=== PATIENT | male | born 1940 | race Caucasian/White ===

== ENCOUNTER 2017-12-05 16:45 | Inpatient (IN) | payer MEDICARE, MEDICAID ==
--- NOTE | 2017-12-05 17:05 | ED Physician Chart ---
ED Chief Complaint/HPI - Patient Information Date Seen:: 12/05/17 Time Seen:: 16:45 Chief Complaint:: Agitation History of Present Illness:: onset x 3 days of agitation and hostile behavior; no report of trauma, SIs, H/As , neck pain, C/P, SOB, Abd. pain, A/N/V/D/C, fever, chills, or urinary s/s Historian:: Patient, EMS Review:: Nurse's Note Reviewed, Old Chart Reviewed, EMS run form Reviewed ED Review of Systems - Review of Systems General/Constitutional: No fever, No chills, No weight loss, No weakness, No diaphoresis, No edema, No loss of appetite Skin: No skin lesions, No rash, No bruising Head: No headache, No light-headedness Eyes: No loss of vision, No pain, No diplopia ENT: No earache, No nasal drainage, No sore throat, No tinnitus Neck: No neck pain, No swelling, No thyromegaly, No stiffness, No mass noted Cardio Vascular: No chest pain, No palpitations, No PND, No orthopnea, No edema Pulmonary: No SOB, No cough, No sputum, No wheezing GI: No nausea, No vomiting, No diarrhea, No pain, No melena, No hematochezia, No constipation, No hematemesis G/U: No dysuria, No frequency, No hematuria, No nacturia Musculoskeletal: No bone or joint pain, No back pain, No muscle pain Endocrine: No polyuria, No polydipsia Psychiatric: Prior psych history, Depression, Anxiety, No suicidal ideation, No homicidal ideation, No auditory hallucination, No visual hallucination Hematopoietic: No bruising, No lymphadenopathy Allergic/Immuno: No urticaria, No angioedema Neurological: No syncope, No focal symptoms, No weakness, No paresthesia, No headache, No seizure, No dizziness, No confusion, No vertigo ED Past Medical History - Past Medical History Obtainable: Yes Past Medical History: HTN, CAD, Dyslipidemia, PUD/GERD, Dementia Family History: HTN Social History: Non Smoker, No Alcohol, No Drug Use, Single, Care Facility Surgical History: None Psychiatricy History: Depression, Bipolar, Dementia Medication: Reviewed Family Medical History - Family Member Mother Sister History Unknown: Yes ED Physical Exam - Physical Examination General/Constitutional: Awake, Well-developed, well-nourished, Alert, No distress, GCS 15, Non-toxic appearing, Ambulatory Head: Atraumatic Eyes: Lids, conjuctiva normal, PERRL, EOMI Skin: Nl inspection, No rash, No skin lesions, No ecchymosis, Well hydrated, No lymphadenopathy ENMT: External ears, nose nl, TM canals nl, Nasal exam nl, Lips, teeth, gums nl , Oropharynx nl, Tonsils nl Neck: Nontender, Full ROM w/o pain, No JVD, No nuchal rigidity, No bruit, No mass, No stridor Respiratory: Nl effort/Exclusion, Clear to Auscultation, No Wheeze/Rhonchi/Rales Cardio Vascular: RRR, No murmur, gallop, rubs, NL S1 S2, Carotid/Femoral/Distal pulses equal bilaterally GI: No tenderness/rebounding/guarding, No organomegaly, No hernia, Normal BS's, Nondistended, No mass/bruits, No McBurney tenderness : No CVA tenderness Extremities: No tenderness or effusion, Full ROM, normal strength in all extremities, No edema, Normal digits & nails Neuro/Psych: Alert/oriented, DTR's symmetric, Normal sensory exam, Normal motor strength, Judgement/insight normal, Mood normal, Normal gait, No focal deficits Other Neuro/Psych comments:: + Psychomotor Agitation; no SIs; Mood/Affect: Labile Misc: Normal back, No paraspinal tenderness ED Labs/Radiology/EKG Results - Lab Results Comments:: unremarkable - EKG Interpretations EKG Time:: 18:16 Rate & Rhythm: 76; NSR Comments:: old ASMI; LVH; non-specific st-t changes ED Septic Shock - . Is Septic Shock (SBP<90, OR Lactate>4 mmol\L) present?: No ED Reassessment (Disposition) - Reassessment Reassessment Condition:: Improved - Diagnosis Diagnosis:: Dx: Agitation; Psychosis; Bipolar Disorder; Medical Clearance - Aftercare/Follow up Instructions Aftercare/Follow-Up Instructions:: Counseled pt regarding lab results/diagnosis & need follow up, Counseled pt & family regarding lab results/diagnosis & need follow up - Patient Disposition Discharge/Transfer:: Acute Care w/in this hosp Admitted to:: [facility] Condition at Disposition:: Stable, Improved
[2017-12-05] MEDS ORDERED: Haloperidol Lactate 5 mg/mL 1mL Vial IM STA (17:13)
[2017-12-05] MEDS ORDERED: Haloperidol Lactate 5 mg/mL 1mL Vial ONE (17:16)
[2017-12-05 18:28] LABS: BASOPHILE ABSOLUTE 0.1 Th/cumm (0-0.2); EOSINOPHILE ABSOLUTE 0.2 Th/cmm (0.1-0.4); HEMATOCRIT 36.3 % (41.0-60); HEMOGLOBIN 12.2 gm/dL (12-16); MEAN CELL VOLUME 93.1 fl (80-99); MEAN CORPUSCULAR HEMOGLOBIN 31.4 pg (27.0-31.0); MEAN CORPUSCULAR HGB CONC 33.7 pg (28.0-36.0); MEAN PLATELET VOLUME 8.1 fl; MONOCYTE ABSOLUTE 0.9 Th/cmm (0.3-1.0); NEUTROPHILE ABSOLUTE 3.5 Th/cmm (1.8-8.0); PLATELET COUNT 217 Th/cmm (150-400); WHITE BLOOD COUNT 5.7 Th/cmm (4.8-10.8)
[2017-12-05 18:53] LABS: ACETAMINOPHEN < 10.0 ug/mL (10.0-30.0); ALB/GLOB RATIO 1.3 (1.0-1.8); ALBUMIN 3.7 gm/dL (4.2-5.5); ALKALINE PHOSPHATASE 47 U/L (34-104); ANION GAP 8.9 (7.0-16.0); BILIRUBIN,TOTAL 0.3 mg/dL (0.3-1.0); BUN - UREA NITROGEN 20 mg/dL (7-25); CALCIUM SERUM 8.9 mg/dL (8.6-10.3); CARBON DIOXIDE 29.1 mEq/L (21.0-31.0); CHLORIDE 102 mEq/L (98-107); CHOLESTEROL 115 mg/dL (<200); CREATININE - SERUM 1.1 mg/dL (0.7-1.3); GLUCOSE 99 mg/dL (70-105); HDL -HIGH DENSITY LIPOPROTEIN 33 mg/dL (23-92); SALICYLATES (ASPIRIN) < 25.0 mg/L (30.0-100.0); SGOT 15 U/L (13-39); SGPT/ALT 10 U/L (7-52); SODIUM SERUM 136 mEq/L (136-145); TOTAL PROTEIN,SERUM 6.5 gm/dL (6.0-8.3); TRIGLYCERIDES 115 mg/dL (<150)
[2017-12-05 18:59] LABS: % EOSINOPHILS 3.8 % (0.0-5.0); % LYMPHOCYTES 20.3 % (20.0-50.0); % MONOCYTES 13.5 % (2.0-10.0); % NEUTROPHILS 61.4 % (40.0-80.0)
[2017-12-05 19:43] LABS: A1C % 5.9 % (4.0-6.0)
[2017-12-05 20:25] VITALS: BP 116/63
[2017-12-06] MEDS ORDERED: MINERAL OIL ENEMA 135 ML BOTTLE RC PRN (11:36)
[2017-12-06] MEDS ORDERED: Magnesium Hydroxide (MOM) 30 mL UDC PO PRN (11:36)
--- NOTE | 2017-12-06 14:50 | Internal Medicine Prog Note ---
Internal Medicine Subjective - Subjective Service Date: 12/06/17 ([facility] [id number]) Internal Medicine Objective - Results Result Diagrams: 12/05/17 18:16 12/05/17 18:16 Recent Labs: Laboratory Last Values WBC 5.7 Th/cmm (4.8-10.8) 12/05/17 18:16 RBC 3.90 Mil/cmm (3.80-5.80) 12/05/17 18:16 Hgb 12.2 gm/dL (12-16) 12/05/17 18:16 Hct 36.3 % (41.0-60) L 12/05/17 18:16 MCV 93.1 fl (80-99) 12/05/17 18:16 MCH 31.4 pg (27.0-31.0) H 12/05/17 18:16 MCHC Differential 33.7 pg (28.0-36.0) 12/05/17 18:16 RDW 12.0 % (11.5-20.0) 12/05/17 18:16 Plt Count 217 Th/cmm (150-400) 12/05/17 18:16 MPV 8.1 fl 12/05/17 18:16 Neutrophils % 61.4 % (40.0-80.0) 12/05/17 18:16 Lymphocytes % 20.3 % (20.0-50.0) 12/05/17 18:16 Monocytes % 13.5 % (2.0-10.0) H 12/05/17 18:16 Eosinophils % 3.8 % (0.0-5.0) 12/05/17 18:16 Basophils % 1.0 % (0.0-2.0) 12/05/17 18:16 Sodium 136 mEq/L (136-145) 12/05/17 18:16 Potassium 4.0 mEq/L (3.5-5.1) 12/05/17 18:16 Chloride 102 mEq/L (98-107) 12/05/17 18:16 Carbon Dioxide 29.1 mEq/L (21.0-31.0) 12/05/17 18:16 Anion Gap 8.9 (7.0-16.0) 12/05/17 18:16 BUN 20 mg/dL (7-25) 12/05/17 18:16 Creatinine 1.1 mg/dL (0.7-1.3) 12/05/17 18:16 Est GFR ( Amer) TNP 12/05/17 18:16 Est GFR (Non-Af Amer) TNP 12/05/17 18:16 BUN/Creatinine Ratio 18.2 12/05/17 18:16 Glucose 99 mg/dL (70-105) 12/05/17 18:16 Hemoglobin A1c % 5.9 % (4.0-6.0) 12/05/17 18:16 Calcium 8.9 mg/dL (8.6-10.3) 12/05/17 18:16 Total Bilirubin 0.3 mg/dL (0.3-1.0) 12/05/17 18:16 AST 15 U/L (13-39) 12/05/17 18:16 ALT 10 U/L (7-52) 12/05/17 18:16 Alkaline Phosphatase 47 U/L (34-104) 12/05/17 18:16 Total Protein 6.5 gm/dL (6.0-8.3) 12/05/17 18:16 Albumin 3.7 gm/dL (4.2-5.5) L 12/05/17 18:16 Globulin 2.8 gm/dL 12/05/17 18:16 Albumin/Globulin Ratio 1.3 (1.0-1.8) 12/05/17 18:16 Triglycerides 115 mg/dL (<150) 12/05/17 18:16 Cholesterol 115 mg/dL (<200) 12/05/17 18:16 LDL Cholesterol Direct 58 mg/dL (75-193) L 12/05/17 18:16 HDL Cholesterol 33 mg/dL (23-92) 12/05/17 18:16 TSH 3.22 uIU/ml (0.34-5.60) 12/05/17 18:16 Salicylates < 25.0 mg/L (30.0-100.0) L 12/05/17 18:16 Acetaminophen < 10.0 ug/mL (10.0-30.0) L 12/05/17 18:16 Ethyl Alcohol < 10 mg/dL (0-10) 12/05/17 18:16 - Physical Exam Vitals and I&O: Vital Signs Temp 98 F 12/06/17 06:32 Pulse 94 12/06/17 06:32 Resp 20 12/06/17 06:32 BP 141/84 12/06/17 06:32 Pulse Ox 98 12/06/17 06:32 Intake & Output 12/05/17 12/06/17 12/06/17 18:59 06:59 18:59 Intake Total 120 Balance 120 Intake: Oral 120 Other: # Voids 3 # Bowel Movements 1 Active Medications: Current Medications Atorvastatin Calcium (Lipitor) 10 mg PO HS ALEXANDRU PRN Reason: Protocol Stop: 02/04/18 20:59 Bisacodyl (Dulcolax 10 Mg Supp) mg RC DAILY PRN PRN Reason: Constipation Stop: 02/04/18 11:35 Cyanocobalamin (Vitamin B12) 1,000 mcg PO DAILY ALEXANDRU Stop: 02/05/18 08:59 Divalproex Sodium (Depakote Sprinkle) mg PO DAILY ALEXANDRU PRN Reason: Protocol Stop: 02/05/18 08:59 Divalproex Sodium (Depakote Sprinkle) 250 mg PO DAILY ALEXANDRU PRN Reason: Protocol Stop: 02/05/18 08:59 Divalproex Sodium (Depakote Sprinkle) 500 mg PO HS ALEXANDRU PRN Reason: Protocol Stop: 02/04/18 20:59 Furosemide (Lasix) mg PO DAILY ALEXANDRU Stop: 02/05/18 08:59 Furosemide (Lasix) 20 mg PO DAILY ALEXANDRU Stop: 02/05/18 08:59 Lorazepam (Ativan) 0.5 mg PO Q8H PRN; Protocol PRN Reason: Anxiety Stop: 02/04/18 11:35 Magnesium Hydroxide (Milk Of Magnesia) 30 ml PO Q2D PRN PRN Reason: Constipation Stop: 02/04/18 11:35 Memantine (Namenda) mg PO DAILY ALEXANDRU Stop: 02/05/18 08:59 Memantine (Namenda) 5 mg PO DAILY ALEXANDRU Stop: 02/05/18 08:59 Mineral Oil (Fleet Mineral Oil) ml RC Q2D PRN PRN Reason: Constipation Stop: 02/04/18 11:35 Mirtazapine (Remeron) mg PO HS ALEXANDRU PRN Reason: Protocol Stop: 02/04/18 20:59 Miscellaneous (Cholecalciferol (Vitamin D3) [Vitamin D3]) 1 tab PO DAILY ALEXANDRU Stop: 02/05/18 08:59 Miscellaneous (Lactulose [Lactulose]) 5 ml PO DAILY ALEXANDRU Stop: 02/05/18 08:59 Miscellaneous (Levothyroxine Sodium [Levo-T]) 1 tab PO DAILY ALEXANDRU Stop: 02/05/18 08:59 Miscellaneous (Melatonin/Pyridoxine [Melatonin 3 Mg Tablet]) 1 tab PO HS ALEXANDRU Stop: 02/04/18 20:59 Miscellaneous (Multivitamin-Min/Iron/Fa/Vit K [Multi-Day Plus Minerals Tablet]) 1 tab PO DAILY ALEXANDRU Stop: 02/05/18 08:59 Polyethylene Glycol (Miralax) gm PO DAILY ALEXANDRU Stop: 02/05/18 08:59 Potassium Chloride (Potassium Chloride Elixir) 20 meq PO DAILY ALEXANDRU Stop: 02/05/18 08:59 Quetiapine Fumarate (Seroquel) mg PO [facility] PRN Reason: Protocol Stop: 02/04/18 20:59 Quetiapine Fumarate (Seroquel) mg PO [facility] PRN Reason: Protocol Stop: 02/05/18 08:59
--- NOTE | 2017-12-06 16:29 | History & Physical ---
ADMIT DATE: 12/06/2017 CHIEF COMPLAINT: Agitation. HISTORY OF PRESENT ILLNESS: This is a 77-year-old male who has a 3-day history of agitation, hostile behavior towards the nursing staff. PAST MEDICAL HISTORY: Hypertension, CAD, dyslipidemia, GERD, dementia. FAMILY HISTORY: Noncontributory. SOCIAL HISTORY: The patient is a retirement resident requiring 24-hour nursing care. MEDICATIONS: Please see medication list. REVIEW OF SYSTEMS: GENERAL: Denies any fevers and chills. CARDIOVASCULAR: Denies chest pain. RESPIRATORY: Denies shortness of breath. GASTROINTESTINAL: Denies nausea, vomiting, abdominal pain. GENITOURINARY: Denies any increased frequency or dysuria. NEUROLOGIC: No headaches, seizures, or syncope. All other systems are reviewed and are negative. PHYSICAL EXAMINATION: GENERAL: The patient is well developed, well nourished, no acute distress. VITAL SIGNS: Temperature 98, heart rate 94, blood pressure 141/84, respirations 20, O2 98%. HEENT: Head; normocephalic, atraumatic. NECK: Supple. No mass. LUNGS: Clear bilaterally. HEART: Regular rate and rhythm. ABDOMEN: Soft, nontender. LABORATORY DATA: WBC 5.7, H and H 12.2 and 36.3, platelet of 217. Sodium 136, potassium 4.0, chloride 102, BUN 20, creatinine 1.1. ASSESSMENT: Hypertension, coronary artery disease , dyslipidemia, gastroesophageal reflux disease, dementia, and agitation. PLAN: Monitor the patient's blood pressure. We will adjust patient's blood pressure medications accordingly. We will continue to follow this patient. JOB# [id number]
--- NOTE | 2017-12-06 18:04 | Psychosocial Evaluation ---
DATE OF SERVICE: 12/06/2017 IDENTIFYING DATA: The patient is a 77-year-old male, resident of the [facility]. Information obtained by directly interviewing the patient as well as reviewing the admission papers. JUSTIFICATION OF HOSPITALIZATION: The patient is admitted on a 5150 as being gravely disabled and danger to others. CHIEF COMPLAINT: "I don't care." HISTORY OF PRESENT ILLNESS: This is the first psychiatric hospitalization to [facility] for this patient who is reported to have been getting out of control, screaming and yelling. The patient has been having difficult time to cope with the stress. The patient has been currently on Seroquel, Depakote, and Ativan and is not able to contract for safety and hence the patient has to be brought over here for stabilization. PAST PSYCHIATRIC HISTORY: Details are not known. MEDICAL HISTORY/PHYSICAL EXAMINATION: Requested and done by Dr. Melecio Waite. SUBSTANCE ABUSE HISTORY: None. PHYSICAL OR SEXUAL ABUSE HISTORY: None. LEGAL PROBLEMS: None at this time. STRENGTH AND ASSETS: The patient is motivated. MENTAL STATUS EXAMINATION: The patient is a 77-year-old, looking his stated age, superficially cooperative. Eye contact is poor. Mood is noted to be irritable. Affect is constricted. Coping skills are noted to be extremely poor. The patient has been having difficult time to cope with the stress. The patient has been having difficult time to follow the directions. The patient has paranoia, but denies any command hallucinations. The patient's short-term and long-term are noted to be impaired. The patient has to be given medication to calm him down at this time. The patient's behavior is likely a danger to others. DIAGNOSTIC IMPRESSION: AXIS I. 1. Dementia and behavioral change secondary to it. 2. Rule out schizoaffective disorder. AXIS II: None. AXIS III: As per Dr. Waite. IMMEDIATE TREATMENT PLAN: The patient is going to be observed on inpatient unit, provided with supportive psychotherapy. The patient is going to be encouraged to participate in the groups and verbalize the concerns rather than to act out. ESTIMATED LENGTH OF STAY: 3-5 days. DISCHARGE CRITERIA: The patient when not a danger to self and others. [facility]# [id number]
[2017-12-06] MEDS ORDERED: Non-Formulary Item 1 EA (Melatonin/Pyridoxine [Melatonin 3 Mg Tablet] 1 TAB) PO SCH (21:00)
[2017-12-06] MEDS: Atorvastatin Calcium 10 MG TAB PO SCH (21:18)
[2017-12-07] MEDS ORDERED: LEVOTHYROXINE SODIUM PO SCH (09:00)
[2017-12-07] MEDS: Potassium Chloride Elixir 20 mEq /15 mL UDC PO SCH (09:20)
[2017-12-07] MEDS: Multivitamin Tab PO SCH (09:23)
--- NOTE | 2017-12-07 12:49 | Internal Medicine Prog Note ---
Internal Medicine Subjective - Subjective Service Date: 12/07/17 Patient seen and examined:: with staff Patient is:: awake Per staff patient has:: tolerating meds Internal Medicine Objective - Results Result Diagrams: 12/05/17 18:16 12/05/17 18:16 Recent Labs: Laboratory Last Values WBC 5.7 Th/cmm (4.8-10.8) 12/05/17 18:16 RBC 3.90 Mil/cmm (3.80-5.80) 12/05/17 18:16 Hgb 12.2 gm/dL (12-16) 12/05/17 18:16 Hct 36.3 % (41.0-60) L 12/05/17 18:16 MCV 93.1 fl (80-99) 12/05/17 18:16 MCH 31.4 pg (27.0-31.0) H 12/05/17 18:16 MCHC Differential 33.7 pg (28.0-36.0) 12/05/17 18:16 RDW 12.0 % (11.5-20.0) 12/05/17 18:16 Plt Count 217 Th/cmm (150-400) 12/05/17 18:16 MPV 8.1 fl 12/05/17 18:16 Neutrophils % 61.4 % (40.0-80.0) 12/05/17 18:16 Lymphocytes % 20.3 % (20.0-50.0) 12/05/17 18:16 Monocytes % 13.5 % (2.0-10.0) H 12/05/17 18:16 Eosinophils % 3.8 % (0.0-5.0) 12/05/17 18:16 Basophils % 1.0 % (0.0-2.0) 12/05/17 18:16 Sodium 136 mEq/L (136-145) 12/05/17 18:16 Potassium 4.0 mEq/L (3.5-5.1) 12/05/17 18:16 Chloride 102 mEq/L (98-107) 12/05/17 18:16 Carbon Dioxide 29.1 mEq/L (21.0-31.0) 12/05/17 18:16 Anion Gap 8.9 (7.0-16.0) 12/05/17 18:16 BUN 20 mg/dL (7-25) 12/05/17 18:16 Creatinine 1.1 mg/dL (0.7-1.3) 12/05/17 18:16 Est GFR ( Amer) TNP 12/05/17 18:16 Est GFR (Non-Af Amer) TNP 12/05/17 18:16 BUN/Creatinine Ratio 18.2 12/05/17 18:16 Glucose 99 mg/dL (70-105) 12/05/17 18:16 Hemoglobin A1c % 5.9 % (4.0-6.0) 12/05/17 18:16 Calcium 8.9 mg/dL (8.6-10.3) 12/05/17 18:16 Total Bilirubin 0.3 mg/dL (0.3-1.0) 12/05/17 18:16 AST 15 U/L (13-39) 12/05/17 18:16 ALT 10 U/L (7-52) 12/05/17 18:16 Alkaline Phosphatase 47 U/L (34-104) 12/05/17 18:16 Total Protein 6.5 gm/dL (6.0-8.3) 12/05/17 18:16 Albumin 3.7 gm/dL (4.2-5.5) L 12/05/17 18:16 Globulin 2.8 gm/dL 12/05/17 18:16 Albumin/Globulin Ratio 1.3 (1.0-1.8) 12/05/17 18:16 Triglycerides 115 mg/dL (<150) 12/05/17 18:16 Cholesterol 115 mg/dL (<200) 12/05/17 18:16 LDL Cholesterol Direct 58 mg/dL (75-193) L 12/05/17 18:16 HDL Cholesterol 33 mg/dL (23-92) 12/05/17 18:16 TSH 3.22 uIU/ml (0.34-5.60) 12/05/17 18:16 Salicylates < 25.0 mg/L (30.0-100.0) L 12/05/17 18:16 Acetaminophen < 10.0 ug/mL (10.0-30.0) L 12/05/17 18:16 Ethyl Alcohol < 10 mg/dL (0-10) 04/04/18 18:16 RPR NONREACTIVE (NONREACTIVE) 12/05/17 18:16 - Physical Exam Vitals and I&O: Vital Signs Temp 97.5 F 12/06/17 14:30 Pulse 93 12/06/17 14:30 Resp 18 12/06/17 14:30 BP 126/71 12/07/17 09:20 Pulse Ox 97 12/06/17 14:30 Active Medications: Current Medications Atorvastatin Calcium (Lipitor) 10 mg PO HS ALEXANDRU PRN Reason: Protocol Stop: 02/04/18 20:59 Last Admin: 12/06/17 21:18 Dose: 10 mg Bisacodyl (Dulcolax 10 Mg Supp) 10 mg RC DAILY PRN PRN Reason: Constipation Stop: 02/04/18 11:35 Cholecalciferol (Vitamin D3) 1,000 iu PO DAILY ALEXANDRU Stop: 02/05/18 09:59 Cyanocobalamin (Vitamin B12) 1,000 mcg PO DAILY ALEXANDRU Stop: 02/05/18 08:59 Last Admin: 12/07/17 09:20 Dose: 1,000 mcg Divalproex Sodium (Depakote Sprinkle) 250 mg PO DAILY ALEXANDRU PRN Reason: Protocol Stop: 02/05/18 08:59 Last Admin: 12/07/17 09:21 Dose: 250 mg Divalproex Sodium (Depakote Sprinkle) 500 mg PO HS ALEXANDRU PRN Reason: Protocol Stop: 02/04/18 20:59 Last Admin: 12/06/17 21:18 Dose: 500 mg Furosemide (Lasix) 20 mg PO DAILY ALEXANDRU Stop: 02/05/18 08:59 Last Admin: 12/07/17 09:20 Dose: 20 mg Lactulose (Cephulac) 10 gm PO DAILY ALEXANDRU Stop: 02/05/18 08:59 Levothyroxine Sodium 0.1 mg/ (Levothyroxine Sodium 0.05 mg) 0.15 mg PO QDAC ALEXANDRU Stop: 02/05/18 09:59 Lorazepam (Ativan) 0.5 mg PO Q8H PRN; Protocol PRN Reason: Anxiety Stop: 02/04/18 11:35 Last Admin: 12/06/17 15:33 Dose: 0.5 mg Magnesium Hydroxide (Milk Of Magnesia) 30 ml PO Q2D PRN PRN Reason: Constipation Stop: 02/04/18 11:35 Memantine (Namenda) 5 mg PO DAILY ALEXANDRU Stop: 02/05/18 08:59 Last Admin: 12/07/17 09:20 Dose: 5 mg Mineral Oil (Fleet Mineral Oil) 135 ml RC Q2D PRN PRN Reason: Constipation Stop: 02/04/18 11:35 Mirtazapine (Remeron) 15 mg PO HS ALEXANDRU PRN Reason: Protocol Stop: 02/04/18 20:59 Last Admin: 12/06/17 21:19 Dose: 15 mg Multivitamins/Vitamin C (Theragran) 1 tab PO DAILY ALEXANDRU Stop: 02/05/18 08:59 Last Admin: 12/07/17 09:23 Dose: 1 tab Polyethylene Glycol (Miralax) 17 gm PO DAILY ALEXANDRU Stop: 02/05/18 09:59 Potassium Chloride (Potassium Chloride Elixir) 20 meq PO DAILY ALEXANDRU Stop: 02/05/18 08:59 Last Admin: 12/07/17 09:20 Dose: 20 meq Quetiapine Fumarate (Seroquel) 50 mg PO BID ALEXANDRU PRN Reason: Protocol Stop: 02/04/18 16:59 Last Admin: 12/07/17 09:22 Dose: 50 mg Quetiapine Fumarate (Seroquel) 100 mg PO HS ALEXANRDU PRN Reason: Protocol Stop: 02/04/18 20:59 Last Admin: 12/06/17 21:17 Dose: 100 mg General: alert HEENT: NC/AT, PERRLA Neck: Supple Lungs: CTAB Cardiovascular: RRR Abdomen: soft, non-tender, non-distended, positive bowel sound Neurological: no change Internal Medicine Assmt/Plan - Assessment Assessment: HTN CAD DYSLIPIDEMIA GERD DEMENTIA AGITATION - Plan Plan: ADJUST PATIENTS BP MEDS if needed cont with ppi continue current orders
[2017-12-07] MEDS: Lactulose 10 Gm/15 mL 30mL UDC PO SCH (16:10)
[2017-12-07] MEDS: POLYETHYLENE GLYCOL 3350 17 GM PACK PO SCH (16:11)
[2017-12-07] MEDS: Atorvastatin Calcium 10 MG TAB PO SCH (20:37)
--- NOTE | 2017-12-08 05:09 | Progress Notes ---
DATE: 12/07/2017 PSYCHIATRIC PROGRESS NOTE SUBJECTIVE: Staff was spoken to. The patient is interviewed. Mood is noted to be irritable. Affect is constricted. The patient's insight and judgment are very much impaired. Impulse control is noted to be poor. The patient has been screaming and yelling. The patient has to be given a dose of Ativan IM. The patient is currently on 50 mg twice a day of the Seroquel twice a day and 100 mg at bedtime. The patient has been able to tolerate the medications. No side effects to the medications are noted. The patient is also on 750 mg of the Depakote. The patient even with all the medications has been having difficult time to cope with the stress. ASSESSMENT: The patient is still having acute mood swings and confusion. PLAN: To continue the patient with the supportive therapy and followup. JOB# [id number]
[2017-12-08] MEDS: Multivitamin Tab PO SCH (08:06)
[2017-12-08] MEDS: Potassium Chloride Elixir 20 mEq /15 mL UDC PO SCH (08:06)
[2017-12-08] MEDS: POLYETHYLENE GLYCOL 3350 17 GM PACK PO SCH (08:06)
[2017-12-08] MEDS: Lactulose 10 Gm/15 mL 30mL UDC PO SCH (08:09)
[2017-12-08] MEDS ORDERED: Haloperidol Lactate 5 mg/mL 1mL Vial ONE (13:02)
[2017-12-08] MEDS ORDERED: Haloperidol Lactate 5 mg/mL 1mL Vial IM ONE (13:03)
--- NOTE | 2017-12-08 13:44 | Internal Medicine Prog Note ---
Internal Medicine Subjective - Subjective Service Date: 12/08/17 Patient seen and examined:: with staff Patient is:: awake Per staff patient has:: tolerating meds Internal Medicine Objective - Results Result Diagrams: 12/05/17 18:16 12/05/17 18:16 Recent Labs: Laboratory Last Values WBC 5.7 Th/cmm (4.8-10.8) 12/05/17 18:16 RBC 3.90 Mil/cmm (3.80-5.80) 12/05/17 18:16 Hgb 12.2 gm/dL (12-16) 12/05/17 18:16 Hct 36.3 % (41.0-60) L 12/05/17 18:16 MCV 93.1 fl (80-99) 12/05/17 18:16 MCH 31.4 pg (27.0-31.0) H 12/05/17 18:16 MCHC Differential 33.7 pg (28.0-36.0) 12/05/17 18:16 RDW 12.0 % (11.5-20.0) 12/05/17 18:16 Plt Count 217 Th/cmm (150-400) 12/05/17 18:16 MPV 8.1 fl 12/05/17 18:16 Neutrophils % 61.4 % (40.0-80.0) 12/05/17 18:16 Lymphocytes % 20.3 % (20.0-50.0) 12/05/17 18:16 Monocytes % 13.5 % (2.0-10.0) H 12/05/17 18:16 Eosinophils % 3.8 % (0.0-5.0) 12/05/17 18:16 Basophils % 1.0 % (0.0-2.0) 12/05/17 18:16 Sodium 136 mEq/L (136-145) 12/05/17 18:16 Potassium 4.0 mEq/L (3.5-5.1) 12/05/17 18:16 Chloride 102 mEq/L (98-107) 12/05/17 18:16 Carbon Dioxide 29.1 mEq/L (21.0-31.0) 12/05/17 18:16 Anion Gap 8.9 (7.0-16.0) 12/05/17 18:16 BUN 20 mg/dL (7-25) 12/05/17 18:16 Creatinine 1.1 mg/dL (0.7-1.3) 12/05/17 18:16 Est GFR ( Amer) TNP 12/05/17 18:16 Est GFR (Non-Af Amer) TNP 12/05/17 18:16 BUN/Creatinine Ratio 18.2 12/05/17 18:16 Glucose 99 mg/dL (70-105) 12/05/17 18:16 Hemoglobin A1c % 5.9 % (4.0-6.0) 12/05/17 18:16 Calcium 8.9 mg/dL (8.6-10.3) 12/05/17 18:16 Total Bilirubin 0.3 mg/dL (0.3-1.0) 12/05/17 18:16 AST 15 U/L (13-39) 12/05/17 18:16 ALT 10 U/L (7-52) 12/05/17 18:16 Alkaline Phosphatase 47 U/L (34-104) 12/05/17 18:16 Total Protein 6.5 gm/dL (6.0-8.3) 12/05/17 18:16 Albumin 3.7 gm/dL (4.2-5.5) L 12/05/17 18:16 Globulin 2.8 gm/dL 12/05/17 18:16 Albumin/Globulin Ratio 1.3 (1.0-1.8) 12/05/17 18:16 Triglycerides 115 mg/dL (<150) 12/05/17 18:16 Cholesterol 115 mg/dL (<200) 12/05/17 18:16 LDL Cholesterol Direct 58 mg/dL (75-193) L 12/05/17 18:16 HDL Cholesterol 33 mg/dL (23-92) 12/05/17 18:16 TSH 3.22 uIU/ml (0.34-5.60) 12/05/17 18:16 Salicylates < 25.0 mg/L (30.0-100.0) L 12/05/17 18:16 Acetaminophen < 10.0 ug/mL (10.0-30.0) L 12/05/17 18:16 Ethyl Alcohol < 10 mg/dL (0-10) 04/04/18 18:16 RPR NONREACTIVE (NONREACTIVE) 12/05/17 18:16 - Physical Exam Vitals and I&O: Vital Signs Temp 97.6 F 12/07/17 20:12 Pulse 91 12/07/17 20:12 Resp 19 12/07/17 20:12 BP 126/74 12/08/17 08:07 Pulse Ox 97 12/07/17 20:12 Intake & Output 12/07/17 12/08/17 12/08/17 18:59 06:59 18:59 Intake Total 900 120 Balance 900 120 Intake: Oral 900 120 Other: # Voids 4 1 # Bowel Movements 0 Active Medications: Current Medications Atorvastatin Calcium (Lipitor) 10 mg PO HS ALEXANDRU PRN Reason: Protocol Stop: 02/04/18 20:59 Last Admin: 12/07/17 20:37 Dose: 10 mg Bisacodyl (Dulcolax 10 Mg Supp) 10 mg RC DAILY PRN PRN Reason: Constipation Stop: 02/04/18 11:35 Cholecalciferol (Vitamin D3) 1,000 iu PO DAILY ALEXANDRU Stop: 02/05/18 09:59 Last Admin: 12/08/17 08:08 Dose: 1,000 iu Cyanocobalamin (Vitamin B12) 1,000 mcg PO DAILY ALEXANDRU Stop: 02/05/18 08:59 Last Admin: 12/08/17 08:08 Dose: 1,000 mcg Divalproex Sodium (Depakote Sprinkle) 250 mg PO DAILY ALEXANDRU PRN Reason: Protocol Stop: 02/05/18 08:59 Last Admin: 12/08/17 08:06 Dose: 250 mg Divalproex Sodium (Depakote Sprinkle) 500 mg PO HS ALEXANDRU PRN Reason: Protocol Stop: 02/04/18 20:59 Last Admin: 12/07/17 20:38 Dose: 500 mg Furosemide (Lasix) 20 mg PO DAILY ALEXANDRU Stop: 02/05/18 08:59 Last Admin: 12/08/17 08:07 Dose: 20 mg Lactulose (Cephulac) 10 gm PO DAILY ALEXANDRU Stop: 02/05/18 08:59 Last Admin: 12/08/17 08:09 Dose: 10 gm Levothyroxine Sodium 0.1 mg/ (Levothyroxine Sodium 0.05 mg) 0.15 mg PO QDAC ALEXANDRU Stop: 02/05/18 09:59 Last Admin: 12/08/17 06:48 Dose: 0.15 mg Lorazepam (Ativan) 0.5 mg PO Q6HR PRN; Protocol PRN Reason: Anxiety Stop: 02/05/18 16:03 Last Admin: 12/08/17 07:49 Dose: 0.5 mg Magnesium Hydroxide (Milk Of Magnesia) 30 ml PO Q2D PRN PRN Reason: Constipation Stop: 02/04/18 11:35 Memantine (Namenda) 5 mg PO DAILY ALEXANDRU Stop: 02/05/18 08:59 Last Admin: 12/08/17 08:07 Dose: 5 mg Mineral Oil (Fleet Mineral Oil) 135 ml RC Q2D PRN PRN Reason: Constipation Stop: 02/04/18 11:35 Mirtazapine (Remeron) 15 mg PO HS ALEXANDRU PRN Reason: Protocol Stop: 02/04/18 20:59 Last Admin: 12/07/17 20:38 Dose: 15 mg Multivitamins/Vitamin C (Theragran) 1 tab PO DAILY ALEXANDRU Stop: 02/05/18 08:59 Last Admin: 12/08/17 08:06 Dose: 1 tab Polyethylene Glycol (Miralax) 17 gm PO DAILY ALEXANDRU Stop: 02/05/18 09:59 Last Admin: 12/08/17 08:06 Dose: 17 gm Potassium Chloride (Potassium Chloride Elixir) 20 meq PO DAILY ALEXANDRU Stop: 02/05/18 08:59 Last Admin: 12/08/17 08:06 Dose: 20 meq Quetiapine Fumarate (Seroquel) 50 mg PO BID ALEXANDRU PRN Reason: Protocol Stop: 02/04/18 16:59 Last Admin: 12/08/17 08:07 Dose: 50 mg Quetiapine Fumarate (Seroquel) 100 mg PO HS ALEXANDRU PRN Reason: Protocol Stop: 02/04/18 20:59 Last Admin: 12/07/17 20:39 Dose: 100 mg General: alert HEENT: NC/AT, PERRLA Neck: Supple Lungs: CTAB Cardiovascular: RRR Abdomen: soft, non-tender, non-distended, positive bowel sound Neurological: no change Internal Medicine Assmt/Plan - Assessment Assessment: HTN CAD DYSLIPIDEMIA GERD DEMENTIA AGITATION - Plan Plan: ADJUST PATIENTS BP MEDS if needed cont with ppi continue current orders
--- NOTE | 2017-12-08 16:53 | Progress Notes ---
DATE: 12/08/2017 SUBJECTIVE: Staff was spoken to. The patient is interviewed. Mood is noted to be irritable. Affect is constricted. Coping skills at this time are noted to be poor. His sleep and appetite are also noted to be very poor. The patient has been screaming and yelling. The patient has been given 2 mg of Haldol, a 1 mg of Ativan IM. The patient has no insight into his illness. The patient is currently on 250 mg of the Depakote in the morning and 500 mg at bedtime and also is receiving the 50 mg twice a day of the Seroquel and 100 mg of the Seroquel at night time. Even with all the medication, the patient has been having difficult time to cope with the stress. ASSESSMENT: The patient is still impulsive and psychotic. PLAN: To continue the patient with the supportive therapy and followup. [facility]# [id number]
[2017-12-08] MEDS: Atorvastatin Calcium 10 MG TAB PO SCH (21:51)
[2017-12-09] MEDS: Lactulose 10 Gm/15 mL 30mL UDC PO SCH (09:24)
[2017-12-09] MEDS: POLYETHYLENE GLYCOL 3350 17 GM PACK PO SCH (09:25)
[2017-12-09] MEDS: Potassium Chloride Elixir 20 mEq /15 mL UDC PO SCH (09:26)
[2017-12-09] MEDS: Multivitamin Tab PO SCH (09:26)
--- NOTE | 2017-12-09 12:41 | Internal Medicine Prog Note ---
Internal Medicine Subjective - Subjective Service Date: 12/09/17 Patient is:: awake Per staff patient has:: tolerating meds Internal Medicine Objective - Results Result Diagrams: 12/05/17 18:16 12/05/17 18:16 Recent Labs: Laboratory Last Values WBC 5.7 Th/cmm (4.8-10.8) 12/05/17 18:16 RBC 3.90 Mil/cmm (3.80-5.80) 12/05/17 18:16 Hgb 12.2 gm/dL (12-16) 12/05/17 18:16 Hct 36.3 % (41.0-60) L 12/05/17 18:16 MCV 93.1 fl (80-99) 12/05/17 18:16 MCH 31.4 pg (27.0-31.0) H 12/05/17 18:16 MCHC Differential 33.7 pg (28.0-36.0) 12/05/17 18:16 RDW 12.0 % (11.5-20.0) 12/05/17 18:16 Plt Count 217 Th/cmm (150-400) 12/05/17 18:16 MPV 8.1 fl 12/05/17 18:16 Neutrophils % 61.4 % (40.0-80.0) 12/05/17 18:16 Lymphocytes % 20.3 % (20.0-50.0) 12/05/17 18:16 Monocytes % 13.5 % (2.0-10.0) H 12/05/17 18:16 Eosinophils % 3.8 % (0.0-5.0) 12/05/17 18:16 Basophils % 1.0 % (0.0-2.0) 12/05/17 18:16 Sodium 136 mEq/L (136-145) 12/05/17 18:16 Potassium 4.0 mEq/L (3.5-5.1) 12/05/17 18:16 Chloride 102 mEq/L (98-107) 12/05/17 18:16 Carbon Dioxide 29.1 mEq/L (21.0-31.0) 12/05/17 18:16 Anion Gap 8.9 (7.0-16.0) 12/05/17 18:16 BUN 20 mg/dL (7-25) 12/05/17 18:16 Creatinine 1.1 mg/dL (0.7-1.3) 12/05/17 18:16 Est GFR ( Amer) TNP 12/05/17 18:16 Est GFR (Non-Af Amer) TNP 12/05/17 18:16 BUN/Creatinine Ratio 18.2 12/05/17 18:16 Glucose 99 mg/dL (70-105) 12/05/17 18:16 Hemoglobin A1c % 5.9 % (4.0-6.0) 12/05/17 18:16 Calcium 8.9 mg/dL (8.6-10.3) 12/05/17 18:16 Total Bilirubin 0.3 mg/dL (0.3-1.0) 12/05/17 18:16 AST 15 U/L (13-39) 12/05/17 18:16 ALT 10 U/L (7-52) 12/05/17 18:16 Alkaline Phosphatase 47 U/L (34-104) 12/05/17 18:16 Total Protein 6.5 gm/dL (6.0-8.3) 12/05/17 18:16 Albumin 3.7 gm/dL (4.2-5.5) L 12/05/17 18:16 Globulin 2.8 gm/dL 12/05/17 18:16 Albumin/Globulin Ratio 1.3 (1.0-1.8) 12/05/17 18:16 Triglycerides 115 mg/dL (<150) 12/05/17 18:16 Cholesterol 115 mg/dL (<200) 12/05/17 18:16 LDL Cholesterol Direct 58 mg/dL (75-193) L 12/05/17 18:16 HDL Cholesterol 33 mg/dL (23-92) 12/05/17 18:16 TSH 3.22 uIU/ml (0.34-5.60) 12/05/17 18:16 Salicylates < 25.0 mg/L (30.0-100.0) L 12/05/17 18:16 Acetaminophen < 10.0 ug/mL (10.0-30.0) L 12/05/17 18:16 Ethyl Alcohol < 10 mg/dL (0-10) 12/05/17 18:16 RPR NONREACTIVE (NONREACTIVE) 12/05/17 18:16 - Physical Exam Vitals and I&O: Vital Signs Temp 97.2 F 12/09/17 06:34 Pulse 71 12/09/17 06:34 Resp 20 12/09/17 06:34 BP 133/76 12/09/17 09:27 Pulse Ox 98 12/09/17 06:34 Intake & Output 12/08/17 12/09/17 12/09/17 18:59 06:59 18:59 Intake Total 1000 120 Balance 1000 120 Intake: Oral 1000 120 Other: # Voids 4 3 # Bowel Movements 1 Active Medications: Current Medications Atorvastatin Calcium (Lipitor) 10 mg PO HS ALEXANDRU PRN Reason: Protocol Stop: 02/04/18 20:59 Last Admin: 12/08/17 21:51 Dose: 10 mg Bisacodyl (Dulcolax 10 Mg Supp) 10 mg RC DAILY PRN PRN Reason: Constipation Stop: 02/04/18 11:35 Cholecalciferol (Vitamin D3) 1,000 iu PO DAILY ALEXANDRU Stop: 02/05/18 09:59 Last Admin: 12/09/17 09:26 Dose: 1,000 iu Cyanocobalamin (Vitamin B12) 1,000 mcg PO DAILY ALEXANDRU Stop: 02/05/18 08:59 Last Admin: 12/09/17 09:26 Dose: 1,000 mcg Divalproex Sodium (Depakote Sprinkle) 250 mg PO DAILY ALEXANDRU PRN Reason: Protocol Stop: 02/05/18 08:59 Last Admin: 12/09/17 09:26 Dose: 250 mg Divalproex Sodium (Depakote Sprinkle) 500 mg PO HS ALEXANDRU PRN Reason: Protocol Stop: 02/04/18 20:59 Last Admin: 12/08/17 21:54 Dose: 500 mg Furosemide (Lasix) 20 mg PO DAILY ALEXANDRU Stop: 02/05/18 08:59 Last Admin: 12/09/17 09:27 Dose: 20 mg Lactulose (Cephulac) 10 gm PO DAILY ALEXANDRU Stop: 02/05/18 08:59 Last Admin: 12/09/17 09:24 Dose: 10 gm Levothyroxine Sodium 0.1 mg/ (Levothyroxine Sodium 0.05 mg) 0.15 mg PO QDAC ALEXANDRU Stop: 02/05/18 09:59 Last Admin: 12/09/17 06:32 Dose: 0.15 mg Lorazepam (Ativan) 0.5 mg PO Q6HR PRN; Protocol PRN Reason: Anxiety Stop: 02/05/18 16:03 Last Admin: 12/08/17 07:49 Dose: 0.5 mg Magnesium Hydroxide (Milk Of Magnesia) 30 ml PO Q2D PRN PRN Reason: Constipation Stop: 02/04/18 11:35 Memantine (Namenda) 5 mg PO DAILY ALEXANDRU Stop: 02/05/18 08:59 Last Admin: 12/09/17 09:26 Dose: 5 mg Mineral Oil (Fleet Mineral Oil) 135 ml RC Q2D PRN PRN Reason: Constipation Stop: 02/04/18 11:35 Mirtazapine (Remeron) 15 mg PO HS ALEXANDRU PRN Reason: Protocol Stop: 02/04/18 20:59 Last Admin: 12/08/17 21:25 Dose: 15 mg Multivitamins/Vitamin C (Theragran) 1 tab PO DAILY ALEXANDRU Stop: 02/05/18 08:59 Last Admin: 12/09/17 09:26 Dose: 1 tab Polyethylene Glycol (Miralax) 17 gm PO DAILY ALEXANDRU Stop: 02/05/18 09:59 Last Admin: 12/09/17 09:25 Dose: 17 gm Potassium Chloride (Potassium Chloride Elixir) 20 meq PO DAILY ALEXANDRU Stop: 02/05/18 08:59 Last Admin: 12/09/17 09:26 Dose: 20 meq Quetiapine Fumarate (Seroquel) 50 mg PO BID ALEXANDRU PRN Reason: Protocol Stop: 02/04/18 16:59 Last Admin: 12/09/17 09:25 Dose: 50 mg Quetiapine Fumarate (Seroquel) 100 mg PO HS ALEXANDRU PRN Reason: Protocol Stop: 02/04/18 20:59 Last Admin: 12/08/17 21:53 Dose: 100 mg General: alert HEENT: NC/AT, PERRLA Neck: Supple Lungs: CTAB Cardiovascular: RRR Abdomen: soft, non-tender, non-distended, positive bowel sound Neurological: no change Internal Medicine Assmt/Plan - Assessment Assessment: HTN CAD DYSLIPIDEMIA GERD DEMENTIA AGITATION - Plan Plan: ADJUST PATIENTS BP MEDS if needed cont with ppi continue current orders
--- NOTE | 2017-12-09 12:54 | Consultation ---
DATE OF CONSULTATION: 12/09/2017 REQUESTING PHYSICIAN: Bravo Thomson M.D. TYPE OF CONSULTATION: Psychology. HISTORY OF PRESENT ILLNESS: The patient is a 77-year-old male who is a resident of [facility]. The following is by review of the medical record and by patient's self report. The patient is being admitted on a 5150 as being gravely disabled and a danger to others. Upon interview, the patient presents as difficult to redirect, cognitively and behaviorally. The staff at the patient's facility report that he was screaming and yelling and getting out of control. The patient was mostly resistant to the clinical interview questions. The patient did not answer the question about suicidal ideation, plan, or intention. However, the record indicates passive suicide ideation verbalized. The patient is unable to contract for safety at this time. PAST MEDICAL HISTORY: Please see history and physical by Dr. Waite. PAST PSYCHIATRIC HISTORY: Details are unknown. SUBSTANCE ABUSE HISTORY: None. CURRENT MEDICATIONS: Please see admission medication reconciliation. PSYCHOSOCIAL HISTORY: The patient is a resident of [facility]. The patient did not answer questions about physical or sexual abuse history or legal problems. The patient did not answer questions about occupational history or educational history or mormonism affiliation. The patient is mostly stating that he wishes to return to his [place] [facility] facility. MENTAL STATUS EXAMINATION: The patient appears to be his stated age. The patient's attitude is superficially cooperative, but difficult to cognitively redirect. Eye contact is poor. Speech is pressured and rambling. Mood is irritable. Affect is constricted. The patient denied any auditory or visual hallucinations. There are signs of possible paranoid ideation. The patient denied any suicidal ideation, plan, or intention. However, the patient is being admitted due to verbalization of self harm to the staff at his facility. Impulse control is inadequate. Concentration is poor. The patient did not participate in the memory assessment. Sensorium is alert and oriented to person and place. The patient was unable to verbally contract for no self-harm. The patient did not participate in the interpretation of proverbs. Insight is poor. Judgment is poor. DIAGNOSTIC IMPRESSION: AXIS I: 1. Dementia with behavioral disturbance. 2. Rule out schizoaffective disorder. AXIS II: Deferred. AXIS III: Please see history and physical by Dr. Waite. TREATMENT PLAN: The patient has been seen by Dr. Thomson for psychiatric evaluation and for the management of the patient's psychotropic medications. We will provide a simple de-escalation skill to reduce the patient's verbally acting out. We will provide motivational enhancement for the patient to become compliant with all aspects of his care and treatment plan. We will continue to provide an opportunity for the patient to verbally contract for no self-harm or harm to others. We will provide coping strategies for phase of life issues and continue supportive therapy during the course of his hospital stay. Thank you Dr. Thomson for this consult and the opportunity to participate with you in this patient's care. [facility]# [id number]
--- NOTE | 2017-12-09 17:07 | Progress Notes ---
DATE: 12/09/2017 SUBJECTIVE: Staff was spoken to. The patient is interviewed. Mood is noted to be irritable. Affect is constricted. Insight and judgment is noted to be still impaired. Impulse control is noted to be poor. The patient has been having acute mood swings. The patient is still confused and sundowning is a concern for this patient and the patient gets easily upset towards the end of the day. No side effects to the medications are noted. ASSESSMENT: The patient is still having acute mood swings and paranoia. PLAN: To continue the patient with the supportive therapy and followup. JOB# [id number]
[2017-12-09] MEDS: Atorvastatin Calcium 10 MG TAB PO SCH (21:09)
[2017-12-10] MEDS: Multivitamin Tab PO SCH (10:29)
[2017-12-10] MEDS: Potassium Chloride Elixir 20 mEq /15 mL UDC PO SCH (10:29)
[2017-12-10] MEDS: Lactulose 10 Gm/15 mL 30mL UDC PO SCH (10:29)
[2017-12-10] MEDS: POLYETHYLENE GLYCOL 3350 17 GM PACK PO SCH (10:30)
--- NOTE | 2017-12-10 13:16 | Internal Medicine Prog Note ---
Internal Medicine Subjective - Subjective Service Date: 12/10/17 Patient is:: awake Per staff patient has:: tolerating meds Internal Medicine Objective - Results Result Diagrams: 12/05/17 18:16 12/05/17 18:16 Recent Labs: Laboratory Last Values WBC 5.7 Th/cmm (4.8-10.8) 12/05/17 18:16 RBC 3.90 Mil/cmm (3.80-5.80) 12/05/17 18:16 Hgb 12.2 gm/dL (12-16) 12/05/17 18:16 Hct 36.3 % (41.0-60) L 12/05/17 18:16 MCV 93.1 fl (80-99) 12/05/17 18:16 MCH 31.4 pg (27.0-31.0) H 12/05/17 18:16 MCHC Differential 33.7 pg (28.0-36.0) 12/05/17 18:16 RDW 12.0 % (11.5-20.0) 12/05/17 18:16 Plt Count 217 Th/cmm (150-400) 12/05/17 18:16 MPV 8.1 fl 12/05/17 18:16 Neutrophils % 61.4 % (40.0-80.0) 12/05/17 18:16 Lymphocytes % 20.3 % (20.0-50.0) 12/05/17 18:16 Monocytes % 13.5 % (2.0-10.0) H 12/05/17 18:16 Eosinophils % 3.8 % (0.0-5.0) 12/05/17 18:16 Basophils % 1.0 % (0.0-2.0) 12/05/17 18:16 Sodium 136 mEq/L (136-145) 12/05/17 18:16 Potassium 4.0 mEq/L (3.5-5.1) 12/05/17 18:16 Chloride 102 mEq/L (98-107) 12/05/17 18:16 Carbon Dioxide 29.1 mEq/L (21.0-31.0) 12/05/17 18:16 Anion Gap 8.9 (7.0-16.0) 12/05/17 18:16 BUN 20 mg/dL (7-25) 12/05/17 18:16 Creatinine 1.1 mg/dL (0.7-1.3) 12/05/17 18:16 Est GFR ( Amer) TNP 12/05/17 18:16 Est GFR (Non-Af Amer) TNP 12/05/17 18:16 BUN/Creatinine Ratio 18.2 12/05/17 18:16 Glucose 99 mg/dL (70-105) 12/05/17 18:16 Hemoglobin A1c % 5.9 % (4.0-6.0) 12/05/17 18:16 Calcium 8.9 mg/dL (8.6-10.3) 12/05/17 18:16 Total Bilirubin 0.3 mg/dL (0.3-1.0) 12/05/17 18:16 AST 15 U/L (13-39) 12/05/17 18:16 ALT 10 U/L (7-52) 12/05/17 18:16 Alkaline Phosphatase 47 U/L (34-104) 12/05/17 18:16 Total Protein 6.5 gm/dL (6.0-8.3) 12/05/17 18:16 Albumin 3.7 gm/dL (4.2-5.5) L 12/05/17 18:16 Globulin 2.8 gm/dL 12/05/17 18:16 Albumin/Globulin Ratio 1.3 (1.0-1.8) 12/05/17 18:16 Triglycerides 115 mg/dL (<150) 12/05/17 18:16 Cholesterol 115 mg/dL (<200) 12/05/17 18:16 LDL Cholesterol Direct 58 mg/dL (75-193) L 12/05/17 18:16 HDL Cholesterol 33 mg/dL (23-92) 12/05/17 18:16 TSH 3.22 uIU/ml (0.34-5.60) 12/05/17 18:16 Salicylates < 25.0 mg/L (30.0-100.0) L 12/05/17 18:16 Acetaminophen < 10.0 ug/mL (10.0-30.0) L 12/05/17 18:16 Ethyl Alcohol < 10 mg/dL (0-10) 12/05/17 18:16 RPR NONREACTIVE (NONREACTIVE) 12/05/17 18:16 - Physical Exam Vitals and I&O: Vital Signs Temp 97.1 F 12/10/17 06:19 Pulse 81 12/10/17 06:19 Resp 19 12/10/17 06:19 BP 119/76 12/10/17 10:30 Pulse Ox 96 12/10/17 06:19 Intake & Output 12/09/17 12/10/17 12/10/17 18:59 06:59 18:59 Intake Total 1200 120 Balance 1200 120 Intake: Oral 1200 120 Other: # Voids 4 3 # Bowel Movements 0 0 Active Medications: Current Medications Atorvastatin Calcium (Lipitor) 10 mg PO HS ALEXANDRU PRN Reason: Protocol Stop: 02/04/18 20:59 Last Admin: 12/09/17 21:09 Dose: 10 mg Bisacodyl (Dulcolax 10 Mg Supp) 10 mg RC DAILY PRN PRN Reason: Constipation Stop: 02/04/18 11:35 Cholecalciferol (Vitamin D3) 1,000 iu PO DAILY ALEXANDRU Stop: 02/05/18 09:59 Last Admin: 12/10/17 10:30 Dose: 1,000 iu Cyanocobalamin (Vitamin B12) 1,000 mcg PO DAILY ALEXANDRU Stop: 02/05/18 08:59 Last Admin: 12/10/17 10:28 Dose: 1,000 mcg Divalproex Sodium (Depakote Sprinkle) 250 mg PO DAILY ALEXANDRU PRN Reason: Protocol Stop: 02/05/18 08:59 Last Admin: 12/10/17 10:27 Dose: 250 mg Divalproex Sodium (Depakote Sprinkle) 500 mg PO HS ALEXANDRU PRN Reason: Protocol Stop: 02/04/18 20:59 Last Admin: 12/09/17 21:09 Dose: 500 mg Furosemide (Lasix) 20 mg PO DAILY ALEXANDRU Stop: 02/05/18 08:59 Last Admin: 12/10/17 10:30 Dose: 20 mg Lactulose (Cephulac) 10 gm PO DAILY ALEXANDRU Stop: 02/05/18 08:59 Last Admin: 12/10/17 10:29 Dose: 10 gm Levothyroxine Sodium 0.1 mg/ (Levothyroxine Sodium 0.05 mg) 0.15 mg PO QDAC ALEXANDRU Stop: 02/05/18 09:59 Last Admin: 12/10/17 06:42 Dose: 0.15 mg Lorazepam (Ativan) 0.5 mg PO Q6HR PRN; Protocol PRN Reason: Anxiety Stop: 02/05/18 16:03 Last Admin: 12/09/17 21:10 Dose: 0.5 mg Magnesium Hydroxide (Milk Of Magnesia) 30 ml PO Q2D PRN PRN Reason: Constipation Stop: 02/04/18 11:35 Memantine (Namenda) 5 mg PO DAILY ALEXANDRU Stop: 02/05/18 08:59 Last Admin: 12/10/17 10:30 Dose: 5 mg Mineral Oil (Fleet Mineral Oil) 135 ml RC Q2D PRN PRN Reason: Constipation Stop: 02/04/18 11:35 Mirtazapine (Remeron) 15 mg PO HS ALEXANDRU PRN Reason: Protocol Stop: 02/04/18 20:59 Last Admin: 12/09/17 21:09 Dose: 15 mg Multivitamins/Vitamin C (Theragran) 1 tab PO DAILY ALEXANDRU Stop: 02/05/18 08:59 Last Admin: 12/10/17 10:29 Dose: 1 tab Polyethylene Glycol (Miralax) 17 gm PO DAILY ALEXANDRU Stop: 02/05/18 09:59 Last Admin: 12/10/17 10:30 Dose: 17 gm Potassium Chloride (Potassium Chloride Elixir) 20 meq PO DAILY ALEXANDRU Stop: 02/05/18 08:59 Last Admin: 12/10/17 10:29 Dose: 20 meq Quetiapine Fumarate (Seroquel) 50 mg PO BID ALEXANDRU PRN Reason: Protocol Stop: 02/04/18 16:59 Last Admin: 12/10/17 10:29 Dose: 50 mg Quetiapine Fumarate (Seroquel) 100 mg PO HS ALEXANDRU PRN Reason: Protocol Stop: 02/04/18 20:59 Last Admin: 12/09/17 21:09 Dose: 100 mg General: alert HEENT: NC/AT, PERRLA Neck: Supple Lungs: CTAB Cardiovascular: RRR Abdomen: soft, non-tender, non-distended, positive bowel sound Neurological: no change Internal Medicine Assmt/Plan - Assessment Assessment: HTN CAD DYSLIPIDEMIA GERD DEMENTIA AGITATION - Plan Plan: ADJUST PATIENTS BP MEDS if needed cont with ppi continue current orders
[2017-12-10] MEDS: Atorvastatin Calcium 10 MG TAB PO SCH (21:36)
--- NOTE | 2017-12-11 01:58 | Progress Notes ---
DATE: 12/10/2017 PSYCHIATRIC PROGRESS NOTE TIME PATIENT SEEN: Staff was spoken to. The patient is interviewed. Mood is noted to be anxious. Affect is appropriate. The patient has been less aggressive. Today, insight and judgment are improving. Impulse control seems to be still a problem. No side effects to the medications are noted. The patient is currently on Depakote and Seroquel and has been able to tolerate the medications. ASSESSMENT: The patient's mood swings are coming under control, but the patient continues to be paranoid. PLAN: To continue the patient with the supportive therapy, encouraged the patient to verbalize the concerns rather than to act out. JOB# [id number]
[2017-12-11] MEDS: Multivitamin Tab PO SCH (08:20)
[2017-12-11] MEDS: Lactulose 10 Gm/15 mL 30mL UDC PO SCH (08:21)
[2017-12-11] MEDS: POLYETHYLENE GLYCOL 3350 17 GM PACK PO SCH (08:22)
[2017-12-11] MEDS: Potassium Chloride Elixir 20 mEq /15 mL UDC PO SCH (08:22)
--- NOTE | 2017-12-11 13:13 | Internal Medicine Prog Note ---
Internal Medicine Subjective - Subjective Service Date: 12/11/17 Patient is:: awake Per staff patient has:: tolerating meds Internal Medicine Objective - Results Result Diagrams: 12/05/17 18:16 12/05/17 18:16 Recent Labs: Laboratory Last Values WBC 5.7 Th/cmm (4.8-10.8) 12/05/17 18:16 RBC 3.90 Mil/cmm (3.80-5.80) 12/05/17 18:16 Hgb 12.2 gm/dL (12-16) 12/05/17 18:16 Hct 36.3 % (41.0-60) L 12/05/17 18:16 MCV 93.1 fl (80-99) 12/05/17 18:16 MCH 31.4 pg (27.0-31.0) H 12/05/17 18:16 MCHC Differential 33.7 pg (28.0-36.0) 12/05/17 18:16 RDW 12.0 % (11.5-20.0) 12/05/17 18:16 Plt Count 217 Th/cmm (150-400) 12/05/17 18:16 MPV 8.1 fl 12/05/17 18:16 Neutrophils % 61.4 % (40.0-80.0) 12/05/17 18:16 Lymphocytes % 20.3 % (20.0-50.0) 12/05/17 18:16 Monocytes % 13.5 % (2.0-10.0) H 12/05/17 18:16 Eosinophils % 3.8 % (0.0-5.0) 12/05/17 18:16 Basophils % 1.0 % (0.0-2.0) 12/05/17 18:16 Sodium 136 mEq/L (136-145) 12/05/17 18:16 Potassium 4.0 mEq/L (3.5-5.1) 12/05/17 18:16 Chloride 102 mEq/L (98-107) 12/05/17 18:16 Carbon Dioxide 29.1 mEq/L (21.0-31.0) 12/05/17 18:16 Anion Gap 8.9 (7.0-16.0) 12/05/17 18:16 BUN 20 mg/dL (7-25) 12/05/17 18:16 Creatinine 1.1 mg/dL (0.7-1.3) 12/05/17 18:16 Est GFR ( Amer) TNP 12/05/17 18:16 Est GFR (Non-Af Amer) TNP 12/05/17 18:16 BUN/Creatinine Ratio 18.2 12/05/17 18:16 Glucose 99 mg/dL (70-105) 12/05/17 18:16 Hemoglobin A1c % 5.9 % (4.0-6.0) 12/05/17 18:16 Calcium 8.9 mg/dL (8.6-10.3) 12/05/17 18:16 Total Bilirubin 0.3 mg/dL (0.3-1.0) 12/05/17 18:16 AST 15 U/L (13-39) 12/05/17 18:16 ALT 10 U/L (7-52) 12/05/17 18:16 Alkaline Phosphatase 47 U/L (34-104) 12/05/17 18:16 Total Protein 6.5 gm/dL (6.0-8.3) 12/05/17 18:16 Albumin 3.7 gm/dL (4.2-5.5) L 12/05/17 18:16 Globulin 2.8 gm/dL 12/05/17 18:16 Albumin/Globulin Ratio 1.3 (1.0-1.8) 12/05/17 18:16 Triglycerides 115 mg/dL (<150) 12/05/17 18:16 Cholesterol 115 mg/dL (<200) 12/05/17 18:16 LDL Cholesterol Direct 58 mg/dL (75-193) L 12/05/17 18:16 HDL Cholesterol 33 mg/dL (23-92) 12/05/17 18:16 TSH 3.22 uIU/ml (0.34-5.60) 12/05/17 18:16 Salicylates < 25.0 mg/L (30.0-100.0) L 12/05/17 18:16 Acetaminophen < 10.0 ug/mL (10.0-30.0) L 12/05/17 18:16 Ethyl Alcohol < 10 mg/dL (0-10) 12/05/17 18:16 RPR NONREACTIVE (NONREACTIVE) 12/05/17 18:16 - Physical Exam Vitals and I&O: Vital Signs Temp 98 F 12/11/17 06:23 Pulse 75 12/11/17 06:23 Resp 18 12/11/17 06:23 BP 119/64 12/11/17 08:21 Pulse Ox 97 12/11/17 06:23 Intake & Output 12/10/17 12/11/17 12/11/17 18:59 06:59 18:59 Intake Total 850 120 Balance 850 120 Intake: Oral 850 120 Other: # Voids 4 3 # Bowel Movements 1 1 Active Medications: Current Medications Atorvastatin Calcium (Lipitor) 10 mg PO HS ALEXANDRU PRN Reason: Protocol Stop: 02/04/18 20:59 Last Admin: 12/10/17 21:36 Dose: 10 mg Bisacodyl (Dulcolax 10 Mg Supp) 10 mg RC DAILY PRN PRN Reason: Constipation Stop: 02/04/18 11:35 Cholecalciferol (Vitamin D3) 1,000 iu PO DAILY ALEXANDRU Stop: 02/05/18 09:59 Last Admin: 12/11/17 08:21 Dose: 1,000 iu Cyanocobalamin (Vitamin B12) 1,000 mcg PO DAILY ALEXANDRU Stop: 02/05/18 08:59 Last Admin: 12/11/17 08:21 Dose: 1,000 mcg Divalproex Sodium (Depakote Sprinkle) 250 mg PO DAILY ALEXANDRU PRN Reason: Protocol Stop: 02/05/18 08:59 Last Admin: 12/11/17 08:21 Dose: 250 mg Divalproex Sodium (Depakote Sprinkle) 500 mg PO HS ALEXANDRU PRN Reason: Protocol Stop: 02/04/18 20:59 Last Admin: 12/10/17 21:37 Dose: 500 mg Furosemide (Lasix) 20 mg PO DAILY ALEXANDRU Stop: 02/05/18 08:59 Last Admin: 12/11/17 08:21 Dose: 20 mg Lactulose (Cephulac) 10 gm PO DAILY ALEXANDRU Stop: 02/05/18 08:59 Last Admin: 12/11/17 08:21 Dose: 10 gm Levothyroxine Sodium 0.1 mg/ (Levothyroxine Sodium 0.05 mg) 0.15 mg PO QDAC ALEXANDRU Stop: 02/05/18 09:59 Last Admin: 12/11/17 06:40 Dose: 0.15 mg Lorazepam (Ativan) 0.5 mg PO Q6HR PRN; Protocol PRN Reason: Anxiety Stop: 02/05/18 16:03 Last Admin: 12/09/17 21:10 Dose: 0.5 mg Magnesium Hydroxide (Milk Of Magnesia) 30 ml PO Q2D PRN PRN Reason: Constipation Stop: 02/04/18 11:35 Memantine (Namenda) 5 mg PO DAILY ALEXANDRU Stop: 02/05/18 08:59 Last Admin: 12/11/17 08:20 Dose: 5 mg Mineral Oil (Fleet Mineral Oil) 135 ml RC Q2D PRN PRN Reason: Constipation Stop: 02/04/18 11:35 Mirtazapine (Remeron) 15 mg PO HS ALEXANDRU PRN Reason: Protocol Stop: 02/04/18 20:59 Last Admin: 12/10/17 21:36 Dose: 15 mg Multivitamins/Vitamin C (Theragran) 1 tab PO DAILY ALEXANDRU Stop: 02/05/18 08:59 Last Admin: 12/11/17 08:20 Dose: 1 tab Polyethylene Glycol (Miralax) 17 gm PO DAILY ALEXANDRU Stop: 02/05/18 09:59 Last Admin: 12/11/17 08:22 Dose: 17 gm Potassium Chloride (Potassium Chloride Elixir) 20 meq PO DAILY ALEXANDRU Stop: 02/05/18 08:59 Last Admin: 12/11/17 08:22 Dose: 20 meq Quetiapine Fumarate (Seroquel) 100 mg PO HS [facility] Stop: 02/09/18 20:59 Quetiapine Fumarate (Seroquel) 100 mg PO DAILY [facility] Stop: 02/10/18 08:59 General: alert HEENT: NC/AT, PERRLA Neck: Supple Lungs: CTAB Cardiovascular: RRR Abdomen: soft, non-tender, non-distended, positive bowel sound Neurological: no change Internal Medicine Assmt/Plan - Assessment Assessment: HTN CAD DYSLIPIDEMIA GERD DEMENTIA AGITATION - Plan Plan: ADJUST PATIENTS BP MEDS if needed cont with ppi continue current orders Nutritional Asmnt/Malnutr-PDOC - Dietary Evaluation Malnutrition Findings (Please click <Entered> for more info): Nutritional Asmnt/Malnutrition Start: 12/10/17 13: 54 Text: Status: Complete Freq: Document 12/10/17 13:54 LCKENNAG (Rec: 12/10/17 14:05 LCKENNAG [email or web address]) Nutritional Asmnt/Malnutrition Patient General Information Nutritional Screening Moderate Risk Diagnosis psychosis Pertinent Medical Hx/Surgical Hx HTN, CAD, dyslipidemia, GERD, dementia Subjective Information Pt seen sleeping in teja-chair in dining room at time of visit. Pt was on [facility] soft chopped diet. 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 Spoke with RN and suggested diet change to mech soft ground. Per EMR, PO intake 100 %. Current Diet Order/ Nutrition Support [facility] soft chopped CANDY Pertinent Medications vit D3, Vit D12, lasix, levothyroxine, remeron, theragran, miralax, kcl, seroquel Pertinent Labs 12/05 alb 3.7 Nutritional Hx/Data Height 5 ft 9 in Height (Calculated Centimeters) 175.3 Current Weight (lbs) 160 lb Weight (Calculated Kilograms) 72.6 Weight (Calculated Grams) 98722.8 [place] Body Weight 160 Body Mass Index (BMI) 23.6 Weight Status Approriate GI Symptoms GI Symptoms None Last BM 12/08 Difficult in: None Skin Integrity/Comment: intact Current %PO Good (75-100%) Estimated Nutritional Goals BEE in Kcals: Using Current wt Calories/Kcals/Kg 25-30 Kcals Calculated 0606-0070 Protein: Using Current wt Protein g/k Protein Calculated 73 Fluid: ml 1825-2190ml (1m/kcal) Nutritional Problem No current Nutrition Prob Problem N/A Malnutrition Alert Protein-Calorie Malnutrition N/A Is there a minimum of two criteria No selected? Query Text:Check all the applicable criteria. A minimum of two criteria are recommended for diagnosis of either severe or non-severe malnutrition. Intervention/Recommendation Comments 1. Recommend [facility] soft chopped textured diet. RN notifid, will update diet order. 2. Monitor PO intake, wt, labs and skin integrity 3. F/U as low risk in 7 days, 12/17, PO check 12/13 Expected Outcomes/Goals Expected Outcomes/Goals 1. PO intake to meet at least 75% of nutritional needs. 2. Wt stability, skin to remain intact, labs to approach WNL.
[2017-12-11] MEDS: Atorvastatin Calcium 10 MG TAB PO SCH (20:36)
--- NOTE | 2017-12-11 21:02 | Progress Notes ---
DATE: 12/11/2017 PSYCHIATRIC PROGRESS NOTE SUBJECTIVE: Staff was spoken to. The patient is interviewed. Mood is noted to be irritable. Affect is constricted. The patient is still screaming and yelling and the patient has no insight. The patient is maintained on a high dose of the Seroquel, which he has been getting it 50 mg twice a day and 100 mg at bedtime. Even then, the patient is having difficult time and hence we decided to change his Seroquel dosage to 100 mg twice a day and encouraged the patient to verbalize the concerns rather than to act out and the patient is going to be closely monitored at this time. Please note that the patient is not ready to be discharged to a lower level of care. The patient is also on the Depakote. JOB# [id number]
[2017-12-12] MEDS: Potassium Chloride Elixir 20 mEq /15 mL UDC PO SCH (09:33)
[2017-12-12] MEDS: POLYETHYLENE GLYCOL 3350 17 GM PACK PO SCH (09:33)
[2017-12-12] MEDS: Lactulose 10 Gm/15 mL 30mL UDC PO SCH (09:34)
[2017-12-12] MEDS: Multivitamin Tab PO SCH (09:34)
--- NOTE | 2017-12-12 15:03 | Internal Medicine Prog Note ---
Internal Medicine Subjective - Subjective Service Date: 12/12/17 Patient is:: awake Per staff patient has:: tolerating meds Internal Medicine Objective - Results Result Diagrams: 12/05/17 18:16 12/05/17 18:16 Recent Labs: Laboratory Last Values WBC 5.7 Th/cmm (4.8-10.8) 12/05/17 18:16 RBC 3.90 Mil/cmm (3.80-5.80) 12/05/17 18:16 Hgb 12.2 gm/dL (12-16) 12/05/17 18:16 Hct 36.3 % (41.0-60) L 12/05/17 18:16 MCV 93.1 fl (80-99) 12/05/17 18:16 MCH 31.4 pg (27.0-31.0) H 12/05/17 18:16 MCHC Differential 33.7 pg (28.0-36.0) 12/05/17 18:16 RDW 12.0 % (11.5-20.0) 12/05/17 18:16 Plt Count 217 Th/cmm (150-400) 12/05/17 18:16 MPV 8.1 fl 12/05/17 18:16 Neutrophils % 61.4 % (40.0-80.0) 12/05/17 18:16 Lymphocytes % 20.3 % (20.0-50.0) 12/05/17 18:16 Monocytes % 13.5 % (2.0-10.0) H 12/05/17 18:16 Eosinophils % 3.8 % (0.0-5.0) 12/05/17 18:16 Basophils % 1.0 % (0.0-2.0) 12/05/17 18:16 Sodium 136 mEq/L (136-145) 12/05/17 18:16 Potassium 4.0 mEq/L (3.5-5.1) 12/05/17 18:16 Chloride 102 mEq/L (98-107) 12/05/17 18:16 Carbon Dioxide 29.1 mEq/L (21.0-31.0) 12/05/17 18:16 Anion Gap 8.9 (7.0-16.0) 12/05/17 18:16 BUN 20 mg/dL (7-25) 12/05/17 18:16 Creatinine 1.1 mg/dL (0.7-1.3) 12/05/17 18:16 Est GFR ( Amer) TNP 12/05/17 18:16 Est GFR (Non-Af Amer) TNP 12/05/17 18:16 BUN/Creatinine Ratio 18.2 12/05/17 18:16 Glucose 99 mg/dL (70-105) 12/05/17 18:16 Hemoglobin A1c % 5.9 % (4.0-6.0) 12/05/17 18:16 Calcium 8.9 mg/dL (8.6-10.3) 12/05/17 18:16 Total Bilirubin 0.3 mg/dL (0.3-1.0) 12/05/17 18:16 AST 15 U/L (13-39) 12/05/17 18:16 ALT 10 U/L (7-52) 12/05/17 18:16 Alkaline Phosphatase 47 U/L (34-104) 12/05/17 18:16 Total Protein 6.5 gm/dL (6.0-8.3) 12/05/17 18:16 Albumin 3.7 gm/dL (4.2-5.5) L 12/05/17 18:16 Globulin 2.8 gm/dL 12/05/17 18:16 Albumin/Globulin Ratio 1.3 (1.0-1.8) 12/05/17 18:16 Triglycerides 115 mg/dL (<150) 12/05/17 18:16 Cholesterol 115 mg/dL (<200) 12/05/17 18:16 LDL Cholesterol Direct 58 mg/dL (75-193) L 12/05/17 18:16 HDL Cholesterol 33 mg/dL (23-92) 12/05/17 18:16 TSH 3.22 uIU/ml (0.34-5.60) 12/05/17 18:16 Salicylates < 25.0 mg/L (30.0-100.0) L 12/05/17 18:16 Acetaminophen < 10.0 ug/mL (10.0-30.0) L 12/05/17 18:16 Ethyl Alcohol < 10 mg/dL (0-10) 12/05/17 18:16 RPR NONREACTIVE (NONREACTIVE) 12/05/17 18:16 - Physical Exam Vitals and I&O: Vital Signs Temp 97.3 F 12/12/17 06:13 Pulse 73 12/12/17 06:13 Resp 19 12/12/17 06:13 BP 103/63 12/12/17 10:40 Pulse Ox 96 12/12/17 06:13 Intake & Output 12/11/17 12/12/17 12/12/17 18:59 06:59 18:59 Intake Total 800 300 Balance 800 300 Intake: Oral 800 300 Other: # Voids 3 2 # Bowel Movements 1 0 Active Medications: Current Medications Atorvastatin Calcium (Lipitor) 10 mg PO HS ALEXANDRU PRN Reason: Protocol Stop: 02/04/18 20:59 Last Admin: 12/11/17 20:36 Dose: 10 mg Bisacodyl (Dulcolax 10 Mg Supp) 10 mg RC DAILY PRN PRN Reason: Constipation Stop: 02/04/18 11:35 Cholecalciferol (Vitamin D3) 1,000 iu PO DAILY ALEXANDRU Stop: 02/05/18 09:59 Last Admin: 12/12/17 09:34 Dose: 1,000 iu Cyanocobalamin (Vitamin B12) 1,000 mcg PO DAILY ALEXANDRU Stop: 02/05/18 08:59 Last Admin: 12/12/17 09:34 Dose: 1,000 mcg Divalproex Sodium (Depakote Sprinkle) 250 mg PO DAILY ALEXANDRU PRN Reason: Protocol Stop: 02/05/18 08:59 Last Admin: 12/12/17 10:40 Dose: 250 mg Divalproex Sodium (Depakote Sprinkle) 500 mg PO HS ALEXANDRU PRN Reason: Protocol Stop: 02/04/18 20:59 Last Admin: 12/11/17 20:35 Dose: 500 mg Furosemide (Lasix) 20 mg PO DAILY ALEXANDRU Stop: 02/05/18 08:59 Last Admin: 12/12/17 10:40 Dose: 20 mg Lactulose (Cephulac) 10 gm PO DAILY ALEXANDRU Stop: 02/05/18 08:59 Last Admin: 12/12/17 09:34 Dose: 10 gm Levothyroxine Sodium 0.1 mg/ (Levothyroxine Sodium 0.05 mg) 0.15 mg PO QDAC ALEXANDRU Stop: 02/05/18 09:59 Last Admin: 12/12/17 06:40 Dose: 0.15 mg Lorazepam (Ativan) 0.5 mg PO Q6HR PRN; Protocol PRN Reason: Anxiety Stop: 02/05/18 16:03 Last Admin: 12/09/17 21:10 Dose: 0.5 mg Magnesium Hydroxide (Milk Of Magnesia) 30 ml PO Q2D PRN PRN Reason: Constipation Stop: 02/04/18 11:35 Memantine (Namenda) 5 mg PO DAILY ALEXANDRU Stop: 02/05/18 08:59 Last Admin: 12/12/17 09:34 Dose: 5 mg Mineral Oil (Fleet Mineral Oil) 135 ml RC Q2D PRN PRN Reason: Constipation Stop: 02/04/18 11:35 Mirtazapine (Remeron) 15 mg PO HS ALEXANDRU PRN Reason: Protocol Stop: 02/04/18 20:59 Last Admin: 12/11/17 20:36 Dose: 15 mg Multivitamins/Vitamin C (Theragran) 1 tab PO DAILY ALEXANDRU Stop: 02/05/18 08:59 Last Admin: 12/12/17 09:34 Dose: 1 tab Polyethylene Glycol (Miralax) 17 gm PO DAILY ALEXANDRU Stop: 02/05/18 09:59 Last Admin: 12/12/17 09:33 Dose: 17 gm Potassium Chloride (Potassium Chloride Elixir) 20 meq PO DAILY ALEXANDRU Stop: 02/05/18 08:59 Last Admin: 12/12/17 09:33 Dose: 20 meq Quetiapine Fumarate (Seroquel) 100 mg PO HS ALEXANDRU Stop: 02/09/18 20:59 Last Admin: 12/11/17 20:36 Dose: 100 mg Quetiapine Fumarate (Seroquel) 100 mg PO DAILY ALEXANDRU Stop: 02/10/18 08:59 Last Admin: 12/12/17 09:33 Dose: 100 mg General: alert HEENT: NC/AT, PERRLA Neck: Supple Lungs: CTAB Cardiovascular: RRR Abdomen: soft, non-tender, non-distended, positive bowel sound Neurological: no change Internal Medicine Assmt/Plan - Assessment Assessment: HTN CAD DYSLIPIDEMIA GERD DEMENTIA AGITATION - Plan Plan: ADJUST PATIENTS BP MEDS if needed cont with ppi continue current orders Nutritional Asmnt/Malnutr-PDOC - Dietary Evaluation Malnutrition Findings (Please click <Entered> for more info): Nutritional Asmnt/Malnutrition Start: 12/10/17 13: 54 Text: Status: Complete Freq: Document 12/10/17 13:54 CHUCKMARY ANN (Rec: 12/10/17 14:05 CHUCKMARY ANN [email or web address]) Nutritional Asmnt/Malnutrition Patient General Information Nutritional Screening Moderate Risk Diagnosis psychosis Pertinent Medical Hx/Surgical Hx HTN, CAD, dyslipidemia, GERD, dementia Subjective Information Pt seen sleeping in teja-chair in dining room at time of visit. Pt was on [facility] soft chopped diet. Per EMT/PARAMEDIC, pt has no teeth and sometimes has difficult chewing the food. Spoke with RN and suggested diet change to mec soft ground. Per EMR, PO intake 100 %. Current Diet Order/ Nutrition Support [facility] soft chopped CANDY Pertinent Medications vit D3, Vit D12, lasix, levothyroxine, remeron, theragran, miralax, kcl, seroquel Pertinent Labs 12/05 alb 3.7 Nutritional Hx/Data Height 5 ft 9 in Height (Calculated Centimeters) 175.3 Current Weight (lbs) 160 lb Weight (Calculated Kilograms) 72.6 Weight (Calculated Grams) 54319.8 [place] Body Weight 160 Body Mass Index (BMI) 23.6 Weight Status Approriate GI Symptoms GI Symptoms None Last BM 12/08 Difficult in: None Skin Integrity/Comment: intact Current %PO Good (75-100%) Estimated Nutritional Goals BEE in Kcals: Using Current wt Calories/Kcals/Kg 25-30 Kcals Calculated 0708-5188 Protein: Using Current wt Protein g/k Protein Calculated 73 Fluid: ml 1825-2190ml (1m/kcal) Nutritional Problem No current Nutrition Prob Problem N/A Malnutrition Alert Protein-Calorie Malnutrition N/A Is there a minimum of two criteria No selected? Query Text:Check all the applicable criteria. A minimum of two criteria are recommended for diagnosis of either severe or non-severe malnutrition. Intervention/Recommendation Comments 1. Recommend mech soft chopped textured diet. RN notifid, will update diet order. 2. Monitor PO intake, wt, labs and skin integrity 3. F/U as low risk in 7 days, 12/17, PO check 12/13 Expected Outcomes/Goals Expected Outcomes/Goals 1. PO intake to meet at least 75% of nutritional needs. 2. Wt stability, skin to remain intact, labs to approach WNL.
[2017-12-12] MEDS: Atorvastatin Calcium 10 MG TAB PO SCH (20:37)
--- NOTE | 2017-12-13 07:39 | Progress Notes ---
DATE: 12/12/2017 PSYCHIATRIC PROGRESS NOTE SUBJECTIVE: Staff was spoken to. The patient is interviewed. Mood is noted to be irritable. Affect is constricted. Coping skills are noted to be still poor. Sleep and appetite also noted to be poor. The patient today has been getting easily irritable and agitated. The patient is currently on a decent dose of the medication such as the valproic acid 250 mg in the morning and 500 at bedtime. The patient is also receiving 100 mg twice a day of Seroquel. No side effects to the medications are noted. The patient is not able to get up and walk and the patient is feeling dizzy and hence, I am not able to increase the dose on the medications today. PLAN: To continue the patient's current medications and follow up with the supportive therapy. JOB# [id number]
[2017-12-13] MEDS: Lactulose 10 Gm/15 mL 30mL UDC PO SCH (09:37)
[2017-12-13] MEDS: POLYETHYLENE GLYCOL 3350 17 GM PACK PO SCH (09:37)
[2017-12-13] MEDS: Multivitamin Tab PO SCH (09:38)
[2017-12-13] MEDS: Potassium Chloride Elixir 20 mEq /15 mL UDC PO SCH (09:38)
--- NOTE | 2017-12-13 13:08 | Internal Medicine Prog Note ---
Internal Medicine Subjective - Subjective Service Date: 12/13/17 Patient is:: awake Per staff patient has:: tolerating meds Internal Medicine Objective - Results Result Diagrams: 12/05/17 18:16 12/05/17 18:16 Recent Labs: Laboratory Last Values WBC 5.7 Th/cmm (4.8-10.8) 12/05/17 18:16 RBC 3.90 Mil/cmm (3.80-5.80) 12/05/17 18:16 Hgb 12.2 gm/dL (12-16) 12/05/17 18:16 Hct 36.3 % (41.0-60) L 12/05/17 18:16 MCV 93.1 fl (80-99) 12/05/17 18:16 MCH 31.4 pg (27.0-31.0) H 12/05/17 18:16 MCHC Differential 33.7 pg (28.0-36.0) 12/05/17 18:16 RDW 12.0 % (11.5-20.0) 12/05/17 18:16 Plt Count 217 Th/cmm (150-400) 12/05/17 18:16 MPV 8.1 fl 12/05/17 18:16 Neutrophils % 61.4 % (40.0-80.0) 12/05/17 18:16 Lymphocytes % 20.3 % (20.0-50.0) 12/05/17 18:16 Monocytes % 13.5 % (2.0-10.0) H 12/05/17 18:16 Eosinophils % 3.8 % (0.0-5.0) 12/05/17 18:16 Basophils % 1.0 % (0.0-2.0) 12/05/17 18:16 Sodium 136 mEq/L (136-145) 12/05/17 18:16 Potassium 4.0 mEq/L (3.5-5.1) 12/05/17 18:16 Chloride 102 mEq/L (98-107) 12/05/17 18:16 Carbon Dioxide 29.1 mEq/L (21.0-31.0) 12/05/17 18:16 Anion Gap 8.9 (7.0-16.0) 12/05/17 18:16 BUN 20 mg/dL (7-25) 12/05/17 18:16 Creatinine 1.1 mg/dL (0.7-1.3) 12/05/17 18:16 Est GFR ( Amer) TNP 12/05/17 18:16 Est GFR (Non-Af Amer) TNP 12/05/17 18:16 BUN/Creatinine Ratio 18.2 12/05/17 18:16 Glucose 99 mg/dL (70-105) 12/05/17 18:16 Hemoglobin A1c % 5.9 % (4.0-6.0) 12/05/17 18:16 Calcium 8.9 mg/dL (8.6-10.3) 12/05/17 18:16 Total Bilirubin 0.3 mg/dL (0.3-1.0) 12/05/17 18:16 AST 15 U/L (13-39) 12/05/17 18:16 ALT 10 U/L (7-52) 12/05/17 18:16 Alkaline Phosphatase 47 U/L (34-104) 12/05/17 18:16 Total Protein 6.5 gm/dL (6.0-8.3) 12/05/17 18:16 Albumin 3.7 gm/dL (4.2-5.5) L 12/05/17 18:16 Globulin 2.8 gm/dL 12/05/17 18:16 Albumin/Globulin Ratio 1.3 (1.0-1.8) 12/05/17 18:16 Triglycerides 115 mg/dL (<150) 12/05/17 18:16 Cholesterol 115 mg/dL (<200) 12/05/17 18:16 LDL Cholesterol Direct 58 mg/dL (75-193) L 12/05/17 18:16 HDL Cholesterol 33 mg/dL (23-92) 12/05/17 18:16 TSH 3.22 uIU/ml (0.34-5.60) 12/05/17 18:16 Salicylates < 25.0 mg/L (30.0-100.0) L 12/05/17 18:16 Acetaminophen < 10.0 ug/mL (10.0-30.0) L 12/05/17 18:16 Valproic Acid 53.3 ug/mL (50.0-100.0) 12/13/17 10:55 Ethyl Alcohol < 10 mg/dL (0-10) 12/05/17 18:16 RPR NONREACTIVE (NONREACTIVE) 12/05/17 18:16 - Physical Exam Vitals and I&O: Vital Signs Temp 97.6 F 12/13/17 06:55 Pulse 78 12/13/17 06:55 Resp 20 12/13/17 06:55 BP 113/76 12/13/17 09:37 Pulse Ox 98 12/13/17 06:55 Intake & Output 12/12/17 12/13/17 12/13/17 18:59 06:59 18:59 Intake Total 1200 120 Balance 1200 120 Intake: Oral 1200 120 Other: # Voids 3 3 Active Medications: Current Medications Atorvastatin Calcium (Lipitor) 10 mg PO HS ALEXANDRU PRN Reason: Protocol Stop: 02/04/18 20:59 Last Admin: 12/12/17 20:37 Dose: 10 mg Bisacodyl (Dulcolax 10 Mg Supp) 10 mg RC DAILY PRN PRN Reason: Constipation Stop: 02/04/18 11:35 Cholecalciferol (Vitamin D3) 1,000 iu PO DAILY ALEXANDRU Stop: 02/05/18 09:59 Last Admin: 12/13/17 09:38 Dose: 1,000 iu Cyanocobalamin (Vitamin B12) 1,000 mcg PO DAILY ALEXANDRU Stop: 02/05/18 08:59 Last Admin: 12/13/17 09:38 Dose: 1,000 mcg Divalproex Sodium (Depakote Sprinkle) 250 mg PO DAILY ALEXANDRU PRN Reason: Protocol Stop: 02/05/18 08:59 Last Admin: 12/13/17 09:38 Dose: 250 mg Divalproex Sodium (Depakote Sprinkle) 500 mg PO HS ALEXANDRU PRN Reason: Protocol Stop: 02/04/18 20:59 Last Admin: 12/12/17 20:35 Dose: 500 mg Furosemide (Lasix) 20 mg PO DAILY ALEXANDRU Stop: 02/05/18 08:59 Last Admin: 12/13/17 09:37 Dose: 20 mg Lactulose (Cephulac) 10 gm PO DAILY ALEXANDRU Stop: 02/05/18 08:59 Last Admin: 12/13/17 09:37 Dose: 10 gm Levothyroxine Sodium 0.1 mg/ (Levothyroxine Sodium 0.05 mg) 0.15 mg PO QDAC ALEXANDRU Stop: 02/05/18 09:59 Last Admin: 12/13/17 06:36 Dose: 0.15 mg Lorazepam (Ativan) 0.5 mg PO Q6HR PRN; Protocol PRN Reason: Anxiety Stop: 02/05/18 16:03 Last Admin: 12/12/17 20:36 Dose: 0.5 mg Magnesium Hydroxide (Milk Of Magnesia) 30 ml PO Q2D PRN PRN Reason: Constipation Stop: 02/04/18 11:35 Memantine (Namenda) 5 mg PO DAILY ALEXANDRU Stop: 02/05/18 08:59 Last Admin: 12/13/17 09:38 Dose: 5 mg Mineral Oil (Fleet Mineral Oil) 135 ml RC Q2D PRN PRN Reason: Constipation Stop: 02/04/18 11:35 Mirtazapine (Remeron) 15 mg PO HS ALEXANDRU PRN Reason: Protocol Stop: 02/04/18 20:59 Last Admin: 12/12/17 20:36 Dose: 15 mg Multivitamins/Vitamin C (Theragran) 1 tab PO DAILY ALEXANDRU Stop: 02/05/18 08:59 Last Admin: 12/13/17 09:38 Dose: 1 tab Polyethylene Glycol (Miralax) 17 gm PO DAILY ALEXANDRU Stop: 02/05/18 09:59 Last Admin: 12/13/17 09:37 Dose: 17 gm Potassium Chloride (Potassium Chloride Elixir) 20 meq PO DAILY ALEXANDRU Stop: 02/05/18 08:59 Last Admin: 12/13/17 09:38 Dose: 20 meq Quetiapine Fumarate (Seroquel) 100 mg PO HS ALEXANDRU Stop: 02/09/18 20:59 Last Admin: 12/12/17 20:37 Dose: 100 mg Quetiapine Fumarate (Seroquel) 100 mg PO DAILY ALEXANDRU Stop: 02/10/18 08:59 Last Admin: 12/13/17 09:38 Dose: 100 mg General: alert HEENT: NC/AT, PERRLA Neck: Supple Lungs: CTAB Cardiovascular: RRR Abdomen: soft, non-tender, non-distended, positive bowel sound Neurological: no change Internal Medicine Assmt/Plan - Assessment Assessment: HTN CAD DYSLIPIDEMIA GERD DEMENTIA AGITATION - Plan Plan: ADJUST PATIENTS BP MEDS if needed cont with ppi continue current orders Nutritional Asmnt/Malnutr-PDOC - Dietary Evaluation Malnutrition Findings (Please click <Entered> for more info): Nutritional Asmnt/Malnutrition Start: 12/10/17 13: 54 Text: Status: Complete Freq: Document 12/10/17 13:54 CONSTANTINO (Rec: 12/10/17 14:05 CONSTANTINO [email or web address]) Nutritional Asmnt/Malnutrition Patient General Information Nutritional Screening Moderate Risk Diagnosis psychosis Pertinent Medical Hx/Surgical Hx HTN, CAD, dyslipidemia, GERD, dementia Subjective Information Pt seen sleeping in teja-chair in dining room at time of visit. Pt was on [facility] soft chopped diet. Per MINE ANALYST, pt has no teeth and sometimes has difficult chewing the food. Spoke with RN and suggested diet change to [facility] soft ground. Per EMR, PO intake 100 %. Current Diet Order/ Nutrition Support [facility] soft chopped CANDY Pertinent Medications vit D3, Vit D12, lasix, levothyroxine, remeron, theragran, miralax, kcl, seroquel Pertinent Labs 12/05 alb 3.7 Nutritional Hx/Data Height 5 ft 9 in Height (Calculated Centimeters) 175.3 Current Weight (lbs) 160 lb Weight (Calculated Kilograms) 72.6 Weight (Calculated Grams) 17860.8 [place] Body Weight 160 Body Mass Index (BMI) 23.6 Weight Status Approriate GI Symptoms GI Symptoms None Last BM 12/08 Difficult in: None Skin Integrity/Comment: intact Current %PO Good (75-100%) Estimated Nutritional Goals BEE in Kcals: Using Current wt Calories/Kcals/Kg 25-30 Kcals Calculated 7369-9599 Protein: Using Current wt Protein g/k Protein Calculated 73 Fluid: ml 1825-2190ml (1m/kcal) Nutritional Problem No current Nutrition Prob Problem N/A Malnutrition Alert Protein-Calorie Malnutrition N/A Is there a minimum of two criteria No selected? Query Text:Check all the applicable criteria. A minimum of two criteria are recommended for diagnosis of either severe or non-severe malnutrition. Intervention/Recommendation Comments 1. Recommend [facility] soft chopped textured diet. RN notifid, will update diet order. 2. Monitor PO intake, wt, labs and skin integrity 3. F/U as low risk in 7 days, 12/17, PO check 4/12 Expected Outcomes/Goals Expected Outcomes/Goals 1. PO intake to meet at least 75% of nutritional needs. 2. Wt stability, skin to remain intact, labs to approach WNL.
[2017-12-13] MEDS: Atorvastatin Calcium 10 MG TAB PO SCH (21:38)
--- NOTE | 2017-12-13 23:33 | Progress Notes ---
DATE: 12/13/2017 SUBJECTIVE: Staff was spoken to. The patient is interviewed. Mood is irritable. Affect is constricted. Coping skills are noted to be still poor. Sleep and appetite are also noted to be poor. The patient has been having difficult time to cope with the stress. No side effects to the medications are noted. The patient's insight and judgment at this time are noted to be still impaired and the patient is currently on the Depakote and has been receiving a high dose and hence the patient's Depakote level is going to be requested for tomorrow. ASSESSMENT: The patient is still having the mood swings. PLAN: To continue the patient with the current medications and follow the patient with the supportive therapy. [facility]# [id number]
[2017-12-14] MEDS: Lactulose 10 Gm/15 mL 30mL UDC PO SCH (09:50)
[2017-12-14] MEDS: Potassium Chloride Elixir 20 mEq /15 mL UDC PO SCH (09:50)
[2017-12-14] MEDS: Multivitamin Tab PO SCH (09:51)
[2017-12-14] MEDS: POLYETHYLENE GLYCOL 3350 17 GM PACK PO SCH (09:51)
--- NOTE | 2017-12-14 13:32 | Internal Medicine Prog Note ---
Internal Medicine Subjective - Subjective Service Date: 12/14/17 Patient is:: awake Per staff patient has:: tolerating meds Internal Medicine Objective - Results Result Diagrams: 12/05/17 18:16 12/05/17 18:16 Recent Labs: Laboratory Last Values WBC 5.7 Th/cmm (4.8-10.8) 12/05/17 18:16 RBC 3.90 Mil/cmm (3.80-5.80) 12/05/17 18:16 Hgb 12.2 gm/dL (12-16) 12/05/17 18:16 Hct 36.3 % (41.0-60) L 12/05/17 18:16 MCV 93.1 fl (80-99) 12/05/17 18:16 MCH 31.4 pg (27.0-31.0) H 12/05/17 18:16 MCHC Differential 33.7 pg (28.0-36.0) 12/05/17 18:16 RDW 12.0 % (11.5-20.0) 12/05/17 18:16 Plt Count 217 Th/cmm (150-400) 12/05/17 18:16 MPV 8.1 fl 12/05/17 18:16 Neutrophils % 61.4 % (40.0-80.0) 12/05/17 18:16 Lymphocytes % 20.3 % (20.0-50.0) 12/05/17 18:16 Monocytes % 13.5 % (2.0-10.0) H 12/05/17 18:16 Eosinophils % 3.8 % (0.0-5.0) 12/05/17 18:16 Basophils % 1.0 % (0.0-2.0) 12/05/17 18:16 Sodium 136 mEq/L (136-145) 12/05/17 18:16 Potassium 4.0 mEq/L (3.5-5.1) 12/05/17 18:16 Chloride 102 mEq/L (98-107) 12/05/17 18:16 Carbon Dioxide 29.1 mEq/L (21.0-31.0) 12/05/17 18:16 Anion Gap 8.9 (7.0-16.0) 12/05/17 18:16 BUN 20 mg/dL (7-25) 12/05/17 18:16 Creatinine 1.1 mg/dL (0.7-1.3) 12/05/17 18:16 Est GFR ( Amer) TNP 12/05/17 18:16 Est GFR (Non-Af Amer) TNP 12/05/17 18:16 BUN/Creatinine Ratio 18.2 12/05/17 18:16 Glucose 99 mg/dL (70-105) 12/05/17 18:16 Hemoglobin A1c % 5.9 % (4.0-6.0) 12/05/17 18:16 Calcium 8.9 mg/dL (8.6-10.3) 12/05/17 18:16 Total Bilirubin 0.3 mg/dL (0.3-1.0) 12/05/17 18:16 AST 15 U/L (13-39) 12/05/17 18:16 ALT 10 U/L (7-52) 12/05/17 18:16 Alkaline Phosphatase 47 U/L (34-104) 12/05/17 18:16 Total Protein 6.5 gm/dL (6.0-8.3) 12/05/17 18:16 Albumin 3.7 gm/dL (4.2-5.5) L 12/05/17 18:16 Globulin 2.8 gm/dL 12/05/17 18:16 Albumin/Globulin Ratio 1.3 (1.0-1.8) 12/05/17 18:16 Triglycerides 115 mg/dL (<150) 12/05/17 18:16 Cholesterol 115 mg/dL (<200) 12/05/17 18:16 LDL Cholesterol Direct 58 mg/dL (75-193) L 12/05/17 18:16 HDL Cholesterol 33 mg/dL (23-92) 12/05/17 18:16 TSH 3.22 uIU/ml (0.34-5.60) 12/05/17 18:16 Salicylates < 25.0 mg/L (30.0-100.0) L 12/05/17 18:16 Acetaminophen < 10.0 ug/mL (10.0-30.0) L 12/05/17 18:16 Valproic Acid 53.3 ug/mL (50.0-100.0) 12/13/17 10:55 Ethyl Alcohol < 10 mg/dL (0-10) 12/05/17 18:16 RPR NONREACTIVE (NONREACTIVE) 12/05/17 18:16 - Physical Exam Vitals and I&O: Vital Signs Temp 99.4 F 12/14/17 07:19 Pulse 76 12/14/17 07:19 Resp 20 12/14/17 07:19 BP 115/75 12/14/17 09:52 Pulse Ox 98 12/14/17 07:19 Intake & Output 12/13/17 12/14/17 12/14/17 18:59 06:59 18:59 Intake Total 1600 240 Balance 1600 240 Intake: Oral 1600 240 Other: # Voids 4 2 # Bowel Movements 0 0 Active Medications: Current Medications Atorvastatin Calcium (Lipitor) 10 mg PO HS ALEXANDRU PRN Reason: Protocol Stop: 02/04/18 20:59 Last Admin: 12/13/17 21:38 Dose: 10 mg Bisacodyl (Dulcolax 10 Mg Supp) 10 mg RC DAILY PRN PRN Reason: Constipation Stop: 02/04/18 11:35 Cholecalciferol (Vitamin D3) 1,000 iu PO DAILY ALEXANDRU Stop: 02/05/18 09:59 Last Admin: 12/14/17 09:52 Dose: 1,000 iu Cyanocobalamin (Vitamin B12) 1,000 mcg PO DAILY ALEXANDRU Stop: 02/05/18 08:59 Last Admin: 12/14/17 09:52 Dose: 1,000 mcg Divalproex Sodium (Depakote Sprinkle) 250 mg PO DAILY ALEXANDRU PRN Reason: Protocol Stop: 02/05/18 08:59 Last Admin: 12/14/17 09:51 Dose: 250 mg Divalproex Sodium (Depakote Sprinkle) 500 mg PO HS ALEXANDRU PRN Reason: Protocol Stop: 02/04/18 20:59 Last Admin: 12/13/17 21:40 Dose: 500 mg Furosemide (Lasix) 20 mg PO DAILY ALEXANDRU Stop: 02/05/18 08:59 Last Admin: 12/14/17 09:52 Dose: 20 mg Lactulose (Cephulac) 10 gm PO DAILY ALEXANDRU Stop: 02/05/18 08:59 Last Admin: 12/14/17 09:50 Dose: 10 gm Levothyroxine Sodium 0.1 mg/ (Levothyroxine Sodium 0.05 mg) 0.15 mg PO QDAC ALEXANDRU Stop: 02/05/18 09:59 Last Admin: 12/14/17 06:55 Dose: 0.15 mg Lorazepam (Ativan) 0.5 mg PO Q6HR PRN; Protocol PRN Reason: Anxiety Stop: 02/05/18 16:03 Last Admin: 12/13/17 21:41 Dose: 0.5 mg Magnesium Hydroxide (Milk Of Magnesia) 30 ml PO Q2D PRN PRN Reason: Constipation Stop: 02/04/18 11:35 Memantine (Namenda) 5 mg PO DAILY ALEXANDRU Stop: 02/05/18 08:59 Last Admin: 12/14/17 09:52 Dose: 5 mg Mineral Oil (Fleet Mineral Oil) 135 ml RC Q2D PRN PRN Reason: Constipation Stop: 02/04/18 11:35 Mirtazapine (Remeron) 15 mg PO HS ALEXANDRU PRN Reason: Protocol Stop: 02/04/18 20:59 Last Admin: 12/13/17 21:40 Dose: 15 mg Multivitamins/Vitamin C (Theragran) 1 tab PO DAILY ALXEANDRU Stop: 02/05/18 08:59 Last Admin: 12/14/17 09:51 Dose: 1 tab Polyethylene Glycol (Miralax) 17 gm PO DAILY ALEXANDRU Stop: 02/05/18 09:59 Last Admin: 12/14/17 09:51 Dose: 17 gm Potassium Chloride (Potassium Chloride Elixir) 20 meq PO DAILY ALEXANDRU Stop: 02/05/18 08:59 Last Admin: 12/14/17 09:50 Dose: 20 meq Quetiapine Fumarate (Seroquel) 100 mg PO HS ALEXANDRU Stop: 02/09/18 20:59 Last Admin: 12/13/17 21:41 Dose: 100 mg Quetiapine Fumarate (Seroquel) 100 mg PO DAILY ALEXANDRU Stop: 02/10/18 08:59 Last Admin: 12/14/17 09:53 Dose: 100 mg General: alert HEENT: NC/AT, PERRLA Neck: Supple Lungs: CTAB Cardiovascular: RRR Abdomen: soft, non-tender, non-distended, positive bowel sound Neurological: no change Internal Medicine Assmt/Plan - Assessment Assessment: HTN CAD DYSLIPIDEMIA GERD DEMENTIA AGITATION - Plan Plan: ADJUST PATIENTS BP MEDS if needed cont with ppi continue current orders Nutritional Asmnt/Malnutr-PDOC - Dietary Evaluation Malnutrition Findings (Please click <Entered> for more info): Nutritional Asmnt/Malnutrition Start: 12/10/17 13: 54 Text: Status: Complete Freq: Document 12/10/17 13:54 CHUCKMARY ANN (Rec: 12/10/17 14:05 LCMARY ANN [email or web address]) Nutritional Asmnt/Malnutrition Patient General Information Nutritional Screening Moderate Risk Diagnosis psychosis Pertinent Medical Hx/Surgical Hx HTN, CAD, dyslipidemia, GERD, dementia Subjective Information Pt seen sleeping in teja-chair in dining room at time of visit. Pt was on [facility] soft chopped diet. Per INDUSTRIAL ENGINEERING INTERN, pt has no teeth and sometimes has difficult chewing the food. Spoke with RN and suggested diet change to [facility] soft ground. Per EMR, PO intake 100 %. Current Diet Order/ Nutrition Support [facility] soft chopped CANDY Pertinent Medications vit D3, Vit D12, lasix, levothyroxine, remeron, theragran, miralax, kcl, seroquel Pertinent Labs 12/05 alb 3.7 Nutritional Hx/Data Height 5 ft 9 in Height (Calculated Centimeters) 175.3 Current Weight (lbs) 160 lb Weight (Calculated Kilograms) 72.6 Weight (Calculated Grams) 80524.8 [place] Body Weight 160 Body Mass Index (BMI) 23.6 Weight Status Approriate GI Symptoms GI Symptoms None Last BM 12/08 Difficult in: None Skin Integrity/Comment: intact Current %PO Good (75-100%) Estimated Nutritional Goals BEE in Kcals: Using Current wt Calories/Kcals/Kg 25-30 Kcals Calculated 9141-8933 Protein: Using Current wt Protein g/k Protein Calculated 73 Fluid: ml 1825-2190ml (1m/kcal) Nutritional Problem No current Nutrition Prob Problem N/A Malnutrition Alert Protein-Calorie Malnutrition N/A Is there a minimum of two criteria No selected? Query Text:Check all the applicable criteria. A minimum of two criteria are recommended for diagnosis of either severe or non-severe malnutrition. Intervention/Recommendation Comments 1. [facility] soft chopped textured diet. RN notifid, will update diet order. 2. Monitor PO intake, wt, labs and skin integrity 3. F/U as low risk in 7 days, 12/17, PO check 12/13 Expected Outcomes/Goals Expected Outcomes/Goals 1. PO intake to meet at least 75% of nutritional needs. 2. Wt stability, skin to remain intact, labs to approach WNL.
--- NOTE | 2017-12-14 19:11 | Progress Notes ---
DATE: 12/14/2017 SUBJECTIVE: Staff was spoken to. Patient is interviewed. Mood is noted to be irritable. Affect is constricted. Mood swings are still a problem. The patient has been having difficult time. The patient is currently on Depakote and Seroquel and has been able to tolerate the medication. No side effects to medications are noted. The patient has dementia and gets easily agitated towards the end of the day. ASSESSMENT: The patient is still impulsive. PLAN: To continue the patient with the supportive therapy and followup. JOB# [id number]
[2017-12-14] MEDS: Atorvastatin Calcium 10 MG TAB PO SCH (20:48)
[2017-12-15] MEDS: Multivitamin Tab PO SCH (09:35)
[2017-12-15] MEDS: POLYETHYLENE GLYCOL 3350 17 GM PACK PO SCH (09:36)
[2017-12-15] MEDS: Lactulose 10 Gm/15 mL 30mL UDC PO SCH (09:36)
[2017-12-15] MEDS: Potassium Chloride Elixir 20 mEq /15 mL UDC PO SCH (09:36)
--- NOTE | 2017-12-15 18:41 | Internal Medicine Prog Note ---
Internal Medicine Subjective - Subjective Patient seen and examined:: with staff, chart reviewed Patient is:: awake, verbal, interactive, confused Per staff patient has:: no adverse event, tolerating meds Internal Medicine Objective - Results Result Diagrams: 12/05/17 18:16 12/05/17 18:16 Recent Labs: Laboratory Last Values WBC 5.7 Th/cmm (4.8-10.8) 12/05/17 18:16 RBC 3.90 Mil/cmm (3.80-5.80) 12/05/17 18:16 Hgb 12.2 gm/dL (12-16) 12/05/17 18:16 Hct 36.3 % (41.0-60) L 12/05/17 18:16 MCV 93.1 fl (80-99) 12/05/17 18:16 MCH 31.4 pg (27.0-31.0) H 12/05/17 18:16 MCHC Differential 33.7 pg (28.0-36.0) 12/05/17 18:16 RDW 12.0 % (11.5-20.0) 12/05/17 18:16 Plt Count 217 Th/cmm (150-400) 12/05/17 18:16 MPV 8.1 fl 12/05/17 18:16 Neutrophils % 61.4 % (40.0-80.0) 12/05/17 18:16 Lymphocytes % 20.3 % (20.0-50.0) 12/05/17 18:16 Monocytes % 13.5 % (2.0-10.0) H 12/05/17 18:16 Eosinophils % 3.8 % (0.0-5.0) 12/05/17 18:16 Basophils % 1.0 % (0.0-2.0) 12/05/17 18:16 Sodium 136 mEq/L (136-145) 12/05/17 18:16 Potassium 4.0 mEq/L (3.5-5.1) 12/05/17 18:16 Chloride 102 mEq/L (98-107) 12/05/17 18:16 Carbon Dioxide 29.1 mEq/L (21.0-31.0) 12/05/17 18:16 Anion Gap 8.9 (7.0-16.0) 12/05/17 18:16 BUN 20 mg/dL (7-25) 12/05/17 18:16 Creatinine 1.1 mg/dL (0.7-1.3) 12/05/17 18:16 Est GFR ( Amer) TNP 12/05/17 18:16 Est GFR (Non-Af Amer) TNP 12/05/17 18:16 BUN/Creatinine Ratio 18.2 12/05/17 18:16 Glucose 99 mg/dL (70-105) 12/05/17 18:16 Hemoglobin A1c % 5.9 % (4.0-6.0) 12/05/17 18:16 Calcium 8.9 mg/dL (8.6-10.3) 12/05/17 18:16 Total Bilirubin 0.3 mg/dL (0.3-1.0) 12/05/17 18:16 AST 15 U/L (13-39) 12/05/17 18:16 ALT 10 U/L (7-52) 12/05/17 18:16 Alkaline Phosphatase 47 U/L (34-104) 12/05/17 18:16 Total Protein 6.5 gm/dL (6.0-8.3) 12/05/17 18:16 Albumin 3.7 gm/dL (4.2-5.5) L 12/05/17 18:16 Globulin 2.8 gm/dL 12/05/17 18:16 Albumin/Globulin Ratio 1.3 (1.0-1.8) 12/05/17 18:16 Triglycerides 115 mg/dL (<150) 12/05/17 18:16 Cholesterol 115 mg/dL (<200) 12/05/17 18:16 LDL Cholesterol Direct 58 mg/dL (75-193) L 12/05/17 18:16 HDL Cholesterol 33 mg/dL (23-92) 12/05/17 18:16 TSH 3.22 uIU/ml (0.34-5.60) 12/05/17 18:16 Salicylates < 25.0 mg/L (30.0-100.0) L 12/05/17 18:16 Acetaminophen < 10.0 ug/mL (10.0-30.0) L 12/05/17 18:16 Valproic Acid 53.3 ug/mL (50.0-100.0) 12/13/17 10:55 Ethyl Alcohol < 10 mg/dL (0-10) 12/05/17 18:16 RPR NONREACTIVE (NONREACTIVE) 12/05/17 18:16 - Physical Exam Vitals and I&O: Vital Signs Temp 97 F 12/15/17 14:00 Pulse 80 12/15/17 14:00 Resp 19 12/15/17 14:00 BP 103/63 12/15/17 14:00 Pulse Ox 97 12/15/17 14:00 Intake & Output 12/14/17 12/15/17 12/15/17 18:59 06:59 18:59 Intake Total 973 320 9094 Balance 620 047 2036 Intake: Oral 873 918 0147 Other: # Voids 3 2 # Bowel Movements 0 1 Active Medications: Current Medications Atorvastatin Calcium (Lipitor) 10 mg PO HS ALEXANDRU PRN Reason: Protocol Stop: 02/04/18 20:59 Last Admin: 12/14/17 20:48 Dose: 10 mg Bisacodyl (Dulcolax 10 Mg Supp) 10 mg RC DAILY PRN PRN Reason: Constipation Stop: 02/04/18 11:35 Cholecalciferol (Vitamin D3) 1,000 iu PO DAILY ALEXANDRU Stop: 02/05/18 09:59 Last Admin: 12/15/17 09:35 Dose: 1,000 iu Cyanocobalamin (Vitamin B12) 1,000 mcg PO DAILY ALEXANDRU Stop: 02/05/18 08:59 Last Admin: 12/15/17 09:36 Dose: 1,000 mcg Divalproex Sodium (Depakote Sprinkle) 250 mg PO DAILY ALEXANDRU PRN Reason: Protocol Stop: 02/05/18 08:59 Last Admin: 12/15/17 09:36 Dose: 250 mg Divalproex Sodium (Depakote Sprinkle) 500 mg PO HS ALEXANDRU PRN Reason: Protocol Stop: 02/04/18 20:59 Last Admin: 12/14/17 20:53 Dose: 500 mg Furosemide (Lasix) 20 mg PO DAILY ALEXANDRU Stop: 02/05/18 08:59 Last Admin: 12/15/17 09:35 Dose: 20 mg Lactulose (Cephulac) 10 gm PO DAILY ALEXANDRU Stop: 02/05/18 08:59 Last Admin: 12/15/17 09:36 Dose: 10 gm Levothyroxine Sodium 0.1 mg/ (Levothyroxine Sodium 0.05 mg) 0.15 mg PO QDAC ALEXANDRU Stop: 02/05/18 09:59 Last Admin: 12/15/17 06:33 Dose: 0.15 mg Lorazepam (Ativan) 0.5 mg PO Q6HR PRN; Protocol PRN Reason: Anxiety Stop: 02/05/18 16:03 Last Admin: 12/15/17 11:59 Dose: 0.5 mg Magnesium Hydroxide (Milk Of Magnesia) 30 ml PO Q2D PRN PRN Reason: Constipation Stop: 02/04/18 11:35 Memantine (Namenda) 5 mg PO DAILY ALEXANDRU Stop: 02/05/18 08:59 Last Admin: 12/15/17 09:35 Dose: 5 mg Mineral Oil (Fleet Mineral Oil) 135 ml RC Q2D PRN PRN Reason: Constipation Stop: 02/04/18 11:35 Mirtazapine (Remeron) 15 mg PO HS ALEXANDRU PRN Reason: Protocol Stop: 02/04/18 20:59 Last Admin: 12/14/17 20:50 Dose: 15 mg Multivitamins/Vitamin C (Theragran) 1 tab PO DAILY ALEXANDRU Stop: 02/05/18 08:59 Last Admin: 12/15/17 09:35 Dose: 1 tab Polyethylene Glycol (Miralax) 17 gm PO DAILY ALEXANDRU Stop: 02/05/18 09:59 Last Admin: 12/15/17 09:36 Dose: 17 gm Potassium Chloride (Potassium Chloride Elixir) 20 meq PO DAILY ALEXANDRU Stop: 02/05/18 08:59 Last Admin: 12/15/17 09:36 Dose: 20 meq Quetiapine Fumarate (Seroquel) 100 mg PO HS ALEXANDRU Stop: 02/09/18 20:59 Last Admin: 12/14/17 20:52 Dose: 100 mg Quetiapine Fumarate (Seroquel) 100 mg PO DAILY ALEXANDRU Stop: 02/10/18 08:59 Last Admin: 12/15/17 09:35 Dose: 100 mg General: alert HEENT: NC/AT, PERRLA Neck: Supple Lungs: CTAB Cardiovascular: RRR Abdomen: soft, non-tender, non-distended, positive bowel sound Extremities: excoriation Neurological: no change Internal Medicine Assmt/Plan - Assessment Assessment: - Assessment Assessment: HTN CAD DYSLIPIDEMIA GERD DEMENTIA AGITATION - Plan Plan: ADJUST PATIENTS BP MEDS if needed cont with ppi continue current orders - Plan Plan: cpm Nutritional Asmnt/Malnutr-PDOC - Dietary Evaluation Malnutrition Findings (Please click <Entered> for more info): Nutritional Asmnt/Malnutrition Start: 12/10/17 13: 54 Text: Status: Complete Freq: Document 12/10/17 13:54 CONSTANTINO (Rec: 12/10/17 14:05 MARY ANN [email or web address]) Nutritional Asmnt/Malnutrition Patient General Information Nutritional Screening Moderate Risk Diagnosis psychosis Pertinent Medical Hx/Surgical Hx HTN, CAD, dyslipidemia, GERD, dementia Subjective Information Pt seen sleeping in teja-chair in dining room at time of visit. Pt was on mech soft chopped diet. Per FIELD RESEARCH ASSISTANT, pt has no teeth and sometimes has difficult chewing the food. Spoke with RN and suggested diet change to mech soft ground. Per EMR, PO intake 100 %. Current Diet Order/ Nutrition Support [facility] soft chopped CANDY Pertinent Medications vit D3, Vit D12, lasix, levothyroxine, remeron, theragran, miralax, kcl, seroquel Pertinent Labs 4/4 alb 3.7 Nutritional Hx/Data Height 1.75 m Height (Calculated Centimeters) 175.3 Current Weight (lbs) 72.575 kg Weight (Calculated Kilograms) 72.6 Weight (Calculated Grams) 50948.8 [place] Body Weight 160 Body Mass Index (BMI) 23.6 Weight Status Approriate GI Symptoms GI Symptoms None Last BM 4/7 Difficult in: None Skin Integrity/Comment: intact Current %PO Good (75-100%) Estimated Nutritional Goals BEE in Kcals: Using Current wt Calories/Kcals/Kg 25-30 Kcals Calculated 0287-8701 Protein: Using Current wt Protein g/k Protein Calculated 73 Fluid: ml 1825-2190ml (1m/kcal) Nutritional Problem No current Nutrition Prob Problem N/A Malnutrition Alert Protein-Calorie Malnutrition N/A Is there a minimum of two criteria No selected? Query Text:Check all the applicable criteria. A minimum of two criteria are recommended for diagnosis of either severe or non-severe malnutrition. Intervention/Recommendation Comments 1. [facility] soft [facility] textured diet. RN notifid, will update diet order. 2. Monitor PO intake, wt, labs and skin integrity 3. F/U as low risk in 7 days, 12/17, PO check 12/13 Expected Outcomes/Goals Expected Outcomes/Goals 1. PO intake to meet at least 75% of nutritional needs. 2. Wt stability, skin to remain intact, labs to approach WNL.
--- NOTE | 2017-12-15 18:57 | Progress Notes ---
DATE: 12/15/2017 SUBJECTIVE: Staff was spoken to. The patient is interviewed. Mood is noted to be irritable. Affect is constricted. Coping skills are noted to be still limited. The patient gets easily upset and starts to scream and yell. No side effects to the medications are noted. The patient is currently on Depakote 250 mg twice a day and the Seroquel 100 mg twice a day. With these medications, the patient has been observed. No side effects to the medications are noted at this time. ASSESSMENT: The patient is still impulsive and paranoid. PLAN: To continue the patient with the supportive therapy, I encouraged the patient to verbalize the concerns rather than to act out. [facility]# [id number]
[2017-12-15] MEDS: Atorvastatin Calcium 10 MG TAB PO SCH (20:34)
[2017-12-16] MEDS: Multivitamin Tab PO SCH (09:10)
[2017-12-16] MEDS: Lactulose 10 Gm/15 mL 30mL UDC PO SCH (09:11)
[2017-12-16] MEDS: Potassium Chloride Elixir 20 mEq /15 mL UDC PO SCH (09:12)
[2017-12-16] MEDS: POLYETHYLENE GLYCOL 3350 17 GM PACK PO SCH (09:12)
--- NOTE | 2017-12-16 13:51 | Internal Medicine Prog Note ---
Internal Medicine Subjective - Subjective Patient seen and examined:: with staff, chart reviewed Patient is:: awake, verbal, interactive, confused Per staff patient has:: no adverse event, tolerating meds Internal Medicine Objective - Results Result Diagrams: 12/05/17 18:16 12/05/17 18:16 Recent Labs: Laboratory Last Values WBC 5.7 Th/cmm (4.8-10.8) 12/05/17 18:16 RBC 3.90 Mil/cmm (3.80-5.80) 12/05/17 18:16 Hgb 12.2 gm/dL (12-16) 12/05/17 18:16 Hct 36.3 % (41.0-60) L 12/05/17 18:16 MCV 93.1 fl (80-99) 12/05/17 18:16 MCH 31.4 pg (27.0-31.0) H 12/05/17 18:16 MCHC Differential 33.7 pg (28.0-36.0) 12/05/17 18:16 RDW 12.0 % (11.5-20.0) 12/05/17 18:16 Plt Count 217 Th/cmm (150-400) 12/05/17 18:16 MPV 8.1 fl 12/05/17 18:16 Neutrophils % 61.4 % (40.0-80.0) 12/05/17 18:16 Lymphocytes % 20.3 % (20.0-50.0) 12/05/17 18:16 Monocytes % 13.5 % (2.0-10.0) H 12/05/17 18:16 Eosinophils % 3.8 % (0.0-5.0) 12/05/17 18:16 Basophils % 1.0 % (0.0-2.0) 12/05/17 18:16 Sodium 136 mEq/L (136-145) 12/05/17 18:16 Potassium 4.0 mEq/L (3.5-5.1) 12/05/17 18:16 Chloride 102 mEq/L (98-107) 12/05/17 18:16 Carbon Dioxide 29.1 mEq/L (21.0-31.0) 12/05/17 18:16 Anion Gap 8.9 (7.0-16.0) 12/05/17 18:16 BUN 20 mg/dL (7-25) 12/05/17 18:16 Creatinine 1.1 mg/dL (0.7-1.3) 12/05/17 18:16 Est GFR ( Amer) TNP 12/05/17 18:16 Est GFR (Non-Af Amer) TNP 12/05/17 18:16 BUN/Creatinine Ratio 18.2 12/05/17 18:16 Glucose 99 mg/dL (70-105) 12/05/17 18:16 Hemoglobin A1c % 5.9 % (4.0-6.0) 12/05/17 18:16 Calcium 8.9 mg/dL (8.6-10.3) 12/05/17 18:16 Total Bilirubin 0.3 mg/dL (0.3-1.0) 12/05/17 18:16 AST 15 U/L (13-39) 12/05/17 18:16 ALT 10 U/L (7-52) 12/05/17 18:16 Alkaline Phosphatase 47 U/L (34-104) 12/05/17 18:16 Total Protein 6.5 gm/dL (6.0-8.3) 12/05/17 18:16 Albumin 3.7 gm/dL (4.2-5.5) L 12/05/17 18:16 Globulin 2.8 gm/dL 12/05/17 18:16 Albumin/Globulin Ratio 1.3 (1.0-1.8) 12/05/17 18:16 Triglycerides 115 mg/dL (<150) 12/05/17 18:16 Cholesterol 115 mg/dL (<200) 12/05/17 18:16 LDL Cholesterol Direct 58 mg/dL (75-193) L 12/05/17 18:16 HDL Cholesterol 33 mg/dL (23-92) 12/05/17 18:16 TSH 3.22 uIU/ml (0.34-5.60) 12/05/17 18:16 Salicylates < 25.0 mg/L (30.0-100.0) L 12/05/17 18:16 Acetaminophen < 10.0 ug/mL (10.0-30.0) L 12/05/17 18:16 Valproic Acid 53.3 ug/mL (50.0-100.0) 12/13/17 10:55 Ethyl Alcohol < 10 mg/dL (0-10) 12/05/17 18:16 RPR NONREACTIVE (NONREACTIVE) 12/05/17 18:16 - Physical Exam Vitals and I&O: Vital Signs Temp 98 F 12/16/17 06:39 Pulse 78 12/16/17 13:28 Resp 20 12/16/17 13:28 BP 129/69 12/16/17 09:10 Pulse Ox 96 12/16/17 06:39 Intake & Output 12/15/17 12/16/17 12/16/17 18:59 06:59 18:59 Intake Total 1200 480 Balance 1200 480 Intake: Oral 1200 480 Other: # Voids 1 # Bowel Movements 1 Stool Characteristics Soft Formed Active Medications: Current Medications Atorvastatin Calcium (Lipitor) 10 mg PO HS ALEXANDRU PRN Reason: Protocol Stop: 02/04/18 20:59 Last Admin: 12/15/17 20:34 Dose: 10 mg Bisacodyl (Dulcolax 10 Mg Supp) 10 mg RC DAILY PRN PRN Reason: Constipation Stop: 02/04/18 11:35 Cholecalciferol (Vitamin D3) 1,000 iu PO DAILY ALEXANDRU Stop: 02/05/18 09:59 Last Admin: 12/16/17 09:10 Dose: 1,000 iu Cyanocobalamin (Vitamin B12) 1,000 mcg PO DAILY ALEXANDRU Stop: 02/05/18 08:59 Last Admin: 12/16/17 09:11 Dose: 1,000 mcg Divalproex Sodium (Depakote Sprinkle) 250 mg PO DAILY ALEXANDRU PRN Reason: Protocol Stop: 02/05/18 08:59 Last Admin: 12/16/17 09:12 Dose: 250 mg Divalproex Sodium (Depakote Sprinkle) 500 mg PO HS ALEXANDRU PRN Reason: Protocol Stop: 02/04/18 20:59 Last Admin: 12/15/17 20:38 Dose: 500 mg Furosemide (Lasix) 20 mg PO DAILY ALEXANDRU Stop: 02/05/18 08:59 Last Admin: 12/16/17 09:10 Dose: 20 mg Lactulose (Cephulac) 10 gm PO DAILY ALEXANDRU Stop: 02/05/18 08:59 Last Admin: 12/16/17 09:11 Dose: 10 gm Levothyroxine Sodium 0.1 mg/ (Levothyroxine Sodium 0.05 mg) 0.15 mg PO QDAC ALEXANDRU Stop: 02/05/18 09:59 Last Admin: 12/16/17 06:31 Dose: 0.15 mg Lorazepam (Ativan) 0.5 mg PO Q6HR PRN; Protocol PRN Reason: Anxiety Stop: 02/05/18 16:03 Last Admin: 12/16/17 03:31 Dose: 0.5 mg Magnesium Hydroxide (Milk Of Magnesia) 30 ml PO Q2D PRN PRN Reason: Constipation Stop: 02/04/18 11:35 Memantine (Namenda) 5 mg PO DAILY ALEXANDRU Stop: 02/05/18 08:59 Last Admin: 12/16/17 09:11 Dose: 5 mg Mineral Oil (Fleet Mineral Oil) 135 ml RC Q2D PRN PRN Reason: Constipation Stop: 02/04/18 11:35 Mirtazapine (Remeron) 15 mg PO HS ALEXANDRU PRN Reason: Protocol Stop: 02/04/18 20:59 Last Admin: 12/15/17 20:35 Dose: 15 mg Multivitamins/Vitamin C (Theragran) 1 tab PO DAILY ALEXANDRU Stop: 02/05/18 08:59 Last Admin: 12/16/17 09:10 Dose: 1 tab Polyethylene Glycol (Miralax) 17 gm PO DAILY ALEXANDRU Stop: 02/05/18 09:59 Last Admin: 12/16/17 09:12 Dose: 17 gm Potassium Chloride (Potassium Chloride Elixir) 20 meq PO DAILY ALEXANDRU Stop: 02/05/18 08:59 Last Admin: 12/16/17 09:12 Dose: 20 meq Quetiapine Fumarate (Seroquel) 100 mg PO HS ALEXANDRU Stop: 02/09/18 20:59 Last Admin: 12/15/17 20:35 Dose: 100 mg Quetiapine Fumarate (Seroquel) 100 mg PO DAILY ALEXANDRU Stop: 02/10/18 08:59 Last Admin: 12/16/17 09:11 Dose: 100 mg General: alert HEENT: NC/AT, PERRLA Neck: Supple Lungs: CTAB Cardiovascular: RRR Abdomen: soft, non-tender, non-distended, positive bowel sound Extremities: excoriation Neurological: no change Internal Medicine Assmt/Plan - Assessment Assessment: - Assessment Assessment: HTN CAD DYSLIPIDEMIA GERD DEMENTIA AGITATION - Plan Plan: ADJUST PATIENTS BP MEDS if needed cont with ppi continue current orders - Plan Plan: cpm Nutritional Asmnt/Malnutr-PDOC - Dietary Evaluation Malnutrition Findings (Please click <Entered> for more info): Nutritional Asmnt/Malnutrition Start: 12/10/17 13: 54 Text: Status: Complete Freq: Document 12/10/17 13:54 CONSTANTINO (Rec: 12/10/17 14:05 CONSTANTINO [email or web address]) Nutritional Asmnt/Malnutrition Patient General Information Nutritional Screening Moderate Risk Diagnosis psychosis Pertinent Medical Hx/Surgical Hx HTN, CAD, dyslipidemia, GERD, dementia Subjective Information Pt seen sleeping in teja-chair in dining room at time of visit. Pt was on [facility] soft chopped diet. Per PROCESS CONTROL OPERATOR, pt has no teeth and sometimes has difficult chewing the food. Spoke with RN and suggested diet change to mech soft ground. Per EMR, PO intake 100 %. Current Diet Order/ Nutrition Support [facility] soft chopped CANDY Pertinent Medications vit D3, Vit D12, lasix, levothyroxine, remeron, theragran, miralax, kcl, seroquel Pertinent Labs 4/4 alb 3.7 Nutritional Hx/Data Height 1.75 m Height (Calculated Centimeters) 175.3 Current Weight (lbs) 72.575 kg Weight (Calculated Kilograms) 72.6 Weight (Calculated Grams) 53676.8 [place] Body Weight 160 Body Mass Index (BMI) 23.6 Weight Status Approriate GI Symptoms GI Symptoms None Last BM 4/7 Difficult in: None Skin Integrity/Comment: intact Current %PO Good (75-100%) Estimated Nutritional Goals BEE in Kcals: Using Current wt Calories/Kcals/Kg 25-30 Kcals Calculated 4298-0316 Protein: Using Current wt Protein g/k Protein Calculated 73 Fluid: ml 1825-2190ml (1m/kcal) Nutritional Problem No current Nutrition Prob Problem N/A Malnutrition Alert Protein-Calorie Malnutrition N/A Is there a minimum of two criteria No selected? Query Text:Check all the applicable criteria. A minimum of two criteria are recommended for diagnosis of either severe or non-severe malnutrition. Intervention/Recommendation Comments 1. Recommend [facility] soft chopped textured diet. RN notifid, will update diet order. 2. Monitor PO intake, wt, labs and skin integrity 3. F/U as low risk in 7 days, 12/17, PO check 12/13 Expected Outcomes/Goals Expected Outcomes/Goals 1. PO intake to meet at least 75% of nutritional needs. 2. Wt stability, skin to remain intact, labs to approach WNL.
[2017-12-16] MEDS: Atorvastatin Calcium 10 MG TAB PO SCH (21:27)
--- NOTE | 2017-12-17 05:18 | Progress Notes ---
DATE: 12/16/2017 PSYCHIATRIC PROGRESS NOTE SUBJECTIVE: Staff was spoken to. The patient is interviewed. Mood is noted to be irritable. Affect is constricted. The patient is very agitated today. The patient has to be kept a close monitoring. The patient's insight and judgment are noted to be still impaired. The patient is not able to verbalize currently. The patient is still very confused. ASSESSMENT: The patient is still impulsive. PLAN: To continue the patient with the supportive therapy and followup. JOB# [id number]
[2017-12-17] MEDS: Potassium Chloride Elixir 20 mEq /15 mL UDC PO SCH (09:52)
[2017-12-17] MEDS: Lactulose 10 Gm/15 mL 30mL UDC PO SCH (09:52)
[2017-12-17] MEDS: Multivitamin Tab PO SCH (09:53)
[2017-12-17] MEDS: POLYETHYLENE GLYCOL 3350 17 GM PACK PO SCH (09:53)
--- NOTE | 2017-12-17 10:57 | Internal Medicine Prog Note ---
Internal Medicine Subjective - Subjective Service Date: 12/17/17 Patient is:: awake, verbal, interactive, confused Per staff patient has:: no adverse event, tolerating meds Internal Medicine Objective - Results Result Diagrams: 12/05/17 18:16 12/05/17 18:16 Recent Labs: Laboratory Last Values WBC 5.7 Th/cmm (4.8-10.8) 12/05/17 18:16 RBC 3.90 Mil/cmm (3.80-5.80) 12/05/17 18:16 Hgb 12.2 gm/dL (12-16) 12/05/17 18:16 Hct 36.3 % (41.0-60) L 12/05/17 18:16 MCV 93.1 fl (80-99) 12/05/17 18:16 MCH 31.4 pg (27.0-31.0) H 12/05/17 18:16 MCHC Differential 33.7 pg (28.0-36.0) 12/05/17 18:16 RDW 12.0 % (11.5-20.0) 12/05/17 18:16 Plt Count 217 Th/cmm (150-400) 12/05/17 18:16 MPV 8.1 fl 12/05/17 18:16 Neutrophils % 61.4 % (40.0-80.0) 12/05/17 18:16 Lymphocytes % 20.3 % (20.0-50.0) 12/05/17 18:16 Monocytes % 13.5 % (2.0-10.0) H 12/05/17 18:16 Eosinophils % 3.8 % (0.0-5.0) 12/05/17 18:16 Basophils % 1.0 % (0.0-2.0) 12/05/17 18:16 Sodium 136 mEq/L (136-145) 12/05/17 18:16 Potassium 4.0 mEq/L (3.5-5.1) 12/05/17 18:16 Chloride 102 mEq/L (98-107) 12/05/17 18:16 Carbon Dioxide 29.1 mEq/L (21.0-31.0) 12/05/17 18:16 Anion Gap 8.9 (7.0-16.0) 12/05/17 18:16 BUN 20 mg/dL (7-25) 12/05/17 18:16 Creatinine 1.1 mg/dL (0.7-1.3) 12/05/17 18:16 Est GFR ( Amer) TNP 12/05/17 18:16 Est GFR (Non-Af Amer) TNP 12/05/17 18:16 BUN/Creatinine Ratio 18.2 12/05/17 18:16 Glucose 99 mg/dL (70-105) 12/05/17 18:16 Hemoglobin A1c % 5.9 % (4.0-6.0) 12/05/17 18:16 Calcium 8.9 mg/dL (8.6-10.3) 12/05/17 18:16 Total Bilirubin 0.3 mg/dL (0.3-1.0) 12/05/17 18:16 AST 15 U/L (13-39) 12/05/17 18:16 ALT 10 U/L (7-52) 12/05/17 18:16 Alkaline Phosphatase 47 U/L (34-104) 12/05/17 18:16 Total Protein 6.5 gm/dL (6.0-8.3) 12/05/17 18:16 Albumin 3.7 gm/dL (4.2-5.5) L 12/05/17 18:16 Globulin 2.8 gm/dL 12/05/17 18:16 Albumin/Globulin Ratio 1.3 (1.0-1.8) 12/05/17 18:16 Triglycerides 115 mg/dL (<150) 12/05/17 18:16 Cholesterol 115 mg/dL (<200) 12/05/17 18:16 LDL Cholesterol Direct 58 mg/dL (75-193) L 12/05/17 18:16 HDL Cholesterol 33 mg/dL (23-92) 12/05/17 18:16 TSH 3.22 uIU/ml (0.34-5.60) 12/05/17 18:16 Salicylates < 25.0 mg/L (30.0-100.0) L 12/05/17 18:16 Acetaminophen < 10.0 ug/mL (10.0-30.0) L 12/05/17 18:16 Valproic Acid 53.3 ug/mL (50.0-100.0) 12/13/17 10:55 Ethyl Alcohol < 10 mg/dL (0-10) 12/05/17 18:16 RPR NONREACTIVE (NONREACTIVE) 12/05/17 18:16 - Physical Exam Vitals and I&O: Vital Signs Temp 98.8 F 12/17/17 06:28 Pulse 93 12/17/17 06:28 Resp 20 12/17/17 06:28 BP 140/83 12/17/17 09:53 Pulse Ox 93 12/17/17 06:28 Intake & Output 12/16/17 12/17/17 12/17/17 18:59 06:59 18:59 Intake Total 950 240 Balance 950 240 Intake: Oral 950 240 Other: # Voids 4 1 # Bowel Movements 1 Stool Characteristics Formed Active Medications: Current Medications Atorvastatin Calcium (Lipitor) 10 mg PO HS ALEXANDRU PRN Reason: Protocol Stop: 02/04/18 20:59 Last Admin: 12/16/17 21:27 Dose: 10 mg Bisacodyl (Dulcolax 10 Mg Supp) 10 mg RC DAILY PRN PRN Reason: Constipation Stop: 02/04/18 11:35 Cholecalciferol (Vitamin D3) 1,000 iu PO DAILY ALEXANDRU Stop: 02/05/18 09:59 Last Admin: 12/17/17 09:53 Dose: 1,000 iu Cyanocobalamin (Vitamin B12) 1,000 mcg PO DAILY ALEXANDRU Stop: 02/05/18 08:59 Last Admin: 12/17/17 09:53 Dose: 1,000 mcg Divalproex Sodium (Depakote Sprinkle) 250 mg PO DAILY ALEXANDRU PRN Reason: Protocol Stop: 02/05/18 08:59 Last Admin: 12/17/17 09:52 Dose: 250 mg Divalproex Sodium (Depakote Sprinkle) 500 mg PO HS ALEXANDRU PRN Reason: Protocol Stop: 02/04/18 20:59 Last Admin: 12/16/17 21:28 Dose: 500 mg Furosemide (Lasix) 20 mg PO DAILY ALEXANDRU Stop: 02/05/18 08:59 Last Admin: 12/17/17 09:53 Dose: 20 mg Lactulose (Cephulac) 10 gm PO DAILY ALEXANDRU Stop: 02/05/18 08:59 Last Admin: 12/17/17 09:52 Dose: 10 gm Levothyroxine Sodium 0.1 mg/ (Levothyroxine Sodium 0.05 mg) 0.15 mg PO QDAC ALEXANDRU Stop: 02/05/18 09:59 Last Admin: 12/17/17 06:38 Dose: 0.15 mg Lorazepam (Ativan) 0.5 mg PO Q6HR PRN; Protocol PRN Reason: Anxiety Stop: 02/05/18 16:03 Last Admin: 12/16/17 15:16 Dose: 0.5 mg Magnesium Hydroxide (Milk Of Magnesia) 30 ml PO Q2D PRN PRN Reason: Constipation Stop: 02/04/18 11:35 Memantine (Namenda) 5 mg PO DAILY ALEXANDRU Stop: 02/05/18 08:59 Last Admin: 12/17/17 09:52 Dose: 5 mg Mineral Oil (Fleet Mineral Oil) 135 ml RC Q2D PRN PRN Reason: Constipation Stop: 02/04/18 11:35 Mirtazapine (Remeron) 15 mg PO HS ALEXANDRU PRN Reason: Protocol Stop: 02/04/18 20:59 Last Admin: 12/16/17 21:29 Dose: 15 mg Multivitamins/Vitamin C (Theragran) 1 tab PO DAILY ALEXANDRU Stop: 02/05/18 08:59 Last Admin: 12/17/17 09:53 Dose: 1 tab Polyethylene Glycol (Miralax) 17 gm PO DAILY ALEXANDRU Stop: 02/05/18 09:59 Last Admin: 12/17/17 09:53 Dose: 17 gm Potassium Chloride (Potassium Chloride Elixir) 20 meq PO DAILY ALEXANDRU Stop: 02/05/18 08:59 Last Admin: 12/17/17 09:52 Dose: 20 meq Quetiapine Fumarate (Seroquel) 100 mg PO HS ALEXANDRU Stop: 02/09/18 20:59 Last Admin: 12/16/17 21:29 Dose: 100 mg Quetiapine Fumarate (Seroquel) 100 mg PO DAILY ALEXANDRU Stop: 02/10/18 08:59 Last Admin: 12/17/17 09:53 Dose: 100 mg General: alert HEENT: NC/AT, PERRLA Neck: Supple Lungs: CTAB Cardiovascular: RRR Abdomen: soft, non-tender, non-distended, positive bowel sound Extremities: excoriation Neurological: no change Internal Medicine Assmt/Plan - Assessment Assessment: HTN CAD DYSLIPIDEMIA GERD DEMENTIA AGITATION - Plan Plan: ADJUST PATIENTS BP MEDS if needed cont with ppi continue current orders Nutritional Asmnt/Malnutr-PDOC - Dietary Evaluation Malnutrition Findings (Please click <Entered> for more info): Nutritional Asmnt/Malnutrition Start: 12/10/17 13: 54 Text: Status: Complete Freq: Document 12/10/17 13:54 CHUCKMARY ANN (Rec: 12/10/17 14:05 KENNARom [email or web address]) Nutritional Asmnt/Malnutrition Patient General Information Nutritional Screening Moderate Risk Diagnosis psychosis Pertinent Medical Hx/Surgical Hx HTN, CAD, dyslipidemia, GERD, dementia Subjective Information Pt seen sleeping in teja-chair in dining room at time of visit. Pt was on [facility] soft chopped diet. Per RN [facility], pt has no teeth and sometimes has difficult chewing the food. Spoke with RN and suggested diet change to [facility] soft ground. Per EMR, PO intake 100 %. Current Diet Order/ Nutrition Support [facility] soft chopped CANDY Pertinent Medications vit D3, Vit D12, lasix, levothyroxine, remeron, theragran, miralax, kcl, seroquel Pertinent Labs 4/ alb 3.7 Nutritional Hx/Data Height 5 ft 9 in Height (Calculated Centimeters) 175.3 Current Weight (lbs) 160 lb Weight (Calculated Kilograms) 72.6 Weight (Calculated Grams) 56037.8 [place] Body Weight 160 Body Mass Index (BMI) 23.6 Weight Status Approriate GI Symptoms GI Symptoms None Last BM 4/7 Difficult in: None Skin Integrity/Comment: intact Current %PO Good (75-100%) Estimated Nutritional Goals BEE in Kcals: Using Current wt Calories/Kcals/Kg 25-30 Kcals Calculated 9805-1152 Protein: Using Current wt Protein g/k Protein Calculated 73 Fluid: ml 1825-2190ml (1m/kcal) Nutritional Problem No current Nutrition Prob Problem N/A Malnutrition Alert Protein-Calorie Malnutrition N/A Is there a minimum of two criteria No selected? Query Text:Check all the applicable criteria. A minimum of two criteria are recommended for diagnosis of either severe or non-severe malnutrition. Intervention/Recommendation Comments 1. Recommend [facility] soft chopped textured diet. RN notifid, will update diet order. 2. Monitor PO intake, wt, labs and skin integrity 3. F/U as low risk in 7 days, 12/17, PO check 12/13 Expected Outcomes/Goals Expected Outcomes/Goals 1. PO intake to meet at least 75% of nutritional needs. 2. Wt stability, skin to remain intact, labs to approach WNL.
[2017-12-17] MEDS: Atorvastatin Calcium 10 MG TAB PO SCH (20:51)
--- NOTE | 2017-12-18 02:32 | Progress Notes ---
DATE: 12/17/2017 SUBJECTIVE: Staff was spoken to. The patient is interviewed. Mood is noted to be still irritable. The patient is confused. The patient has been displaying sundowning symptoms. Coping skills are noted to be very poor at this time. Insight and judgment are also noted to be very much impaired. No side effects to the medications are noted. The patient is being closely monitored for aggressive behavior. ASSESSMENT: The patient is still impulsive. PLAN: To continue the patient with the supportive therapy and follow up. JOB# [id number]
[2017-12-18] MEDS: Lactulose 10 Gm/15 mL 30mL UDC PO SCH (08:46)
[2017-12-18] MEDS: Potassium Chloride Elixir 20 mEq /15 mL UDC PO SCH (08:46)
[2017-12-18] MEDS: Multivitamin Tab PO SCH (08:48)
[2017-12-18] MEDS: POLYETHYLENE GLYCOL 3350 17 GM PACK PO SCH (08:49)
--- NOTE | 2017-12-18 13:37 | Internal Medicine Prog Note ---
Internal Medicine Subjective - Subjective Service Date: 12/18/17 Patient is:: awake, verbal, interactive, confused Per staff patient has:: no adverse event, tolerating meds Internal Medicine Objective - Results Result Diagrams: 12/05/17 18:16 12/05/17 18:16 Recent Labs: Laboratory Last Values WBC 5.7 Th/cmm (4.8-10.8) 12/05/17 18:16 RBC 3.90 Mil/cmm (3.80-5.80) 12/05/17 18:16 Hgb 12.2 gm/dL (12-16) 12/05/17 18:16 Hct 36.3 % (41.0-60) L 12/05/17 18:16 MCV 93.1 fl (80-99) 12/05/17 18:16 MCH 31.4 pg (27.0-31.0) H 12/05/17 18:16 MCHC Differential 33.7 pg (28.0-36.0) 12/05/17 18:16 RDW 12.0 % (11.5-20.0) 12/05/17 18:16 Plt Count 217 Th/cmm (150-400) 12/05/17 18:16 MPV 8.1 fl 12/05/17 18:16 Neutrophils % 61.4 % (40.0-80.0) 12/05/17 18:16 Lymphocytes % 20.3 % (20.0-50.0) 12/05/17 18:16 Monocytes % 13.5 % (2.0-10.0) H 12/05/17 18:16 Eosinophils % 3.8 % (0.0-5.0) 12/05/17 18:16 Basophils % 1.0 % (0.0-2.0) 12/05/17 18:16 Sodium 136 mEq/L (136-145) 12/05/17 18:16 Potassium 4.0 mEq/L (3.5-5.1) 12/05/17 18:16 Chloride 102 mEq/L (98-107) 12/05/17 18:16 Carbon Dioxide 29.1 mEq/L (21.0-31.0) 12/05/17 18:16 Anion Gap 8.9 (7.0-16.0) 12/05/17 18:16 BUN 20 mg/dL (7-25) 12/05/17 18:16 Creatinine 1.1 mg/dL (0.7-1.3) 12/05/17 18:16 Est GFR ( Amer) TNP 12/05/17 18:16 Est GFR (Non-Af Amer) TNP 12/05/17 18:16 BUN/Creatinine Ratio 18.2 12/05/17 18:16 Glucose 99 mg/dL (70-105) 12/05/17 18:16 Hemoglobin A1c % 5.9 % (4.0-6.0) 12/05/17 18:16 Calcium 8.9 mg/dL (8.6-10.3) 12/05/17 18:16 Total Bilirubin 0.3 mg/dL (0.3-1.0) 12/05/17 18:16 AST 15 U/L (13-39) 12/05/17 18:16 ALT 10 U/L (7-52) 12/05/17 18:16 Alkaline Phosphatase 47 U/L (34-104) 12/05/17 18:16 Total Protein 6.5 gm/dL (6.0-8.3) 12/05/17 18:16 Albumin 3.7 gm/dL (4.2-5.5) L 12/05/17 18:16 Globulin 2.8 gm/dL 12/05/17 18:16 Albumin/Globulin Ratio 1.3 (1.0-1.8) 12/05/17 18:16 Triglycerides 115 mg/dL (<150) 12/05/17 18:16 Cholesterol 115 mg/dL (<200) 12/05/17 18:16 LDL Cholesterol Direct 58 mg/dL (75-193) L 12/05/17 18:16 HDL Cholesterol 33 mg/dL (23-92) 12/05/17 18:16 TSH 3.22 uIU/ml (0.34-5.60) 12/05/17 18:16 Salicylates < 25.0 mg/L (30.0-100.0) L 12/05/17 18:16 Acetaminophen < 10.0 ug/mL (10.0-30.0) L 12/05/17 18:16 Valproic Acid 53.3 ug/mL (50.0-100.0) 12/13/17 10:55 Ethyl Alcohol < 10 mg/dL (0-10) 12/05/17 18:16 RPR NONREACTIVE (NONREACTIVE) 12/05/17 18:16 - Physical Exam Vitals and I&O: Vital Signs Temp 97.0 F 12/18/17 06:08 Pulse 69 12/18/17 10:22 Resp 19 12/18/17 10:22 BP 112/72 12/18/17 08:49 Pulse Ox 99 12/18/17 06:08 Intake & Output 12/17/17 12/18/17 12/18/17 18:59 06:59 18:59 Intake Total 1800 300 Balance 1800 300 Intake: Oral 1800 300 Other: # Voids 4 2 # Bowel Movements 1 0 Stool Characteristics Formed Formed Brown Active Medications: Current Medications Atorvastatin Calcium (Lipitor) 10 mg PO HS ALEXANDRU PRN Reason: Protocol Stop: 02/04/18 20:59 Last Admin: 12/17/17 20:51 Dose: 10 mg Bisacodyl (Dulcolax 10 Mg Supp) 10 mg RC DAILY PRN PRN Reason: Constipation Stop: 02/04/18 11:35 Cholecalciferol (Vitamin D3) 1,000 iu PO DAILY ALEXANDRU Stop: 02/05/18 09:59 Last Admin: 12/18/17 08:48 Dose: 1,000 iu Cyanocobalamin (Vitamin B12) 1,000 mcg PO DAILY ALEXANDRU Stop: 02/05/18 08:59 Last Admin: 12/18/17 08:48 Dose: 1,000 mcg Divalproex Sodium (Depakote Sprinkle) 250 mg PO DAILY ALEXANDRU PRN Reason: Protocol Stop: 02/05/18 08:59 Last Admin: 12/18/17 08:48 Dose: 250 mg Divalproex Sodium (Depakote Sprinkle) 500 mg PO HS ALEXANDRU PRN Reason: Protocol Stop: 02/04/18 20:59 Last Admin: 12/17/17 20:50 Dose: 500 mg Furosemide (Lasix) 20 mg PO DAILY ALEXANDRU Stop: 02/05/18 08:59 Last Admin: 12/18/17 08:49 Dose: 20 mg Lactulose (Cephulac) 10 gm PO DAILY ALEXANDRU Stop: 02/05/18 08:59 Last Admin: 12/18/17 08:46 Dose: 10 gm Levothyroxine Sodium 0.1 mg/ (Levothyroxine Sodium 0.05 mg) 0.15 mg PO QDAC ALEXANDRU Stop: 02/05/18 09:59 Last Admin: 12/18/17 06:51 Dose: 0.15 mg Lorazepam (Ativan) 0.5 mg PO Q6HR PRN; Protocol PRN Reason: Anxiety Stop: 02/05/18 16:03 Last Admin: 12/18/17 08:48 Dose: 0.5 mg Magnesium Hydroxide (Milk Of Magnesia) 30 ml PO Q2D PRN PRN Reason: Constipation Stop: 02/04/18 11:35 Memantine (Namenda) 5 mg PO DAILY ALEXANDRU Stop: 02/05/18 08:59 Last Admin: 12/18/17 08:48 Dose: 5 mg Mineral Oil (Fleet Mineral Oil) 135 ml RC Q2D PRN PRN Reason: Constipation Stop: 02/04/18 11:35 Mirtazapine (Remeron) 15 mg PO HS ALEXANDRU PRN Reason: Protocol Stop: 02/04/18 20:59 Last Admin: 12/17/17 20:50 Dose: 15 mg Multivitamins/Vitamin C (Theragran) 1 tab PO DAILY ALEXANDRU Stop: 02/05/18 08:59 Last Admin: 12/18/17 08:48 Dose: 1 tab Polyethylene Glycol (Miralax) 17 gm PO DAILY ALEXANDRU Stop: 02/05/18 09:59 Last Admin: 12/18/17 08:49 Dose: Not Given Potassium Chloride (Potassium Chloride Elixir) 20 meq PO DAILY ALEXANDRU Stop: 02/05/18 08:59 Last Admin: 12/18/17 08:46 Dose: 20 meq Quetiapine Fumarate (Seroquel) 100 mg PO HS ALEXANDRU Stop: 02/09/18 20:59 Last Admin: 12/17/17 20:51 Dose: 100 mg Quetiapine Fumarate (Seroquel) 100 mg PO DAILY ALEXANDRU Stop: 02/10/18 08:59 Last Admin: 12/18/17 08:49 Dose: 100 mg General: alert HEENT: NC/AT, PERRLA Neck: Supple Lungs: CTAB Cardiovascular: RRR Abdomen: soft, non-tender, non-distended, positive bowel sound Extremities: excoriation Neurological: no change Internal Medicine Assmt/Plan - Assessment Assessment: HTN CAD DYSLIPIDEMIA GERD DEMENTIA AGITATION - Plan Plan: ADJUST PATIENTS BP MEDS if needed cont with ppi continue current orders Nutritional Asmnt/Malnutr-PDOC - Dietary Evaluation Malnutrition Findings (Please click <Entered> for more info): Nutritional Asmnt/Malnutrition Start: 12/10/17 13: 54 Text: Status: Complete Freq: Document 12/10/17 13:54 CHUCKMARY ANN (Rec: 12/10/17 14:05 CONSTANTINO [email or web address]) Nutritional Asmnt/Malnutrition Patient General Information Nutritional Screening Moderate Risk Diagnosis psychosis Pertinent Medical Hx/Surgical Hx HTN, CAD, dyslipidemia, GERD, dementia Subjective Information Pt seen sleeping in teja-chair in dining room at time of visit. Pt was on [facility] soft chopped diet. Per [employer], pt has no teeth and sometimes has difficult chewing the food. Spoke with RN and suggested diet change to [facility] soft ground. Per EMR, PO intake 100 %. Current Diet Order/ Nutrition Support [facility] soft chopped CANDY Pertinent Medications vit D3, Vit D12, lasix, levothyroxine, remeron, theragran, miralax, kcl, seroquel Pertinent Labs 4/4 alb 3.7 Nutritional Hx/Data Height 5 ft 9 in Height (Calculated Centimeters) 175.3 Current Weight (lbs) 160 lb Weight (Calculated Kilograms) 72.6 Weight (Calculated Grams) 16904.8 [place] Body Weight 160 Body Mass Index (BMI) 23.6 Weight Status Approriate GI Symptoms GI Symptoms None Last BM 4/7 Difficult in: None Skin Integrity/Comment: intact Current %PO Good (75-100%) Estimated Nutritional Goals BEE in Kcals: Using Current wt Calories/Kcals/Kg 25-30 Kcals Calculated 7300-6198 Protein: Using Current wt Protein g/k Protein Calculated 73 Fluid: ml 1825-2190ml (1m/kcal) Nutritional Problem No current Nutrition Prob Problem N/A Malnutrition Alert Protein-Calorie Malnutrition N/A Is there a minimum of two criteria No selected? Query Text:Check all the applicable criteria. A minimum of two criteria are recommended for diagnosis of either severe or non-severe malnutrition. Intervention/Recommendation Comments 1. Recommend [facility] soft chopped textured diet. RN notifid, will update diet order. 2. Monitor PO intake, wt, labs and skin integrity 3. F/U as low risk in 7 days, 12/17, PO check 12/13 Expected Outcomes/Goals Expected Outcomes/Goals 1. PO intake to meet at least 75% of nutritional needs. 2. Wt stability, skin to remain intact, labs to approach WNL.
--- NOTE | 2017-12-18 18:01 | Progress Notes ---
DATE: 12/18/2017 SUBJECTIVE: Staff was spoken to. The patient is interviewed. Mood is noted to be anxious. Affect is constricted. The patient is screaming and yelling and the patient has to be closely monitored in a Jannet chair. PLAN OF CARE: The patient is currently on Seroquel 100 mg twice a day and the patient is also on mirtazapine 15 mg at bedtime. The patient is still testing the limits and has been placed on the valproic acid, which is given at 50 mg in the morning and 500 mg at bedtime. With these medications, the patient is going to be monitored. I encouraged to verbalize the concerns rather than to act out. JOB# [id number]
[2017-12-18] MEDS: Atorvastatin Calcium 10 MG TAB PO SCH (20:27)
[2017-12-19] MEDS: POLYETHYLENE GLYCOL 3350 17 GM PACK PO SCH (08:08)
[2017-12-19] MEDS: Lactulose 10 Gm/15 mL 30mL UDC PO SCH (08:09)
[2017-12-19] MEDS: Potassium Chloride Elixir 20 mEq /15 mL UDC PO SCH (08:09)
[2017-12-19] MEDS: Multivitamin Tab PO SCH (08:10)
--- NOTE | 2017-12-19 12:39 | Internal Medicine Prog Note ---
Internal Medicine Subjective - Subjective Service Date: 12/19/17 Patient is:: awake, verbal, interactive, confused Per staff patient has:: no adverse event, tolerating meds Internal Medicine Objective - Results Result Diagrams: 12/05/17 18:16 12/05/17 18:16 Recent Labs: Laboratory Last Values WBC 5.7 Th/cmm (4.8-10.8) 12/05/17 18:16 RBC 3.90 Mil/cmm (3.80-5.80) 12/05/17 18:16 Hgb 12.2 gm/dL (12-16) 12/05/17 18:16 Hct 36.3 % (41.0-60) L 12/05/17 18:16 MCV 93.1 fl (80-99) 12/05/17 18:16 MCH 31.4 pg (27.0-31.0) H 12/05/17 18:16 MCHC Differential 33.7 pg (28.0-36.0) 12/05/17 18:16 RDW 12.0 % (11.5-20.0) 12/05/17 18:16 Plt Count 217 Th/cmm (150-400) 12/05/17 18:16 MPV 8.1 fl 12/05/17 18:16 Neutrophils % 61.4 % (40.0-80.0) 12/05/17 18:16 Lymphocytes % 20.3 % (20.0-50.0) 12/05/17 18:16 Monocytes % 13.5 % (2.0-10.0) H 12/05/17 18:16 Eosinophils % 3.8 % (0.0-5.0) 12/05/17 18:16 Basophils % 1.0 % (0.0-2.0) 12/05/17 18:16 Sodium 136 mEq/L (136-145) 12/05/17 18:16 Potassium 4.0 mEq/L (3.5-5.1) 12/05/17 18:16 Chloride 102 mEq/L (98-107) 12/05/17 18:16 Carbon Dioxide 29.1 mEq/L (21.0-31.0) 12/05/17 18:16 Anion Gap 8.9 (7.0-16.0) 12/05/17 18:16 BUN 20 mg/dL (7-25) 12/05/17 18:16 Creatinine 1.1 mg/dL (0.7-1.3) 12/05/17 18:16 Est GFR ( Amer) TNP 12/05/17 18:16 Est GFR (Non-Af Amer) TNP 12/05/17 18:16 BUN/Creatinine Ratio 18.2 12/05/17 18:16 Glucose 99 mg/dL (70-105) 12/05/17 18:16 Hemoglobin A1c % 5.9 % (4.0-6.0) 12/05/17 18:16 Calcium 8.9 mg/dL (8.6-10.3) 12/05/17 18:16 Total Bilirubin 0.3 mg/dL (0.3-1.0) 12/05/17 18:16 AST 15 U/L (13-39) 12/05/17 18:16 ALT 10 U/L (7-52) 12/05/17 18:16 Alkaline Phosphatase 47 U/L (34-104) 12/05/17 18:16 Total Protein 6.5 gm/dL (6.0-8.3) 12/05/17 18:16 Albumin 3.7 gm/dL (4.2-5.5) L 12/05/17 18:16 Globulin 2.8 gm/dL 12/05/17 18:16 Albumin/Globulin Ratio 1.3 (1.0-1.8) 12/05/17 18:16 Triglycerides 115 mg/dL (<150) 12/05/17 18:16 Cholesterol 115 mg/dL (<200) 12/05/17 18:16 LDL Cholesterol Direct 58 mg/dL (75-193) L 12/05/17 18:16 HDL Cholesterol 33 mg/dL (23-92) 12/05/17 18:16 TSH 3.22 uIU/ml (0.34-5.60) 12/05/17 18:16 Salicylates < 25.0 mg/L (30.0-100.0) L 12/05/17 18:16 Acetaminophen < 10.0 ug/mL (10.0-30.0) L 12/05/17 18:16 Valproic Acid 53.3 ug/mL (50.0-100.0) 12/13/17 10:55 Ethyl Alcohol < 10 mg/dL (0-10) 12/05/17 18:16 RPR NONREACTIVE (NONREACTIVE) 12/05/17 18:16 - Physical Exam Vitals and I&O: Vital Signs Temp 98.4 F 12/19/17 06:20 Pulse 75 12/19/17 06:20 Resp 18 12/19/17 08:00 BP 110/76 12/19/17 08:10 Pulse Ox 98 12/19/17 06:20 Intake & Output 12/18/17 12/19/17 12/19/17 18:59 06:59 18:59 Intake Total 1000 120 Balance 1000 120 Intake: Oral 1000 120 Other: # Voids 3 3 # Bowel Movements 1 1 Active Medications: Current Medications Atorvastatin Calcium (Lipitor) 10 mg PO HS ALEXANDRU PRN Reason: Protocol Stop: 02/04/18 20:59 Last Admin: 12/18/17 20:27 Dose: 10 mg Bisacodyl (Dulcolax 10 Mg Supp) 10 mg RC DAILY PRN PRN Reason: Constipation Stop: 02/04/18 11:35 Cholecalciferol (Vitamin D3) 1,000 iu PO DAILY ALEXANDRU Stop: 02/05/18 09:59 Last Admin: 12/19/17 08:09 Dose: 1,000 iu Cyanocobalamin (Vitamin B12) 1,000 mcg PO DAILY ALEXANDRU Stop: 02/05/18 08:59 Last Admin: 12/19/17 08:10 Dose: 1,000 mcg Divalproex Sodium (Depakote Sprinkle) 250 mg PO DAILY ALEXANDRU PRN Reason: Protocol Stop: 02/05/18 08:59 Last Admin: 12/19/17 08:09 Dose: 250 mg Divalproex Sodium (Depakote Sprinkle) 500 mg PO HS ALEXANDRU PRN Reason: Protocol Stop: 02/04/18 20:59 Last Admin: 12/18/17 20:26 Dose: 500 mg Furosemide (Lasix) 20 mg PO DAILY ALEXANDRU Stop: 02/05/18 08:59 Last Admin: 12/19/17 08:10 Dose: 20 mg Lactulose (Cephulac) 10 gm PO DAILY ALEXANDRU Stop: 02/05/18 08:59 Last Admin: 12/19/17 08:09 Dose: 10 gm Levothyroxine Sodium 0.1 mg/ (Levothyroxine Sodium 0.05 mg) 0.15 mg PO QDAC ALEXANDRU Stop: 02/05/18 09:59 Last Admin: 12/19/17 08:14 Dose: 0.15 mg Lorazepam (Ativan) 0.5 mg PO Q6HR PRN; Protocol PRN Reason: Anxiety Stop: 02/05/18 16:03 Last Admin: 12/18/17 20:27 Dose: 0.5 mg Magnesium Hydroxide (Milk Of Magnesia) 30 ml PO Q2D PRN PRN Reason: Constipation Stop: 02/04/18 11:35 Memantine (Namenda) 5 mg PO DAILY ALEXANDRU Stop: 02/05/18 08:59 Last Admin: 12/19/17 08:10 Dose: 5 mg Mineral Oil (Fleet Mineral Oil) 135 ml RC Q2D PRN PRN Reason: Constipation Stop: 02/04/18 11:35 Mirtazapine (Remeron) 15 mg PO HS ALEXANDRU PRN Reason: Protocol Stop: 02/04/18 20:59 Last Admin: 12/18/17 20:26 Dose: 15 mg Multivitamins/Vitamin C (Theragran) 1 tab PO DAILY ALEXANDRU Stop: 02/05/18 08:59 Last Admin: 12/19/17 08:10 Dose: 1 tab Polyethylene Glycol (Miralax) 17 gm PO DAILY ALEXANDRU Stop: 02/05/18 09:59 Last Admin: 12/19/17 08:08 Dose: 17 gm Potassium Chloride (Potassium Chloride Elixir) 20 meq PO DAILY ALEXANDRU Stop: 02/05/18 08:59 Last Admin: 12/19/17 08:09 Dose: 20 meq Quetiapine Fumarate (Seroquel) 100 mg PO HS ALEXANDRU Stop: 02/09/18 20:59 Last Admin: 12/18/17 20:27 Dose: 100 mg Quetiapine Fumarate (Seroquel) 100 mg PO DAILY ALEXANDRU Stop: 02/10/18 08:59 Last Admin: 12/19/17 08:10 Dose: 100 mg General: alert HEENT: NC/AT, PERRLA Neck: Supple Lungs: CTAB Cardiovascular: RRR Abdomen: soft, non-tender, non-distended, positive bowel sound Extremities: excoriation Neurological: no change Internal Medicine Assmt/Plan - Assessment Assessment: HTN CAD DYSLIPIDEMIA GERD DEMENTIA AGITATION - Plan Plan: ADJUST PATIENTS BP MEDS if needed cont with ppi continue current orders Nutritional Asmnt/Malnutr-PDOC - Dietary Evaluation Malnutrition Findings (Please click <Entered> for more info): Nutritional Asmnt/Malnutrition Start: 12/10/17 13: 54 Text: Status: Complete Freq: Document 12/10/17 13:54 CHUCKMARY ANN (Rec: 12/10/17 14:05 MARY ANN [id number]) Nutritional Asmnt/Malnutrition Patient General Information Nutritional Screening Moderate Risk Diagnosis psychosis Pertinent Medical Hx/Surgical Hx HTN, CAD, dyslipidemia, GERD, dementia Subjective Information Pt seen sleeping in teja-chair in dining room at time of visit. Pt was on [facility] soft chopped diet. Per AIR DEFENCE OFFICER, pt has no teeth and sometimes has difficult chewing the food. Spoke with RN and suggested diet change to mech soft ground. Per EMR, PO intake 100 %. Current Diet Order/ Nutrition Support mec soft chopped CANDY Pertinent Medications vit D3, Vit D12, lasix, levothyroxine, remeron, theragran, miralax, kcl, seroquel Pertinent Labs 4/ alb 3.7 Nutritional Hx/Data Height 5 ft 9 in Height (Calculated Centimeters) 175.3 Current Weight (lbs) 160 lb Weight (Calculated Kilograms) 72.6 Weight (Calculated Grams) 37013.8 [place] Body Weight 160 Body Mass Index (BMI) 23.6 Weight Status Approriate GI Symptoms GI Symptoms None Last BM 4/7 Difficult in: None Skin Integrity/Comment: intact Current %PO Good (75-100%) Estimated Nutritional Goals BEE in Kcals: Using Current wt Calories/Kcals/Kg 25-30 Kcals Calculated 2799-5384 Protein: Using Current wt Protein g/k Protein Calculated 73 Fluid: ml 1825-2190ml (1m/kcal) Nutritional Problem No current Nutrition Prob Problem N/A Malnutrition Alert Protein-Calorie Malnutrition N/A Is there a minimum of two criteria No selected? Query Text:Check all the applicable criteria. A minimum of two criteria are recommended for diagnosis of either severe or non-severe malnutrition. Intervention/Recommendation Comments 1. Recommend mech soft chopped textured diet. RN notifid, will update diet order. 2. Monitor PO intake, wt, labs and skin integrity 3. F/U as low risk in 7 days, 12/17, PO check 12/13 Expected Outcomes/Goals Expected Outcomes/Goals 1. PO intake to meet at least 75% of nutritional needs. 2. Wt stability, skin to remain intact, labs to approach WNL.
[2017-12-19] MEDS: Atorvastatin Calcium 10 MG TAB PO SCH (20:19)
--- NOTE | 2017-12-20 02:24 | Progress Notes ---
DATE: 12/19/2017 SUBJECTIVE: Staff was spoken to. The patient is interviewed. Mood is noted to be anxious. Affect is constricted. The patient's insight and judgment at this time are noted to be improving a little bit. Impulse control seems to be fair today. Coping skills are noted to be improving. No aggressive behavior is reported by the staff. The patient has been able to tolerate the medications. No side effects to the medications are noted. The patient is currently on valproic acid 250 mg in the morning and 500 mg at bedtime and he is also on Seroquel 100 mg twice a day. No side effects to the medications are noted. ASSESSMENT: The patient is stabilizing. PLAN: To continue patient with the current medications. I encouraged the patient to verbalize the concerns rather than to act out. JOB# [id number]
[2017-12-20] MEDS: Lactulose 10 Gm/15 mL 30mL UDC PO SCH (09:00)
[2017-12-20] MEDS: POLYETHYLENE GLYCOL 3350 17 GM PACK PO SCH (09:01)
[2017-12-20] MEDS: Multivitamin Tab PO SCH (09:01)
[2017-12-20] MEDS: Potassium Chloride Elixir 20 mEq /15 mL UDC PO SCH (09:01)
--- NOTE | 2017-12-20 14:05 | Internal Medicine Prog Note ---
Internal Medicine Subjective - Subjective Service Date: 12/20/17 Patient is:: awake, verbal, interactive, confused Per staff patient has:: no adverse event, tolerating meds Internal Medicine Objective - Results Result Diagrams: 12/05/17 18:16 12/05/17 18:16 Recent Labs: Laboratory Last Values WBC 5.7 Th/cmm (4.8-10.8) 12/05/17 18:16 RBC 3.90 Mil/cmm (3.80-5.80) 12/05/17 18:16 Hgb 12.2 gm/dL (12-16) 12/05/17 18:16 Hct 36.3 % (41.0-60) L 12/05/17 18:16 MCV 93.1 fl (80-99) 12/05/17 18:16 MCH 31.4 pg (27.0-31.0) H 12/05/17 18:16 MCHC Differential 33.7 pg (28.0-36.0) 12/05/17 18:16 RDW 12.0 % (11.5-20.0) 12/05/17 18:16 Plt Count 217 Th/cmm (150-400) 12/05/17 18:16 MPV 8.1 fl 12/05/17 18:16 Neutrophils % 61.4 % (40.0-80.0) 12/05/17 18:16 Lymphocytes % 20.3 % (20.0-50.0) 12/05/17 18:16 Monocytes % 13.5 % (2.0-10.0) H 12/05/17 18:16 Eosinophils % 3.8 % (0.0-5.0) 12/05/17 18:16 Basophils % 1.0 % (0.0-2.0) 12/05/17 18:16 Sodium 136 mEq/L (136-145) 12/05/17 18:16 Potassium 4.0 mEq/L (3.5-5.1) 12/05/17 18:16 Chloride 102 mEq/L (98-107) 12/05/17 18:16 Carbon Dioxide 29.1 mEq/L (21.0-31.0) 12/05/17 18:16 Anion Gap 8.9 (7.0-16.0) 12/05/17 18:16 BUN 20 mg/dL (7-25) 12/05/17 18:16 Creatinine 1.1 mg/dL (0.7-1.3) 12/05/17 18:16 Est GFR ( Amer) TNP 12/05/17 18:16 Est GFR (Non-Af Amer) TNP 12/05/17 18:16 BUN/Creatinine Ratio 18.2 12/05/17 18:16 Glucose 99 mg/dL (70-105) 12/05/17 18:16 Hemoglobin A1c % 5.9 % (4.0-6.0) 12/05/17 18:16 Calcium 8.9 mg/dL (8.6-10.3) 12/05/17 18:16 Total Bilirubin 0.3 mg/dL (0.3-1.0) 12/05/17 18:16 AST 15 U/L (13-39) 12/05/17 18:16 ALT 10 U/L (7-52) 12/05/17 18:16 Alkaline Phosphatase 47 U/L (34-104) 12/05/17 18:16 Total Protein 6.5 gm/dL (6.0-8.3) 12/05/17 18:16 Albumin 3.7 gm/dL (4.2-5.5) L 12/05/17 18:16 Globulin 2.8 gm/dL 12/05/17 18:16 Albumin/Globulin Ratio 1.3 (1.0-1.8) 12/05/17 18:16 Triglycerides 115 mg/dL (<150) 12/05/17 18:16 Cholesterol 115 mg/dL (<200) 12/05/17 18:16 LDL Cholesterol Direct 58 mg/dL (75-193) L 12/05/17 18:16 HDL Cholesterol 33 mg/dL (23-92) 12/05/17 18:16 TSH 3.22 uIU/ml (0.34-5.60) 12/05/17 18:16 Salicylates < 25.0 mg/L (30.0-100.0) L 12/05/17 18:16 Acetaminophen < 10.0 ug/mL (10.0-30.0) L 12/05/17 18:16 Valproic Acid 53.3 ug/mL (50.0-100.0) 12/13/17 10:55 Ethyl Alcohol < 10 mg/dL (0-10) 12/05/17 18:16 RPR NONREACTIVE (NONREACTIVE) 12/05/17 18:16 - Physical Exam Vitals and I&O: Vital Signs Temp 98.6 F 12/20/17 11:26 Pulse 72 12/20/17 11:26 Resp 20 12/20/17 11:26 BP 118/67 12/20/17 11:26 Pulse Ox 97 12/20/17 11:26 Intake & Output 12/19/17 12/20/17 12/20/17 18:59 06:59 18:59 Intake Total 1000 120 Balance 1000 120 Intake: Oral 1000 120 Other: # Voids 3 3 Active Medications: Current Medications Atorvastatin Calcium (Lipitor) 10 mg PO HS ALEXANDRU PRN Reason: Protocol Stop: 02/04/18 20:59 Last Admin: 12/19/17 20:19 Dose: 10 mg Bisacodyl (Dulcolax 10 Mg Supp) 10 mg RC DAILY PRN PRN Reason: Constipation Stop: 02/04/18 11:35 Cholecalciferol (Vitamin D3) 1,000 iu PO DAILY ALEXANDRU Stop: 02/05/18 09:59 Last Admin: 12/20/17 09:01 Dose: 1,000 iu Cyanocobalamin (Vitamin B12) 1,000 mcg PO DAILY ALEXANDRU Stop: 02/05/18 08:59 Last Admin: 12/20/17 09:01 Dose: 1,000 mcg Divalproex Sodium (Depakote Sprinkle) 250 mg PO DAILY ALEXANDRU PRN Reason: Protocol Stop: 02/05/18 08:59 Last Admin: 12/20/17 09:01 Dose: 250 mg Divalproex Sodium (Depakote Sprinkle) 500 mg PO HS ALEXANDRU PRN Reason: Protocol Stop: 02/04/18 20:59 Last Admin: 12/19/17 20:19 Dose: 500 mg Furosemide (Lasix) 20 mg PO DAILY ALEXANDRU Stop: 02/05/18 08:59 Last Admin: 12/20/17 09:02 Dose: 20 mg Lactulose (Cephulac) 10 gm PO DAILY ALEXANDRU Stop: 02/05/18 08:59 Last Admin: 12/20/17 09:00 Dose: 10 gm Levothyroxine Sodium 0.1 mg/ (Levothyroxine Sodium 0.05 mg) 0.15 mg PO QDAC ALEXANDRU Stop: 02/05/18 09:59 Last Admin: 12/20/17 06:37 Dose: 0.15 mg Lorazepam (Ativan) 0.5 mg PO Q6HR PRN; Protocol PRN Reason: Anxiety Stop: 02/05/18 16:03 Last Admin: 12/19/17 20:19 Dose: 0.5 mg Magnesium Hydroxide (Milk Of Magnesia) 30 ml PO Q2D PRN PRN Reason: Constipation Stop: 02/04/18 11:35 Memantine (Namenda) 5 mg PO DAILY ALEXANDRU Stop: 02/05/18 08:59 Last Admin: 12/20/17 09:01 Dose: 5 mg Mineral Oil (Fleet Mineral Oil) 135 ml RC Q2D PRN PRN Reason: Constipation Stop: 02/04/18 11:35 Mirtazapine (Remeron) 15 mg PO HS ALEXANDRU PRN Reason: Protocol Stop: 02/04/18 20:59 Last Admin: 12/19/17 20:19 Dose: 15 mg Multivitamins/Vitamin C (Theragran) 1 tab PO DAILY ALEXANDRU Stop: 02/05/18 08:59 Last Admin: 12/20/17 09:01 Dose: 1 tab Polyethylene Glycol (Miralax) 17 gm PO DAILY ALEXANDRU Stop: 02/05/18 09:59 Last Admin: 12/20/17 09:01 Dose: 17 gm Potassium Chloride (Potassium Chloride Elixir) 20 meq PO DAILY ALEXANDRU Stop: 02/05/18 08:59 Last Admin: 12/20/17 09:01 Dose: 20 meq Quetiapine Fumarate (Seroquel) 100 mg PO HS ALEXANDRU Stop: 02/09/18 20:59 Last Admin: 12/19/17 20:19 Dose: 100 mg Quetiapine Fumarate (Seroquel) 100 mg PO DAILY ALEXANDRU Stop: 02/10/18 08:59 Last Admin: 12/20/17 09:01 Dose: 100 mg General: alert HEENT: NC/AT, PERRLA Neck: Supple Lungs: CTAB Cardiovascular: RRR Abdomen: soft, non-tender, non-distended, positive bowel sound Extremities: excoriation Neurological: no change Internal Medicine Assmt/Plan - Assessment Assessment: HTN CAD DYSLIPIDEMIA GERD DEMENTIA AGITATION - Plan Plan: ADJUST PATIENTS BP MEDS if needed cont with ppi continue current orders Nutritional Asmnt/Malnutr-PDOC - Dietary Evaluation Malnutrition Findings (Please click <Entered> for more info): Nutritional Asmnt/Malnutrition Start: 12/10/17 13: 54 Text: Status: Complete Freq: Document 12/10/17 13:54 CHUCKMARY ANN (Rec: 12/10/17 14:05 LCKENNAG [email or web address]) Nutritional Asmnt/Malnutrition Patient General Information Nutritional Screening Moderate Risk Diagnosis psychosis Pertinent Medical Hx/Surgical Hx HTN, CAD, dyslipidemia, GERD, dementia Subjective Information Pt seen sleeping in teja-chair in dining room at time of visit. Pt was on [facility] soft chopped diet. Per LOG DATA TECHNICIAN, pt has no teeth and sometimes has difficult chewing the food. Spoke with RN and suggested diet change to mech soft ground. Per EMR, PO intake 100 %. Current Diet Order/ Nutrition Support mec soft chopped CANDY Pertinent Medications vit D3, Vit D12, lasix, levothyroxine, remeron, theragran, miralax, kcl, seroquel Pertinent Labs 12/05 alb 3.7 Nutritional Hx/Data Height 5 ft 9 in Height (Calculated Centimeters) 175.3 Current Weight (lbs) 160 lb Weight (Calculated Kilograms) 72.6 Weight (Calculated Grams) 62544.8 [place] Body Weight 160 Body Mass Index (BMI) 23.6 Weight Status Approriate GI Symptoms GI Symptoms None Last BM 12/08 Difficult in: None Skin Integrity/Comment: intact Current %PO Good (75-100%) Estimated Nutritional Goals BEE in Kcals: Using Current wt Calories/Kcals/Kg 25-30 Kcals Calculated 7662-1518 Protein: Using Current wt Protein g/k Protein Calculated 73 Fluid: ml 1825-2190ml (1m/kcal) Nutritional Problem No current Nutrition Prob Problem N/A Malnutrition Alert Protein-Calorie Malnutrition N/A Is there a minimum of two criteria No selected? Query Text:Check all the applicable criteria. A minimum of two criteria are recommended for diagnosis of either severe or non-severe malnutrition. Intervention/Recommendation Comments 1. Recommend mech soft chopped textured diet. RN notifid, will update diet order. 2. Monitor PO intake, wt, labs and skin integrity 3. F/U as low risk in 7 days, 12/17, PO check 12/13 Expected Outcomes/Goals Expected Outcomes/Goals 1. PO intake to meet at least 75% of nutritional needs. 2. Wt stability, skin to remain intact, labs to approach WNL.
--- NOTE | 2017-12-20 16:46 | Progress Notes ---
DATE: 12/20/2017 SUBJECTIVE: Staff was spoken to. The patient is interviewed. Mood is noted to be anxious. The patient's insight and judgment are noted to be improving. Impulse control seems to be fair. No side effects to the medications are noted. The patient has been able to verbalize the concerns rather than to act out like before. No side effects to the medications are noted. The patient, however, has both short-term as well as long-term memory deficits. ASSESSMENT: The patient is stabilizing. PLAN: To discharge the patient today for followup on outpatient basis. JOB# [id number]
== END 2017-12-20 15:15 | DRG 884 ==
LOC: ER 16:45 → GERO 18:53
PROVIDERS: ADMIT Psychiatry & Neurology Psychiatry; ATTEND Psychiatry & Neurology Psychiatry
DX: F03.91 Unspecified dementia, unspecified severity, with behavioral disturbance (principal); F25.9 Schizoaffective disorder, unspecified; I10 Essential (primary) hypertension; I25.10 Atherosclerotic heart disease of native coronary artery without angina pectoris; E78.5 Hyperlipidemia, unspecified; F31.9 Bipolar disorder, unspecified; K21.9 Gastro-esophageal reflux disease without esophagitis; F29 Unspecified psychosis not due to a substance or known physiological condition; Z82.49 Family history of ischemic heart disease and other diseases of the circulatory system; Z87.11 Personal history of peptic ulcer disease
CPT/HCPCS: 36415-UA; 80053-TC; 80061-TC; 80164-TC; 80320-TC; 80329-TC; 83036-90; 84443-TC; 85025-TC; 86592-TC; 93005; J1200; J1630; J2060; Z7610

== ENCOUNTER 2018-07-10 12:28 | Inpatient (IN) | payer MEDICARE, MEDICAID ==
--- NOTE | 2018-07-10 12:45 | ED Physician Chart ---
ED Chief Complaint/HPI - Patient Information Date Seen:: 07/10/18 Time Seen:: 12:30 Chief Complaint:: Agitation History of Present Illness:: onset x 3 days of agitation and aggressive behavior; no report of trauma, H/As, S/T, SIs, neck pain, C/P, cough, SOB, Abd. Pain, A/N/V/D/C, fever, chills, or urinary s/s Allergies:: Allergies Allergy/AdvReac Type Severity Reaction Status Date / Time No Known Allergies Allergy Verified 12/05/17 17:08 Historian:: Patient, EMS Review:: Nurse's Note Reviewed, Old Chart Reviewed, EMS run form Reviewed ED Review of Systems - Review of Systems General/Constitutional: No fever, No chills, No weight loss, No weakness, No diaphoresis, No edema, No loss of appetite Skin: No skin lesions, No rash, No bruising Head: No headache, No light-headedness Eyes: No loss of vision, No pain, No diplopia ENT: No earache, No nasal drainage, No sore throat, No tinnitus Neck: No neck pain, No swelling, No thyromegaly, No stiffness, No mass noted Cardio Vascular: No chest pain, No palpitations, No PND, No orthopnea, No edema Pulmonary: No SOB, No cough, No sputum, No wheezing GI: No nausea, No vomiting, No diarrhea, No pain, No melena, No hematochezia, No constipation, No hematemesis G/U: No dysuria, No frequency, No hematuria, No nacturia Musculoskeletal: No bone or joint pain, No back pain, No muscle pain Endocrine: No polyuria, No polydipsia Psychiatric: Prior psych history, Depression, Anxiety, No suicidal ideation, No homicidal ideation, No auditory hallucination, No visual hallucination Hematopoietic: No bruising, No lymphadenopathy Allergic/Immuno: No urticaria, No angioedema Neurological: No syncope, No focal symptoms, No weakness, No paresthesia, No headache, No seizure, No dizziness, No confusion, No vertigo ED Past Medical History - Past Medical History Obtainable: Yes Past Medical History: HTN, Dyslipidemia, Arthritis Family History: HTN Social History: Non Smoker, No Alcohol, No Drug Use, Single, Care Facility Psychiatricy History: Depression, Bipolar Medication: Reviewed Family Medical History - Family Member Mother Sister History Unknown: Yes ED Physical Exam - Physical Examination General/Constitutional: Awake, Well-developed, well-nourished, Alert, No distress, GCS 15, Non-toxic appearing, Ambulatory Head: Atraumatic Eyes: Lids, conjuctiva normal, PERRL, EOMI Skin: Nl inspection, No rash, No skin lesions, No ecchymosis, Well hydrated, No lymphadenopathy ENMT: External ears, nose nl, TM canals nl, Nasal exam nl, Lips, teeth, gums nl , Oropharynx nl, Tonsils nl Neck: Nontender, Full ROM w/o pain, No JVD, No nuchal rigidity, No bruit, No mass, No stridor Respiratory: Nl effort/Exclusion, Clear to Auscultation, No Wheeze/Rhonchi/Rales Cardio Vascular: RRR, No murmur, gallop, rubs, NL S1 S2, Carotid/Femoral/Distal pulses equal bilaterally GI: No tenderness/rebounding/guarding, No organomegaly, No hernia, Normal BS's, Nondistended, No mass/bruits, No McBurney tenderness : No CVA tenderness Extremities: No tenderness or effusion, Full ROM, normal strength in all extremities, No edema, Normal digits & nails Neuro/Psych: Alert/oriented, DTR's symmetric, Normal sensory exam, Normal motor strength, Judgement/insight normal, Mood normal, Normal gait, No focal deficits Other Neuro/Psych comments:: + Psychomotor Agitation; no SIs; Mood/Affect: Labile Misc: Normal back, No paraspinal tenderness ED Labs/Radiology/EKG Results - Lab Results Comments:: Reviewed - EKG Interpretations EKG Time:: 13:00 Rate & Rhythm: 83; NSR Comments:: non-specific st-t changes ED Septic Shock - . Is Septic Shock (SBP<90, OR Lactate>4 mmol\L) present?: No ED Reassessment (Disposition) - Reassessment Reassessment Condition:: Improved - Diagnosis Diagnosis:: Agitation; Medical Clearance; Psychosis; Bipolar Disorder - Aftercare/Follow up Instructions Aftercare/Follow-Up Instructions:: Counseled pt regarding lab results/diagnosis & need follow up, Counseled pt & family regarding lab results/diagnosis & need follow up - Patient Disposition Discharge/Transfer:: Acute Care w/in this hosp Admitted to:: [facility] Condition at Disposition:: Stable, Improved
[2018-07-10 13:02] LABS: % BASOPHILS 0.3 % (0.0-2.0); % EOSINOPHILS 3.1 % (0.0-5.0); % LYMPHOCYTES 18.8 % (20.0-50.0); % MONOCYTES 11.1 % (2.0-10.0); % NEUTROPHILS 66.7 % (40.0-80.0); EOSINOPHILE ABSOLUTE 0.2 Th/cmm (0.1-0.4); HEMATOCRIT 36.4 % (41.0-60); HEMOGLOBIN 12.2 gm/dL (12-16); LYMPHOCYTE ABSOLUTE 1.3 Th/cmm (1.5-3.0); MEAN CELL VOLUME 83.7 fl (80-99); MEAN CORPUSCULAR HGB CONC 33.5 pg (28.0-36.0); MEAN PLATELET VOLUME 8.2 fl; MONOCYTE ABSOLUTE 0.7 Th/cmm (0.3-1.0); NEUTROPHILE ABSOLUTE 4.5 Th/cmm (1.8-8.0); PLATELET COUNT 292 Th/cmm (150-400); RED BLOOD COUNT 4.35 Mil/cmm (3.80-5.80); RED CELL DISTRIBUTION WIDTH 15.8 % (11.5-20.0); WHITE BLOOD COUNT 6.7 Th/cmm (4.8-10.8)
[2018-07-10 14:56] LABS: ANION GAP 14.6 (7.0-16.0); CHLORIDE 103 mEq/L (98-107); GLUCOSE 137 mg/dL (70-105); POTASSIUM SERUM 3.6 mEq/L (3.5-5.1); SODIUM SERUM 139 mEq/L (136-145)
[2018-07-10 14:57] LABS: ALB/GLOB RATIO 0.8 (1.0-1.8); ALBUMIN 3.3 gm/dL (4.2-5.5); ALKALINE PHOSPHATASE 69 U/L (34-104); BILIRUBIN,TOTAL 0.2 mg/dL (0.3-1.0); BUN - UREA NITROGEN 14 mg/dL (7-25); CALCIUM SERUM 9.1 mg/dL (8.6-10.3); CHOLESTEROL 90 mg/dL (<200); CREATININE - SERUM 1.2 mg/dL (0.7-1.3); HDL -HIGH DENSITY LIPOPROTEIN 45 mg/dL (23-92); SGOT 13 U/L (13-39); SGPT/ALT 19 U/L (7-52); TOTAL PROTEIN,SERUM 7.4 gm/dL (6.0-8.3); TRIGLYCERIDES 142 mg/dL (<150)
[2018-07-10 15:44] LABS: CHOLESTEROL 101 mg/dL (<200); HDL -HIGH DENSITY LIPOPROTEIN 45 mg/dL (23-92); TRIGLYCERIDES 161 mg/dL (<150)
[2018-07-10 16:07] LABS: ACETAMINOPHEN < 10.0 ug/mL (10.0-30.0); SALICYLATES (ASPIRIN) < 25.0 mg/L (30.0-100.0)
[2018-07-10] MEDS ORDERED: Maalox 30 mL Cup PO PRN (19:06)
[2018-07-10] MEDS ORDERED: Magnesium Hydroxide (MOM) 30 mL UDC PO PRN (19:06)
[2018-07-10] MEDS ORDERED: Non-Formulary Item 1 EA (Lactulose [Lactulose] 10 GM) PO PRN (19:59)
[2018-07-10] MEDS ORDERED: POLYETHYLENE GLYCOL 3350 17 GM PACK PO PRN (19:59)
[2018-07-10] MEDS ORDERED: MINERAL OIL ENEMA 135 ML BOTTLE RC PRN (19:59)
[2018-07-10 20:06] VITALS: BP 129/72
[2018-07-10] MEDS ORDERED: Non-Formulary Item 1 EA (Mirtazapine [Mirtazapine] 7.5 MG) PO SCH (21:00)
[2018-07-10] MEDS: Atorvastatin Calcium 10 MG TAB PO SCH (21:02)
--- NOTE | 2018-07-11 03:37 | Consultation ---
DATE OF CONSULTATION: 07/10/2018 HISTORY OF PRESENT ILLNESS: This is a 78-year-old male, very confused, history of dementia, seems to be advanced dementia, brought in from [facility] for combative behaviors, agitation. On [id number], the patient is alert and oriented to name only. He has no idea where he is or why he is here. He has no idea of the year, the month, just stares blankly at the ground, answering "I don't know" to most questions. Staff noting he is trying to leave, refusing to sign paperwork and is frankly too confused to understand, but the paperwork actually says and means. PAST PSYCHIATRIC HISTORY: Advanced dementia, likely. FAMILY HISTORY: Noncontributory. SOCIAL HISTORY: The patient has no recollection of where he was born. Apparently, he is living at a retirement. Unclear drugs or alcohol. FAMILY HISTORY: Noncontributory. MEDICATIONS: Noted. MEDICAL HISTORY: Noted as well. MENTAL STATUS EXAMINATION: Stated age, little eye contact, ____. Mood "okay." Affect flat. Thought processes were disoriented and disengaged. No overt SI or HI. Unclear psychosis. Poor insight, poor impulse control. PROVISIONAL DIAGNOSIS: Dementia, dementia with behavior disturbances; psychosis, unspecified; anxiety, unspecified; mood, unspecified. MEDICAL: Please see full H and P. RECOMMENDATIONS AND PLAN: Initiate a 5150 hold, danger to others. Transfer to inpatient psych. JOB# [id number]
[2018-07-11] MEDS: Pantoprazole 40 mg EC Tab PO SCH (06:57)
[2018-07-11] MEDS ORDERED: Lactulose 10 Gm/15 mL 30mL UDC PO PRN (08:16)
[2018-07-11] MEDS ORDERED: CYANOCOBALAMIN 1000 MCG PO SCH (09:00)
[2018-07-11] MEDS ORDERED: Non-Formulary Item 1 EA (Levothyroxine Sodium [Levothyroxine Sodium] 150 MCG) PO SCH (09:00)
[2018-07-11] MEDS: Multivitamin Tab PO SCH (09:15)
[2018-07-11] MEDS: Atorvastatin Calcium 10 MG TAB PO SCH (21:06)
--- NOTE | 2018-07-12 02:13 | Progress Notes ---
DATE: 07/11/2018 SUBJECTIVE: A 78-year-old male, very confused, AO to name only. When I asked him where he is, he tells me his name. When I asked him the year, he tells me his name. When I asked him why he is here, he tells me his name; staring blankly, pointing to the door. Staff noting he has been fairly calm and no behavioral disturbances at this time, but he is very confused, wandering, trying to AWOL yesterday had to be redirected by staff. Medications were noted. The patient highly unpredictable, documented history of schizoaffective. ASSESSMENT: The patient wandering, difficult to redirect. Currently on Seroquel, Namenda. He may benefit from dose adjustments of medications possible with the initiation of Aricept. JOB# [id number]
--- NOTE | 2018-07-12 03:24 | Consultation ---
DATE OF CONSULTATION: 07/11/2018 REFERRING PHYSICIAN: Dr. Garcia. REASON FOR CONSULT: Medical management. HISTORY OF PRESENT ILLNESS: The patient is a 77-year-old gentleman who was transferred from a local [place] health care facility given aggressive behavior towards others. He was placed on 5150 and has been admitted to the Geropsych fry for further management and care. Per records, he has a history of dementia, CAD, essential hypertension, dyslipidemia, arthritis, hypothyroidism, acid reflux disease, dermatitis, generalized muscle weakness, and depression. He appears to be comfortable at this time, shaking and nodding his head when asked questions. He appears to be hard of hearing although there is no records indicating that he is. A full history could not be obtain at this time. PAST MEDICAL HISTORY: As noted above. PAST SURGICAL HISTORY: Unknown. FAMILY HISTORY: Likely noncontributory to this admission. SOCIAL HISTORY: Denies any tobacco, ETOH or illicit drug usage. ALLERGIES: NKDA. OUTPATIENT MEDICATIONS: MOM 30 mL every day, multivitamins every day, Tylenol 650 q.4 hours p.r.n. for pain or fever, atorvastatin 10 every day, Dulcolax suppository per rectum daily p.r.n. for severe constipation, vitamin D3 1000 tractional units every day, vitamin B12 1000 mcg every day, Depakote DR 12.5 at bedtime, lactulose 10 grams every day, Synthroid 150 mcg every day, Namenda 10 mg daily, Fleet mineral oil 135 mL per rectum every 48 hours for severe constipation, mirtazapine 7.5 p.o. at bedtime, nitro p.r.n. for chest pain, Protonix 40 every day, MiraLax 17 grams pack daily, Seroquel 75 at bedtime and 100 every day. REVIEW OF SYSTEMS: A great review of systems not able to be obtained given that the patient is a poor historian, but overall he denies any fever, chills, any recent ailments. CARDIAC: He denies any angina/chest chest pain. PULMONARY: No shortness of breath. No cough or phlegm production. GASTROINTESTINAL: Denies any bowel habit changes. GENITOURINARY: No bladder habit changes. NEUROLOGIC: No changes in vision, no syncope, no headaches. PHYSICAL EXAMINATION: VITAL SIGNS: Temperature 97.2, pulse 78, respirations 18, blood pressure 140/78, satting 98% on room air. GENERAL: He is a well-developed, well-nourished male, sitting up in a chair; asleep, but arousable. He appears to be nontoxic and not in acute distress. HEAD AND NECK: Normocephalic, atraumatic. Pupils reactive to light. Extraocular movements are intact. Oropharynx moist and clear. NECK: There is no JVD or LAD. CARDIOVASCULAR: Regular rate and rhythm with a normal S1, S2 with distant sounds. LUNGS: Clear to auscultation bilaterally. ABDOMEN: Soft, supple, nontender, nondistended, normoactive bowel sounds. EXTREMITIES: Lower extremities: No pedal edema. NEUROLOGIC: Grossly intact, nonfocal. Balance and gait were not able to be assessed at this time. LABORATORY DATA: CBC was essentially within normal limits. Chem-7 showed a glucose of 137, otherwise within normal limits. Liver enzymes were within normal limits. Albumin 3.3. There was a set of troponins, which was negative. Ethyl alcohol was less than 10. Acetaminophen level was less than 10 and salicylates were less than 25. ASSESSMENT: 1. Acute psych decompensation with aggressive behavior towards others. 2. History of dementia. 3. History of coronary artery disease. 4. Essential hypertension. 5. History of dyslipidemia. 6. History of arthritis. 7. History of generalized muscle weakness. 8. History of hypothyroidism. 9. History of acid reflux disease. PLAN: The patient has been admitted to the psych fry for further management and care. The patient will be kept on his current medications as scheduled. I will monitor his blood pressure and will order clonidine to be given p.r.n. A lipid profile will be asked for and I will follow the patient on a daily basis. JOB# [id number]
[2018-07-12] MEDS: Pantoprazole 40 mg EC Tab PO SCH (06:51)
[2018-07-12] MEDS: Multivitamin Tab PO SCH (08:44)
[2018-07-12] MEDS: Atorvastatin Calcium 10 MG TAB PO SCH (20:22)
--- NOTE | 2018-07-13 02:56 | Progress Notes ---
DATE: 07/12/2018 SUBJECTIVE: The patient remains highly confused, very disoriented, has no idea where he is or what is going on. Just tells me his name only. The patient had been aggressive, but has been pretty calm, multiple medical problems, dementia, CAD, hypertension, dyslipidemia, arthritis, acid reflux. Medications were reviewed. Nursing staff noting a lot of wandering behaviors, withdrawn, highly unpredictable, very forgetful, needing a lot of prompting, redirection, trying to leave the unit. ASSESSMENT: The patient with history of aggressive behaviors, remains impulsive, unpredictable, trying to leave, wandering, needs lot of prompting, redirection. PLAN: We will continue to monitor. The patient is not safe for a lower level of care. JOB# [id number]
[2018-07-13] MEDS: Pantoprazole 40 mg EC Tab PO SCH (06:34)
[2018-07-13] MEDS: Multivitamin Tab PO SCH (09:10)
[2018-07-13] MEDS: Atorvastatin Calcium 10 MG TAB PO SCH (20:27)
[2018-07-14] MEDS: Pantoprazole 40 mg EC Tab PO SCH (06:38)
--- NOTE | 2018-07-14 06:57 | Progress Notes ---
DATE: 07/13/2018 SUBJECTIVE: The patient was seen and evaluated. The patient's chart reviewed. Covering for Dr. Garcia. IDENTIFYING DATA: A 78-year-old female brought here and easily confused, disorganized, and history of dementia, advanced. HOSPITAL COURSE: The patient's nursing staff reported the patient mostly be disengaged, withdrawn. Medications were reviewed includes Depakote 125 at bedtime, vitamin D, Aricept 5 mg a day, lactulose, levothyroxine, Ativan as needed, Namenda 10 mg p.o. every day, mirtazapine at 7.5 at nighttime, Seroquel 75 mg at nighttime, 100 mg daily. Today on [id number] evaluation, the patient's disorganized thought process, difficult to maintain a linear conversation, difficult to understand, disorganized, observed to be responding. ASSESSMENT AND PLAN: A 78-year-old male with a history of severe dementia and disorganized thought process, which impaired his ability to maintain linear conversation in the structured environment, to provide him with food, detention, clothing. We will continue with primary psychiatrist's treatment plan and goals secondary to the aggressive and wandering behavior. [facility]# [id number]
[2018-07-14] MEDS: Multivitamin Tab PO SCH (08:50)
[2018-07-14] MEDS: Atorvastatin Calcium 10 MG TAB PO SCH (21:15)
--- NOTE | 2018-07-15 03:33 | Progress Notes ---
DATE: 07/14/2018 SUBJECTIVE: Today on [id number] evaluation, the patient continues to wander, very forgetful, needing a lot of prompting, redirections, and disorganized thought process. MENTAL STATUS EXAMINATION: Still aggressive behavior, remains impulsive, unpredictable, wandering, needing a lot of prompting. ASSESSMENT AND PLAN: The patient tolerated the current medication regimen. Today, the patient is in still disorganized state and easily disorganized and unable to formulate a safe plan. We will continue monitoring and evaluating. [facility]# [id number]
[2018-07-15] MEDS: Pantoprazole 40 mg EC Tab PO SCH (06:45)
[2018-07-15] MEDS: Multivitamin Tab PO SCH (08:15)
[2018-07-15] MEDS: Atorvastatin Calcium 10 MG TAB PO SCH (20:29)
--- NOTE | 2018-07-15 23:44 | Progress Notes ---
DATE: 07/15/2018 SUBJECTIVE: Case was discussed with staff of the patient with plans and goals. This is a 78-year-old female, who was admitted on 07/10/2018. The patient has been agitated, confused, disorganized, came from a nursing facility. He continues to be disengaged, withdrawn, and confused. He continues to be unable to participate in meaningful conversation or make safe plan for self-care with history of severe dementia, disorganized thought process, unable to maintain linear conversation with structured environment. He continues to have episodes of irritability, aggressive behavior. He has been compliant with the medication with no side effects. He is on Depakote 125 mg at bedtime, Aricept 5 mg at bedtime, Namenda 10 mg daily, and Remeron 7.5 mg at bedtime. No side effects of the medication, no sedation, and no nausea. He is also on Seroquel 75 mg at bedtime and 100 mg daily. No side effects of the medication, no sedation, no nausea, and no extrapyramidal symptoms. Lab work shows CBC with low hematocrit, low lymphocyte, and high monocyte. The rest within normal range. Chemistry panel with high blood sugar, high total bilirubin, ____; triglyceride level within normal range. However, it was higher on the previous lab work on the same date and RPR nonreactive. Toxicology screening was negative. We will continue to work with the patient in group therapy, milieu therapy, and adjust the medications as needed. JOB# [id number]
[2018-07-16] MEDS: Pantoprazole 40 mg EC Tab PO SCH (06:45)
[2018-07-16] MEDS: Multivitamin Tab PO SCH (08:40)
[2018-07-16] MEDS: Atorvastatin Calcium 10 MG TAB PO SCH (20:26)
[2018-07-17] MEDS: Pantoprazole 40 mg EC Tab PO SCH (06:45)
[2018-07-17] MEDS: Multivitamin Tab PO SCH (08:49)
--- NOTE | 2018-07-17 09:39 | Progress Notes ---
DATE: 07/16/2018 SUBJECTIVE: The patient is very confused, disoriented, wandering, spending all the time near the door, requiring a lot of redirection, prompting, considered gravely disabled. Has no idea where he is going to go or how he is going to get there. The patient is coming from [facility], but calmer, more cooperative, no agitation, no escalation of behaviors. ASSESSMENT: The patient is confused, disoriented, likely approaching his baseline. PLAN: We will continue to monitor. We will coordinate care with social work regarding safe discharge plan and good psychiatric followup. JOB# [id number]
[2018-07-17] MEDS: Atorvastatin Calcium 10 MG TAB PO SCH (20:22)
[2018-07-18] MEDS: Pantoprazole 40 mg EC Tab PO SCH (06:39)
[2018-07-18] MEDS: Multivitamin Tab PO SCH (09:29)
--- NOTE | 2018-07-18 14:22 | Progress Notes ---
DATE: 07/17/2018 The patient remains very confused, disoriented, wandering. He can feed himself, but needs a lot of prompting, redirection. Sometimes trying to wander out of the unit, needs to be redirected, needing prompting for ADLs. No distress. Unable to verbalize a clear plan for self-care, likely approaching his baseline. No distress. No overt problems. ASSESSMENT: The patient is likely approaching his baseline, calm, cooperative, but very confused. PLAN: We will continue to monitor. We will monitor for further 24 hours. JOB# [id number]
--- NOTE | 2018-07-18 20:53 | Discharge Summary ---
DATE OF DISCHARGE: 07/18/2018 HISTORY OF PRESENT ILLNESS: A 78-year-old male, confused, demented, brought in from [facility], combative, agitated, somewhat aggressive, very confused, disoriented, AO to name only, placed on a hold. PAST PSYCHIATRIC HISTORY: Advanced dementia. SOCIAL HISTORY: Living at a alf. MEDICAL HISTORY: Noted. MEDICATIONS: Noted. HOSPITAL COURSE: After initial assessment, the patient placed on a 5150 hold, brought to the Geropsych Unit. Medications were adjusted and titrated including Aricept and Namenda. Over the course of the hospitalization, he was calm, cooperative, approached his baseline, confused, AO to name, but calm, cooperative, very redirectable, sleeping well, eating well, taking his medications. CONDITION UPON DISCHARGE: Improved, allowing ADLs, AO to name only. Mood "okay." Affect flat. Thought processes were disengaged, disorganized. No SI or HI. No suicidal gestures. No overt psychotic symptoms. Insight and judgment diminished. Better impulse control. PROVISIONAL DIAGNOSIS: Dementia, dementia with behaviors; psychosis, unspecified; anxiety, unspecified; mood, unspecified. Under medical, please see full H and P. PROGNOSIS: The patient follows up with outpatient mental health services and remains compliant with treatment. Prognosis will improve, otherwise guarded. JOB# [id number]
== END 2018-07-18 14:50 | DRG 885 ==
LOC: ER 12:28 → GERO 14:13
PROVIDERS: ADMIT Psychiatry & Neurology Psychiatry; ATTEND Psychiatry & Neurology Psychiatry
DX: F23 Brief psychotic disorder (principal); F03.91 Unspecified dementia, unspecified severity, with behavioral disturbance; F41.9 Anxiety disorder, unspecified; F39 Unspecified mood [affective] disorder; I10 Essential (primary) hypertension; E78.5 Hyperlipidemia, unspecified; M19.90 Unspecified osteoarthritis, unspecified site; I25.10 Atherosclerotic heart disease of native coronary artery without angina pectoris; E03.9 Hypothyroidism, unspecified; K21.9 Gastro-esophageal reflux disease without esophagitis; Z82.49 Family history of ischemic heart disease and other diseases of the circulatory system
CPT/HCPCS: 36415-UA; 80053-TC; 80061-TC; 80320-TC; 80329-TC; 83036-90; 84443-TC; 84484-TC; 85025-TC; 86592-TC; 93005; Z7610

== ENCOUNTER 2018-12-16 21:47 | Inpatient (IN) | payer MEDICARE, MEDICAID ==
--- NOTE | 2018-12-16 22:18 | ED Physician Chart ---
ED Chief Complaint/HPI - Patient Information Date Seen:: 12/16/18 Time Seen:: 22:15 Chief Complaint:: agitation History of Present Illness:: 78 yr old male with agitation dementia Allergies:: Allergies Allergy/AdvReac Type Severity Reaction Status Date / Time No Known Allergies Allergy Verified 12/16/18 22:08 Vitals:: Vital Signs - 8 hr 12/16/18 21:50 Temp 97.4 F HR 75 RR 18 BP 124/57 O2 Sat % 97 ED Review of Systems - Review of Systems General/Constitutional: No fever, No chills, No weight loss, No weakness, No diaphoresis, No edema, No loss of appetite Skin: No skin lesions, No rash, No bruising Head: No headache, No light-headedness Eyes: No loss of vision, No pain, No diplopia ENT: No earache, No nasal drainage, No sore throat, No tinnitus Neck: No neck pain, No swelling, No thyromegaly, No stiffness, No mass noted Cardio Vascular: No chest pain, No palpitations, No PND, No orthopnea, No edema Pulmonary: No SOB, No cough, No sputum, No wheezing GI: No nausea, No vomiting, No diarrhea, No pain, No melena, No hematochezia, No constipation, No hematemesis G/U: No dysuria, No frequency, No hematuria Musculoskeletal: No bone or joint pain, No back pain, No muscle pain Endocrine: No polyuria, No polydipsia Psychiatric: No prior psych history, No depression, No anxiety, No suicidal ideation Hematopoietic: No bruising, No lymphadenopathy Allergic/Immuno: No urticaria, No angioedema Neurological: No syncope, No focal symptoms, No weakness, No paresthesia, No headache, No seizure, No dizziness, No confusion, No vertigo ED Past Medical History - Past Medical History Past Medical History: Other (see nurses notes) Family Medical History - Family Member Mother Sister History Unknown: Yes Ethnicity: Non- Living Status: Unknown ED Physical Exam - Physical Examination General/Constitutional: Awake, Well-developed, well-nourished, Alert, No distress, GCS 15, Non-toxic appearing, Ambulatory Head: Atraumatic Eyes: Lids, conjuctiva normal, PERRL, EOMI Skin: Nl inspection, No rash, No skin lesions, No ecchymosis, Well hydrated, No lymphadenopathy ENMT: External ears, nose nl, Nasal exam nl, Lips, teeth, gums nl Neck: Nontender, Full ROM w/o pain, No JVD, No nuchal rigidity, No bruit, No mass, No stridor Respiratory: Nl effort/Exclusion, Clear to Auscultation, No Wheeze/Rhonchi/Rales Cardio Vascular: RRR, No murmur, gallop, rubs, NL S1 S2 GI: No tenderness/rebounding/guarding, No organomegaly, No hernia, Normal BS's, Nondistended, No mass/bruits, No McBurney tenderness : No CVA tenderness Extremities: No tenderness or effusion, Full ROM, normal strength in all extremities, No edema, Normal digits & nails Neuro/Psych: Alert/oriented, DTR's symmetric, Normal sensory exam, Normal motor strength, Judgement/insight normal, Mood normal, Normal gait, No focal deficits Misc: Normal back, No paraspinal tenderness ED Assessment - Assessment General Assessment: agitation ED Septic Shock - . Is Septic Shock (SBP<90, OR Lactate>4 mmol\L) present?: No - <6hrs of presentation: Vital Signs: Vital Signs - 8 hr 12/16/18 21:50 Temp 97.4 F HR 75 RR 18 BP 124/57 O2 Sat % 97 ED Reassessment (Disposition) - Reassessment Reassessment:: agitation - Diagnosis Diagnosis:: agitation - Patient Disposition Discharge/Transfer:: Acute Care w/in this hosp Condition at Disposition:: Stable
[2018-12-16 22:56] LABS: WHITE BLOOD COUNT 7.4 Th/cmm (4.8-10.8)
[2018-12-16 22:57] LABS: % LYMPHOCYTES 13.9 % (20.0-50.0); % MONOCYTES 5.5 % (2.0-10.0); % NEUTROPHILS 72.4 % (40.0-80.0); HEMATOCRIT 37.5 % (41.0-60); MEAN CELL VOLUME 83.3 fl (80-99); MEAN CORPUSCULAR HEMOGLOBIN 26.6 pg (27.0-31.0); PLATELET COUNT 302 Th/cmm (150-400); RED CELL DISTRIBUTION WIDTH 14.1 % (11.5-20.0)
[2018-12-16 22:58] LABS: % BASOPHILS 3.3 % (0.0-2.0); % EOSINOPHILS 4.9 % (0.0-5.0); BASOPHILE ABSOLUTE 0.2 Th/cumm (0-0.2); EOSINOPHILE ABSOLUTE 0.4 Th/cmm (0.1-0.4); MONOCYTE ABSOLUTE 0.4 Th/cmm (0.3-1.0); NEUTROPHILE ABSOLUTE 5.4 Th/cmm (1.8-8.0)
[2018-12-16 23:00] LABS: ALB/GLOB RATIO 1.1 (1.0-1.8); ALKALINE PHOSPHATASE 54 U/L (34-104); ANION GAP 13.7 (7.0-16.0); BILIRUBIN,TOTAL 0.3 mg/dL (0.3-1.0); BUN - UREA NITROGEN 21 mg/dL (7-25); CALCIUM SERUM 9.6 mg/dL (8.6-10.3); CARBON DIOXIDE 26.9 mEq/L (21.0-31.0); CHLORIDE 98 mEq/L (98-107); CREATININE - SERUM 1.1 mg/dL (0.7-1.3); GLUCOSE 131 mg/dL (70-105); POTASSIUM SERUM 3.6 mEq/L (3.5-5.1); SGOT 16 U/L (13-39); SGPT/ALT 11 U/L (7-52); SODIUM SERUM 135 mEq/L (136-145); TOTAL PROTEIN,SERUM 7.5 gm/dL (6.0-8.3)
[2018-12-17 00:34] VITALS: BP 120/72
[2018-12-17] MEDS ORDERED: MINERAL OIL ENEMA 135 ML BOTTLE RC PRN (00:40)
[2018-12-17] MEDS ORDERED: Lactulose 10 Gm/15 mL 30mL UDC PO PRN (00:40)
[2018-12-17] MEDS ORDERED: Magnesium Hydroxide (MOM) 30 mL UDC PO PRN (00:40)
[2018-12-17] MEDS ORDERED: POLYETHYLENE GLYCOL 3350 17 GM PACK PO PRN (00:40)
[2018-12-17] MEDS: Pantoprazole 40 mg EC Tab PO SCH (06:48)
[2018-12-17] MEDS: Levothyroxine 0.075 Mg Tab PO SCH (06:48)
[2018-12-17 08:35] LABS: CHOLESTEROL 126 mg/dL (<200); HDL -HIGH DENSITY LIPOPROTEIN 39 mg/dL (23-92); TRIGLYCERIDES 233 mg/dL (<150)
[2018-12-17] MEDS: Multivitamin Tab PO SCH (09:40)
[2018-12-17] MEDS: Atorvastatin Calcium 10 MG TAB PO SCH (10:59)
--- NOTE | 2018-12-17 12:52 | History & Physical ---
ADMIT DATE: 12/16/2018 IDENTIFYING INFORMATION: The patient is a 78-year-old male. CHIEF COMPLAINT: No answer. HISTORY OF PRESENT ILLNESS: The patient was referred because of agitation. The patient with a history of schizophrenia and depression. The patient was referred because of agitation from a nursing facility. The patient was a poor historian, unable to participate in meaningful conversation or make safe plan for self-care. He kept nodding his head, can say much or carry on a conversation. The patient was hospitalized here before with his last hospitalization being in December of this year was admitted on 12/05/2018 of this year and discharged last year. The patient was hospitalized because of being out of control, yelling and screaming, difficult time coping with stress. PAST PSYCHIATRIC HISTORY: Unable to obtain from the patient because he is a poor historian. MEDICAL HISTORY: Deferred to the medical doctors who will be seeing him. ALLERGIES: The patient has no known drug allergies. MEDICATIONS: The patient has been on Depakote 250 mg daily and 375 mg at bedtime. He is on Aricept 5 mg at bedtime, Namenda 10 mg daily, Remeron 7.5 mg at bedtime, multivitamins, nitroglycerin, pantoprazole, and Seroquel 50 mg daily and 100 mg at night. FAMILY AND SOCIAL HISTORY: Unobtainable. MENTAL STATUS EXAMINATION: The patient is appropriately dressed in hospital gowns, not well groomed. He was asked a question, he would nod his head, it is hard to understand what he mean, unable to pass a meaningful conversation, earlier he was agitated. He is unable to make safe plan for self-care and tell me the date, where he is, why he is here with a history of dementia and confusion, schizophrenia, long and short term memory is poor. Insight and judgment impaired, want to answer questions about hallucinations, though he could be hallucinating internally preoccupied. Insight about his illness is poor. His problems behavior. IMPRESSION: Schizoaffective disorder, dementia. INITIAL TREATMENT PLAN: The patient will continue on her medication for dementia and psychosis. We will do group therapy, milieu therapy. ESTIMATED LENGTH OF STAY: 3-7 days. DISCHARGE CRITERIA: Decrease in psychosis, agitation. After discharge, outpatient treatment. JOB# [id number]
--- NOTE | 2018-12-17 20:02 | Consultation ---
DATE OF CONSULTATION: REFERRING PHYSICIAN: Dr. Garcia. REASON FOR CONSULT: Medical management. HISTORY OF PRESENT ILLNESS: The patient is a 78-year-old gentleman who was admitted to this facility back in 07/2018 with a history of dementia with psychotic features, CAD, essential hypertension, dyslipidemia, arthritis, hypothyroidism, acid reflux disease, history of generalized muscle weakness, dermatitis, who has been admitted to the [facility] for further management and care. He was admitted as noted above in the recent past for a similar episode of aggressive behavior. He currently denies any major complaints. PAST MEDICAL HISTORY: As noted above. PAST SURGICAL HISTORY: None listed. Denies. FAMILY HISTORY: Likely noncontributory to this admission. SOCIAL HISTORY: No tobacco, ETOH or illicit drug usage. He lives at [facility]. ALLERGIES: NKDA. OUTPATIENT MEDICATIONS: Docusate sodium 10 mg per rectum every day p.r.n. for constipation, Ambien 5 mg at bedtime, nitroglycerin 0.4 sublingual p.r.n. for chest pain, mineral oil enema q.48 hours p.r.n. for severe constipation, B12 one tab daily, lisinopril 5 daily, multivitamins daily, Namenda 10 mg daily, lactulose 15 mL once every day for moderate constipation, Depakote 125 mg 2 caps q.a.m., quetiapine 50 mg every day, levothyroxine 150 mcg every day, atorvastatin 10 mg at bedtime, Remeron 7.5 at bedtime, diphenhydramine 25 q.8 hours p.r.n. for itching, milk of magnesia p.r.n. for constipation, Tylenol 325 two tabs q.4 hours p.r.n. for mild pain, clonidine 0.1 mg q.6 hours p.r.n. for SBP greater than 160 and Protonix 40 mg daily. REVIEW OF SYSTEMS: GENERAL: The patient denies any recent weight loss or fever or chills. CARDIAC: No chest pain or palpitations. PULMONARY: Denies any cough or sputum production. GASTROINTESTINAL: No bowel habit changes. GENITOURINARY: No bladder habit changes. NEUROLOGIC: Denies any headaches, any syncope. PHYSICAL EXAMINATION: VITAL SIGNS: Temperature 98.2, pulse 62, respirations 20, BP 114/76. GENERAL: He is a well-developed, well-nourished male who appears to be in no distress. HEAD AND NECK: Normocephalic, atraumatic. Pupils reactive to light. Extraocular movements are intact. Oropharynx moist and clear. CARDIAC: Regular rate and rhythm without any murmurs. LUNGS: Clear to auscultation bilaterally. ABDOMEN: Soft, supple, nontender, nondistended, normoactive bowel sounds in lower extremities. No pedal edema. LABORATORY DATA: CBC shows H and H of 12/37, otherwise within normal limits. Sodium 135, glucose 131, otherwise chemistry within normal limits. Albumin 4.0. Triglycerides 233, cholesterol 126, LDL 65, HDL 39. DIAGNOSTICS: None current. ASSESSMENT: 1. Acute psych decompensation. 2. History of dementia with psychotic features. 3. History of coronary artery disease/congestive heart failure -- clinically stable. 4. History of hypertension. 5. History of dyslipidemia. 6. History of hypothyroidism. 7. History of gastroesophageal reflux disease. 8. History of osteoarthritis. 9. History of generalized muscle weakness. PLAN: The patient will be kept on his current medications as scheduled for the time being. Given his current lipid profile, I will increase atorvastatin to 20 at bedtime. We will follow on a daily basis. [facility]# [id number]
[2018-12-17] MEDS ORDERED: Atorvastatin Calcium 10 MG TAB PO SCH (21:00)
[2018-12-18] MEDS: Pantoprazole 40 mg EC Tab PO SCH (06:40)
[2018-12-18] MEDS: Levothyroxine 0.075 Mg Tab PO SCH (06:40)
[2018-12-18] MEDS: Atorvastatin Calcium 10 MG TAB PO SCH (08:20)
[2018-12-18] MEDS: Multivitamin Tab PO SCH (08:20)
--- NOTE | 2018-12-18 22:51 | Internal Medicine Prog Note ---
Internal Medicine Subjective - Subjective Service Date: 12/18/18 (no acute events) Patient seen and examined:: without staff Patient is:: awake Per staff patient has:: no adverse event Internal Medicine Objective - Results Result Diagrams: 12/16/18 22:35 12/16/18 22:35 Recent Labs: Laboratory Last Values WBC 7.4 Th/cmm (4.8-10.8) 12/16/18 22:35 RBC 4.50 Mil/cmm (3.80-5.80) 12/16/18 22:35 Hgb 12.0 gm/dL (12-16) 12/16/18 22:35 Hct 37.5 % (41.0-60) L 12/16/18 22:35 MCV 83.3 fl (80-99) 12/16/18 22:35 MCH 26.6 pg (27.0-31.0) L 12/16/18 22:35 MCHC Differential 32.0 pg (28.0-36.0) 12/16/18 22:35 RDW 14.1 % (11.5-20.0) 12/16/18 22:35 Plt Count 302 Th/cmm (150-400) 12/16/18 22:35 MPV 8.0 fl 12/16/18 22:35 Neutrophils % 72.4 % (40.0-80.0) 12/16/18 22:35 Lymphocytes % 13.9 % (20.0-50.0) L 12/16/18 22:35 Monocytes % 5.5 % (2.0-10.0) 12/16/18 22:35 Eosinophils % 4.9 % (0.0-5.0) 12/16/18 22:35 Basophils % 3.3 % (0.0-2.0) H 12/16/18 22:35 Sodium 135 mEq/L (136-145) L 12/16/18 22:35 Potassium 3.6 mEq/L (3.5-5.1) 12/16/18 22:35 Chloride 98 mEq/L (98-107) 12/16/18 22:35 Carbon Dioxide 26.9 mEq/L (21.0-31.0) 12/16/18 22:35 Anion Gap 13.7 (7.0-16.0) 12/16/18 22:35 BUN 21 mg/dL (7-25) 12/16/18 22:35 Creatinine 1.1 mg/dL (0.7-1.3) 12/16/18 22:35 Est GFR ( Amer) TNP 12/16/18 22:35 Est GFR (Non-Af Amer) TNP 12/16/18 22:35 BUN/Creatinine Ratio 19.1 12/16/18 22:35 Glucose 131 mg/dL (70-105) H 12/16/18 22:35 Calcium 9.6 mg/dL (8.6-10.3) 12/16/18 22:35 Total Bilirubin 0.3 mg/dL (0.3-1.0) 12/16/18 22:35 AST 16 U/L (13-39) 12/16/18 22:35 ALT 11 U/L (7-52) 12/16/18 22:35 Alkaline Phosphatase 54 U/L (34-104) 12/16/18 22:35 Total Protein 7.5 gm/dL (6.0-8.3) 12/16/18 22:35 Albumin 4.0 gm/dL (4.2-5.5) L 12/16/18 22:35 Globulin 3.5 gm/dL 12/16/18 22:35 Albumin/Globulin Ratio 1.1 (1.0-1.8) 12/16/18 22:35 Triglycerides 233 mg/dL (<150) H 12/16/18 22:35 Cholesterol 126 mg/dL (<200) 12/16/18 22:35 LDL Cholesterol Direct 65 mg/dL (75-193) L 12/16/18 22:35 HDL Cholesterol 39 mg/dL (23-92) 12/16/18 22:35 - Physical Exam Vitals and I&O: Vital Signs Temp 98.6 F 12/18/18 21:01 Pulse 69 12/18/18 21:01 Resp 20 12/18/18 21:01 BP 134/69 12/18/18 21:01 Pulse Ox 100 12/18/18 21:01 Intake & Output 12/18/18 12/18/18 12/19/18 06:59 18:59 06:59 Intake Total 120 240 Balance 120 240 Intake: Oral 120 240 Other: # Voids 2 # Bowel Movements 0 Active Medications: Current Medications Acetaminophen (Tylenol) 650 mg PO Q4HR PRN PRN Reason: Mild Pain / Temp above 100 Stop: 02/15/19 00:39 Atorvastatin Calcium (Lipitor) 20 mg PO DAILY [facility]; Protocol Stop: 02/15/19 10:29 Last Admin: 12/18/18 08:20 Dose: 20 mg Bisacodyl (Dulcolax 10 Mg Supp) 10 mg RC DAILY PRN PRN Reason: Constipation Stop: 02/15/19 00:39 Cholecalciferol (Vitamin D3) 1,000 iu PO DAILY [facility] Stop: 02/15/19 08:59 Last Admin: 12/18/18 08:20 Dose: 1,000 iu Cyanocobalamin (Vitamin B12) 1,000 mcg PO DAILY [facility] Stop: 02/15/19 08:59 Last Admin: 12/18/18 08:20 Dose: 1,000 mcg Diphenhydramine HCl (Benadryl) 25 mg PO Q8HR PRN PRN Reason: Itching Stop: 02/15/19 00:39 Divalproex Sodium (Depakote Dr) 250 mg PO DAILY [facility]; Protocol Stop: 02/15/19 08:59 Last Admin: 12/18/18 09:00 Dose: 250 mg Divalproex Sodium (Depakote Dr) 375 mg PO HS [facility]; Protocol Stop: 02/15/19 21:59 Last Admin: 12/18/18 21:40 Dose: 375 mg Donepezil HCl (Aricept) 5 mg PO HS [facility] Stop: 02/15/19 20:59 Last Admin: 12/18/18 21:40 Dose: 5 mg Lactulose (Cephulac) 10 gm PO DAILY PRN PRN Reason: COMSTIPATION Stop: 02/15/19 00:39 Last Admin: 12/18/18 14:09 Dose: 10 gm Levothyroxine Sodium (Synthroid) 0.15 mg PO QDAC [facility] Stop: 02/15/19 07:29 Last Admin: 12/18/18 06:40 Dose: 0.15 mg Lisinopril (Zestril) 5 mg PO DAILY [facility] Stop: 02/15/19 08:59 Last Admin: 12/18/18 08:22 Dose: Not Given Lorazepam (Ativan) 0.5 mg PO Q6HR PRN; Protocol PRN Reason: Anxiety Stop: 01/15/19 23:44 Magnesium Hydroxide (Milk Of Magnesia) 30 ml PO HS PRN PRN Reason: Constipation Stop: 02/15/19 00:39 Memantine (Namenda) 10 mg PO DAILY [facility] Stop: 02/15/19 08:59 Last Admin: 12/18/18 08:20 Dose: 10 mg Mineral Oil (Fleet Mineral Oil) 135 ml RC Q2D PRN PRN Reason: Constipation Stop: 02/15/19 00:39 Mirtazapine (Remeron) 7.5 mg PO HS [facility]; Protocol Stop: 02/15/19 20:59 Last Admin: 12/18/18 21:40 Dose: 7.5 mg Multivitamins/Vitamin C (Theragran) 1 tab PO DAILY [facility] Stop: 02/15/19 08:59 Last Admin: 12/18/18 08:20 Dose: 1 tab Nitroglycerin (Nitrostat) 0.4 mg SL Q5MIN PRN PRN Reason: Chest Pain Stop: 02/15/19 00:39 Pantoprazole Sodium (Protonix) 40 mg PO QDAC [facility] Stop: 02/15/19 07:29 Last Admin: 12/18/18 06:40 Dose: 40 mg Polyethylene Glycol (Miralax) 17 gm PO DAILY PRN PRN Reason: Constipation Stop: 02/15/19 00:39 Last Admin: 12/18/18 14:09 Dose: 17 gm Quetiapine Fumarate (Seroquel) 50 mg PO DAILY [facility]; Protocol Stop: 02/15/19 08:59 Last Admin: 12/18/18 09:00 Dose: 50 mg Quetiapine Fumarate (Seroquel) 100 mg PO QPM [facility]; Protocol Stop: 02/15/19 16:59 Last Admin: 12/18/18 17:01 Dose: 100 mg Simethicone (Mylicon) 80 mg PO DAILY PRN PRN Reason: GI DISTRESS Stop: 02/15/19 00:39 HEENT: NC/AT, PERRLA, EOMI Neck: Supple, No JVD, No thyromegaly, No LAD Lungs: CTAB Cardiovascular: RRR, Normal S1, Normal S2, without murmur Abdomen: soft, non-tender, non-distended Extremities: clear Neurological: no change Internal Medicine Assmt/Plan - Assessment Assessment: ACUTE PSYCH DECOMPENSATION HISTORY OF DEMENTIA WITH PSYCH DECOMPENSATION HISTORY OF ESSENTIAL HTN HISTORY OF DYSLIPIDIMIA HISTORY OF HYPOTHYROIDISM HISTORY OF GERD HISTORY OF OA HISTORY OF GENERALIZED MUSCLE WEAKNESS - Plan Plan: CONT WITH CURRENT INPATIENT SUPPORTIVE CARE AND MGT CONT WITH CURRENT MEDS SCHEDULED
[2018-12-19] MEDS: Levothyroxine 0.075 Mg Tab PO SCH (06:33)
[2018-12-19] MEDS: Pantoprazole 40 mg EC Tab PO SCH (06:33)
--- NOTE | 2018-12-19 08:11 | Progress Notes ---
DATE: 12/18/2018 SUBJECTIVE: The patient was seen on 12/18/2018, very confused, disoriented, wandering, trying to AWOL, trying to leave the unit, requiring high level of prompting, redirection. The patient is currently in the hospital, could not be controlled at a lower level of care, very confused and disoriented. ASSESSMENT: The patient remains highly impulsive. Concerns about his wandering behaviors. Impulse control. PLAN: We will continue to monitor, titrate and adjust medications. Medications reviewed. JOB# [id number]
[2018-12-19] MEDS: Multivitamin Tab PO SCH (08:53)
[2018-12-19] MEDS: Atorvastatin Calcium 10 MG TAB PO SCH (08:54)
--- NOTE | 2018-12-19 09:26 | Internal Medicine Prog Note ---
Internal Medicine Subjective - Subjective Service Date: 12/19/18 (no acute events) Patient seen and examined:: without staff Patient is:: awake Per staff patient has:: no adverse event Internal Medicine Objective - Results Result Diagrams: 12/16/18 22:35 12/16/18 22:35 Recent Labs: Laboratory Last Values WBC 7.4 Th/cmm (4.8-10.8) 12/16/18 22:35 RBC 4.50 Mil/cmm (3.80-5.80) 12/16/18 22:35 Hgb 12.0 gm/dL (12-16) 12/16/18 22:35 Hct 37.5 % (41.0-60) L 12/16/18 22:35 MCV 83.3 fl (80-99) 12/16/18 22:35 MCH 26.6 pg (27.0-31.0) L 12/16/18 22:35 MCHC Differential 32.0 pg (28.0-36.0) 12/16/18 22:35 RDW 14.1 % (11.5-20.0) 12/16/18 22:35 Plt Count 302 Th/cmm (150-400) 12/16/18 22:35 MPV 8.0 fl 12/16/18 22:35 Neutrophils % 72.4 % (40.0-80.0) 12/16/18 22:35 Lymphocytes % 13.9 % (20.0-50.0) L 12/16/18 22:35 Monocytes % 5.5 % (2.0-10.0) 12/16/18 22:35 Eosinophils % 4.9 % (0.0-5.0) 12/16/18 22:35 Basophils % 3.3 % (0.0-2.0) H 12/16/18 22:35 Sodium 135 mEq/L (136-145) L 12/16/18 22:35 Potassium 3.6 mEq/L (3.5-5.1) 12/16/18 22:35 Chloride 98 mEq/L (98-107) 12/16/18 22:35 Carbon Dioxide 26.9 mEq/L (21.0-31.0) 12/16/18 22:35 Anion Gap 13.7 (7.0-16.0) 12/16/18 22:35 BUN 21 mg/dL (7-25) 12/16/18 22:35 Creatinine 1.1 mg/dL (0.7-1.3) 12/16/18 22:35 Est GFR ( Amer) TNP 12/16/18 22:35 Est GFR (Non-Af Amer) TNP 12/16/18 22:35 BUN/Creatinine Ratio 19.1 12/16/18 22:35 Glucose 131 mg/dL (70-105) H 12/16/18 22:35 Calcium 9.6 mg/dL (8.6-10.3) 12/16/18 22:35 Total Bilirubin 0.3 mg/dL (0.3-1.0) 12/16/18 22:35 AST 16 U/L (13-39) 12/16/18 22:35 ALT 11 U/L (7-52) 12/16/18 22:35 Alkaline Phosphatase 54 U/L (34-104) 12/16/18 22:35 Total Protein 7.5 gm/dL (6.0-8.3) 12/16/18 22:35 Albumin 4.0 gm/dL (4.2-5.5) L 12/16/18 22:35 Globulin 3.5 gm/dL 12/16/18 22:35 Albumin/Globulin Ratio 1.1 (1.0-1.8) 12/16/18 22:35 Triglycerides 233 mg/dL (<150) H 12/16/18 22:35 Cholesterol 126 mg/dL (<200) 12/16/18 22:35 LDL Cholesterol Direct 65 mg/dL (75-193) L 12/16/18 22:35 HDL Cholesterol 39 mg/dL (23-92) 12/16/18 22:35 - Physical Exam Vitals and I&O: Vital Signs Temp 98.1 F 12/19/18 06:55 Pulse 74 12/19/18 08:53 Resp 18 12/19/18 06:55 BP 121/87 12/19/18 08:53 Pulse Ox 97 12/19/18 06:55 Intake & Output 12/18/18 12/19/18 12/19/18 18:59 06:59 18:59 Intake Total 240 Balance 240 Intake: Oral 240 Other: # Voids 2 # Bowel Movements 0 Active Medications: Current Medications Acetaminophen (Tylenol) 650 mg PO Q4HR PRN PRN Reason: Mild Pain / Temp above 100 Stop: 02/15/19 00:39 Atorvastatin Calcium (Lipitor) 20 mg PO DAILY [facility]; Protocol Stop: 02/15/19 10:29 Last Admin: 12/19/18 08:54 Dose: 20 mg Bisacodyl (Dulcolax 10 Mg Supp) 10 mg RC DAILY PRN PRN Reason: Constipation Stop: 02/15/19 00:39 Cholecalciferol (Vitamin D3) 1,000 iu PO DAILY [facility] Stop: 02/15/19 08:59 Last Admin: 12/19/18 08:53 Dose: 1,000 iu Cyanocobalamin (Vitamin B12) 1,000 mcg PO DAILY [facility] Stop: 02/15/19 08:59 Last Admin: 12/19/18 08:52 Dose: 1,000 mcg Diphenhydramine HCl (Benadryl) 25 mg PO Q8HR PRN PRN Reason: Itching Stop: 02/15/19 00:39 Divalproex Sodium (Depakote Dr) 250 mg PO DAILY [facility]; Protocol Stop: 02/15/19 08:59 Last Admin: 12/19/18 08:54 Dose: 250 mg Divalproex Sodium (Depakote Dr) 375 mg PO HS [facility]; Protocol Stop: 02/15/19 21:59 Last Admin: 12/18/18 21:40 Dose: 375 mg Donepezil HCl (Aricept) 5 mg PO HS [facility] Stop: 02/15/19 20:59 Last Admin: 12/18/18 21:40 Dose: 5 mg Lactulose (Cephulac) 10 gm PO DAILY PRN PRN Reason: COMSTIPATION Stop: 02/15/19 00:39 Last Admin: 12/18/18 14:09 Dose: 10 gm Levothyroxine Sodium (Synthroid) 0.15 mg PO QDAC [facility] Stop: 02/15/19 07:29 Last Admin: 12/19/18 06:33 Dose: 0.15 mg Lisinopril (Zestril) 5 mg PO DAILY [facility] Stop: 02/15/19 08:59 Last Admin: 12/19/18 08:53 Dose: 5 mg Lorazepam (Ativan) 0.5 mg PO Q6HR PRN; Protocol PRN Reason: Anxiety Stop: 01/15/19 23:44 Magnesium Hydroxide (Milk Of Magnesia) 30 ml PO HS PRN PRN Reason: Constipation Stop: 02/15/19 00:39 Memantine (Namenda) 10 mg PO DAILY [facility] Stop: 02/15/19 08:59 Last Admin: 12/19/18 08:54 Dose: 10 mg Mineral Oil (Fleet Mineral Oil) 135 ml RC Q2D PRN PRN Reason: Constipation Stop: 02/15/19 00:39 Mirtazapine (Remeron) 7.5 mg PO HS [facility]; Protocol Stop: 02/15/19 20:59 Last Admin: 12/18/18 21:40 Dose: 7.5 mg Multivitamins/Vitamin C (Theragran) 1 tab PO DAILY [facility] Stop: 02/15/19 08:59 Last Admin: 12/19/18 08:53 Dose: 1 tab Nitroglycerin (Nitrostat) 0.4 mg SL Q5MIN PRN PRN Reason: Chest Pain Stop: 02/15/19 00:39 Pantoprazole Sodium (Protonix) 40 mg PO QDAC [facility] Stop: 02/15/19 07:29 Last Admin: 12/19/18 06:33 Dose: 40 mg Polyethylene Glycol (Miralax) 17 gm PO DAILY PRN PRN Reason: Constipation Stop: 02/15/19 00:39 Last Admin: 12/18/18 14:09 Dose: 17 gm Quetiapine Fumarate (Seroquel) 50 mg PO DAILY [facility]; Protocol Stop: 02/15/19 08:59 Last Admin: 12/19/18 08:53 Dose: 50 mg Quetiapine Fumarate (Seroquel) 100 mg PO QPM [facility]; Protocol Stop: 02/15/19 16:59 Last Admin: 12/18/18 17:01 Dose: 100 mg Simethicone (Mylicon) 80 mg PO DAILY PRN PRN Reason: GI DISTRESS Stop: 02/15/19 00:39 General: alert, NAD HEENT: NC/AT, PERRLA, EOMI Neck: Supple, No JVD, No thyromegaly, No LAD Lungs: CTAB Cardiovascular: RRR, Normal S1, Normal S2, without murmur Abdomen: soft, non-tender, non-distended Extremities: clear Neurological: no change Internal Medicine Assmt/Plan - Assessment Assessment: ACUTE PSYCH DECOMPENSATION HISTORY OF DEMENTIA WITH PSYCH DECOMPENSATION HISTORY OF ESSENTIAL HTN HISTORY OF DYSLIPIDIMIA HISTORY OF HYPOTHYROIDISM HISTORY OF GERD HISTORY OF OA HISTORY OF GENERALIZED MUSCLE WEAKNESS - Plan Plan: CONT WITH CURRENT INPATIENT SUPPORTIVE CARE AND MGT CONT WITH CURRENT MEDS SCHEDULED
--- NOTE | 2018-12-19 22:40 | Progress Notes ---
DATE: 12/19/2018 SUBJECTIVE: The patient is very confused, disoriented, selectively mute, wandering mostly withdrawn, keeps to himself. No agitation, no escalation of behaviors. The patient has not tried to hit anybody, but is wondering and unpredictable. ASSESSMENT: The patient remains symptomatic, ongoing safety concerns. We will continue to monitor. There were some concerns about his swallowing capabilities a swallow eval was ordered. We will coordinate care with social worker masters regarding dispo planning. JOB# [id number]
[2018-12-20] MEDS: Levothyroxine 0.075 Mg Tab PO SCH (06:45)
[2018-12-20] MEDS: Pantoprazole 40 mg EC Tab PO SCH (06:45)
[2018-12-20] MEDS: Multivitamin Tab PO SCH (09:04)
[2018-12-20] MEDS: Atorvastatin Calcium 10 MG TAB PO SCH (09:06)
--- NOTE | 2018-12-20 18:33 | Internal Medicine Prog Note ---
Internal Medicine Subjective - Subjective Service Date: 12/20/18 (NO EVENTS) Patient seen and examined:: without staff Patient is:: awake Per staff patient has:: no adverse event Internal Medicine Objective - Results Result Diagrams: 12/16/18 22:35 12/16/18 22:35 Recent Labs: Laboratory Last Values WBC 7.4 Th/cmm (4.8-10.8) 12/16/18 22:35 RBC 4.50 Mil/cmm (3.80-5.80) 12/16/18 22:35 Hgb 12.0 gm/dL (12-16) 12/16/18 22:35 Hct 37.5 % (41.0-60) L 12/16/18 22:35 MCV 83.3 fl (80-99) 12/16/18 22:35 MCH 26.6 pg (27.0-31.0) L 12/16/18 22:35 MCHC Differential 32.0 pg (28.0-36.0) 12/16/18 22:35 RDW 14.1 % (11.5-20.0) 12/16/18 22:35 Plt Count 302 Th/cmm (150-400) 12/16/18 22:35 MPV 8.0 fl 12/16/18 22:35 Neutrophils % 72.4 % (40.0-80.0) 12/16/18 22:35 Lymphocytes % 13.9 % (20.0-50.0) L 12/16/18 22:35 Monocytes % 5.5 % (2.0-10.0) 12/16/18 22:35 Eosinophils % 4.9 % (0.0-5.0) 12/16/18 22:35 Basophils % 3.3 % (0.0-2.0) H 12/16/18 22:35 Sodium 135 mEq/L (136-145) L 12/16/18 22:35 Potassium 3.6 mEq/L (3.5-5.1) 12/16/18 22:35 Chloride 98 mEq/L (98-107) 12/16/18 22:35 Carbon Dioxide 26.9 mEq/L (21.0-31.0) 12/16/18 22:35 Anion Gap 13.7 (7.0-16.0) 12/16/18 22:35 BUN 21 mg/dL (7-25) 12/16/18 22:35 Creatinine 1.1 mg/dL (0.7-1.3) 12/16/18 22:35 Est GFR ( Amer) TNP 12/16/18 22:35 Est GFR (Non-Af Amer) TNP 12/16/18 22:35 BUN/Creatinine Ratio 19.1 12/16/18 22:35 Glucose 131 mg/dL (70-105) H 12/16/18 22:35 Calcium 9.6 mg/dL (8.6-10.3) 12/16/18 22:35 Total Bilirubin 0.3 mg/dL (0.3-1.0) 12/16/18 22:35 AST 16 U/L (13-39) 12/16/18 22:35 ALT 11 U/L (7-52) 12/16/18 22:35 Alkaline Phosphatase 54 U/L (34-104) 12/16/18 22:35 Total Protein 7.5 gm/dL (6.0-8.3) 12/16/18 22:35 Albumin 4.0 gm/dL (4.2-5.5) L 12/16/18 22:35 Globulin 3.5 gm/dL 12/16/18 22:35 Albumin/Globulin Ratio 1.1 (1.0-1.8) 12/16/18 22:35 Triglycerides 233 mg/dL (<150) H 12/16/18 22:35 Cholesterol 126 mg/dL (<200) 12/16/18 22:35 LDL Cholesterol Direct 65 mg/dL (75-193) L 12/16/18 22:35 HDL Cholesterol 39 mg/dL (23-92) 12/16/18 22:35 - Physical Exam Vitals and I&O: Vital Signs Temp 98.4 F 12/20/18 14:00 Pulse 66 12/20/18 14:00 Resp 18 12/20/18 14:00 BP 99/60 12/20/18 14:00 Pulse Ox 93 12/20/18 14:00 Intake & Output 12/19/18 12/20/18 12/20/18 18:59 06:59 18:59 Intake Total 1300 1500 Balance 1300 1500 Intake: Oral 1300 1500 Other: # Voids 3 4 # Bowel Movements 1 0 Active Medications: Current Medications Acetaminophen (Tylenol) 650 mg PO Q4HR PRN PRN Reason: Mild Pain / Temp above 100 Stop: 02/15/19 00:39 Atorvastatin Calcium (Lipitor) 20 mg PO DAILY [facility]; Protocol Stop: 02/15/19 10:29 Last Admin: 12/20/18 09:06 Dose: 20 mg Bisacodyl (Dulcolax 10 Mg Supp) 10 mg RC DAILY PRN PRN Reason: Constipation Stop: 02/15/19 00:39 Cholecalciferol (Vitamin D3) 1,000 iu PO DAILY [facility] Stop: 02/15/19 08:59 Last Admin: 12/20/18 09:04 Dose: 1,000 iu Cyanocobalamin (Vitamin B12) 1,000 mcg PO DAILY [facility] Stop: 02/15/19 08:59 Last Admin: 12/20/18 09:03 Dose: 1,000 mcg Diphenhydramine HCl (Benadryl) 25 mg PO Q8HR PRN PRN Reason: Itching Stop: 02/15/19 00:39 Divalproex Sodium (Depakote Dr) 250 mg PO DAILY [facility]; Protocol Stop: 02/15/19 08:59 Last Admin: 12/20/18 09:05 Dose: 250 mg Divalproex Sodium (Depakote Dr) 375 mg PO HS [facility]; Protocol Stop: 02/15/19 21:59 Last Admin: 12/19/18 21:40 Dose: 375 mg Donepezil HCl (Aricept) 5 mg PO HS [facility] Stop: 02/15/19 20:59 Last Admin: 12/19/18 21:41 Dose: 5 mg Lactulose (Cephulac) 10 gm PO DAILY PRN PRN Reason: COMSTIPATION Stop: 02/15/19 00:39 Last Admin: 12/18/18 14:09 Dose: 10 gm Levothyroxine Sodium (Synthroid) 0.15 mg PO QDAC [facility] Stop: 02/15/19 07:29 Last Admin: 12/20/18 06:45 Dose: 0.15 mg Lisinopril (Zestril) 5 mg PO DAILY [facility] Stop: 02/15/19 08:59 Last Admin: 12/20/18 09:04 Dose: Not Given Lorazepam (Ativan) 0.5 mg PO Q6HR PRN; Protocol PRN Reason: Anxiety Stop: 01/15/19 23:44 Magnesium Hydroxide (Milk Of Magnesia) 30 ml PO HS PRN PRN Reason: Constipation Stop: 02/15/19 00:39 Memantine (Namenda) 10 mg PO DAILY [facility] Stop: 02/15/19 08:59 Last Admin: 12/20/18 09:05 Dose: 10 mg Mineral Oil (Fleet Mineral Oil) 135 ml RC Q2D PRN PRN Reason: Constipation Stop: 02/15/19 00:39 Mirtazapine (Remeron) 7.5 mg PO HS [facility]; Protocol Stop: 02/15/19 20:59 Last Admin: 12/19/18 21:40 Dose: 7.5 mg Multivitamins/Vitamin C (Theragran) 1 tab PO DAILY [facility] Stop: 02/15/19 08:59 Last Admin: 12/20/18 09:04 Dose: 1 tab Nitroglycerin (Nitrostat) 0.4 mg SL Q5MIN PRN PRN Reason: Chest Pain Stop: 02/15/19 00:39 Pantoprazole Sodium (Protonix) 40 mg PO QDAC [facility] Stop: 02/15/19 07:29 Last Admin: 12/20/18 06:45 Dose: 40 mg Polyethylene Glycol (Miralax) 17 gm PO DAILY PRN PRN Reason: Constipation Stop: 02/15/19 00:39 Last Admin: 12/18/18 14:09 Dose: 17 gm Quetiapine Fumarate (Seroquel) 50 mg PO DAILY [facility]; Protocol Stop: 02/15/19 08:59 Last Admin: 12/20/18 09:03 Dose: 50 mg Quetiapine Fumarate (Seroquel) 100 mg PO QPM [facility]; Protocol Stop: 02/15/19 16:59 Last Admin: 12/20/18 16:02 Dose: 100 mg Simethicone (Mylicon) 80 mg PO DAILY PRN PRN Reason: GI DISTRESS Stop: 02/15/19 00:39 General: alert, NAD HEENT: NC/AT, PERRLA, EOMI Neck: Supple, No JVD, No thyromegaly, No LAD Lungs: CTAB Cardiovascular: RRR, Normal S1, Normal S2, without murmur Abdomen: soft, non-tender, non-distended Extremities: clear Neurological: no change Internal Medicine Assmt/Plan - Assessment Assessment: ACUTE PSYCH DECOMPENSATION HISTORY OF DEMENTIA WITH PSYCH DECOMPENSATION HISTORY OF ESSENTIAL HTN HISTORY OF DYSLIPIDIMIA HISTORY OF HYPOTHYROIDISM HISTORY OF GERD HISTORY OF OA HISTORY OF GENERALIZED MUSCLE WEAKNESS - Plan Plan: CONT WITH CURRENT INPATIENT SUPPORTIVE CARE AND MGT CONT WITH CURRENT MEDS SCHEDULED Nutritional Asmnt/Malnutr-PDOC - Dietary Evaluation Malnutrition Findings (Please click <Entered> for more info): Nutritional Asmnt/Malnutrition Start: 12/20/18 16: 19 Text: Status: Complete Freq: Protocol: Document 12/20/18 16:19 LCHENG (Rec: 12/20/18 17:03 [email or web address]) Nutritional Asmnt/Malnutrition Patient General Information Nutritional Screening Moderate Risk Diagnosis dementia Pertinent Medical Hx/Surgical Hx HTN, CAD, CHF, dyslipidemia, PUD/GERD, thyroid disorder, arthritis, dementia Subjective Information pt seen sleeping in bed at time of visit. Pt had swallow eval on 12/18, passed with pureed nectar thick liquid. Per EMR, PO intake 75%. Current Diet Order/ Nutrition Support pureed Pertinent Medications lipitor, vit D3, vit B12, synthroid, remeron, theragran, protonix, miralax, seroquel Pertinent Labs 12/16 Na 135, Glucose 131, Alb 4.0 Nutritional Hx/Data Height 1.8 m Height (Calculated Centimeters) 180.3 Current Weight (lbs) 74.843 kg Weight (Calculated Kilograms) 74.8 Weight (Calculated Grams) 00632.7 [place] Body Weight 172 Body Mass Index (BMI) 23.0 GI Symptoms GI Symptoms None Last BM 12/19 Difficult in: None Skin Integrity/Comment: intact Current %PO Good (75-100%) Estimated Nutritional Goals BEE in Kcals: Using Current wt Calories/Kcals/Kg 25-30 Kcals Calculated [id number] Protein: Using Current wt Protein g/k Protein Calculated 75 Fluid: ml 1875-2250ml (1ml/kcal) Nutritional Problem No current Nutrition Prob Problem N/A Intervention/Recommendation Comments 1. Continue with pureed diet as ordered. Recommend adding nectar thick liquid per swallow eval. PHYLICIA Rodriguez notified. 2. Monitor PO intake, wt, labs and skin integrity 3. F/U as low risk in 7 days Expected Outcomes/Goals Expected Outcomes/Goals 1. PO intake to meet at least 75% of nutritional needs. 2. Wt stability, skin to remain intact, labs to approach WNL.
--- NOTE | 2018-12-21 02:47 | Progress Notes ---
DATE: 12/20/2018 The patient is confused, disoriented, selectively mute, still keeps to himself, mostly wandering behaviors. He has been redirectable, but sometimes tries to leave, needs to be redirected by staff, ongoing behavioral disturbances, calm at this time, medications were noted. Currently on Depakote and Seroquel. Staff noting ongoing behaviors, ongoing confusion, impoverished thought processes, isolates. PLAN: We will continue to monitor and titrate medications. Work on the patient's coping, insight and orientation. JOB# [id number]
[2018-12-21] MEDS: Levothyroxine 0.075 Mg Tab PO SCH (06:36)
[2018-12-21] MEDS: Pantoprazole 40 mg EC Tab PO SCH (06:36)
[2018-12-21] MEDS: Multivitamin Tab PO SCH (08:49)
[2018-12-21] MEDS: Atorvastatin Calcium 10 MG TAB PO SCH (08:49)
--- NOTE | 2018-12-21 10:35 | General Progress Note ---
Subjective - Review of Systems Service Date: 12/21/28 Subjective: Patient is confused, Objective - Results Result Diagrams: 12/16/18 22:35 12/16/18 22:35 Recent Labs: Laboratory Last Values WBC 7.4 Th/cmm (4.8-10.8) 12/16/18 22:35 RBC 4.50 Mil/cmm (3.80-5.80) 12/16/18 22:35 Hgb 12.0 gm/dL (12-16) 12/16/18 22:35 Hct 37.5 % (41.0-60) L 12/16/18 22:35 MCV 83.3 fl (80-99) 12/16/18 22:35 MCH 26.6 pg (27.0-31.0) L 12/16/18 22:35 MCHC Differential 32.0 pg (28.0-36.0) 12/16/18 22:35 RDW 14.1 % (11.5-20.0) 12/16/18 22:35 Plt Count 302 Th/cmm (150-400) 12/16/18 22:35 MPV 8.0 fl 12/16/18 22:35 Neutrophils % 72.4 % (40.0-80.0) 12/16/18 22:35 Lymphocytes % 13.9 % (20.0-50.0) L 12/16/18 22:35 Monocytes % 5.5 % (2.0-10.0) 12/16/18 22:35 Eosinophils % 4.9 % (0.0-5.0) 12/16/18 22:35 Basophils % 3.3 % (0.0-2.0) H 12/16/18 22:35 Sodium 135 mEq/L (136-145) L 12/16/18 22:35 Potassium 3.6 mEq/L (3.5-5.1) 12/16/18 22:35 Chloride 98 mEq/L (98-107) 12/16/18 22:35 Carbon Dioxide 26.9 mEq/L (21.0-31.0) 12/16/18 22:35 Anion Gap 13.7 (7.0-16.0) 12/16/18 22:35 BUN 21 mg/dL (7-25) 12/16/18 22:35 Creatinine 1.1 mg/dL (0.7-1.3) 12/16/18 22:35 Est GFR ( Amer) TNP 12/16/18 22:35 Est GFR (Non-Af Amer) TNP 12/16/18 22:35 BUN/Creatinine Ratio 19.1 12/16/18 22:35 Glucose 131 mg/dL (70-105) H 12/16/18 22:35 Calcium 9.6 mg/dL (8.6-10.3) 12/16/18 22:35 Total Bilirubin 0.3 mg/dL (0.3-1.0) 12/16/18 22:35 AST 16 U/L (13-39) 12/16/18 22:35 ALT 11 U/L (7-52) 12/16/18 22:35 Alkaline Phosphatase 54 U/L (34-104) 12/16/18 22:35 Total Protein 7.5 gm/dL (6.0-8.3) 12/16/18 22:35 Albumin 4.0 gm/dL (4.2-5.5) L 12/16/18 22:35 Globulin 3.5 gm/dL 12/16/18 22:35 Albumin/Globulin Ratio 1.1 (1.0-1.8) 12/16/18 22:35 Triglycerides 233 mg/dL (<150) H 12/16/18 22:35 Cholesterol 126 mg/dL (<200) 12/16/18 22:35 LDL Cholesterol Direct 65 mg/dL (75-193) L 12/16/18 22:35 HDL Cholesterol 39 mg/dL (23-92) 12/16/18 22:35 - Physical Exam Vitals and I&O: Vital Signs Temp 98.4 F 12/20/18 14:00 Pulse 70 12/21/18 08:49 Resp 18 12/20/18 14:00 BP 103/55 12/21/18 08:49 Pulse Ox 93 12/20/18 14:00 Intake & Output 12/20/18 12/21/18 12/21/18 18:59 06:59 18:59 Intake Total 1500 Balance 1500 Intake: Oral 1500 Other: # Voids 4 # Bowel Movements 0 Active Medications: Current Medications Acetaminophen (Tylenol) 650 mg PO Q4HR PRN PRN Reason: Mild Pain / Temp above 100 Stop: 02/15/19 00:39 Al Hydrox/Mg Hydrox/Simethicone (Maalox) 30 ml PO BID [facility]LEX[facility] Stop: 02/19/19 16:59 Atorvastatin Calcium (Lipitor) 20 mg PO DAILY ALEXANDRU; Protocol Stop: 02/15/19 10:29 Last Admin: 12/21/18 08:49 Dose: 20 mg Bisacodyl (Dulcolax 10 Mg Supp) 10 mg RC DAILY PRN PRN Reason: Constipation Stop: 02/15/19 00:39 Cholecalciferol (Vitamin D3) 1,000 iu PO DAILY A[facility] Stop: 02/15/19 08:59 Last Admin: 12/21/18 08:49 Dose: 1,000 iu Cyanocobalamin (Vitamin B12) 1,000 mcg PO DAILY [facility] Stop: 02/15/19 08:59 Last Admin: 12/21/18 08:49 Dose: 1,000 mcg Diphenhydramine HCl (Benadryl) 25 mg PO Q8HR PRN PRN Reason: Itching Stop: 02/15/19 00:39 Divalproex Sodium (Depakote Dr) 250 mg PO DAILY ALEXANDRU; Protocol Stop: 02/15/19 08:59 Last Admin: 12/21/18 08:59 Dose: 250 mg Divalproex Sodium (Depakote Dr) 375 mg PO HS ALEXANDRU; Protocol Stop: 02/15/19 21:59 Last Admin: 12/20/18 21:08 Dose: 375 mg Donepezil HCl (Aricept) 5 mg PO HS A[facility]U Stop: 02/15/19 20:59 Last Admin: 12/20/18 21:08 Dose: 5 mg Lactulose (Cephulac) 10 gm PO DAILY PRN PRN Reason: COMSTIPATION Stop: 02/15/19 00:39 Last Admin: 12/18/18 14:09 Dose: 10 gm Levothyroxine Sodium (Synthroid) 0.15 mg PO QDAC ALEX[facility]DRU Stop: 02/15/19 07:29 Last Admin: 12/21/18 06:36 Dose: 0.15 mg Lisinopril (Zestril) 5 mg PO DAILY ALEX[facility]DRU Stop: 02/15/19 08:59 Last Admin: 12/21/18 08:49 Dose: 5 mg Lorazepam (Ativan) 0.5 mg PO Q6HR PRN; Protocol PRN Reason: Anxiety Stop: 01/15/19 23:44 Memantine (Namenda) 10 mg PO DAILY [facility] Stop: 02/15/19 08:59 Last Admin: 12/21/18 08:49 Dose: 10 mg Mineral Oil (Fleet Mineral Oil) 135 ml RC Q2D PRN PRN Reason: Constipation Stop: 02/15/19 00:39 Mirtazapine (Remeron) 7.5 mg PO HS [facility]; Protocol Stop: 02/15/19 20:59 Last Admin: 12/20/18 21:08 Dose: 7.5 mg Multivitamins/Vitamin C (Theragran) 1 tab PO DAILY [facility] Stop: 02/15/19 08:59 Last Admin: 12/21/18 08:49 Dose: 1 tab Nitroglycerin (Nitrostat) 0.4 mg SL Q5MIN PRN PRN Reason: Chest Pain Stop: 02/15/19 00:39 Pantoprazole Sodium (Protonix) 40 mg PO QDAC ALEX[facility]DRU Stop: 02/15/19 07:29 Last Admin: 12/21/18 06:36 Dose: 40 mg Polyethylene Glycol (Miralax) 17 gm PO DAILY PRN PRN Reason: Constipation Stop: 02/15/19 00:39 Last Admin: 12/18/18 14:09 Dose: 17 gm Quetiapine Fumarate (Seroquel) 50 mg PO DAILY [facility]; Protocol Stop: 02/15/19 08:59 Last Admin: 12/21/18 08:59 Dose: 50 mg Quetiapine Fumarate (Seroquel) 100 mg PO QPM [facility]; Protocol Stop: 02/15/19 16:59 Last Admin: 12/20/18 16:02 Dose: 100 mg Simethicone (Mylicon) 80 mg PO DAILY PRN PRN Reason: GI DISTRESS Stop: 02/15/19 00:39 General: Alert, Other (confused, not oriented) HEENT: PERRLA Neck: Supple Cardiovascular: Regular rate Lungs: Clear to auscultation Abdomen: Bowel sounds, Soft Extremities: Other (No edema) Neurological: Other (unstable gait) Skin: Other (Warm and dry) Psych/Mental Status: Other (Calm, confused, not oriented) Assessment/Plan - Assessment Assessment: Patient is awake, alert, calm in no acute distress. Dx: Psychosis, Dementia, HTN , Dyslipemia, Hypothyroidism, GERD, General muscle waekness. - Plan Plan: Patient is follow by Psychiatry, with home meds. Will continue to monitor. Nutritional Asmnt/Malnutr-PDOC - Dietary Evaluation Malnutrition Findings (Please click <Entered> for more info): Nutritional Asmnt/Malnutrition Start: 12/20/18 16: 19 Text: Status: Complete Freq: Protocol: Document 12/20/18 16:19 LCHENG (Rec: 12/20/18 17:03 HEN [email or web address]) Nutritional Asmnt/Malnutrition Patient General Information Nutritional Screening Moderate Risk Diagnosis dementia Pertinent Medical Hx/Surgical Hx HTN, CAD, CHF, dyslipidemia, PUD/GERD, thyroid disorder, arthritis, dementia Subjective Information pt seen sleeping in bed at time of visit. Pt had swallow eval on 12/18, passed with pureed nectar thick liquid. Per EMR, PO intake 75%. Current Diet Order/ Nutrition Support pureed Pertinent Medications lipitor, vit D3, vit B12, synthroid, remeron, theragran, protonix, miralax, seroquel Pertinent Labs 12/16 Na 135, Glucose 131, Alb 4.0 Nutritional Hx/Data Height 1.8 m Height (Calculated Centimeters) 180.3 Current Weight (lbs) 74.843 kg Weight (Calculated Kilograms) 74.8 Weight (Calculated Grams) 53358.7 [place] Body Weight 172 Body Mass Index (BMI) 23.0 GI Symptoms GI Symptoms None Last BM 12/19 Difficult in: None Skin Integrity/Comment: intact Current %PO Good (75-100%) Estimated Nutritional Goals BEE in Kcals: Using Current wt Calories/Kcals/Kg 25-30 Kcals Calculated 3017-2860 Protein: Using Current wt Protein g/k Protein Calculated 75 Fluid: ml 1875-2250ml (1ml/kcal) Nutritional Problem No current Nutrition Prob Problem N/A Intervention/Recommendation Comments 1. Continue with pureed diet as ordered. Recommend adding nectar thick liquid per swallow eval. PHYLICIA Rodriguez notified. 2. Monitor PO intake, wt, labs and skin integrity 3. F/U as low risk in 7 days Expected Outcomes/Goals Expected Outcomes/Goals 1. PO intake to meet at least 75% of nutritional needs. 2. Wt stability, skin to remain intact, labs to approach WNL.
[2018-12-21] MEDS: Maalox 30 mL Cup PO SCH (16:36)
[2018-12-21] MEDS ORDERED: Magnesium Hydroxide (MOM) 30 mL UDC PO SCH (17:00)
--- NOTE | 2018-12-22 04:55 | Progress Notes ---
DATE: 12/21/[address] Garcia. This is a well-known case, I had seen him before covering for Dr. Garcia. The patient continues to be confused, continues to stay to himself, selectively mute, unable to carry on a conversation. He is staying in bed mostly, talking to himself at times, whispering to himself. He is unpredictable and impulsive. No side effects of the medication, no sedation, no nausea. He is on Namenda 10 mg daily as well as Aricept 5 mg at bedtime, Depakote 375 mg at bedtime and Remeron 7.5 mg at bedtime and 50 mg of Seroquel at night and 100 mg in the evening. No side effects with the medication, no sedation, no nausea, no extrapyramidal symptoms. We will continue the patient in group therapy, milieu therapy, adjust medication as needed. JOB# [id number]
[2018-12-22] MEDS: Levothyroxine 0.075 Mg Tab PO SCH (06:46)
[2018-12-22] MEDS: Pantoprazole 40 mg EC Tab PO SCH (06:46)
[2018-12-22] MEDS: Atorvastatin Calcium 10 MG TAB PO SCH (09:40)
[2018-12-22] MEDS: Maalox 30 mL Cup PO SCH ×2 (10:15→17:49)
[2018-12-22] MEDS: Multivitamin Tab PO SCH (10:30)
--- NOTE | 2018-12-22 16:12 | General Progress Note ---
Subjective - Review of Systems Service Date: 12/22/18 Subjective: Patient is confused, Objective - Results Result Diagrams: 12/16/18 22:35 12/16/18 22:35 Recent Labs: Laboratory Last Values WBC 7.4 Th/cmm (4.8-10.8) 12/16/18 22:35 RBC 4.50 Mil/cmm (3.80-5.80) 12/16/18 22:35 Hgb 12.0 gm/dL (12-16) 12/16/18 22:35 Hct 37.5 % (41.0-60) L 12/16/18 22:35 MCV 83.3 fl (80-99) 12/16/18 22:35 MCH 26.6 pg (27.0-31.0) L 12/16/18 22:35 MCHC Differential 32.0 pg (28.0-36.0) 12/16/18 22:35 RDW 14.1 % (11.5-20.0) 12/16/18 22:35 Plt Count 302 Th/cmm (150-400) 12/16/18 22:35 MPV 8.0 fl 12/16/18 22:35 Neutrophils % 72.4 % (40.0-80.0) 12/16/18 22:35 Lymphocytes % 13.9 % (20.0-50.0) L 12/16/18 22:35 Monocytes % 5.5 % (2.0-10.0) 12/16/18 22:35 Eosinophils % 4.9 % (0.0-5.0) 12/16/18 22:35 Basophils % 3.3 % (0.0-2.0) H 12/16/18 22:35 Sodium 135 mEq/L (136-145) L 12/16/18 22:35 Potassium 3.6 mEq/L (3.5-5.1) 12/16/18 22:35 Chloride 98 mEq/L (98-107) 12/16/18 22:35 Carbon Dioxide 26.9 mEq/L (21.0-31.0) 12/16/18 22:35 Anion Gap 13.7 (7.0-16.0) 12/16/18 22:35 BUN 21 mg/dL (7-25) 12/16/18 22:35 Creatinine 1.1 mg/dL (0.7-1.3) 12/16/18 22:35 Est GFR ( Amer) TNP 12/16/18 22:35 Est GFR (Non-Af Amer) TNP 12/16/18 22:35 BUN/Creatinine Ratio 19.1 12/16/18 22:35 Glucose 131 mg/dL (70-105) H 12/16/18 22:35 Calcium 9.6 mg/dL (8.6-10.3) 12/16/18 22:35 Total Bilirubin 0.3 mg/dL (0.3-1.0) 12/16/18 22:35 AST 16 U/L (13-39) 12/16/18 22:35 ALT 11 U/L (7-52) 12/16/18 22:35 Alkaline Phosphatase 54 U/L (34-104) 12/16/18 22:35 Total Protein 7.5 gm/dL (6.0-8.3) 12/16/18 22:35 Albumin 4.0 gm/dL (4.2-5.5) L 12/16/18 22:35 Globulin 3.5 gm/dL 12/16/18 22:35 Albumin/Globulin Ratio 1.1 (1.0-1.8) 12/16/18 22:35 Triglycerides 233 mg/dL (<150) H 12/16/18 22:35 Cholesterol 126 mg/dL (<200) 12/16/18 22:35 LDL Cholesterol Direct 65 mg/dL (75-193) L 12/16/18 22:35 HDL Cholesterol 39 mg/dL (23-92) 12/16/18 22:35 - Physical Exam Vitals and I&O: Vital Signs Temp 97.9 F 12/22/18 05:04 Pulse 76 12/22/18 05:04 Resp 19 12/22/18 05:04 BP 105/68 12/22/18 05:04 Pulse Ox 98 12/22/18 05:04 Intake & Output 12/21/18 12/22/18 12/22/18 18:59 06:59 18:59 Intake Total 800 480 Balance 800 480 Intake: Oral 800 480 Other: # Voids 4 2 # Bowel Movements 0 Active Medications: Current Medications Acetaminophen (Tylenol) 650 mg PO Q4HR PRN PRN Reason: Mild Pain / Temp above 100 Stop: 02/15/19 00:39 Al Hydrox/Mg Hydrox/Simethicone (Maalox) 30 ml PO BID ALEXANDRU Stop: 02/19/19 16:59 Last Admin: 12/21/18 16:36 Dose: 30 ml Atorvastatin Calcium (Lipitor) 20 mg PO DAILY [facility]LEX[facility]U; Protocol Stop: 02/15/19 10:29 Last Admin: 12/21/18 08:49 Dose: 20 mg Bisacodyl (Dulcolax 10 Mg Supp) 10 mg RC DAILY PRN PRN Reason: Constipation Stop: 02/15/19 00:39 Cholecalciferol (Vitamin D3) 1,000 iu PO DAILY [facility] Stop: 02/15/19 08:59 Last Admin: 12/21/18 08:49 Dose: 1,000 iu Cyanocobalamin (Vitamin B12) 1,000 mcg PO DAILY [facility] Stop: 02/15/19 08:59 Last Admin: 12/21/18 08:49 Dose: 1,000 mcg Diphenhydramine HCl (Benadryl) 25 mg PO Q8HR PRN PRN Reason: Itching Stop: 02/15/19 00:39 Divalproex Sodium (Depakote Dr) 250 mg PO DAILY [facility]; Protocol Stop: 02/15/19 08:59 Last Admin: 12/21/18 08:59 Dose: 250 mg Divalproex Sodium (Depakote Dr) 375 mg PO HS [facility]; Protocol Stop: 02/15/19 21:59 Last Admin: 12/21/18 20:43 Dose: 375 mg Donepezil HCl (Aricept) 5 mg PO HS [facility] Stop: 02/15/19 20:59 Last Admin: 12/21/18 20:44 Dose: 5 mg Lactulose (Cephulac) 10 gm PO DAILY PRN PRN Reason: COMSTIPATION Stop: 02/15/19 00:39 Last Admin: 12/18/18 14:09 Dose: 10 gm Levothyroxine Sodium (Synthroid) 0.15 mg PO QDAC [facility] Stop: 02/15/19 07:29 Last Admin: 12/22/18 06:46 Dose: 0.15 mg Lisinopril (Zestril) 5 mg PO DAILY [facility] Stop: 02/15/19 08:59 Last Admin: 12/21/18 08:49 Dose: 5 mg Lorazepam (Ativan) 0.5 mg PO Q6HR PRN; Protocol PRN Reason: Anxiety Stop: 01/15/19 23:44 Memantine (Namenda) 10 mg PO DAILY [facility] Stop: 02/15/19 08:59 Last Admin: 12/21/18 08:49 Dose: 10 mg Mineral Oil (Fleet Mineral Oil) 135 ml RC Q2D PRN PRN Reason: Constipation Stop: 02/15/19 00:39 Mirtazapine (Remeron) 7.5 mg PO HS [facility]; Protocol Stop: 02/15/19 20:59 Last Admin: 12/21/18 20:43 Dose: 7.5 mg Multivitamins/Vitamin C (Theragran) 1 tab PO DAILY [facility] Stop: 02/15/19 08:59 Last Admin: 12/21/18 08:49 Dose: 1 tab Nitroglycerin (Nitrostat) 0.4 mg SL Q5MIN PRN PRN Reason: Chest Pain Stop: 02/15/19 00:39 Pantoprazole Sodium (Protonix) 40 mg PO QDAC [facility]LEXANDRU Stop: 02/15/19 07:29 Last Admin: 12/22/18 06:46 Dose: 40 mg Polyethylene Glycol (Miralax) 17 gm PO DAILY PRN PRN Reason: Constipation Stop: 02/15/19 00:39 Last Admin: 12/18/18 14:09 Dose: 17 gm Quetiapine Fumarate (Seroquel) 50 mg PO DAILY [facility]; Protocol Stop: 02/15/19 08:59 Last Admin: 12/21/18 08:59 Dose: 50 mg Quetiapine Fumarate (Seroquel) 100 mg PO QPM [facility]; Protocol Stop: 02/15/19 16:59 Last Admin: 12/21/18 16:37 Dose: 100 mg Simethicone (Mylicon) 80 mg PO DAILY PRN PRN Reason: GI DISTRESS Stop: 02/15/19 00:39 General: Alert, Other (confused, not oriented) HEENT: PERRLA Neck: Supple Cardiovascular: Regular rate Lungs: Clear to auscultation Abdomen: Bowel sounds, Soft Extremities: Other (No edema) Neurological: Other (unstable gait) Skin: Other (Warm and dry) Psych/Mental Status: Other (Calm, confused, not oriented) Assessment/Plan - Assessment Assessment: Patient is awake, alert, calm in no acute distress. Dx: Psychosis, Dementia, HTN , Dyslipemia, Hypothyroidism, GERD, General muscle weakness. - Plan Plan: Patient is follow by Psychiatry, with home meds. Will continue to monitor. Nutritional Asmnt/Malnutr-PDOC - Dietary Evaluation Malnutrition Findings (Please click <Entered> for more info): Nutritional Asmnt/Malnutrition Start: 12/20/18 16: 19 Text: Status: Complete Freq: Protocol: Document 12/20/18 16:19 LCHENG (Rec: 12/20/18 17:03 LCHENG [email or web address]) Nutritional Asmnt/Malnutrition Patient General Information Nutritional Screening Moderate Risk Diagnosis dementia Pertinent Medical Hx/Surgical Hx HTN, CAD, CHF, dyslipidemia, PUD/GERD, thyroid disorder, arthritis, dementia Subjective Information pt seen sleeping in bed at time of visit. Pt had swallow eval on 12/18, passed with pureed nectar thick liquid. Per EMR, PO intake 75%. Current Diet Order/ Nutrition Support pureed Pertinent Medications lipitor, vit D3, vit B12, synthroid, remeron, theragran, protonix, miralax, seroquel Pertinent Labs 12/16 Na 135, Glucose 131, Alb 4.0 Nutritional Hx/Data Height 1.8 m Height (Calculated Centimeters) 180.3 Current Weight (lbs) 74.843 kg Weight (Calculated Kilograms) 74.8 Weight (Calculated Grams) 61884.7 [place] Body Weight 172 Body Mass Index (BMI) 23.0 GI Symptoms GI Symptoms None Last BM 12/19 Difficult in: None Skin Integrity/Comment: intact Current %PO Good (75-100%) Estimated Nutritional Goals BEE in Kcals: Using Current wt Calories/Kcals/Kg 25-30 Kcals Calculated 0548-3276 Protein: Using Current wt Protein g/k Protein Calculated 75 Fluid: ml 1875-2250ml (1ml/kcal) Nutritional Problem No current Nutrition Prob Problem N/A Intervention/Recommendation Comments 1. Continue with pureed diet as ordered. Recommend adding nectar thick liquid per swallow eval. PHYLICIA Rodriguez notified. 2. Monitor PO intake, wt, labs and skin integrity 3. F/U as low risk in 7 days Expected Outcomes/Goals Expected Outcomes/Goals 1. PO intake to meet at least 75% of nutritional needs. 2. Wt stability, skin to remain intact, labs to approach WNL.
--- NOTE | 2018-12-22 17:33 | Progress Notes ---
DATE: 12/22/2018 Case was discussed with staff of the patient, reviewed records. The patient continues to be mute; however, the staff report that he has been telling them he is seeing his father. When I tried to talk to him, could not give me any information. He is demented, confused, unable to make safe plan for self-care, unpredictable, impulsive, needing redirection. No side effects to the medication, no sedation, no nausea, no extrapyramidal symptoms. We will continue to work with the patient in group therapy, milieu therapy and adjust the medications as needed. JOB# [id number]
[2018-12-23] MEDS: Levothyroxine 0.075 Mg Tab PO SCH (06:35)
[2018-12-23] MEDS: Maalox 30 mL Cup PO SCH ×2 (09:17→16:08)
[2018-12-23] MEDS: Atorvastatin Calcium 10 MG TAB PO SCH (09:17)
[2018-12-23] MEDS: Pantoprazole 40 mg EC Tab PO SCH (09:17)
[2018-12-23] MEDS: Multivitamin Tab PO SCH (09:17)
--- NOTE | 2018-12-24 02:15 | Progress Notes ---
DATE: 12/23/2018 SUBJECTIVE: The patient in the hospital, confused, disoriented, likely at his baseline, still requiring a lot of prompting, redirection, ongoing concerns about wandering, no agitation, no escalation of behaviors, very poor historian. Fair sleep, fair appetite, taking his medications. ASSESSMENT: The patient seems to be approaching his baseline, generally calmer, more cooperative. PLAN: We will continue to monitor, attempt to confirm a safe discharge plan. [facility]# [id number]
[2018-12-24] MEDS: Pantoprazole 40 mg EC Tab PO SCH (06:41)
[2018-12-24] MEDS: Levothyroxine 0.075 Mg Tab PO SCH (07:19)
[2018-12-24] MEDS: Maalox 30 mL Cup PO SCH ×2 (09:18→16:10)
[2018-12-24] MEDS: Multivitamin Tab PO SCH (09:18)
[2018-12-24] MEDS: Atorvastatin Calcium 10 MG TAB PO SCH (09:18)
--- NOTE | 2018-12-24 12:51 | Discharge Summary ---
DATE OF DISCHARGE: 12/24/2018 HISTORY OF PRESENT ILLNESS: A 78-year-old male coming to the hospital, agitation, wandering behaviors, very confused, worsening confusion, worsening behaviors, unruly behaviors, yelling, screaming. PAST PSYCHIATRIC HISTORY: dementia. MEDICATIONS: Noted. PROVISIONAL DIAGNOSES: Likely dementia, mood unspecified, also history of schizoaffective disorder. MEDICAL: Please see full H and P. HOSPITAL COURSE: After initial assessment, the patient was started on medications. Medications were adjusted and titrated, Seroquel, Depakote for example. His hospitalization course progressed. He began to show some signs of improvement. For example, no longer as agitated or aggressive, less wandering behaviors, generally calmer. Towards the latter end of treatment, he was devoid of any aggressive symptoms. CONDITION UPON DISCHARGE: Improved, allowing ADLs, calmer, more cooperative. No suicidal gestures. No overt psychosis. PROGNOSIS: The patient follows up with outpatient mental health services and remains compliant with treatment. Prognosis will improve, otherwise guarded. [facility]# [id number]
== END 2018-12-24 16:50 | DRG 885 ==
LOC: ER 21:47 → GERO2 23:04
PROVIDERS: ADMIT Psychiatry & Neurology Psychiatry; ATTEND Psychiatry & Neurology Psychiatry
DX: F25.9 Schizoaffective disorder, unspecified (principal); I11.0 Hypertensive heart disease with heart failure; F23 Brief psychotic disorder; I50.9 Heart failure, unspecified; I25.10 Atherosclerotic heart disease of native coronary artery without angina pectoris; E78.5 Hyperlipidemia, unspecified; K21.9 Gastro-esophageal reflux disease without esophagitis; M19.90 Unspecified osteoarthritis, unspecified site; F03.90 Unspecified dementia, unspecified severity, without behavioral disturbance, psychotic disturbance, mood disturbance, and anxiety; E03.9 Hypothyroidism, unspecified; M62.81 Muscle weakness (generalized); F39 Unspecified mood [affective] disorder
CPT/HCPCS: 36415-UA; 80053-TC; 80061-TC; 83036-90; 85025-TC; Z7610

== ENCOUNTER 2019-05-12 14:29 | Inpatient (IN) | payer MEDICARE, MEDICAID ==
[2019-05-12 15:17] LABS: % BASOPHILS 0.6 % (0.0-2.0); % EOSINOPHILS 4.7 % (0.0-5.0); % LYMPHOCYTES 27.7 % (20.0-50.0); EOSINOPHILE ABSOLUTE 0.3 Th/cmm (0.1-0.4); HEMATOCRIT 38.6 % (41.0-60); HEMOGLOBIN 12.9 gm/dL (12-16); LYMPHOCYTE ABSOLUTE 1.7 Th/cmm (1.5-3.0); MEAN CELL VOLUME 88.4 fl (80-99); MEAN CORPUSCULAR HEMOGLOBIN 29.6 pg (27.0-31.0); MEAN CORPUSCULAR HGB CONC 33.4 pg (28.0-36.0); MONOCYTE ABSOLUTE 0.9 Th/cmm (0.3-1.0); NEUTROPHILE ABSOLUTE 3.3 Th/cmm (1.8-8.0); PLATELET COUNT 265 Th/cmm (150-400); RED BLOOD COUNT 4.36 Mil/cmm (3.80-5.80); RED CELL DISTRIBUTION WIDTH 14.1 % (11.5-20.0); WHITE BLOOD COUNT 6.2 Th/cmm (4.8-10.8)
[2019-05-12 15:33] LABS: ALB/GLOB RATIO 1.3 (1.0-1.8); ALBUMIN 4.2 gm/dL (4.2-5.5); ALKALINE PHOSPHATASE 56 U/L (34-104); ANION GAP 13.1 (7.0-16.0); BILIRUBIN,TOTAL 0.3 mg/dL (0.3-1.0); BUN - UREA NITROGEN 21 mg/dL (7-25); CALCIUM SERUM 9.1 mg/dL (8.6-10.3); CARBON DIOXIDE 27.9 mEq/L (21.0-31.0); CHLORIDE 102 mEq/L (98-107); CHOLESTEROL 124 mg/dL (<200); CREATININE - SERUM 1.2 mg/dL (0.7-1.3); GLUCOSE 113 mg/dL (70-105); HDL -HIGH DENSITY LIPOPROTEIN 34 mg/dL (23-92); SGOT 15 U/L (13-39); SGPT/ALT 10 U/L (7-52); SODIUM SERUM 139 mEq/L (136-145); TOTAL PROTEIN,SERUM 7.5 gm/dL (6.0-8.3); TRIGLYCERIDES 274 mg/dL (<150)
--- NOTE | 2019-05-12 15:47 | ED Physician Chart ---
ED Chief Complaint/HPI - Patient Information Date Seen:: 05/12/19 Time Seen:: 15:00 Chief Complaint:: sent from resid facility for increase aggitation Allergies:: Allergies Allergy/AdvReac Type Severity Reaction Status Date / Time No Known Allergies Allergy Verified 05/12/19 14:40 Vitals:: Vital Signs - 8 hr 05/12/19 14:50 Temp 97.6 F HR 81 RR 18 BP 121/71 O2 Sat % 96 Historian:: EMS Review:: Nurse's Note Reviewed, Old Chart Reviewed, Transfer documents Reviewed ED Review of Systems - Review of Systems General/Constitutional: No fever ED Past Medical History - Past Medical History Past Medical History: HTN, PUD/GERD, Dementia Family Medical History - Family Member Mother Sister History Unknown: Yes Ethnicity: Non- Living Status: Unknown ED Physical Exam - Physical Examination General/Constitutional: No distress, Non-toxic appearing Head: Atraumatic Eyes: Lids, conjuctiva normal ENMT: External ears, nose nl Neck: Nontender Respiratory: Nl effort/Exclusion, No Wheeze/Rhonchi/Rales Cardio Vascular: RRR GI: No tenderness/rebounding/guarding Extremities: No tenderness or effusion Neuro/Psych: No focal deficits Misc: Normal back ED Labs/Radiology/EKG Results - Lab Results Results: Laboratory Tests 05/12/19 05/12/19 14:55 14:55 WBC 6.2 RBC 4.36 Hgb 12.9 Hct 38.6 L MCV 88.4 MCH 29.6 MCHC Differential 33.4 RDW 14.1 Plt Count 265 MPV 8.1 Neutrophils % 53.0 Lymphocytes % 27.7 Monocytes % 14.0 H Eosinophils % 4.7 Basophils % 0.6 Sodium 139 Potassium 4.0 Chloride 102 Carbon Dioxide 27.9 Anion Gap 13.1 BUN 21 Creatinine 1.2 Est GFR ( Amer) TNP Est GFR (Non-Af Amer) TNP BUN/Creatinine Ratio 17.5 Glucose 113 H Calcium 9.1 Total Bilirubin 0.3 AST 15 ALT 10 Alkaline Phosphatase 56 Total Protein 7.5 Albumin 4.2 Globulin 3.3 Albumin/Globulin Ratio 1.3 Triglycerides 274 H Cholesterol 124 LDL Cholesterol Direct 57 L HDL Cholesterol 34 ED Assessment - Assessment General Assessment: psyche break sub acute ED Septic Shock - . Is Septic Shock (SBP<90, OR Lactate>4 mmol\L) present?: No - <6hrs of presentation: Vital Signs: Vital Signs - 8 hr 05/12/19 14:50 Temp 97.6 F HR 81 RR 18 BP 121/71 O2 Sat % 96 ED Reassessment (Disposition) - Patient Disposition Discharge/Transfer:: Acute Care w/in this hosp (needs adustment meds)
[2019-05-12 18:01] VITALS: BP 112/77
[2019-05-12] MEDS ORDERED: Maalox 30 mL Cup PO PRN (19:00)
[2019-05-12] MEDS ORDERED: Magnesium Hydroxide (MOM) 30 mL UDC PO PRN (19:00)
[2019-05-13] MEDS ORDERED: Multivitamin Tab PO SCH (09:00)
--- NOTE | 2019-05-13 09:42 | Diagnostic Imaging Report ---
CHEST X-RAY: AP view INDICATION: pain COMPARISON: None FINDINGS: Low lung volumes are seen with increased bibasal lung markings and elevation of the right hemidiaphragm. There is no focal consolidation or pleural effusions. Atherosclerosis is noted. Degenerative changes of the spine are noted. IMPRESSION: Increased bibasal lung markings which may be due to low lung volume and atelectatic changes. Faint infiltrate is less likely. Please correlate clinically. Atherosclerotic vascular disease.
[2019-05-13] MEDS ORDERED: POLYETHYLENE GLYCOL 3350 17 GM PACK PO PRN (15:37)
[2019-05-13] MEDS ORDERED: MINERAL OIL ENEMA 135 ML BOTTLE RC PRN (15:37)
[2019-05-13] MEDS ORDERED: Lactulose 10 Gm/15 mL 30mL UDC PO PRN (15:37)
[2019-05-13] MEDS: Maalox 30 mL Cup PO SCH (17:25)
--- NOTE | 2019-05-13 17:26 | Consultation ---
DATE OF CONSULTATION: 05/12/2019 REASON FOR CONSULTATION: Medical management and clearance. Admitted to inpatient unit. HISTORY OF PRESENT ILLNESS: This is a 78-year-old male with history of dementia, CAD, hypertension, hypercholesterolemia, gait instability, admitted from nursing facility under Dr. Ta. The patient is awake, but unable to talk, nods and answering questions. No adverse events per staff. PAST MEDICAL HISTORY: As mentioned in history of present illness. PAST SURGICAL HISTORY: Unable to provide some information. ALLERGIES: No known drug allergies. MEDICATIONS: Namenda, Remeron, Tylenol, Lipitor, Dulcolax, vitamin D3, vitamin B12, Aricept, lactulose, Synthroid, Zestril, Mylanta, nitroglycerin, Protonix, MiraLax, Seroquel, ____, Depakote. FAMILY HISTORY: Noncontributory. SOCIAL HISTORY: The patient is a [facility]iary patient requiring 24-hour total care. REVIEW OF SYSTEMS: This is limited secondary to pain, comatose. We will try to obtain more detailed review of system at a later date by talking to family members. There is a brother, Moses Almanzar, #[phone]_. We will also try to get information from nursing staff at the facility in [place], #[phone] as well as from the patient's primary care doctor, Dr. Vences. PHYSICAL EXAMINATION: VITAL SIGNS: Blood pressure 116/70, respirations 20, pulse 83, temperature 98.2. GENERAL: Elderly male, thin built, chronically ill. NECK: Supple. LUNGS: Equal breath sounds, few rhonchi. HEART: Regular rate and rhythm with systolic ejection murmur. ABDOMEN: Soft, globular. EXTREMITIES: Positive excoriation atrophy and excoriation. LABORATORY DATA: WBC 6, hemoglobin 12, platelets 265. Sodium 139, potassium 4.0, BUN 24, creatinine 1.2, blood sugar 113, triglycerides 274. Cholesterol is 124. ASSESSMENT AND PLAN: Coronary artery disease, hypertension, hypercholesterolemia, osteoarthritis, hypothyroidism, gastroesophageal reflux disease, dementia, thin built, elevated triglyceride, gait instability. Continue the patient on fall precaution. Currently on a geriatric chair. Continue nutritional support. Continue the patient on current antihypertensive medication on nitroglycerin. Continue Synthroid. Continue with current care. We will continue monitor the patient closely. JOB# [id number]
[2019-05-13] MEDS: Atorvastatin Calcium 10 MG TAB PO SCH (20:32)
--- NOTE | 2019-05-14 02:42 | Psychiatric Evaluation ---
DATE OF SERVICE: 05/13/2019 PSYCHIATRIC EVALUATION AND MENTAL STATUS EXAMINATION REASON FOR ADMISSION: The patient was admitted for increased agitation and aggression at the [facility]. HISTORY OF PRESENT ILLNESS: The patient is a 78-year-old male who is a resident of [facility]. On the day of admission, the staff called to request inpatient treatment because the patient had exhibited increased episodes of physical aggression, being combative with the staff. Upon interview, the patient appeared to be a poor historian. The patient was able to give his first and last names, but not his age or date of . The patient was not able to say why he is here. The patient was not able to say where he was living prior to coming here. The patient tried to respond verbally to questions. However, the patient would be moving his lips but there was no sound most of the time. At times, the patient would get some words out. Initially, when I asked him for his name, the patient spoke softly and appeared to be giving his first and last names. At the end of the interview, when I asked him again what is his name, the patient was able to say it slowly and clearly. The patient indicated that he is eating and sleeping okay. The patient was not able to say why he is here. When asked if he is happy or sad, the patient was tangential, not responding properly to the question at all. The patient was confused and disoriented to time, place, and person. The patient was tangential when asked if he hears voices or seeing things that other people cannot see or hear. When asked if he feels like people are watching him, talking about him and out to get him, the patient nodded. When asked what people were saying or what they have been done to make him feel like they are talking about him and out to get him, the patient was tangential and unable to get any coherent information at all. MENTAL STATUS EXAMINATION: The patient appeared appropriate for stated age. The patient was cooperative and maintained good eye contact. Speech was soft and low in volume that most of the time, unable to hear what he was saying at all. When he was able to say something loud enough, the patient was tangential, unable to follow what he was saying. The patient was unable to interpret any of the 3 proverbs. Memory appeared to be impaired for immediate, short-term and long-term memory. The patient was unable to repeat any of the 4 items after 4 times. The patient was unable to recall any of the 4 items after a few minutes. Concentration impaired. The patient was unable to perform any of the serial 3 subtraction. 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 MEDICAL HISTORY: Hyperlipidemia, hypothyroidism, hypertension and gastroesophageal reflux. LABORATORY RESULTS: Upon admission, the patient had CBC, which shows HCT of 38.6, which was slightly low, monocytes 14.0, slightly elevated. Chemistry panel: Glucose 113, slightly high; triglyceride 247, slightly high; LDL 57, slightly low. RPR nonreactive. MEDICATIONS: Currently, the patient is on Tylenol, simethicone, atorvastatin, bisacodyl, cholecalciferol, cyanocobalamin, Aricept 5 mg at bedtime, lactulose, levothyroxine, lisinopril, Ativan 0.5 mg q. 4 hours p.r.n., magnesium hydroxide, mineral oil, multiple vitamin, nitroglycerin, Protonix, polyethylene glycol, Seroquel 50 mg daily and 100 mg at bedtime, Depakote 250 mg daily and 375 mg at bedtime and Ambien 5 mg at bedtime p.r.n. ASSESSMENT: 1. 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 2. Psychotic disorder and mood disorder, depressed due to medical condition. 3. Impulse control disorder, not otherwise specified. 4. Personality change due to medical condition. PLAN: We will continue the patient on current medications and monitor the patient's response. We will consider switching from Seroquel to Abilify or Zyprexa. We will adjust Depakote if the patient continues to exhibit aggressive behavior or poor impulse control. ESTIMATED LENGTH OF STAY: 7-10 days. DISCHARGE CRITERIA: Include improvement of his condition with no recurrent aggressive behavior and being compliant with care and treatment and taking his medications. JOB# [id number] ZENY
[2019-05-14] MEDS: Levothyroxine 0.075 Mg Tab PO SCH (06:50)
[2019-05-14] MEDS: Pantoprazole 40 mg EC Tab PO SCH (06:50)
[2019-05-14] MEDS: Maalox 30 mL Cup PO SCH ×3 (08:43→17:52)
[2019-05-14] MEDS: Multivitamin Tab PO SCH (08:47)
--- NOTE | 2019-05-14 12:11 | Internal Medicine Prog Note ---
Internal Medicine Subjective - Subjective Patient seen and examined:: with staff, chart reviewed Patient is:: awake, non-verbal, interactive, teja chair Per staff patient has:: no adverse event, no episodes of fall, tolerating meds Internal Medicine Objective - Results Result Diagrams: 05/12/19 14:55 05/12/19 14:55 Recent Labs: Laboratory Last Values WBC 6.2 Th/cmm (4.8-10.8) 05/12/19 14:55 RBC 4.36 Mil/cmm (3.80-5.80) 05/12/19 14:55 Hgb 12.9 gm/dL (12-16) 05/12/19 14:55 Hct 38.6 % (41.0-60) L 05/12/19 14:55 MCV 88.4 fl (80-99) 05/12/19 14:55 MCH 29.6 pg (27.0-31.0) 05/12/19 14:55 MCHC Differential 33.4 pg (28.0-36.0) 05/12/19 14:55 RDW 14.1 % (11.5-20.0) 05/12/19 14:55 Plt Count 265 Th/cmm (150-400) 05/12/19 14:55 MPV 8.1 fl 05/12/19 14:55 Neutrophils % 53.0 % (40.0-80.0) 05/12/19 14:55 Lymphocytes % 27.7 % (20.0-50.0) 05/12/19 14:55 Monocytes % 14.0 % (2.0-10.0) H 05/12/19 14:55 Eosinophils % 4.7 % (0.0-5.0) 05/12/19 14:55 Basophils % 0.6 % (0.0-2.0) 05/12/19 14:55 Sodium 139 mEq/L (136-145) 05/12/19 14:55 Potassium 4.0 mEq/L (3.5-5.1) 05/12/19 14:55 Chloride 102 mEq/L (98-107) 05/12/19 14:55 Carbon Dioxide 27.9 mEq/L (21.0-31.0) 05/12/19 14:55 Anion Gap 13.1 (7.0-16.0) 05/12/19 14:55 BUN 21 mg/dL (7-25) 05/12/19 14:55 Creatinine 1.2 mg/dL (0.7-1.3) 05/12/19 14:55 Est GFR ( Amer) TNP 05/12/19 14:55 Est GFR (Non-Af Amer) TNP 05/12/19 14:55 BUN/Creatinine Ratio 17.5 05/12/19 14:55 Glucose 113 mg/dL (70-105) H 05/12/19 14:55 Calcium 9.1 mg/dL (8.6-10.3) 05/12/19 14:55 Total Bilirubin 0.3 mg/dL (0.3-1.0) 05/12/19 14:55 AST 15 U/L (13-39) 05/12/19 14:55 ALT 10 U/L (7-52) 05/12/19 14:55 Alkaline Phosphatase 56 U/L (34-104) 05/12/19 14:55 Total Protein 7.5 gm/dL (6.0-8.3) 05/12/19 14:55 Albumin 4.2 gm/dL (4.2-5.5) 05/12/19 14:55 Globulin 3.3 gm/dL 05/12/19 14:55 Albumin/Globulin Ratio 1.3 (1.0-1.8) 05/12/19 14:55 Triglycerides 274 mg/dL (<150) H 05/12/19 14:55 Cholesterol 124 mg/dL (<200) 05/12/19 14:55 LDL Cholesterol Direct 57 mg/dL (75-193) L 05/12/19 14:55 HDL Cholesterol 34 mg/dL (23-92) 05/12/19 14:55 TSH 1.11 uIU/ml (0.34-5.60) 05/12/19 14:55 RPR NONREACTIVE (NONREACTIVE) 05/12/19 14:55 - Physical Exam Vitals and I&O: Vital Signs Temp 97.8 F 05/14/19 06:45 Pulse 71 05/14/19 08:44 Resp 20 05/14/19 06:45 BP 123/74 05/14/19 08:44 Pulse Ox 98 05/14/19 06:45 Intake & Output 05/13/19 05/14/19 05/14/19 18:59 06:59 18:59 Intake Total 800 240 Balance 800 240 Weight (lbs) 63.503 kg Intake: Oral 800 240 Other: # Voids 3 3 # Bowel Movements 0 0 Weight Source Bedscale Active Medications: Current Medications Acetaminophen (Tylenol) 650 mg PO Q4HR PRN PRN Reason: Mild Pain / Temp above 100 Stop: 07/12/19 15:36 Al Hydrox/Mg Hydrox/Simethicone (Maalox) 30 ml PO Q4HR PRN PRN Reason: GI DISTRESS Stop: 07/11/19 18:59 Al Hydrox/Mg Hydrox/Simethicone (Maalox) 30 ml PO BID ALEXANDRU Stop: 07/12/19 16:59 Last Admin: 05/14/19 08:43 Dose: 30 ml Atorvastatin Calcium (Lipitor) 20 mg PO HS ALEXANDRU; Protocol Stop: 07/12/19 20:59 Last Admin: 05/13/19 20:32 Dose: 20 mg Bisacodyl (Dulcolax 10 Mg Supp) 10 mg RC DAILY PRN PRN Reason: Constipation Stop: 07/12/19 15:36 Cholecalciferol (Vitamin D3) 1,000 iu PO DAILY ALEXANDRU Stop: 07/13/19 08:59 Last Admin: 05/14/19 08:44 Dose: 1,000 iu Cyanocobalamin (Vitamin B12) 1,000 mcg PO DAILY ALEXANDRU Stop: 07/13/19 08:59 Last Admin: 05/14/19 08:44 Dose: 1,000 mcg Donepezil HCl (Aricept) 5 mg PO HS [facility] Stop: 07/12/19 20:59 Last Admin: 05/13/19 20:32 Dose: 5 mg Lactulose (Cephulac) 10 gm PO DAILY PRN PRN Reason: COMSTIPATION Stop: 07/12/19 15:36 Levothyroxine Sodium (Synthroid) 0.15 mg PO QDAC ALEXANDRU Stop: 07/13/19 07:29 Last Admin: 05/14/19 06:50 Dose: 0.15 mg Lisinopril (Zestril) 5 mg PO DAILY ALEXANDRU Stop: 07/13/19 08:59 Last Admin: 05/14/19 08:44 Dose: 5 mg Lorazepam (Ativan) 0.5 mg PO Q4HR PRN; Protocol PRN Reason: Agitation Stop: 07/11/19 19:00 Magnesium Hydroxide (Milk Of Magnesia) 30 ml PO HS PRN PRN Reason: Constipation Mineral Oil (Fleet Mineral Oil) 135 ml RC Q2D PRN PRN Reason: IF MIRALAX INEFFECTIVE Stop: 07/12/19 15:36 Multivitamins/Vitamin C (Theragran) 1 tab PO DAILY ALEXANDRU Stop: 07/13/19 08:59 Last Admin: 05/14/19 08:47 Dose: 1 tab Nitroglycerin (Nitrostat) 0.4 mg SL Q5MIN PRN PRN Reason: Chest Pain Stop: 07/12/19 15:36 Pantoprazole Sodium (Protonix) 40 mg PO QDAC ALEXANDRU Stop: 07/13/19 07:29 Last Admin: 05/14/19 06:50 Dose: 40 mg Polyethylene Glycol (Miralax) 17 gm PO DAILY PRN PRN Reason: Constipation Stop: 07/12/19 15:36 Quetiapine Fumarate (Seroquel) 50 mg PO DAILY ALEXANDRU; Protocol Stop: 07/13/19 08:59 Last Admin: 05/14/19 08:45 Dose: 50 mg Quetiapine Fumarate (Seroquel) 100 mg PO HS ALEXANDRU; Protocol Stop: 07/12/19 20:59 Last Admin: 05/13/19 20:32 Dose: 100 mg Simethicone (Mylicon) 80 mg PO DAILY PRN PRN Reason: Gas Stop: 07/12/19 15:36 Valproate Sodium (Depakene) 250 mg PO DAILY ALEXANDRU; Protocol Stop: 07/13/19 08:59 Last Admin: 05/14/19 08:43 Dose: 250 mg Valproate Sodium (Depakene) 375 mg PO HS ALEXANDRU; Protocol Stop: 07/12/19 20:59 Last Admin: 05/13/19 20:32 Dose: 375 mg Zolpidem Tartrate (Ambien) 5 mg PO HS PRN PRN Reason: Insomnia Stop: 07/11/19 18:59 Last Admin: 05/13/19 20:33 Dose: 5 mg General: demented HEENT: NC/AT, PERRLA, thinning hair, poor dentition Neck: Supple, No JVD Lungs: CTAB Cardiovascular: RRR, Normal S1, Normal S2, with murmur Abdomen: soft, non-tender, thin, non-distended, positive bowel sound Extremities: excoriation, contracture Neurological: no change Internal Medicine Assmt/Plan - Assessment Assessment: ASSESSMENT AND PLAN: Coronary artery disease, hypertension, hypercholesterolemia, osteoarthritis, hypothyroidism, gastroesophageal reflux disease, dementia, thin built, elevated triglyceride, gait instability. - Plan Plan: PLAN: Continue the patient on fall precaution. Currently on a geriatric chair. Continue nutritional support. Continue the patient on current antihypertensive medication on nitroglycerin. Continue Synthroid. Continue with current care. We will continue monitor the patient closely.
[2019-05-14] MEDS: Atorvastatin Calcium 10 MG TAB PO SCH (20:59)
--- NOTE | 2019-05-15 00:30 | Progress Notes ---
DATE: 05/14/2019 SUBJECTIVE: The patient was in the wheelchair in the hallway, in front of the nursing station. The patient was holding a cup of water. The patient was calm and pleasant when approached. The patient indicated that he is eating and sleeping okay. The patient continued to have difficulty responding verbally. The patient continued to be tangential most of the time. The patient was able to give his name, but not his age or date of . The patient was not able to say why he is here. The patient denied any auditory or visual hallucination or delusion. The patient denied any agitation or aggression. OBJECTIVE: The patient continued to be calm and cooperative when talked to. The staff reported that the patient has been doing okay; the patient ate and slept well. The patient continued to be compliant with care and treatment. The patient took his medication without any problem. ASSESSMENT: 1. 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 2. Psychotic disorder and mood disorder, depressed due to medical condition. 3. Impulse control disorder, not otherwise specified. 4. Personality change due to medical condition. PLAN: We will continue the patient on current medications and monitor his response to the medications. We will adjust medication as indicated. JOB# [id number] ZENY
[2019-05-15] MEDS: Levothyroxine 0.075 Mg Tab PO SCH (06:35)
[2019-05-15] MEDS: Pantoprazole 40 mg EC Tab PO SCH (06:35)
[2019-05-15] MEDS: Maalox 30 mL Cup PO SCH ×2 (09:00→17:19)
[2019-05-15] MEDS: Multivitamin Tab PO SCH (09:00)
[2019-05-15] MEDS: Atorvastatin Calcium 10 MG TAB PO SCH (20:30)
--- NOTE | 2019-05-15 21:14 | Progress Notes ---
DATE: 05/15/2019 SUBJECTIVE: The patient was resting on his bed, alert, quiet. The patient was calm and pleasant when talked to. The patient did not respond verbally, but gesture his response. The patient indicated that he is doing okay, eating and sleeping fine. The patient continued to deny any auditory or visual hallucination. No delusion. The patient denied any agitation, aggression. The patient indicated that he was up in wheelchair earlier today. OBJECTIVE: The patient continued to be calm and pleasant when talked to. The staff reported that the patient continued to be cooperative with care and treatment. He took his medications without any problem. He has been eating and sleeping well. Staff reported so far the patient had not exhibited any agitation or aggression. ASSESSMENT: 1. 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 2. Psychotic disorder and mood disorder, depressed due to medical condition. 3. Impulse control disorder, not otherwise specified. 4. Personality change due to medical condition. PLAN: We will continue the patient on current Seroquel and monitor his behavior and psychotic symptoms. We will adjust Seroquel as needed. JOB# [id number]
--- NOTE | 2019-05-15 23:55 | Internal Medicine Prog Note ---
Internal Medicine Subjective - Subjective Patient seen and examined:: with staff, chart reviewed, other (late entry) Patient is:: awake, non-verbal, interactive, teja chair Per staff patient has:: no adverse event, no episodes of fall, tolerating meds Internal Medicine Objective - Results Result Diagrams: 05/12/19 14:55 05/12/19 14:55 Recent Labs: Laboratory Last Values WBC 6.2 Th/cmm (4.8-10.8) 05/12/19 14:55 RBC 4.36 Mil/cmm (3.80-5.80) 05/12/19 14:55 Hgb 12.9 gm/dL (12-16) 05/12/19 14:55 Hct 38.6 % (41.0-60) L 05/12/19 14:55 MCV 88.4 fl (80-99) 05/12/19 14:55 MCH 29.6 pg (27.0-31.0) 05/12/19 14:55 MCHC Differential 33.4 pg (28.0-36.0) 05/12/19 14:55 RDW 14.1 % (11.5-20.0) 05/12/19 14:55 Plt Count 265 Th/cmm (150-400) 05/12/19 14:55 MPV 8.1 fl 05/12/19 14:55 Neutrophils % 53.0 % (40.0-80.0) 05/12/19 14:55 Lymphocytes % 27.7 % (20.0-50.0) 05/12/19 14:55 Monocytes % 14.0 % (2.0-10.0) H 05/12/19 14:55 Eosinophils % 4.7 % (0.0-5.0) 05/12/19 14:55 Basophils % 0.6 % (0.0-2.0) 05/12/19 14:55 Sodium 139 mEq/L (136-145) 05/12/19 14:55 Potassium 4.0 mEq/L (3.5-5.1) 05/12/19 14:55 Chloride 102 mEq/L (98-107) 05/12/19 14:55 Carbon Dioxide 27.9 mEq/L (21.0-31.0) 05/12/19 14:55 Anion Gap 13.1 (7.0-16.0) 05/12/19 14:55 BUN 21 mg/dL (7-25) 05/12/19 14:55 Creatinine 1.2 mg/dL (0.7-1.3) 05/12/19 14:55 Est GFR ( Amer) TNP 05/12/19 14:55 Est GFR (Non-Af Amer) TNP 05/12/19 14:55 BUN/Creatinine Ratio 17.5 05/12/19 14:55 Glucose 113 mg/dL (70-105) H 05/12/19 14:55 Calcium 9.1 mg/dL (8.6-10.3) 05/12/19 14:55 Total Bilirubin 0.3 mg/dL (0.3-1.0) 05/12/19 14:55 AST 15 U/L (13-39) 05/12/19 14:55 ALT 10 U/L (7-52) 05/12/19 14:55 Alkaline Phosphatase 56 U/L (34-104) 05/12/19 14:55 Total Protein 7.5 gm/dL (6.0-8.3) 05/12/19 14:55 Albumin 4.2 gm/dL (4.2-5.5) 05/12/19 14:55 Globulin 3.3 gm/dL 05/12/19 14:55 Albumin/Globulin Ratio 1.3 (1.0-1.8) 05/12/19 14:55 Triglycerides 274 mg/dL (<150) H 05/12/19 14:55 Cholesterol 124 mg/dL (<200) 05/12/19 14:55 LDL Cholesterol Direct 57 mg/dL (75-193) L 05/12/19 14:55 HDL Cholesterol 34 mg/dL (23-92) 05/12/19 14:55 TSH 1.11 uIU/ml (0.34-5.60) 05/12/19 14:55 RPR NONREACTIVE (NONREACTIVE) 05/12/19 14:55 - Physical Exam Vitals and I&O: Vital Signs Temp 97.7 F 05/15/19 20:00 Pulse 85 05/15/19 20:00 Resp 18 05/15/19 20:00 BP 138/80 05/15/19 20:00 Pulse Ox 96 05/15/19 20:00 Intake & Output 05/15/19 05/15/19 05/16/19 06:59 18:59 06:59 Intake Total 120 Balance 120 Intake: Oral 120 Other: # Voids 3 Active Medications: Current Medications Acetaminophen (Tylenol) 650 mg PO Q4HR PRN PRN Reason: Mild Pain / Temp above 100 Stop: 07/12/19 15:36 Al Hydrox/Mg Hydrox/Simethicone (Maalox) 30 ml PO Q4HR PRN PRN Reason: GI DISTRESS Stop: 07/11/19 18:59 Al Hydrox/Mg Hydrox/Simethicone (Maalox) 30 ml PO BID ALEXANDRU Stop: 07/12/19 16:59 Last Admin: 05/15/19 17:19 Dose: 30 ml Atorvastatin Calcium (Lipitor) 20 mg PO HS ALEXANDRU; Protocol Stop: 07/12/19 20:59 Last Admin: 05/15/19 20:30 Dose: 20 mg Bisacodyl (Dulcolax 10 Mg Supp) 10 mg RC DAILY PRN PRN Reason: Constipation Stop: 07/12/19 15:36 Cholecalciferol (Vitamin D3) 1,000 iu PO DAILY ALEXANDRU Stop: 07/13/19 08:59 Last Admin: 05/15/19 11:22 Dose: 1,000 iu Cyanocobalamin (Vitamin B12) 1,000 mcg PO DAILY ALEXANDRU Stop: 07/13/19 08:59 Last Admin: 05/15/19 09:00 Dose: 1,000 mcg Donepezil HCl (Aricept) 5 mg PO HS ALEXANDRU Stop: 07/12/19 20:59 Last Admin: 05/15/19 20:30 Dose: 5 mg Lactulose (Cephulac) 10 gm PO DAILY PRN PRN Reason: COMSTIPATION Stop: 07/12/19 15:36 Levothyroxine Sodium (Synthroid) 0.15 mg PO QDAC ALEXANDRU Stop: 07/13/19 07:29 Last Admin: 05/15/19 06:35 Dose: 0.15 mg Lisinopril (Zestril) 5 mg PO DAILY ALEXANDRU Stop: 07/13/19 08:59 Last Admin: 05/15/19 09:00 Dose: 5 mg Lorazepam (Ativan) 0.5 mg PO Q4HR PRN; Protocol PRN Reason: Agitation Stop: 07/11/19 19:00 Magnesium Hydroxide (Milk Of Magnesia) 30 ml PO HS PRN PRN Reason: Constipation Mineral Oil (Fleet Mineral Oil) 135 ml RC Q2D PRN PRN Reason: IF MIRALAX INEFFECTIVE Stop: 07/12/19 15:36 Multivitamins/Vitamin C (Theragran) 1 tab PO DAILY ALEXANDRU Stop: 07/13/19 08:59 Last Admin: 05/15/19 09:00 Dose: 1 tab Nitroglycerin (Nitrostat) 0.4 mg SL Q5MIN PRN PRN Reason: Chest Pain Stop: 07/12/19 15:36 Pantoprazole Sodium (Protonix) 40 mg PO QDAC ALEXANDRU Stop: 07/13/19 07:29 Last Admin: 05/15/19 06:35 Dose: 40 mg Polyethylene Glycol (Miralax) 17 gm PO DAILY PRN PRN Reason: Constipation Stop: 07/12/19 15:36 Quetiapine Fumarate (Seroquel) 50 mg PO DAILY ALEXANDRU; Protocol Stop: 07/13/19 08:59 Last Admin: 05/15/19 09:00 Dose: 50 mg Quetiapine Fumarate (Seroquel) 100 mg PO HS ALEXANDRU; Protocol Stop: 07/12/19 20:59 Last Admin: 05/15/19 20:30 Dose: 100 mg Simethicone (Mylicon) 80 mg PO DAILY PRN PRN Reason: Gas Stop: 07/12/19 15:36 Last Admin: 05/14/19 16:57 Dose: 80 mg Valproate Sodium (Depakene) 250 mg PO DAILY ALEXANDRU; Protocol Stop: 07/13/19 08:59 Last Admin: 05/15/19 09:00 Dose: 250 mg Valproate Sodium (Depakene) 375 mg PO HS ALEXANDRU; Protocol Stop: 07/12/19 20:59 Last Admin: 05/15/19 20:29 Dose: 375 mg Zolpidem Tartrate (Ambien) 5 mg PO HS PRN PRN Reason: Insomnia Stop: 07/11/19 18:59 Last Admin: 05/14/19 21:01 Dose: 5 mg General: demented HEENT: NC/AT, PERRLA, thinning hair, poor dentition Neck: Supple, No JVD Lungs: CTAB Cardiovascular: RRR, Normal S1, Normal S2, with murmur Abdomen: soft, non-tender, thin, non-distended, positive bowel sound Extremities: excoriation, contracture Neurological: no change Internal Medicine Assmt/Plan - Assessment Assessment: ASSESSMENT AND PLAN: Coronary artery disease, hypertension, hypercholesterolemia, osteoarthritis, hypothyroidism, gastroesophageal reflux disease, dementia, thin built, elevated triglyceride, gait instability. - Plan Plan: PLAN: Continue the patient on fall precaution. Currently on a geriatric chair. Continue nutritional support. Continue the patient on current antihypertensive medication on nitroglycerin. Continue Synthroid. Continue with current care. We will continue monitor the patient closely. Nutritional Asmnt/Malnutr-PDOC - Dietary Evaluation Malnutrition Findings (Please click <Entered> for more info): Nutritional Asmnt/Malnutrition Start: 05/15/19 14: 23 Text: Status: Active Freq: Protocol: Document 05/15/19 14:24 LEONA (Rec: 05/15/19 14:27 LEONA [email or web address]) Nutritional Asmnt/Malnutrition Patient General Information Diagnosis Psychosis Pertinent Medical Hx/Surgical Hx HTN, PUD/GERD, Dementia Subjective Information Pt is a 78-year-old male from residential facility admitted on 05/12 c/o increase agitation. Per Meal/Nutrition Activity Record, Pt PO intake 50% since admission. Spoke to PHYLICIA Hernadez and JUSTO Gonzales, Pt ate 100% breakfast and lunch today 05/15. Will continue to monitor on PO intake. HT: 57 WT: 140 LB (63.64 kg) BMI: 21.93 (Normal) GI: WNL, Soft, Non-Tender BM: 05/15 x1 I/O: 1320/Not Noted Skin: WNL, Intact Lester: 18 Diet Order: Pureed, CCHO 60 gm , CANDY Estimated Energy Needs: ( Geriatric, CBW) 4160-7401 kcals (25-30 kcals/ kg) 64-76 g Pro (1.0-1.2 g/kg) 1098-2318 ml (25-30 ml/kg) Pt is eating 50% of meals per Meal/Nutrition Activity Record . Dietary is currently providing an estimated 2220 kcals and 115 gm Pro, per Pt PO intake this is providing an estimated 1100 kcals and 58gm Pro to meet 68% kcal and 90% Pro needs- inadequate. Current Diet Order/ Nutrition Support Pureed, CCHO 60 gm, CANDY Pertinent Medications Maalox (PRN), Lipitor, Dulcolax (PRN), Vitamin D3, Vitamin B12, Cephulac (PRN), Synthroid, MOM (PRN), Theragran, Protonix, Miralax ( PRN) Pertinent Labs 05/12: Hgb/Hct 12.9/38.6, Na 132 , Glucose 113 Nutritional Hx/Data Height 1.7 m Height (Calculated Centimeters) 170.2 Current Weight (lbs) 63.503 kg Weight (Calculated Kilograms) 63.5 Weight (Calculated Grams) 45466.9 [place] Body Weight 66.1 kg % [place] Body Weight 96 Body Mass Index (BMI) 21.9 Weight Status Approriate GI Symptoms GI Symptoms None Skin Integrity/Comment: WNL, Intact Lester: 18 Current %PO Fair (50-74%) Estimated Nutritional Goals BEE in Kcals: Using Current wt Calories/Kcals/Kg 25-30 Kcals Calculated 6388-4052 Protein: Using Current wt Protein g/k.0-1.2 Protein Calculated 64-76 Fluid: ml 7033-5446 ml (25-30 ml/kg) Nutritional Problem No current Nutrition Prob Problem No nutrition diagnosis at this time. Etiology N/A Signs/Symptoms: N/A Malnutrition Related to Morbid Obesity Malnutrition related to morbid obesity No Intervention/Recommendation Comments 1.Continue with Pureed, CCHO 60 gm, CANDY diet as ordered. Expected Outcomes/Goals Expected Outcomes/Goals 1.PO intake to meet 75% of nutritional needs. 2.Monitor PO intake, wt, nutrition related labs, and skin integrity. 3.F/U as low risk in 7 days,
[2019-05-16] MEDS: Pantoprazole 40 mg EC Tab PO SCH (06:39)
[2019-05-16] MEDS: Levothyroxine 0.075 Mg Tab PO SCH (06:39)
[2019-05-16] MEDS: Multivitamin Tab PO SCH (09:37)
[2019-05-16] MEDS: Maalox 30 mL Cup PO SCH ×2 (09:37→16:28)
--- NOTE | 2019-05-16 12:32 | Internal Medicine Prog Note ---
Internal Medicine Subjective - Subjective Patient seen and examined:: with staff, chart reviewed Patient is:: awake, non-verbal, interactive, teja chair Per staff patient has:: no adverse event, no episodes of fall, tolerating meds Internal Medicine Objective - Results Result Diagrams: 05/12/19 14:55 05/12/19 14:55 Recent Labs: Laboratory Last Values WBC 6.2 Th/cmm (4.8-10.8) 05/12/19 14:55 RBC 4.36 Mil/cmm (3.80-5.80) 05/12/19 14:55 Hgb 12.9 gm/dL (12-16) 05/12/19 14:55 Hct 38.6 % (41.0-60) L 05/12/19 14:55 MCV 88.4 fl (80-99) 05/12/19 14:55 MCH 29.6 pg (27.0-31.0) 05/12/19 14:55 MCHC Differential 33.4 pg (28.0-36.0) 05/12/19 14:55 RDW 14.1 % (11.5-20.0) 05/12/19 14:55 Plt Count 265 Th/cmm (150-400) 05/12/19 14:55 MPV 8.1 fl 05/12/19 14:55 Neutrophils % 53.0 % (40.0-80.0) 05/12/19 14:55 Lymphocytes % 27.7 % (20.0-50.0) 05/12/19 14:55 Monocytes % 14.0 % (2.0-10.0) H 05/12/19 14:55 Eosinophils % 4.7 % (0.0-5.0) 05/12/19 14:55 Basophils % 0.6 % (0.0-2.0) 05/12/19 14:55 Sodium 139 mEq/L (136-145) 05/12/19 14:55 Potassium 4.0 mEq/L (3.5-5.1) 05/12/19 14:55 Chloride 102 mEq/L (98-107) 05/12/19 14:55 Carbon Dioxide 27.9 mEq/L (21.0-31.0) 05/12/19 14:55 Anion Gap 13.1 (7.0-16.0) 05/12/19 14:55 BUN 21 mg/dL (7-25) 05/12/19 14:55 Creatinine 1.2 mg/dL (0.7-1.3) 05/12/19 14:55 Est GFR ( Amer) TNP 05/12/19 14:55 Est GFR (Non-Af Amer) TNP 05/12/19 14:55 BUN/Creatinine Ratio 17.5 05/12/19 14:55 Glucose 113 mg/dL (70-105) H 05/12/19 14:55 Calcium 9.1 mg/dL (8.6-10.3) 05/12/19 14:55 Total Bilirubin 0.3 mg/dL (0.3-1.0) 05/12/19 14:55 AST 15 U/L (13-39) 05/12/19 14:55 ALT 10 U/L (7-52) 05/12/19 14:55 Alkaline Phosphatase 56 U/L (34-104) 05/12/19 14:55 Total Protein 7.5 gm/dL (6.0-8.3) 05/12/19 14:55 Albumin 4.2 gm/dL (4.2-5.5) 05/12/19 14:55 Globulin 3.3 gm/dL 05/12/19 14:55 Albumin/Globulin Ratio 1.3 (1.0-1.8) 05/12/19 14:55 Triglycerides 274 mg/dL (<150) H 05/12/19 14:55 Cholesterol 124 mg/dL (<200) 05/12/19 14:55 LDL Cholesterol Direct 57 mg/dL (75-193) L 05/12/19 14:55 HDL Cholesterol 34 mg/dL (23-92) 05/12/19 14:55 TSH 1.11 uIU/ml (0.34-5.60) 05/12/19 14:55 RPR NONREACTIVE (NONREACTIVE) 05/12/19 14:55 - Physical Exam Vitals and I&O: Vital Signs Temp 98.1 F 05/16/19 06:43 Pulse 69 05/16/19 09:37 Resp 18 05/16/19 06:43 BP 122/63 05/16/19 09:37 Pulse Ox 98 05/16/19 06:43 Intake & Output 05/15/19 05/16/19 05/16/19 18:59 06:59 18:59 Intake Total 120 Balance 120 Intake: Oral 120 Other: # Voids 3 Active Medications: Current Medications Acetaminophen (Tylenol) 650 mg PO Q4HR PRN PRN Reason: Mild Pain / Temp above 100 Stop: 07/12/19 15:36 Al Hydrox/Mg Hydrox/Simethicone (Maalox) 30 ml PO Q4HR PRN PRN Reason: GI DISTRESS Stop: 07/11/19 18:59 Al Hydrox/Mg Hydrox/Simethicone (Maalox) 30 ml PO BID ALEXANDRU Stop: 07/12/19 16:59 Last Admin: 05/16/19 09:37 Dose: 30 ml Atorvastatin Calcium (Lipitor) 20 mg PO HS ALEXANDRU; Protocol Stop: 07/12/19 20:59 Last Admin: 05/15/19 20:30 Dose: 20 mg Bisacodyl (Dulcolax 10 Mg Supp) 10 mg RC DAILY PRN PRN Reason: Constipation Stop: 07/12/19 15:36 Cholecalciferol (Vitamin D3) 1,000 iu PO DAILY ALEXANDRU Stop: 07/13/19 08:59 Last Admin: 05/16/19 09:37 Dose: 1,000 iu Cyanocobalamin (Vitamin B12) 1,000 mcg PO DAILY ALEXANDRU Stop: 07/13/19 08:59 Last Admin: 05/16/19 09:37 Dose: 1,000 mcg Donepezil HCl (Aricept) 5 mg PO HS ALEXANDRU Stop: 07/12/19 20:59 Last Admin: 05/15/19 20:30 Dose: 5 mg Lactulose (Cephulac) 10 gm PO DAILY PRN PRN Reason: COMSTIPATION Stop: 07/12/19 15:36 Levothyroxine Sodium (Synthroid) 0.15 mg PO QDAC ALEXANDRU Stop: 07/13/19 07:29 Last Admin: 05/16/19 06:39 Dose: 0.15 mg Lisinopril (Zestril) 5 mg PO DAILY ALEXANDRU Stop: 07/13/19 08:59 Last Admin: 05/16/19 09:37 Dose: 5 mg Lorazepam (Ativan) 0.5 mg PO Q4HR PRN; Protocol PRN Reason: Agitation Stop: 07/11/19 19:00 Magnesium Hydroxide (Milk Of Magnesia) 30 ml PO HS PRN PRN Reason: Constipation Mineral Oil (Fleet Mineral Oil) 135 ml RC Q2D PRN PRN Reason: IF MIRALAX INEFFECTIVE Stop: 07/12/19 15:36 Multivitamins/Vitamin C (Theragran) 1 tab PO DAILY ALEXANDRU Stop: 07/13/19 08:59 Last Admin: 05/16/19 09:37 Dose: 1 tab Nitroglycerin (Nitrostat) 0.4 mg SL Q5MIN PRN PRN Reason: Chest Pain Stop: 07/12/19 15:36 Pantoprazole Sodium (Protonix) 40 mg PO QDAC ALEXANDRU Stop: 07/13/19 07:29 Last Admin: 05/16/19 06:39 Dose: 40 mg Polyethylene Glycol (Miralax) 17 gm PO DAILY PRN PRN Reason: Constipation Stop: 07/12/19 15:36 Quetiapine Fumarate (Seroquel) 50 mg PO DAILY ALEXANDRU; Protocol Stop: 07/13/19 08:59 Last Admin: 05/16/19 09:37 Dose: 50 mg Quetiapine Fumarate (Seroquel) 100 mg PO HS ALEXANDRU; Protocol Stop: 07/12/19 20:59 Last Admin: 05/15/19 20:30 Dose: 100 mg Simethicone (Mylicon) 80 mg PO DAILY PRN PRN Reason: Gas Stop: 07/12/19 15:36 Last Admin: 05/14/19 16:57 Dose: 80 mg Valproate Sodium (Depakene) 250 mg PO DAILY ALEXANDRU; Protocol Stop: 07/13/19 08:59 Last Admin: 05/16/19 09:37 Dose: 250 mg Valproate Sodium (Depakene) 375 mg PO HS ALEXANDRU; Protocol Stop: 07/12/19 20:59 Last Admin: 05/15/19 20:29 Dose: 375 mg Zolpidem Tartrate (Ambien) 5 mg PO HS PRN PRN Reason: Insomnia Stop: 07/11/19 18:59 Last Admin: 05/14/19 21:01 Dose: 5 mg General: demented HEENT: NC/AT, PERRLA, thinning hair, poor dentition Neck: Supple, No JVD Lungs: CTAB Cardiovascular: RRR, Normal S1, Normal S2, with murmur Abdomen: soft, non-tender, thin, non-distended, positive bowel sound Extremities: excoriation, contracture Neurological: no change Internal Medicine Assmt/Plan - Assessment Assessment: ASSESSMENT AND PLAN: Coronary artery disease, hypertension, hypercholesterolemia, osteoarthritis, hypothyroidism, gastroesophageal reflux disease, dementia, thin built, elevated triglyceride, gait instability. - Plan Plan: PLAN: Continue the patient on fall precaution. Currently on a geriatric chair. Continue nutritional support. Continue the patient on current antihypertensive medication on nitroglycerin. Continue Synthroid. Continue with current care. We will continue monitor the patient closely. Nutritional Asmnt/Malnutr-PDOC - Dietary Evaluation Malnutrition Findings (Please click <Entered> for more info): Nutritional Asmnt/Malnutrition Start: 05/15/19 14: 23 Text: Status: Active Freq: Protocol: Document 05/15/19 14:24 LEONA (Rec: 05/15/19 14:27 LEONA [email or web address]) Nutritional Asmnt/Malnutrition Patient General Information Diagnosis Psychosis Pertinent Medical Hx/Surgical Hx HTN, PUD/GERD, Dementia Subjective Information Pt is a 78-year-old male from residential facility admitted on 05/12 c/o increase agitation. Per Meal/Nutrition Activity Record, Pt PO intake 50% since admission. Spoke to PHYLICIA Hernadez and JUSTO Gonzales, Pt ate 100% breakfast and lunch today 05/15. Will continue to monitor on PO intake. HT: 57 WT: 140 LB (63.64 kg) BMI: 21.93 (Normal) GI: WNL, Soft, Non-Tender BM: 05/15 x1 I/O: 1320/Not Noted Skin: WNL, Intact Lester: 18 Diet Order: Pureed, CCHO 60 gm , CANDY Estimated Energy Needs: ( Geriatric, CBW) 9526-4818 kcals (25-30 kcals/ kg) 64-76 g Pro (1.0-1.2 g/kg) 5037-2350 ml (25-30 ml/kg) Pt is eating 50% of meals per Meal/Nutrition Activity Record . Dietary is currently providing an estimated 2220 kcals and 115 gm Pro, per Pt PO intake this is providing an estimated 1100 kcals and 58gm Pro to meet 68% kcal and 90% Pro needs- inadequate. Current Diet Order/ Nutrition Support Pureed, CCHO 60 gm, CANDY Pertinent Medications Estrellax (PRN), Lipitor, Dulcolax (PRN), Vitamin D3, Vitamin B12, Cephulac (PRN), Synthroid, MOM (PRN), Theragran, Protonix, Miralax ( PRN) Pertinent Labs 05/12: Hgb/Hct 12.9/38.6, Na 132 , Glucose 113 Nutritional Hx/Data Height 1.7 m Height (Calculated Centimeters) 170.2 Current Weight (lbs) 63.503 kg Weight (Calculated Kilograms) 63.5 Weight (Calculated Grams) 43516.9 [place] Body Weight 66.1 kg % [place] Body Weight 96 Body Mass Index (BMI) 21.9 Weight Status Approriate GI Symptoms GI Symptoms None Skin Integrity/Comment: WNL, Intact Lester: 18 Current %PO Fair (50-74%) Estimated Nutritional Goals BEE in Kcals: Using Current wt Calories/Kcals/Kg 25-30 Kcals Calculated 3727-4985 Protein: Using Current wt Protein g/k.0-1.2 Protein Calculated 64-76 Fluid: ml 3651-3711 ml (25-30 ml/kg) Nutritional Problem No current Nutrition Prob Problem No nutrition diagnosis at this time. Etiology N/A Signs/Symptoms: N/A Malnutrition Related to Morbid Obesity Malnutrition related to morbid obesity No Intervention/Recommendation Comments 1.Continue with Pureed, CCHO 60 gm, CANDY diet as ordered. Expected Outcomes/Goals Expected Outcomes/Goals 1.PO intake to meet 75% of nutritional needs. 2.Monitor PO intake, wt, nutrition related labs, and skin integrity. 3.F/U as low risk in 7 days,
[2019-05-16] MEDS: Atorvastatin Calcium 10 MG TAB PO SCH (20:56)
--- NOTE | 2019-05-16 21:22 | Progress Notes ---
DATE: 05/16/2019 SUBJECTIVE: The patient was standing at the door of activity room. The patient has hospital gown on. The patient was calm, cooperative and pleasant when talked to. His speech continued to be soft and usually just mumbling without much sound; therefore, it was difficult to understand what the patient was saying. The patient indicated that he is doing okay, eating and sleeping okay. He continued to indicate that he has been taking his medications. When asked if he still has episodes of hearing voices, the patient nodded. The patient pointed down the hallway and mumbling something, unable to understand what he was saying. The patient admitted to having visual hallucination and delusion but not able to give any information. The patient denies any episodes of agitation or aggression. OBJECTIVE: The patient continued to be calm and cooperative when talked to. The patient continued to admit having auditory hallucinations. Staff reported that the patient has been doing okay. He has been cooperative with care and treatment. The patient has been taking his medication without any problem. The patient has been up walking in the hallway with slow gait. The staff reported that the patient has not exhibited any psychotic symptoms and no behavioral problem at this time. ASSESSMENT: 1. 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 2. Psychotic disorder and mood disorder, depressed due to medical condition. 3. Impulse control disorder, not otherwise specified. 4. Personality change due to medical condition. PLAN: We will increase his Seroquel to 150 mg p.o. at bedtime since the patient admitted to having auditory hallucinations. We will monitor the patient's response to the medication. JOB# [id number] ZENY
[2019-05-17] MEDS: Pantoprazole 40 mg EC Tab PO SCH (06:47)
[2019-05-17] MEDS: Levothyroxine 0.075 Mg Tab PO SCH (06:48)
[2019-05-17] MEDS: Multivitamin Tab PO SCH (08:40)
[2019-05-17] MEDS: Maalox 30 mL Cup PO SCH ×2 (08:40→16:34)
--- NOTE | 2019-05-17 09:57 | Progress Notes ---
DATE: 05/17/2019 SUBJECTIVE: The patient was standing in the hallway close to nursing station. The patient was calm and cooperative when talked to. The patient nodded when asked if he has been eating and sleeping okay. When asked if he still hears voices, seeing things and feeling that people are watching him, talking about him, out to get him, again the patient nodded. When asked him to describe what the voices were saying, whether it is male or female or several voices, the patient was not able to give any information. The patient appeared to try to say something, however, there was no sound, no words that was audible. The patient indicated that he has been taking his medications and denied any agitation or aggression. OBJECTIVE: The patient continued to be calm and cooperative when talked to. However, the patient continued to have problem expressing himself verbally. Speech remained very soft and most of the time not audible. The staff reported that the patient at times can be agitated and sometimes not redirectable. The staff reported that when given medication in pudding, the patient took some of the medications, then grabbed the staff's arm and caused the pudding to fall on the ground. The staff reported that the patient has been eating and sleeping okay. ASSESSMENT: 1. 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 2. Psychotic disorder and mood disorder, depressed due to medical condition. 3. Impulse control disorder, not otherwise specified. 4. Personality change due to medical condition. PLAN: We will continue the patient on current medication. We will monitor the patient for recurrent episodes of agitation and resisting care. We will consider increasing Depakene if the patient continues to have recurrent episodes of being resistive to care and being agitated. JOB# [id number] ZENY
--- NOTE | 2019-05-17 15:01 | Internal Medicine Prog Note ---
Internal Medicine Subjective - Subjective Patient seen and examined:: with staff, chart reviewed Patient is:: awake, non-verbal, interactive, teja chair Per staff patient has:: no adverse event, no episodes of fall, tolerating meds Internal Medicine Objective - Results Result Diagrams: 05/12/19 14:55 05/12/19 14:55 Recent Labs: Laboratory Last Values WBC 6.2 Th/cmm (4.8-10.8) 05/12/19 14:55 RBC 4.36 Mil/cmm (3.80-5.80) 05/12/19 14:55 Hgb 12.9 gm/dL (12-16) 05/12/19 14:55 Hct 38.6 % (41.0-60) L 05/12/19 14:55 MCV 88.4 fl (80-99) 05/12/19 14:55 MCH 29.6 pg (27.0-31.0) 05/12/19 14:55 MCHC Differential 33.4 pg (28.0-36.0) 05/12/19 14:55 RDW 14.1 % (11.5-20.0) 05/12/19 14:55 Plt Count 265 Th/cmm (150-400) 05/12/19 14:55 MPV 8.1 fl 05/12/19 14:55 Neutrophils % 53.0 % (40.0-80.0) 05/12/19 14:55 Lymphocytes % 27.7 % (20.0-50.0) 05/12/19 14:55 Monocytes % 14.0 % (2.0-10.0) H 05/12/19 14:55 Eosinophils % 4.7 % (0.0-5.0) 05/12/19 14:55 Basophils % 0.6 % (0.0-2.0) 05/12/19 14:55 Sodium 139 mEq/L (136-145) 05/12/19 14:55 Potassium 4.0 mEq/L (3.5-5.1) 05/12/19 14:55 Chloride 102 mEq/L (98-107) 05/12/19 14:55 Carbon Dioxide 27.9 mEq/L (21.0-31.0) 05/12/19 14:55 Anion Gap 13.1 (7.0-16.0) 05/12/19 14:55 BUN 21 mg/dL (7-25) 05/12/19 14:55 Creatinine 1.2 mg/dL (0.7-1.3) 05/12/19 14:55 Est GFR ( Amer) TNP 05/12/19 14:55 Est GFR (Non-Af Amer) TNP 05/12/19 14:55 BUN/Creatinine Ratio 17.5 05/12/19 14:55 Glucose 113 mg/dL (70-105) H 05/12/19 14:55 Calcium 9.1 mg/dL (8.6-10.3) 05/12/19 14:55 Total Bilirubin 0.3 mg/dL (0.3-1.0) 05/12/19 14:55 AST 15 U/L (13-39) 05/12/19 14:55 ALT 10 U/L (7-52) 05/12/19 14:55 Alkaline Phosphatase 56 U/L (34-104) 05/12/19 14:55 Total Protein 7.5 gm/dL (6.0-8.3) 05/12/19 14:55 Albumin 4.2 gm/dL (4.2-5.5) 05/12/19 14:55 Globulin 3.3 gm/dL 05/12/19 14:55 Albumin/Globulin Ratio 1.3 (1.0-1.8) 05/12/19 14:55 Triglycerides 274 mg/dL (<150) H 05/12/19 14:55 Cholesterol 124 mg/dL (<200) 05/12/19 14:55 LDL Cholesterol Direct 57 mg/dL (75-193) L 05/12/19 14:55 HDL Cholesterol 34 mg/dL (23-92) 05/12/19 14:55 TSH 1.11 uIU/ml (0.34-5.60) 05/12/19 14:55 RPR NONREACTIVE (NONREACTIVE) 05/12/19 14:55 - Physical Exam Vitals and I&O: Vital Signs Temp 97.8 F 05/17/19 05:39 Pulse 61 05/17/19 08:41 Resp 20 05/17/19 05:39 BP 125/75 05/17/19 08:41 Pulse Ox 96 05/17/19 05:39 Intake & Output 05/16/19 05/17/19 05/17/19 18:59 06:59 18:59 Intake Total 1200 240 Balance 1200 240 Intake: Oral 1200 240 Other: # Voids 3 3 # Bowel Movements 0 0 Active Medications: Current Medications Acetaminophen (Tylenol) 650 mg PO Q4HR PRN PRN Reason: Mild Pain / Temp above 100 Stop: 07/12/19 15:36 Al Hydrox/Mg Hydrox/Simethicone (Maalox) 30 ml PO Q4HR PRN PRN Reason: GI DISTRESS Stop: 07/11/19 18:59 Al Hydrox/Mg Hydrox/Simethicone (Maalox) 30 ml PO BID ALEXANDRU Stop: 07/12/19 16:59 Last Admin: 05/17/19 08:40 Dose: 30 ml Atorvastatin Calcium (Lipitor) 20 mg PO HS ALEXANDRU; Protocol Stop: 07/12/19 20:59 Last Admin: 05/16/19 20:56 Dose: 20 mg Bisacodyl (Dulcolax 10 Mg Supp) 10 mg RC DAILY PRN PRN Reason: Constipation Stop: 07/12/19 15:36 Cholecalciferol (Vitamin D3) 1,000 iu PO DAILY ALEXANDRU Stop: 07/13/19 08:59 Last Admin: 05/17/19 08:40 Dose: 1,000 iu Cyanocobalamin (Vitamin B12) 1,000 mcg PO DAILY ALEXANDRU Stop: 07/13/19 08:59 Last Admin: 05/17/19 08:40 Dose: 1,000 mcg Donepezil HCl (Aricept) 5 mg PO HS ALEXANDRU Stop: 07/12/19 20:59 Last Admin: 05/16/19 20:56 Dose: 5 mg Lactulose (Cephulac) 10 gm PO DAILY PRN PRN Reason: COMSTIPATION Stop: 07/12/19 15:36 Levothyroxine Sodium (Synthroid) 0.15 mg PO QDAC ALEXANDRU Stop: 07/13/19 07:29 Last Admin: 05/17/19 06:48 Dose: 0.15 mg Lisinopril (Zestril) 5 mg PO DAILY ALEXANDRU Stop: 07/13/19 08:59 Last Admin: 05/17/19 08:41 Dose: 5 mg Lorazepam (Ativan) 0.5 mg PO Q4HR PRN; Protocol PRN Reason: Agitation Stop: 07/11/19 19:00 Magnesium Hydroxide (Milk Of Magnesia) 30 ml PO HS PRN PRN Reason: Constipation Mineral Oil (Fleet Mineral Oil) 135 ml RC Q2D PRN PRN Reason: IF MIRALAX INEFFECTIVE Stop: 07/12/19 15:36 Multivitamins/Vitamin C (Theragran) 1 tab PO DAILY ALEXANDRU Stop: 07/13/19 08:59 Last Admin: 05/17/19 08:40 Dose: 1 tab Nitroglycerin (Nitrostat) 0.4 mg SL Q5MIN PRN PRN Reason: Chest Pain Stop: 07/12/19 15:36 Pantoprazole Sodium (Protonix) 40 mg PO QDAC ALEXANDRU Stop: 07/13/19 07:29 Last Admin: 05/17/19 06:47 Dose: 40 mg Polyethylene Glycol (Miralax) 17 gm PO DAILY PRN PRN Reason: Constipation Stop: 07/12/19 15:36 Quetiapine Fumarate (Seroquel) 50 mg PO DAILY ALEXANDRU; Protocol Stop: 07/13/19 08:59 Last Admin: 05/17/19 08:40 Dose: 50 mg Quetiapine Fumarate 100 mg/ (Quetiapine Fumarate 25 mg) 125 mg PO HS ALEXANDRU Stop: 07/15/19 20:59 Last Admin: 05/16/19 20:55 Dose: 125 mg Simethicone (Mylicon) 80 mg PO DAILY PRN PRN Reason: Gas Stop: 07/12/19 15:36 Last Admin: 05/14/19 16:57 Dose: 80 mg Valproate Sodium (Depakene) 250 mg PO DAILY ALEXANDRU; Protocol Stop: 07/13/19 08:59 Last Admin: 05/17/19 08:40 Dose: 250 mg Valproate Sodium (Depakene) 375 mg PO HS ALEXANDRU; Protocol Stop: 07/12/19 20:59 Last Admin: 05/16/19 20:30 Dose: 375 mg Zolpidem Tartrate (Ambien) 5 mg PO HS PRN PRN Reason: Insomnia Stop: 07/11/19 18:59 Last Admin: 05/14/19 21:01 Dose: 5 mg General: demented HEENT: NC/AT, PERRLA, thinning hair, poor dentition Neck: Supple, No JVD Lungs: CTAB Cardiovascular: RRR, Normal S1, Normal S2, with murmur Abdomen: soft, non-tender, thin, non-distended, positive bowel sound Extremities: excoriation, contracture Neurological: no change Internal Medicine Assmt/Plan - Assessment Assessment: ASSESSMENT AND PLAN: Coronary artery disease, hypertension, hypercholesterolemia, osteoarthritis, hypothyroidism, gastroesophageal reflux disease, dementia, thin built, elevated triglyceride, gait instability. - Plan Plan: PLAN: Continue the patient on fall precaution. Currently on a geriatric chair. Continue nutritional support. Continue the patient on current antihypertensive medication on nitroglycerin. Continue Synthroid. Continue with current care. We will continue monitor the patient closely. Nutritional Asmnt/Malnutr-PDOC - Dietary Evaluation Malnutrition Findings (Please click <Entered> for more info): Nutritional Asmnt/Malnutrition Start: 05/15/19 14: 23 Text: Status: Active Freq: Protocol: Document 05/15/19 14:24 LEONA (Rec: 05/15/19 14:27 LEONA [email or web address]) Nutritional Asmnt/Malnutrition Patient General Information Diagnosis Psychosis Pertinent Medical Hx/Surgical Hx HTN, PUD/GERD, Dementia Subjective Information Pt is a 78-year-old male from residential facility admitted on 05/12 c/o increase agitation. Per Meal/Nutrition Activity Record, Pt PO intake 50% since admission. Spoke to PHYLICIA Hernadez and JUSTO Gonzales, Pt ate 100% breakfast and lunch today 05/15. Will continue to monitor on PO intake. HT: 57 WT: 140 LB (63.64 kg) BMI: 21.93 (Normal) GI: WNL, Soft, Non-Tender BM: 05/15 x1 I/O: 1320/Not Noted Skin: WNL, Intact Lester: 18 Diet Order: Pureed, CCHO 60 gm , CANDY Estimated Energy Needs: ( Geriatric, CBW) 8532-1449 kcals (25-30 kcals/ kg) 64-76 g Pro (1.0-1.2 g/kg) 4238-4530 ml (25-30 ml/kg) Pt is eating 50% of meals per Meal/Nutrition Activity Record . Dietary is currently providing an estimated 2220 kcals and 115 gm Pro, per Pt PO intake this is providing an estimated 1100 kcals and 58gm Pro to meet 68% kcal and 90% Pro needs- inadequate. Current Diet Order/ Nutrition Support Pureed, CCHO 60 gm, CANDY Pertinent Medications Maalox (PRN), Lipitor, Dulcolax (PRN), Vitamin D3, Vitamin B12, Cephulac (PRN), Synthroid, MOM (PRN), Theragran, Protonix, Miralax ( PRN) Pertinent Labs 05/12: Hgb/Hct 12.9/38.6, Na 132 , Glucose 113 Nutritional Hx/Data Height 1.7 m Height (Calculated Centimeters) 170.2 Current Weight (lbs) 63.503 kg Weight (Calculated Kilograms) 63.5 Weight (Calculated Grams) 94731.9 [place] Body Weight 66.1 kg % [place] Body Weight 96 Body Mass Index (BMI) 21.9 Weight Status Approriate GI Symptoms GI Symptoms None Skin Integrity/Comment: WNL, Intact Lester: 18 Current %PO Fair (50-74%) Estimated Nutritional Goals BEE in Kcals: Using Current wt Calories/Kcals/Kg 25-30 Kcals Calculated 8220-1493 Protein: Using Current wt Protein g/k.0-1.2 Protein Calculated 64-76 Fluid: ml 8675-4617 ml (25-30 ml/kg) Nutritional Problem No current Nutrition Prob Problem No nutrition diagnosis at this time. Etiology N/A Signs/Symptoms: N/A Malnutrition Related to Morbid Obesity Malnutrition related to morbid obesity No Intervention/Recommendation Comments 1.Continue with Pureed, CCHO 60 gm, CANDY diet as ordered. Expected Outcomes/Goals Expected Outcomes/Goals 1.PO intake to meet 75% of nutritional needs. 2.Monitor PO intake, wt, nutrition related labs, and skin integrity. 3.F/U as low risk in 7 days,
[2019-05-17] MEDS: Atorvastatin Calcium 10 MG TAB PO SCH (21:19)
[2019-05-18] MEDS: Pantoprazole 40 mg EC Tab PO SCH (06:35)
[2019-05-18] MEDS: Levothyroxine 0.075 Mg Tab PO SCH (06:35)
[2019-05-18] MEDS: Multivitamin Tab PO SCH (08:54)
[2019-05-18] MEDS: Maalox 30 mL Cup PO SCH ×2 (08:56→16:48)
--- NOTE | 2019-05-18 13:24 | Internal Medicine Prog Note ---
Internal Medicine Subjective - Subjective Patient seen and examined:: with staff, chart reviewed Patient is:: awake, non-verbal, interactive, teja chair Per staff patient has:: no adverse event, no episodes of fall, tolerating meds Internal Medicine Objective - Results Result Diagrams: 05/12/19 14:55 05/12/19 14:55 Recent Labs: Laboratory Last Values WBC 6.2 Th/cmm (4.8-10.8) 05/12/19 14:55 RBC 4.36 Mil/cmm (3.80-5.80) 05/12/19 14:55 Hgb 12.9 gm/dL (12-16) 05/12/19 14:55 Hct 38.6 % (41.0-60) L 05/12/19 14:55 MCV 88.4 fl (80-99) 05/12/19 14:55 MCH 29.6 pg (27.0-31.0) 05/12/19 14:55 MCHC Differential 33.4 pg (28.0-36.0) 05/12/19 14:55 RDW 14.1 % (11.5-20.0) 05/12/19 14:55 Plt Count 265 Th/cmm (150-400) 05/12/19 14:55 MPV 8.1 fl 05/12/19 14:55 Neutrophils % 53.0 % (40.0-80.0) 05/12/19 14:55 Lymphocytes % 27.7 % (20.0-50.0) 05/12/19 14:55 Monocytes % 14.0 % (2.0-10.0) H 05/12/19 14:55 Eosinophils % 4.7 % (0.0-5.0) 05/12/19 14:55 Basophils % 0.6 % (0.0-2.0) 05/12/19 14:55 Sodium 139 mEq/L (136-145) 05/12/19 14:55 Potassium 4.0 mEq/L (3.5-5.1) 05/12/19 14:55 Chloride 102 mEq/L (98-107) 05/12/19 14:55 Carbon Dioxide 27.9 mEq/L (21.0-31.0) 05/12/19 14:55 Anion Gap 13.1 (7.0-16.0) 05/12/19 14:55 BUN 21 mg/dL (7-25) 05/12/19 14:55 Creatinine 1.2 mg/dL (0.7-1.3) 05/12/19 14:55 Est GFR ( Amer) TNP 05/12/19 14:55 Est GFR (Non-Af Amer) TNP 05/12/19 14:55 BUN/Creatinine Ratio 17.5 05/12/19 14:55 Glucose 113 mg/dL (70-105) H 05/12/19 14:55 Calcium 9.1 mg/dL (8.6-10.3) 05/12/19 14:55 Total Bilirubin 0.3 mg/dL (0.3-1.0) 05/12/19 14:55 AST 15 U/L (13-39) 05/12/19 14:55 ALT 10 U/L (7-52) 05/12/19 14:55 Alkaline Phosphatase 56 U/L (34-104) 05/12/19 14:55 Total Protein 7.5 gm/dL (6.0-8.3) 05/12/19 14:55 Albumin 4.2 gm/dL (4.2-5.5) 05/12/19 14:55 Globulin 3.3 gm/dL 05/12/19 14:55 Albumin/Globulin Ratio 1.3 (1.0-1.8) 05/12/19 14:55 Triglycerides 274 mg/dL (<150) H 05/12/19 14:55 Cholesterol 124 mg/dL (<200) 05/12/19 14:55 LDL Cholesterol Direct 57 mg/dL (75-193) L 05/12/19 14:55 HDL Cholesterol 34 mg/dL (23-92) 05/12/19 14:55 TSH 1.11 uIU/ml (0.34-5.60) 05/12/19 14:55 RPR NONREACTIVE (NONREACTIVE) 05/12/19 14:55 - Physical Exam Vitals and I&O: Vital Signs Temp 97.5 F 05/18/19 06:29 Pulse 76 05/18/19 08:54 Resp 18 05/18/19 06:29 BP 115/68 05/18/19 08:54 Pulse Ox 99 05/18/19 06:29 Intake & Output 05/17/19 05/18/19 05/18/19 18:59 06:59 18:59 Intake Total 860 240 Balance 860 240 Intake: Oral 860 240 Other: # Voids 4 1 # Bowel Movements 0 Active Medications: Current Medications Acetaminophen (Tylenol) 650 mg PO Q4HR PRN PRN Reason: Mild Pain / Temp above 100 Stop: 07/12/19 15:36 Al Hydrox/Mg Hydrox/Simethicone (Maalox) 30 ml PO Q4HR PRN PRN Reason: GI DISTRESS Stop: 07/11/19 18:59 Last Admin: 05/18/19 11:17 Dose: 30 ml Al Hydrox/Mg Hydrox/Simethicone (Maalox) 30 ml PO BID ALEXANDRU Stop: 07/12/19 16:59 Last Admin: 05/18/19 08:56 Dose: Not Given Atorvastatin Calcium (Lipitor) 20 mg PO HS ALEXANDRU; Protocol Stop: 07/12/19 20:59 Last Admin: 05/17/19 21:19 Dose: 20 mg Bisacodyl (Dulcolax 10 Mg Supp) 10 mg RC DAILY PRN PRN Reason: Constipation Stop: 07/12/19 15:36 Cholecalciferol (Vitamin D3) 1,000 iu PO DAILY ALEXANDRU Stop: 07/13/19 08:59 Last Admin: 05/18/19 08:56 Dose: 1,000 iu Cyanocobalamin (Vitamin B12) 1,000 mcg PO DAILY ALEXANDRU Stop: 07/13/19 08:59 Last Admin: 05/18/19 08:55 Dose: 1,000 mcg Donepezil HCl (Aricept) 5 mg PO HS ALEXANDRU Stop: 07/12/19 20:59 Last Admin: 05/17/19 21:19 Dose: 5 mg Lactulose (Cephulac) 10 gm PO DAILY PRN PRN Reason: COMSTIPATION Stop: 07/12/19 15:36 Levothyroxine Sodium (Synthroid) 0.15 mg PO QDAC ALEXANDRU Stop: 07/13/19 07:29 Last Admin: 05/18/19 06:35 Dose: 0.15 mg Lisinopril (Zestril) 5 mg PO DAILY ALEXANDRU Stop: 07/13/19 08:59 Last Admin: 05/18/19 08:54 Dose: 5 mg Lorazepam (Ativan) 0.5 mg PO Q4HR PRN; Protocol PRN Reason: Agitation Stop: 07/11/19 19:00 Magnesium Hydroxide (Milk Of Magnesia) 30 ml PO HS PRN PRN Reason: Constipation Mineral Oil (Fleet Mineral Oil) 135 ml RC Q2D PRN PRN Reason: IF MIRALAX INEFFECTIVE Stop: 07/12/19 15:36 Multivitamins/Vitamin C (Theragran) 1 tab PO DAILY ALEXANDRU Stop: 07/13/19 08:59 Last Admin: 05/18/19 08:54 Dose: 1 tab Nitroglycerin (Nitrostat) 0.4 mg SL Q5MIN PRN PRN Reason: Chest Pain Stop: 07/12/19 15:36 Pantoprazole Sodium (Protonix) 40 mg PO QDAC ALEXANDRU Stop: 07/13/19 07:29 Last Admin: 05/18/19 06:35 Dose: 40 mg Polyethylene Glycol (Miralax) 17 gm PO DAILY PRN PRN Reason: Constipation Stop: 07/12/19 15:36 Quetiapine Fumarate (Seroquel) 50 mg PO DAILY ALEXANDRU; Protocol Stop: 07/13/19 08:59 Last Admin: 05/18/19 08:54 Dose: 50 mg Quetiapine Fumarate 100 mg/ (Quetiapine Fumarate 25 mg) 125 mg PO HS ALEXANDRU Stop: 07/15/19 20:59 Last Admin: 05/17/19 21:19 Dose: 125 mg Simethicone (Mylicon) 80 mg PO DAILY PRN PRN Reason: Gas Stop: 07/12/19 15:36 Last Admin: 05/14/19 16:57 Dose: 80 mg Valproate Sodium (Depakene) 250 mg PO DAILY ALEXANDRU; Protocol Stop: 07/13/19 08:59 Last Admin: 05/18/19 08:54 Dose: 250 mg Valproate Sodium (Depakene) 375 mg PO HS ALEXANDRU; Protocol Stop: 07/12/19 20:59 Last Admin: 05/17/19 21:18 Dose: 375 mg Zolpidem Tartrate (Ambien) 5 mg PO HS PRN PRN Reason: Insomnia Stop: 07/11/19 18:59 Last Admin: 05/14/19 21:01 Dose: 5 mg General: demented HEENT: NC/AT, PERRLA, thinning hair, poor dentition Neck: Supple, No JVD Lungs: CTAB Cardiovascular: RRR, Normal S1, Normal S2, with murmur Abdomen: soft, non-tender, thin, non-distended, positive bowel sound Extremities: excoriation, contracture Neurological: no change Internal Medicine Assmt/Plan - Assessment Assessment: ASSESSMENT AND PLAN: Coronary artery disease, hypertension, hypercholesterolemia, osteoarthritis, hypothyroidism, gastroesophageal reflux disease, dementia, thin built, elevated triglyceride, gait instability. - Plan Plan: PLAN: Continue the patient on fall precaution. Currently on a geriatric chair. Continue nutritional support. Continue the patient on current antihypertensive medication on nitroglycerin. Continue Synthroid. Continue with current care. We will continue monitor the patient closely. Nutritional Asmnt/Malnutr-PDOC - Dietary Evaluation Malnutrition Findings (Please click <Entered> for more info): Nutritional Asmnt/Malnutrition Start: 05/15/19 14: 23 Text: Status: Active Freq: Protocol: Document 05/15/19 14:24 LEONA (Rec: 05/15/19 14:27 LEONA [email or web address]) Nutritional Asmnt/Malnutrition Patient General Information Diagnosis Psychosis Pertinent Medical Hx/Surgical Hx HTN, PUD/GERD, Dementia Subjective Information Pt is a 78-year-old male from residential facility admitted on 05/12 c/o increase agitation. Per Meal/Nutrition Activity Record, Pt PO intake 50% since admission. Spoke to PHYLICIA Hernadez and JUSTO Gonzales, Pt ate 100% breakfast and lunch today 05/15. Will continue to monitor on PO intake. HT: 57 WT: 140 LB (63.64 kg) BMI: 21.93 (Normal) GI: WNL, Soft, Non-Tender BM: 05/15 x1 I/O: 1320/Not Noted Skin: WNL, Intact Lester: 18 Diet Order: Pureed, CCHO 60 gm , CANDY Estimated Energy Needs: ( Geriatric, CBW) 9620-6691 kcals (25-30 kcals/ kg) 64-76 g Pro (1.0-1.2 g/kg) 7006-7874 ml (25-30 ml/kg) Pt is eating 50% of meals per Meal/Nutrition Activity Record . Dietary is currently providing an estimated 2220 kcals and 115 gm Pro, per Pt PO intake this is providing an estimated 1100 kcals and 58gm Pro to meet 68% kcal and 90% Pro needs- inadequate. Current Diet Order/ Nutrition Support Pureed, CCHO 60 gm, CANDY Pertinent Medications Maalox (PRN), Lipitor, Dulcolax (PRN), Vitamin D3, Vitamin B12, Cephulac (PRN), Synthroid, MOM (PRN), Theragran, Protonix, Miralax ( PRN) Pertinent Labs 05/12: Hgb/Hct 12.9/38.6, Na 132 , Glucose 113 Nutritional Hx/Data Height 1.7 m Height (Calculated Centimeters) 170.2 Current Weight (lbs) 63.503 kg Weight (Calculated Kilograms) 63.5 Weight (Calculated Grams) 38874.9 [place] Body Weight 66.1 kg % [place] Body Weight 96 Body Mass Index (BMI) 21.9 Weight Status Approriate GI Symptoms GI Symptoms None Skin Integrity/Comment: WNL, Intact Lester: 18 Current %PO Fair (50-74%) Estimated Nutritional Goals BEE in Kcals: Using Current wt Calories/Kcals/Kg 25-30 Kcals Calculated 0277-5719 Protein: Using Current wt Protein g/k.0-1.2 Protein Calculated 64-76 Fluid: ml 8894-8438 ml (25-30 ml/kg) Nutritional Problem No current Nutrition Prob Problem No nutrition diagnosis at this time. Etiology N/A Signs/Symptoms: N/A Malnutrition Related to Morbid Obesity Malnutrition related to morbid obesity No Intervention/Recommendation Comments 1.Continue with Pureed, CCHO 60 gm, CANDY diet as ordered. Expected Outcomes/Goals Expected Outcomes/Goals 1.PO intake to meet 75% of nutritional needs. 2.Monitor PO intake, wt, nutrition related labs, and skin integrity. 3.F/U as low risk in 7 days,
--- NOTE | 2019-05-18 18:41 | Progress Notes ---
DATE: 05/18/2019 SUBJECTIVE: The patient was resting in bed, alert, quiet and cooperative when talked to. The patient continued to have difficulty expressing himself verbally. When asked how he has been doing, the patient nodded. When asked if he is still hearing voices, seeing things and feeling that people are watching him, talking about him, out to get him, the patient nodded. When asked what the voices were saying, the patient was not able to give any information. It appeared that the patient was trying to say something, but nothing came out of his mouth. When asked what he has been seeing, again there was no verbal response. The patient indicated that he has not been up today. The patient indicated that he has been eating and sleeping okay and denied any behavioral problem. OBJECTIVE: The patient continued to be calm and cooperative when talked to. The staff reported that the patient has been eating and sleeping well. Staff reported that the patient would be up walking at that time, but somewhat unsteady gait. The staff reported that at times the patient would be agitated and sometimes difficult to redirect. The staff reported that the patient had not exhibited any physical aggression. The staff reported that the patient has been eating and sleeping okay and compliant with medications and treatment. ASSESSMENT: 1. 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 2. Psychotic disorder and mood disorder, depressed due to medical condition. 3. Impulse control disorder, not otherwise specified. 4. Personality change due to medical condition. PLAN: We will continue the patient on current medications and consider increasing his Seroquel if the patient continued to admit having auditory, visual hallucination and delusion. JOB# [id number] ZENY
[2019-05-18] MEDS: Atorvastatin Calcium 10 MG TAB PO SCH (20:36)
[2019-05-19] MEDS: Pantoprazole 40 mg EC Tab PO SCH (06:55)
[2019-05-19] MEDS: Levothyroxine 0.075 Mg Tab PO SCH (06:55)
--- NOTE | 2019-05-19 07:55 | Progress Notes ---
DATE: 05/19/2019 SUBJECTIVE: The patient was resting in bed with eyes closed. The patient responded to verbal stimuli. The patient continued to be calm and cooperative when talked to. The patient reported that he is eating and sleeping well. When asked if he is still hearing voices, seeing things and believing that people are talking about him out to get him, the patient nodded. Again, when asked what the voices say, the patient appeared to be thinking and move his lips, but not able to come out with any verbal response. The patient reported that he has not been up today. The patient denied being agitated or aggressive. OBJECTIVE: The patient continued to be calm and cooperative when talked to. The staff reported that the patient has been doing okay. The patient was in bed since the change of shift last evening. The patient stays in bed the whole shift. Staff reported that the patient has been eating and sleeping okay and did not exhibit any behavioral problem last night. ASSESSMENT: 1. 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 2. Psychotic disorder and mood disorder, depressed due to medical condition. 3. Impulse control disorder, not otherwise specified. 4. Personality change due to medical condition. PLAN: We will continue the patient on current medication, but since the patient continued to report that he is having auditory and visual hallucination or delusion, we will increase his Seroquel to 50 mg p.o. q.a.m. and 300 mg p.o. at bedtime and monitor his respond to the medications. JOB# [id number] ZENY
[2019-05-19] MEDS: Maalox 30 mL Cup PO SCH ×2 (08:37→16:12)
[2019-05-19] MEDS: Multivitamin Tab PO SCH (08:38)
[2019-05-19] MEDS: Pantoprazole 40 mg/Packet PO SCH (08:38)
--- NOTE | 2019-05-19 12:48 | Internal Medicine Prog Note ---
Internal Medicine Subjective - Subjective Patient seen and examined:: with staff, chart reviewed Patient is:: awake, non-verbal, interactive, teja chair Per staff patient has:: no adverse event, no episodes of fall, tolerating meds Internal Medicine Objective - Results Result Diagrams: 05/12/19 14:55 05/12/19 14:55 Recent Labs: Laboratory Last Values WBC 6.2 Th/cmm (4.8-10.8) 05/12/19 14:55 RBC 4.36 Mil/cmm (3.80-5.80) 05/12/19 14:55 Hgb 12.9 gm/dL (12-16) 05/12/19 14:55 Hct 38.6 % (41.0-60) L 05/12/19 14:55 MCV 88.4 fl (80-99) 05/12/19 14:55 MCH 29.6 pg (27.0-31.0) 05/12/19 14:55 MCHC Differential 33.4 pg (28.0-36.0) 05/12/19 14:55 RDW 14.1 % (11.5-20.0) 05/12/19 14:55 Plt Count 265 Th/cmm (150-400) 05/12/19 14:55 MPV 8.1 fl 05/12/19 14:55 Neutrophils % 53.0 % (40.0-80.0) 05/12/19 14:55 Lymphocytes % 27.7 % (20.0-50.0) 05/12/19 14:55 Monocytes % 14.0 % (2.0-10.0) H 05/12/19 14:55 Eosinophils % 4.7 % (0.0-5.0) 05/12/19 14:55 Basophils % 0.6 % (0.0-2.0) 05/12/19 14:55 Sodium 139 mEq/L (136-145) 05/12/19 14:55 Potassium 4.0 mEq/L (3.5-5.1) 05/12/19 14:55 Chloride 102 mEq/L (98-107) 05/12/19 14:55 Carbon Dioxide 27.9 mEq/L (21.0-31.0) 05/12/19 14:55 Anion Gap 13.1 (7.0-16.0) 05/12/19 14:55 BUN 21 mg/dL (7-25) 05/12/19 14:55 Creatinine 1.2 mg/dL (0.7-1.3) 05/12/19 14:55 Est GFR ( Amer) TNP 05/12/19 14:55 Est GFR (Non-Af Amer) TNP 05/12/19 14:55 BUN/Creatinine Ratio 17.5 05/12/19 14:55 Glucose 113 mg/dL (70-105) H 05/12/19 14:55 Calcium 9.1 mg/dL (8.6-10.3) 05/12/19 14:55 Total Bilirubin 0.3 mg/dL (0.3-1.0) 05/12/19 14:55 AST 15 U/L (13-39) 05/12/19 14:55 ALT 10 U/L (7-52) 05/12/19 14:55 Alkaline Phosphatase 56 U/L (34-104) 05/12/19 14:55 Total Protein 7.5 gm/dL (6.0-8.3) 05/12/19 14:55 Albumin 4.2 gm/dL (4.2-5.5) 05/12/19 14:55 Globulin 3.3 gm/dL 05/12/19 14:55 Albumin/Globulin Ratio 1.3 (1.0-1.8) 05/12/19 14:55 Triglycerides 274 mg/dL (<150) H 05/12/19 14:55 Cholesterol 124 mg/dL (<200) 05/12/19 14:55 LDL Cholesterol Direct 57 mg/dL (75-193) L 05/12/19 14:55 HDL Cholesterol 34 mg/dL (23-92) 05/12/19 14:55 TSH 1.11 uIU/ml (0.34-5.60) 05/12/19 14:55 RPR NONREACTIVE (NONREACTIVE) 05/12/19 14:55 - Physical Exam Vitals and I&O: Vital Signs Temp 97.8 F 05/19/19 06:35 Pulse 72 05/19/19 06:35 Resp 19 05/19/19 06:35 BP 108/60 05/19/19 06:35 Pulse Ox 94 05/19/19 06:35 Intake & Output 05/18/19 05/19/19 05/19/19 18:59 06:59 18:59 Intake Total 1200 240 Balance 1200 240 Intake: Oral 1200 240 Other: # Voids 1 # Bowel Movements 0 Active Medications: Current Medications Acetaminophen (Tylenol) 650 mg PO Q4HR PRN PRN Reason: Mild Pain / Temp above 100 Stop: 07/12/19 15:36 Al Hydrox/Mg Hydrox/Simethicone (Maalox) 30 ml PO Q4HR PRN PRN Reason: GI DISTRESS Stop: 07/11/19 18:59 Last Admin: 05/18/19 11:17 Dose: 30 ml Al Hydrox/Mg Hydrox/Simethicone (Maalox) 30 ml PO BID ALEXANDRU Stop: 07/12/19 16:59 Last Admin: 05/19/19 08:37 Dose: 30 ml Atorvastatin Calcium (Lipitor) 20 mg PO HS ALEXANDRU; Protocol Stop: 07/12/19 20:59 Last Admin: 05/18/19 20:36 Dose: 20 mg Bisacodyl (Dulcolax 10 Mg Supp) 10 mg RC DAILY PRN PRN Reason: Constipation Stop: 07/12/19 15:36 Cholecalciferol (Vitamin D3) 1,000 iu PO DAILY ALEXANDRU Stop: 07/13/19 08:59 Last Admin: 05/19/19 08:37 Dose: 1,000 iu Cyanocobalamin (Vitamin B12) 1,000 mcg PO DAILY ALEXANDRU Stop: 07/13/19 08:59 Last Admin: 05/19/19 08:37 Dose: 1,000 mcg Donepezil HCl (Aricept) 5 mg PO HS ALEXANDRU Stop: 07/12/19 20:59 Last Admin: 05/18/19 20:37 Dose: 5 mg Lactulose (Cephulac) 10 gm PO DAILY PRN PRN Reason: COMSTIPATION Stop: 07/12/19 15:36 Levothyroxine Sodium (Synthroid) 0.15 mg PO QDAC ALEXANDRU Stop: 07/13/19 07:29 Last Admin: 05/19/19 06:55 Dose: 0.15 mg Lisinopril (Zestril) 5 mg PO DAILY ALEXANDRU Stop: 07/13/19 08:59 Last Admin: 05/19/19 08:38 Dose: Not Given Lorazepam (Ativan) 0.5 mg PO Q4HR PRN; Protocol PRN Reason: Agitation Stop: 07/11/19 19:00 Magnesium Hydroxide (Milk Of Magnesia) 30 ml PO HS PRN PRN Reason: Constipation Mineral Oil (Fleet Mineral Oil) 135 ml RC Q2D PRN PRN Reason: IF MIRALAX INEFFECTIVE Stop: 07/12/19 15:36 Multivitamins/Vitamin C (Theragran) 1 tab PO DAILY ALEXANDRU Stop: 07/13/19 08:59 Last Admin: 05/19/19 08:38 Dose: 1 tab Nitroglycerin (Nitrostat) 0.4 mg SL Q5MIN PRN PRN Reason: Chest Pain Stop: 07/12/19 15:36 Pantoprazole Sodium (Protonix) 40 mg PO DAILY ALEXANDRU Stop: 07/18/19 08:59 Last Admin: 05/19/19 08:38 Dose: 40 mg Polyethylene Glycol (Miralax) 17 gm PO DAILY PRN PRN Reason: Constipation Stop: 07/12/19 15:36 Quetiapine Fumarate (Seroquel) 50 mg PO DAILY ALEXANDRU; Protocol Stop: 07/13/19 08:59 Last Admin: 05/19/19 08:38 Dose: 50 mg Quetiapine Fumarate 100 mg/ (Quetiapine Fumarate 50 mg) 150 mg PO HS ALEXANDRU Stop: 07/18/19 20:59 Simethicone (Mylicon) 80 mg PO DAILY PRN PRN Reason: Gas Stop: 07/12/19 15:36 Last Admin: 05/14/19 16:57 Dose: 80 mg Valproate Sodium (Depakene) 250 mg PO DAILY ALEXANDRU; Protocol Stop: 07/13/19 08:59 Last Admin: 05/19/19 08:38 Dose: 250 mg Valproate Sodium (Depakene) 375 mg PO HS ALEXANDRU; Protocol Stop: 07/12/19 20:59 Last Admin: 05/18/19 20:36 Dose: 375 mg Zolpidem Tartrate (Ambien) 5 mg PO HS PRN PRN Reason: Insomnia Stop: 07/11/19 18:59 Last Admin: 05/14/19 21:01 Dose: 5 mg General: demented HEENT: NC/AT, PERRLA, thinning hair, poor dentition Neck: Supple, No JVD Lungs: CTAB Cardiovascular: RRR, Normal S1, Normal S2, with murmur Abdomen: soft, non-tender, thin, non-distended, positive bowel sound Extremities: excoriation, contracture Neurological: no change Internal Medicine Assmt/Plan - Assessment Assessment: ASSESSMENT AND PLAN: Coronary artery disease, hypertension, hypercholesterolemia, osteoarthritis, hypothyroidism, gastroesophageal reflux disease, dementia, thin built, elevated triglyceride, gait instability. - Plan Plan: PLAN: Continue the patient on fall precaution. Currently on a geriatric chair. Continue nutritional support. Continue the patient on current antihypertensive medication on nitroglycerin. Continue Synthroid. Continue with current care. We will continue monitor the patient closely. Nutritional Asmnt/Malnutr-PDOC - Dietary Evaluation Malnutrition Findings (Please click <Entered> for more info): Nutritional Asmnt/Malnutrition Start: 05/15/19 14: 23 Text: Status: Active Freq: Protocol: Document 05/15/19 14:24 LEONA (Rec: 05/15/19 14:27 LEONA [email or web address]) Nutritional Asmnt/Malnutrition Patient General Information Diagnosis Psychosis Pertinent Medical Hx/Surgical Hx HTN, PUD/GERD, Dementia Subjective Information Pt is a 78-year-old male from residential facility admitted on 05/12 c/o increase agitation. Per Meal/Nutrition Activity Record, Pt PO intake 50% since admission. Spoke to PHYLICIA Hernadez and JUSTO Gonzales, Pt ate 100% breakfast and lunch today 05/15. Will continue to monitor on PO intake. HT: 57 WT: 140 LB (63.64 kg) BMI: 21.93 (Normal) GI: WNL, Soft, Non-Tender BM: 05/15 x1 I/O: 1320/Not Noted Skin: WNL, Intact Lester: 18 Diet Order: Pureed, CCHO 60 gm , CANDY Estimated Energy Needs: ( Geriatric, CBW) 9691-1177 kcals (25-30 kcals/ kg) 64-76 g Pro (1.0-1.2 g/kg) 2408-6678 ml (25-30 ml/kg) Pt is eating 50% of meals per Meal/Nutrition Activity Record . Dietary is currently providing an estimated 2220 kcals and 115 gm Pro, per Pt PO intake this is providing an estimated 1100 kcals and 58gm Pro to meet 68% kcal and 90% Pro needs- inadequate. Current Diet Order/ Nutrition Support Pureed, CCHO 60 gm, CANDY Pertinent Medications Maalox (PRN), Lipitor, Dulcolax (PRN), Vitamin D3, Vitamin B12, Cephulac (PRN), Synthroid, MOM (PRN), Theragran, Protonix, Miralax ( PRN) Pertinent Labs 05/12: Hgb/Hct 12.9/38.6, Na 132 , Glucose 113 Nutritional Hx/Data Height 1.7 m Height (Calculated Centimeters) 170.2 Current Weight (lbs) 63.503 kg Weight (Calculated Kilograms) 63.5 Weight (Calculated Grams) 91867.9 [place] Body Weight 66.1 kg % [place] Body Weight 96 Body Mass Index (BMI) 21.9 Weight Status Approriate GI Symptoms GI Symptoms None Skin Integrity/Comment: WNL, Intact Lester: 18 Current %PO Fair (50-74%) Estimated Nutritional Goals BEE in Kcals: Using Current wt Calories/Kcals/Kg 25-30 Kcals Calculated 6362-0789 Protein: Using Current wt Protein g/k.0-1.2 Protein Calculated 64-76 Fluid: ml 4243-7463 ml (25-30 ml/kg) Nutritional Problem No current Nutrition Prob Problem No nutrition diagnosis at this time. Etiology N/A Signs/Symptoms: N/A Malnutrition Related to Morbid Obesity Malnutrition related to morbid obesity No Intervention/Recommendation Comments 1.Continue with Pureed, CCHO 60 gm, CANDY diet as ordered. Expected Outcomes/Goals Expected Outcomes/Goals 1.PO intake to meet 75% of nutritional needs. 2.Monitor PO intake, wt, nutrition related labs, and skin integrity. 3.F/U as low risk in 7 days,
[2019-05-19] MEDS: Atorvastatin Calcium 10 MG TAB PO SCH (20:19)
[2019-05-20] MEDS: Levothyroxine 0.075 Mg Tab PO SCH (06:33)
[2019-05-20] MEDS: Pantoprazole 40 mg/Packet PO SCH (08:51)
[2019-05-20] MEDS: Multivitamin Tab PO SCH (08:51)
[2019-05-20] MEDS: Maalox 30 mL Cup PO SCH ×2 (08:52→17:11)
--- NOTE | 2019-05-20 13:08 | Internal Medicine Prog Note ---
Internal Medicine Subjective - Subjective Patient seen and examined:: with staff, chart reviewed Patient is:: awake, non-verbal, interactive, teja chair Per staff patient has:: no adverse event, no episodes of fall, tolerating meds Internal Medicine Objective - Results Result Diagrams: 05/12/19 14:55 05/12/19 14:55 Recent Labs: Laboratory Last Values WBC 6.2 Th/cmm (4.8-10.8) 05/12/19 14:55 RBC 4.36 Mil/cmm (3.80-5.80) 05/12/19 14:55 Hgb 12.9 gm/dL (12-16) 05/12/19 14:55 Hct 38.6 % (41.0-60) L 05/12/19 14:55 MCV 88.4 fl (80-99) 05/12/19 14:55 MCH 29.6 pg (27.0-31.0) 05/12/19 14:55 MCHC Differential 33.4 pg (28.0-36.0) 05/12/19 14:55 RDW 14.1 % (11.5-20.0) 05/12/19 14:55 Plt Count 265 Th/cmm (150-400) 05/12/19 14:55 MPV 8.1 fl 05/12/19 14:55 Neutrophils % 53.0 % (40.0-80.0) 05/12/19 14:55 Lymphocytes % 27.7 % (20.0-50.0) 05/12/19 14:55 Monocytes % 14.0 % (2.0-10.0) H 05/12/19 14:55 Eosinophils % 4.7 % (0.0-5.0) 05/12/19 14:55 Basophils % 0.6 % (0.0-2.0) 05/12/19 14:55 Sodium 139 mEq/L (136-145) 05/12/19 14:55 Potassium 4.0 mEq/L (3.5-5.1) 05/12/19 14:55 Chloride 102 mEq/L (98-107) 05/12/19 14:55 Carbon Dioxide 27.9 mEq/L (21.0-31.0) 05/12/19 14:55 Anion Gap 13.1 (7.0-16.0) 05/12/19 14:55 BUN 21 mg/dL (7-25) 05/12/19 14:55 Creatinine 1.2 mg/dL (0.7-1.3) 05/12/19 14:55 Est GFR ( Amer) TNP 05/12/19 14:55 Est GFR (Non-Af Amer) TNP 05/12/19 14:55 BUN/Creatinine Ratio 17.5 05/12/19 14:55 Glucose 113 mg/dL (70-105) H 05/12/19 14:55 Calcium 9.1 mg/dL (8.6-10.3) 05/12/19 14:55 Total Bilirubin 0.3 mg/dL (0.3-1.0) 05/12/19 14:55 AST 15 U/L (13-39) 05/12/19 14:55 ALT 10 U/L (7-52) 05/12/19 14:55 Alkaline Phosphatase 56 U/L (34-104) 05/12/19 14:55 Total Protein 7.5 gm/dL (6.0-8.3) 05/12/19 14:55 Albumin 4.2 gm/dL (4.2-5.5) 05/12/19 14:55 Globulin 3.3 gm/dL 05/12/19 14:55 Albumin/Globulin Ratio 1.3 (1.0-1.8) 05/12/19 14:55 Triglycerides 274 mg/dL (<150) H 05/12/19 14:55 Cholesterol 124 mg/dL (<200) 05/12/19 14:55 LDL Cholesterol Direct 57 mg/dL (75-193) L 05/12/19 14:55 HDL Cholesterol 34 mg/dL (23-92) 05/12/19 14:55 TSH 1.11 uIU/ml (0.34-5.60) 05/12/19 14:55 RPR NONREACTIVE (NONREACTIVE) 05/12/19 14:55 - Physical Exam Vitals and I&O: Vital Signs Temp 97.8 F 05/20/19 05:57 Pulse 70 05/20/19 08:51 Resp 18 05/20/19 05:57 BP 118/71 05/20/19 08:51 Pulse Ox 98 05/20/19 05:57 Intake & Output 05/19/19 05/20/19 05/20/19 18:59 06:59 18:59 Intake Total 950 240 Balance 950 240 Weight (lbs) 63.503 kg Intake: Oral 950 240 Other: # Voids 4 3 # Bowel Movements 1 0 Weight Source Bedscale Active Medications: Current Medications Acetaminophen (Tylenol) 650 mg PO Q4HR PRN PRN Reason: Mild Pain / Temp above 100 Stop: 07/12/19 15:36 Al Hydrox/Mg Hydrox/Simethicone (Maalox) 30 ml PO Q4HR PRN PRN Reason: GI DISTRESS Stop: 07/11/19 18:59 Last Admin: 05/18/19 11:17 Dose: 30 ml Al Hydrox/Mg Hydrox/Simethicone (Maalox) 30 ml PO BID ALEXANDRU Stop: 07/12/19 16:59 Last Admin: 05/20/19 08:52 Dose: Not Given Atorvastatin Calcium (Lipitor) 20 mg PO HS [facility]; Protocol Stop: 07/12/19 20:59 Last Admin: 05/19/19 20:19 Dose: 20 mg Bisacodyl (Dulcolax 10 Mg Supp) 10 mg RC DAILY PRN PRN Reason: Constipation Stop: 07/12/19 15:36 Cholecalciferol (Vitamin D3) 1,000 iu PO DAILY [facility] Stop: 07/13/19 08:59 Last Admin: 05/20/19 08:50 Dose: 1,000 iu Cyanocobalamin (Vitamin B12) 1,000 mcg PO DAILY [facility]U Stop: 07/13/19 08:59 Last Admin: 05/20/19 08:51 Dose: 1,000 mcg Donepezil HCl (Aricept) 5 mg PO HS [facility] Stop: 07/12/19 20:59 Last Admin: 05/19/19 20:19 Dose: 5 mg Lactulose (Cephulac) 10 gm PO DAILY PRN PRN Reason: COMSTIPATION Stop: 07/12/19 15:36 Levothyroxine Sodium (Synthroid) 0.15 mg PO QDAC ALEXANDRU Stop: 07/13/19 07:29 Last Admin: 05/20/19 06:33 Dose: 0.15 mg Lisinopril (Zestril) 5 mg PO DAILY [facility] Stop: 07/13/19 08:59 Last Admin: 05/20/19 08:51 Dose: 5 mg Lorazepam (Ativan) 0.5 mg PO Q4HR PRN; Protocol PRN Reason: Agitation Stop: 07/11/19 19:00 Magnesium Hydroxide (Milk Of Magnesia) 30 ml PO HS PRN PRN Reason: Constipation Mineral Oil (Fleet Mineral Oil) 135 ml RC Q2D PRN PRN Reason: IF MIRALAX INEFFECTIVE Stop: 07/12/19 15:36 Multivitamins/Vitamin C (Theragran) 1 tab PO DAILY ALEX[facility]DRU Stop: 07/13/19 08:59 Last Admin: 05/20/19 08:51 Dose: 1 tab Nitroglycerin (Nitrostat) 0.4 mg SL Q5MIN PRN PRN Reason: Chest Pain Stop: 07/12/19 15:36 Pantoprazole Sodium (Protonix) 40 mg PO DAILY [facility]LEXANDRU Stop: 07/18/19 08:59 Last Admin: 05/20/19 08:51 Dose: 40 mg Polyethylene Glycol (Miralax) 17 gm PO DAILY PRN PRN Reason: Constipation Stop: 07/12/19 15:36 Quetiapine Fumarate (Seroquel) 50 mg PO DAILY [facility]; Protocol Stop: 07/13/19 08:59 Last Admin: 05/20/19 08:51 Dose: 50 mg Quetiapine Fumarate 100 mg/ (Quetiapine Fumarate 50 mg) 150 mg PO HS [facility] Stop: 07/18/19 20:59 Last Admin: 05/19/19 20:20 Dose: 150 mg Simethicone (Mylicon) 80 mg PO DAILY PRN PRN Reason: Gas Stop: 07/12/19 15:36 Last Admin: 05/14/19 16:57 Dose: 80 mg Valproate Sodium (Depakene) 250 mg PO DAILY [facility]; Protocol Stop: 07/13/19 08:59 Last Admin: 05/20/19 08:50 Dose: 250 mg Valproate Sodium (Depakene) 375 mg PO HS [facility]; Protocol Stop: 07/12/19 20:59 Last Admin: 05/19/19 20:20 Dose: 375 mg Zolpidem Tartrate (Ambien) 5 mg PO HS PRN PRN Reason: Insomnia Stop: 07/11/19 18:59 Last Admin: 05/14/19 21:01 Dose: 5 mg General: demented HEENT: NC/AT, PERRLA, thinning hair, poor dentition Neck: Supple, No JVD Lungs: CTAB Cardiovascular: RRR, Normal S1, Normal S2, with murmur Abdomen: soft, non-tender, thin, non-distended, positive bowel sound Extremities: excoriation, contracture Neurological: no change Internal Medicine Assmt/Plan - Assessment Assessment: ASSESSMENT AND PLAN: Coronary artery disease, hypertension, hypercholesterolemia, osteoarthritis, hypothyroidism, gastroesophageal reflux disease, dementia, thin built, elevated triglyceride, gait instability. - Plan Plan: PLAN: Continue the patient on fall precaution. Currently on a geriatric chair. Continue nutritional support. Continue the patient on current antihypertensive medication on nitroglycerin. Continue Synthroid. Continue with current care. We will continue monitor the patient closely. Nutritional Asmnt/Malnutr-PDOC - Dietary Evaluation Malnutrition Findings (Please click <Entered> for more info): Nutritional Asmnt/Malnutrition Start: 05/15/19 14: 23 Text: Status: Active Freq: Protocol: Document 05/15/19 14:24 LEONA (Rec: 05/15/19 14:27 LEONA [email or web address]) Nutritional Asmnt/Malnutrition Patient General Information Diagnosis Psychosis Pertinent Medical Hx/Surgical Hx HTN, PUD/GERD, Dementia Subjective Information Pt is a 78-year-old male from residential facility admitted on 05/12 c/o increase agitation. Per Meal/Nutrition Activity Record, Pt PO intake 50% since admission. Spoke to PHYLICIA Hernadez and JUSTO Gonzales, Pt ate 100% breakfast and lunch today 05/15. Will continue to monitor on PO intake. HT: 57 WT: 140 LB (63.64 kg) BMI: 21.93 (Normal) GI: WNL, Soft, Non-Tender BM: 05/15 x1 I/O: 1320/Not Noted Skin: WNL, Intact Lester: 18 Diet Order: Pureed, CCHO 60 gm , CANDY Estimated Energy Needs: ( Geriatric, CBW) 5027-9725 kcals (25-30 kcals/ kg) 64-76 g Pro (1.0-1.2 g/kg) 3528-0535 ml (25-30 ml/kg) Pt is eating 50% of meals per Meal/Nutrition Activity Record . Dietary is currently providing an estimated 2220 kcals and 115 gm Pro, per Pt PO intake this is providing an estimated 1100 kcals and 58gm Pro to meet 68% kcal and 90% Pro needs- inadequate. Current Diet Order/ Nutrition Support Pureed, CCHO 60 gm, CANDY Pertinent Medications Maalox (PRN), Lipitor, Dulcolax (PRN), Vitamin D3, Vitamin B12, Cephulac (PRN), Synthroid, MOM (PRN), Theragran, Protonix, Miralax ( PRN) Pertinent Labs 05/12: Hgb/Hct 12.9/38.6, Na 132 , Glucose 113 Nutritional Hx/Data Height 1.7 m Height (Calculated Centimeters) 170.2 Current Weight (lbs) 63.503 kg Weight (Calculated Kilograms) 63.5 Weight (Calculated Grams) 14199.9 [place] Body Weight 66.1 kg % [place] Body Weight 96 Body Mass Index (BMI) 21.9 Weight Status Approriate GI Symptoms GI Symptoms None Skin Integrity/Comment: WNL, Intact Lester: 18 Current %PO Fair (50-74%) Estimated Nutritional Goals BEE in Kcals: Using Current wt Calories/Kcals/Kg 25-30 Kcals Calculated 7918-9365 Protein: Using Current wt Protein g/k.0-1.2 Protein Calculated 64-76 Fluid: ml 7617-1708 ml (25-30 ml/kg) Nutritional Problem No current Nutrition Prob Problem No nutrition diagnosis at this time. Etiology N/A Signs/Symptoms: N/A Malnutrition Related to Morbid Obesity Malnutrition related to morbid obesity No Intervention/Recommendation Comments 1.Continue with Pureed, CCHO 60 gm, CANDY diet as ordered. Expected Outcomes/Goals Expected Outcomes/Goals 1.PO intake to meet 75% of nutritional needs. 2.Monitor PO intake, wt, nutrition related labs, and skin integrity. 3.F/U as low risk in 7 days,
[2019-05-20] MEDS: Atorvastatin Calcium 10 MG TAB PO SCH (20:30)
--- NOTE | 2019-05-21 02:22 | Progress Notes ---
DATE: 05/20/2019 SUBJECTIVE: The patient was resting in bed quietly. The patient responded to verbal stimuli. The patient opened his eyes slightly and quickly closed them again. The patient did not respond verbally to any questions. When asked if he still hears voices, seeing things and feeling that people are watching him, talking about him to get him, the patient did not respond. When asked if he ate breakfast this morning. The patient nodded. The patient has not touched his lunch at this time. The patient appeared to be more sleepy today. The patient has been less responsive as well. OBJECTIVE: The patient continued to be quiet and cooperative and did not exhibit any agitation or aggression. The staff reported that the patient continued to be doing okay. He slept well last night. He had breakfast this morning. The patient has been sleeping before lunch and has not touched his lunch. The staff reported that the patient continued to be up and about, on and off. The patient continued to be compliant with medications and care and no recurrent episodes of agitation or aggression. ASSESSMENT: 1. 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 2. Psychotic disorder and mood disorder, depressed due to medical condition. 3. Impulse control disorder, not otherwise specified. 4. Personality change due to medical condition. PLAN: We will continue the patient on current medications and monitor the patient's response. [facility]# [id number]
[2019-05-21] MEDS: Levothyroxine 0.075 Mg Tab PO SCH (06:42)
[2019-05-21] MEDS: Maalox 30 mL Cup PO SCH ×2 (09:01→16:19)
[2019-05-21] MEDS: Pantoprazole 40 mg/Packet PO SCH (09:06)
[2019-05-21] MEDS: Multivitamin Tab PO SCH (09:06)
--- NOTE | 2019-05-21 12:14 | Internal Medicine Prog Note ---
Internal Medicine Subjective - Subjective Patient seen and examined:: with staff, chart reviewed Patient is:: awake, non-verbal, interactive, teja chair Per staff patient has:: no adverse event, no episodes of fall, tolerating meds Internal Medicine Objective - Results Result Diagrams: 05/12/19 14:55 05/12/19 14:55 Recent Labs: Laboratory Last Values WBC 6.2 Th/cmm (4.8-10.8) 05/12/19 14:55 RBC 4.36 Mil/cmm (3.80-5.80) 05/12/19 14:55 Hgb 12.9 gm/dL (12-16) 05/12/19 14:55 Hct 38.6 % (41.0-60) L 05/12/19 14:55 MCV 88.4 fl (80-99) 05/12/19 14:55 MCH 29.6 pg (27.0-31.0) 05/12/19 14:55 MCHC Differential 33.4 pg (28.0-36.0) 05/12/19 14:55 RDW 14.1 % (11.5-20.0) 05/12/19 14:55 Plt Count 265 Th/cmm (150-400) 05/12/19 14:55 MPV 8.1 fl 05/12/19 14:55 Neutrophils % 53.0 % (40.0-80.0) 05/12/19 14:55 Lymphocytes % 27.7 % (20.0-50.0) 05/12/19 14:55 Monocytes % 14.0 % (2.0-10.0) H 05/12/19 14:55 Eosinophils % 4.7 % (0.0-5.0) 05/12/19 14:55 Basophils % 0.6 % (0.0-2.0) 05/12/19 14:55 Sodium 139 mEq/L (136-145) 05/12/19 14:55 Potassium 4.0 mEq/L (3.5-5.1) 05/12/19 14:55 Chloride 102 mEq/L (98-107) 05/12/19 14:55 Carbon Dioxide 27.9 mEq/L (21.0-31.0) 05/12/19 14:55 Anion Gap 13.1 (7.0-16.0) 05/12/19 14:55 BUN 21 mg/dL (7-25) 05/12/19 14:55 Creatinine 1.2 mg/dL (0.7-1.3) 05/12/19 14:55 Est GFR ( Amer) TNP 05/12/19 14:55 Est GFR (Non-Af Amer) TNP 05/12/19 14:55 BUN/Creatinine Ratio 17.5 05/12/19 14:55 Glucose 113 mg/dL (70-105) H 05/12/19 14:55 Calcium 9.1 mg/dL (8.6-10.3) 05/12/19 14:55 Total Bilirubin 0.3 mg/dL (0.3-1.0) 05/12/19 14:55 AST 15 U/L (13-39) 05/12/19 14:55 ALT 10 U/L (7-52) 05/12/19 14:55 Alkaline Phosphatase 56 U/L (34-104) 05/12/19 14:55 Total Protein 7.5 gm/dL (6.0-8.3) 05/12/19 14:55 Albumin 4.2 gm/dL (4.2-5.5) 05/12/19 14:55 Globulin 3.3 gm/dL 05/12/19 14:55 Albumin/Globulin Ratio 1.3 (1.0-1.8) 05/12/19 14:55 Triglycerides 274 mg/dL (<150) H 05/12/19 14:55 Cholesterol 124 mg/dL (<200) 05/12/19 14:55 LDL Cholesterol Direct 57 mg/dL (75-193) L 05/12/19 14:55 HDL Cholesterol 34 mg/dL (23-92) 05/12/19 14:55 TSH 1.11 uIU/ml (0.34-5.60) 05/12/19 14:55 RPR NONREACTIVE (NONREACTIVE) 05/12/19 14:55 - Physical Exam Vitals and I&O: Vital Signs Temp 96.8 F 05/21/19 05:47 Pulse 69 05/21/19 09:03 Resp 18 05/21/19 05:47 BP 109/69 05/21/19 09:03 Pulse Ox 96 05/21/19 05:47 Intake & Output 05/20/19 05/21/19 05/21/19 18:59 06:59 18:59 Intake Total 700 60 Balance 700 60 Weight (lbs) 63.503 kg Intake: Oral 700 60 Other: # Voids 3 3 # Bowel Movements 0 0 Weight Source Bedscale Active Medications: Current Medications Acetaminophen (Tylenol) 650 mg PO Q4HR PRN PRN Reason: Mild Pain / Temp above 100 Stop: 07/12/19 15:36 Al Hydrox/Mg Hydrox/Simethicone (Maalox) 30 ml PO Q4HR PRN PRN Reason: GI DISTRESS Stop: 07/11/19 18:59 Last Admin: 05/18/19 11:17 Dose: 30 ml Al Hydrox/Mg Hydrox/Simethicone (Maalox) 30 ml PO BID ALEXANDRU Stop: 07/12/19 16:59 Last Admin: 05/21/19 09:01 Dose: Not Given Atorvastatin Calcium (Lipitor) 20 mg PO HS [facility]; Protocol Stop: 07/12/19 20:59 Last Admin: 05/20/19 20:30 Dose: 20 mg Bisacodyl (Dulcolax 10 Mg Supp) 10 mg RC DAILY PRN PRN Reason: Constipation Stop: 07/12/19 15:36 Cholecalciferol (Vitamin D3) 1,000 iu PO DAILY [facility] Stop: 07/13/19 08:59 Last Admin: 05/21/19 09:06 Dose: 1,000 iu Cyanocobalamin (Vitamin B12) 1,000 mcg PO DAILY [facility] Stop: 07/13/19 08:59 Last Admin: 05/21/19 09:06 Dose: 1,000 mcg Donepezil HCl (Aricept) 5 mg PO HS [facility] Stop: 07/12/19 20:59 Last Admin: 05/20/19 20:31 Dose: 5 mg Lactulose (Cephulac) 10 gm PO DAILY PRN PRN Reason: COMSTIPATION Stop: 07/12/19 15:36 Levothyroxine Sodium (Synthroid) 0.15 mg PO QDAC ALEXANDRU Stop: 07/13/19 07:29 Last Admin: 05/21/19 06:42 Dose: 0.15 mg Lisinopril (Zestril) 5 mg PO DAILY [facility] Stop: 07/13/19 08:59 Last Admin: 05/21/19 09:03 Dose: Not Given Lorazepam (Ativan) 0.5 mg PO Q4HR PRN; Protocol PRN Reason: Agitation Stop: 07/11/19 19:00 Magnesium Hydroxide (Milk Of Magnesia) 30 ml PO HS PRN PRN Reason: Constipation Mineral Oil (Fleet Mineral Oil) 135 ml RC Q2D PRN PRN Reason: IF MIRALAX INEFFECTIVE Stop: 07/12/19 15:36 Multivitamins/Vitamin C (Theragran) 1 tab PO DAILY [facility] Stop: 07/13/19 08:59 Last Admin: 05/21/19 09:06 Dose: 1 tab Nitroglycerin (Nitrostat) 0.4 mg SL Q5MIN PRN PRN Reason: Chest Pain Stop: 07/12/19 15:36 Pantoprazole Sodium (Protonix) 40 mg PO DAILY [facility] Stop: 07/18/19 08:59 Last Admin: 05/21/19 09:06 Dose: 40 mg Polyethylene Glycol (Miralax) 17 gm PO DAILY PRN PRN Reason: Constipation Stop: 07/12/19 15:36 Quetiapine Fumarate (Seroquel) 50 mg PO DAILY [facility]; Protocol Stop: 07/13/19 08:59 Last Admin: 05/21/19 09:07 Dose: 50 mg Quetiapine Fumarate 100 mg/ (Quetiapine Fumarate 50 mg) 150 mg PO HS [facility] Stop: 07/18/19 20:59 Last Admin: 05/20/19 20:31 Dose: 150 mg Simethicone (Mylicon) 80 mg PO DAILY PRN PRN Reason: Gas Stop: 07/12/19 15:36 Last Admin: 05/14/19 16:57 Dose: 80 mg Valproate Sodium (Depakene) 250 mg PO DAILY [facility]; Protocol Stop: 07/13/19 08:59 Last Admin: 05/21/19 09:07 Dose: 250 mg Valproate Sodium (Depakene) 375 mg PO HS [facility]; Protocol Stop: 07/12/19 20:59 Last Admin: 05/20/19 20:31 Dose: 375 mg Zolpidem Tartrate (Ambien) 5 mg PO HS PRN PRN Reason: Insomnia Stop: 07/11/19 18:59 Last Admin: 05/14/19 21:01 Dose: 5 mg General: demented HEENT: NC/AT, PERRLA, thinning hair, poor dentition Neck: Supple, No JVD Lungs: CTAB Cardiovascular: RRR, Normal S1, Normal S2, with murmur Abdomen: soft, non-tender, thin, non-distended, positive bowel sound Extremities: excoriation, contracture Neurological: no change Internal Medicine Assmt/Plan - Assessment Assessment: ASSESSMENT AND PLAN: Coronary artery disease, hypertension, hypercholesterolemia, osteoarthritis, hypothyroidism, gastroesophageal reflux disease, dementia, thin built, elevated triglyceride, gait instability. - Plan Plan: PLAN: Continue the patient on fall precaution. Currently on a geriatric chair. Continue nutritional support. Continue the patient on current antihypertensive medication on nitroglycerin. Continue Synthroid. Continue with current care. We will continue monitor the patient closely. Nutritional Asmnt/Malnutr-PDOC - Dietary Evaluation Malnutrition Findings (Please click <Entered> for more info): Nutritional Asmnt/Malnutrition Start: 05/15/19 14: 23 Text: Status: Active Freq: Protocol: Document 05/15/19 14:24 LEONA (Rec: 05/15/19 14:27 LEONA [email or web address]) Nutritional Asmnt/Malnutrition Patient General Information Diagnosis Psychosis Pertinent Medical Hx/Surgical Hx HTN, PUD/GERD, Dementia Subjective Information Pt is a 78-year-old male from residential facility admitted on 05/12 c/o increase agitation. Per Meal/Nutrition Activity Record, Pt PO intake 50% since admission. Spoke to PHYLICIA Hernadez and JUSTO Gonzales, Pt ate 100% breakfast and lunch today 05/15. Will continue to monitor on PO intake. HT: 57 WT: 140 LB (63.64 kg) BMI: 21.93 (Normal) GI: WNL, Soft, Non-Tender BM: 05/15 x1 I/O: 1320/Not Noted Skin: WNL, Intact Lester: 18 Diet Order: Pureed, CCHO 60 gm , CANDY Estimated Energy Needs: ( Geriatric, CBW) 0247-9567 kcals (25-30 kcals/ kg) 64-76 g Pro (1.0-1.2 g/kg) 1085-3418 ml (25-30 ml/kg) Pt is eating 50% of meals per Meal/Nutrition Activity Record . Dietary is currently providing an estimated 2220 kcals and 115 gm Pro, per Pt PO intake this is providing an estimated 1100 kcals and 58gm Pro to meet 68% kcal and 90% Pro needs- inadequate. Current Diet Order/ Nutrition Support Pureed, CCHO 60 gm, CANDY Pertinent Medications Maalox (PRN), Lipitor, Dulcolax (PRN), Vitamin D3, Vitamin B12, Cephulac (PRN), Synthroid, MOM (PRN), Theragran, Protonix, Miralax ( PRN) Pertinent Labs 05/12: Hgb/Hct 12.9/38.6, Na 132 , Glucose 113 Nutritional Hx/Data Height 1.7 m Height (Calculated Centimeters) 170.2 Current Weight (lbs) 63.503 kg Weight (Calculated Kilograms) 63.5 Weight (Calculated Grams) 79643.9 [place] Body Weight 66.1 kg % [place] Body Weight 96 Body Mass Index (BMI) 21.9 Weight Status Approriate GI Symptoms GI Symptoms None Skin Integrity/Comment: WNL, Intact Lester: 18 Current %PO Fair (50-74%) Estimated Nutritional Goals BEE in Kcals: Using Current wt Calories/Kcals/Kg 25-30 Kcals Calculated 9040-2065 Protein: Using Current wt Protein g/k.0-1.2 Protein Calculated 64-76 Fluid: ml 2811-6895 ml (25-30 ml/kg) Nutritional Problem No current Nutrition Prob Problem No nutrition diagnosis at this time. Etiology N/A Signs/Symptoms: N/A Malnutrition Related to Morbid Obesity Malnutrition related to morbid obesity No Intervention/Recommendation Comments 1.Continue with Pureed, CCHO 60 gm, CANDY diet as ordered. Expected Outcomes/Goals Expected Outcomes/Goals 1.PO intake to meet 75% of nutritional needs. 2.Monitor PO intake, wt, nutrition related labs, and skin integrity. 3.F/U as low risk in 7 days,
[2019-05-21] MEDS: Atorvastatin Calcium 10 MG TAB PO SCH (20:32)
--- NOTE | 2019-05-21 23:02 | Progress Notes ---
DATE: 05/21/2019 SUBJECTIVE: The patient was resting in bed, alert, quiet. The patient was less verbal this afternoon. The patient indicated that he has not been up out of bed today. When asked if he still hears voices or seeing things that other people cannot see or feeling that people are watching him, talking about him, out to get him, the patient nodded. When asked what the voices were saying, the patient appeared to be attempting to say something and in deep thinking; however, the patient was not able to come up with any verbal response. When asked if the voices sound like men and women, the patient tapped his chest to indicate that it's male voice. Again, when asked if he could say what the voices were saying, the patient was not able to give any answer. The patient indicated that he is eating and sleeping okay. OBJECTIVE: The patient continued to be calm and cooperative when talked to. The patient had been less physically active than when he first came in. The staff reported that the patient has not been out of bed today. The staff reported that the patient continued to be eating and sleeping okay and has been compliant with his medications. The staff reported that they have not observed the patient talking to himself or responding to internal stimuli. Staff reported that patient continued to be cooperative with care and treatment and taking his medication without any problem. ASSESSMENT: 1. 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 2. Psychotic disorder and mood disorder, depressed due to medical condition. 3. Impulse control disorder, not otherwise specified. 4. Personality change due to medical condition. PLAN: We will continue the patient on current medications and monitor for any exacerbation of his behavioral problems or psychotic problems. JOB# [id number] [email or web address]
[2019-05-22] MEDS: Levothyroxine 0.075 Mg Tab PO SCH (06:34)
[2019-05-22] MEDS: Maalox 30 mL Cup PO SCH ×2 (09:15→17:37)
[2019-05-22] MEDS: Multivitamin Tab PO SCH (09:15)
[2019-05-22] MEDS: Pantoprazole 40 mg/Packet PO SCH (09:15)
--- NOTE | 2019-05-22 12:10 | Progress Notes ---
DATE: 05/22/2019 SUBJECTIVE: The patient was resting in bed when approached. The patient responded to verbal stimuli. The patient sat up in bed when asked if he wants to eat his breakfast. The patient continued to be calm and cooperative. When asked if he still hears voices and seeing things and believing that people are watching him, talking about him, out to get him, the patient again nodded. Again, when asked what the voices were saying, the patient was not able to give any information. When asked if the voices continued to be as loud as before and saying the same thing, the patient nodded. The patient appeared to be thinking when asked what the voices were saying; however, the patient was not able to give any verbal response. The patient indicated that he has not been out of bed today. When asked if he will be willing to get up to move around, the patient nodded. The patient continued to indicate that he is eating and sleeping okay. OBJECTIVE: The patient continued to be calm and cooperative with increased self-isolation, staying in bed and not wanting to be up. The staff reported that the patient continued to be doing okay. No behavioral problem. The patient continued to be compliant with care and treatment and no episodes of agitation or aggression. 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 ASSESSMENT: 1. 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 2. Psychotic disorder and mood disorder, depressed due to medical condition. 3. Impulse control disorder, not otherwise specified. 4. Personality change due to medical condition. PLAN: We will continue the patient on current medication. Discussed with staff about encouraging the patient to get out of bed and to attend activity. If the patient continued to exhibit no behavioral problem and continued to be compliant with medications and care and treatment with plan to discharge the patient tomorrow. JOB# [id number] [email or web address]
--- NOTE | 2019-05-22 12:36 | Internal Medicine Prog Note ---
Internal Medicine Subjective - Subjective Patient seen and examined:: with staff, chart reviewed Patient is:: awake, non-verbal, interactive, teja chair Per staff patient has:: no adverse event, no episodes of fall, tolerating meds Internal Medicine Objective - Results Result Diagrams: 05/12/19 14:55 05/12/19 14:55 Recent Labs: Laboratory Last Values WBC 6.2 Th/cmm (4.8-10.8) 05/12/19 14:55 RBC 4.36 Mil/cmm (3.80-5.80) 05/12/19 14:55 Hgb 12.9 gm/dL (12-16) 05/12/19 14:55 Hct 38.6 % (41.0-60) L 05/12/19 14:55 MCV 88.4 fl (80-99) 05/12/19 14:55 MCH 29.6 pg (27.0-31.0) 05/12/19 14:55 MCHC Differential 33.4 pg (28.0-36.0) 05/12/19 14:55 RDW 14.1 % (11.5-20.0) 05/12/19 14:55 Plt Count 265 Th/cmm (150-400) 05/12/19 14:55 MPV 8.1 fl 05/12/19 14:55 Neutrophils % 53.0 % (40.0-80.0) 05/12/19 14:55 Lymphocytes % 27.7 % (20.0-50.0) 05/12/19 14:55 Monocytes % 14.0 % (2.0-10.0) H 05/12/19 14:55 Eosinophils % 4.7 % (0.0-5.0) 05/12/19 14:55 Basophils % 0.6 % (0.0-2.0) 05/12/19 14:55 Sodium 139 mEq/L (136-145) 05/12/19 14:55 Potassium 4.0 mEq/L (3.5-5.1) 05/12/19 14:55 Chloride 102 mEq/L (98-107) 05/12/19 14:55 Carbon Dioxide 27.9 mEq/L (21.0-31.0) 05/12/19 14:55 Anion Gap 13.1 (7.0-16.0) 05/12/19 14:55 BUN 21 mg/dL (7-25) 05/12/19 14:55 Creatinine 1.2 mg/dL (0.7-1.3) 05/12/19 14:55 Est GFR ( Amer) TNP 05/12/19 14:55 Est GFR (Non-Af Amer) TNP 05/12/19 14:55 BUN/Creatinine Ratio 17.5 05/12/19 14:55 Glucose 113 mg/dL (70-105) H 05/12/19 14:55 Calcium 9.1 mg/dL (8.6-10.3) 05/12/19 14:55 Total Bilirubin 0.3 mg/dL (0.3-1.0) 05/12/19 14:55 AST 15 U/L (13-39) 05/12/19 14:55 ALT 10 U/L (7-52) 05/12/19 14:55 Alkaline Phosphatase 56 U/L (34-104) 05/12/19 14:55 Total Protein 7.5 gm/dL (6.0-8.3) 05/12/19 14:55 Albumin 4.2 gm/dL (4.2-5.5) 05/12/19 14:55 Globulin 3.3 gm/dL 05/12/19 14:55 Albumin/Globulin Ratio 1.3 (1.0-1.8) 05/12/19 14:55 Triglycerides 274 mg/dL (<150) H 05/12/19 14:55 Cholesterol 124 mg/dL (<200) 05/12/19 14:55 LDL Cholesterol Direct 57 mg/dL (75-193) L 05/12/19 14:55 HDL Cholesterol 34 mg/dL (23-92) 05/12/19 14:55 TSH 1.11 uIU/ml (0.34-5.60) 05/12/19 14:55 RPR NONREACTIVE (NONREACTIVE) 05/12/19 14:55 - Physical Exam Vitals and I&O: Vital Signs Temp 97.1 F 05/22/19 06:28 Pulse 62 05/22/19 09:16 Resp 18 05/22/19 08:00 BP 135/67 05/22/19 09:16 Pulse Ox 96 05/22/19 06:28 Intake & Output 05/21/19 05/22/19 05/22/19 18:59 06:59 18:59 Intake Total 980 120 Balance 980 120 Intake: Oral 740 120 Other 240 Other: # Voids 4 3 # Bowel Movements 0 Active Medications: Current Medications Acetaminophen (Tylenol) 650 mg PO Q4HR PRN PRN Reason: Mild Pain / Temp above 100 Stop: 07/12/19 15:36 Al Hydrox/Mg Hydrox/Simethicone (Maalox) 30 ml PO Q4HR PRN PRN Reason: GI DISTRESS Stop: 07/11/19 18:59 Last Admin: 05/18/19 11:17 Dose: 30 ml Al Hydrox/Mg Hydrox/Simethicone (Maalox) 30 ml PO BID ALEXANDRU Stop: 07/12/19 16:59 Last Admin: 05/22/19 09:15 Dose: 30 ml Atorvastatin Calcium (Lipitor) 20 mg PO HS ALEXANDRU; Protocol Stop: 07/12/19 20:59 Last Admin: 05/21/19 20:32 Dose: 20 mg Bisacodyl (Dulcolax 10 Mg Supp) 10 mg RC DAILY PRN PRN Reason: Constipation Stop: 07/12/19 15:36 Cholecalciferol (Vitamin D3) 1,000 iu PO DAILY ALEXANDRU Stop: 07/13/19 08:59 Last Admin: 05/22/19 09:15 Dose: 1,000 iu Cyanocobalamin (Vitamin B12) 1,000 mcg PO DAILY ALEXANDRU Stop: 07/13/19 08:59 Last Admin: 05/22/19 09:16 Dose: 1,000 mcg Donepezil HCl (Aricept) 5 mg PO HS ALEXANDRU Stop: 07/12/19 20:59 Last Admin: 05/21/19 20:32 Dose: 5 mg Lactulose (Cephulac) 10 gm PO DAILY PRN PRN Reason: COMSTIPATION Stop: 07/12/19 15:36 Levothyroxine Sodium (Synthroid) 0.15 mg PO QDAC ALEXANDRU Stop: 07/13/19 07:29 Last Admin: 05/22/19 06:34 Dose: 0.15 mg Lisinopril (Zestril) 5 mg PO DAILY ALEXANDRU Stop: 07/13/19 08:59 Last Admin: 05/22/19 09:16 Dose: 5 mg Lorazepam (Ativan) 0.5 mg PO Q4HR PRN; Protocol PRN Reason: Agitation Stop: 07/11/19 19:00 Magnesium Hydroxide (Milk Of Magnesia) 30 ml PO HS PRN PRN Reason: Constipation Mineral Oil (Fleet Mineral Oil) 135 ml RC Q2D PRN PRN Reason: IF MIRALAX INEFFECTIVE Stop: 07/12/19 15:36 Multivitamins/Vitamin C (Theragran) 1 tab PO DAILY ALEXANDRU Stop: 07/13/19 08:59 Last Admin: 05/22/19 09:15 Dose: 1 tab Nitroglycerin (Nitrostat) 0.4 mg SL Q5MIN PRN PRN Reason: Chest Pain Stop: 07/12/19 15:36 Pantoprazole Sodium (Protonix) 40 mg PO DAILY ALEXANDRU Stop: 07/18/19 08:59 Last Admin: 05/22/19 09:15 Dose: 40 mg Polyethylene Glycol (Miralax) 17 gm PO DAILY PRN PRN Reason: Constipation Stop: 07/12/19 15:36 Quetiapine Fumarate (Seroquel) 50 mg PO DAILY ALEXANDRU; Protocol Stop: 07/13/19 08:59 Last Admin: 05/22/19 09:16 Dose: 50 mg Quetiapine Fumarate 100 mg/ (Quetiapine Fumarate 50 mg) 150 mg PO HS ALEXANDRU Stop: 07/18/19 20:59 Last Admin: 05/21/19 20:33 Dose: 150 mg Simethicone (Mylicon) 80 mg PO DAILY PRN PRN Reason: Gas Stop: 07/12/19 15:36 Last Admin: 05/14/19 16:57 Dose: 80 mg Valproate Sodium (Depakene) 250 mg PO DAILY ALEXANDRU; Protocol Stop: 07/13/19 08:59 Last Admin: 05/22/19 09:15 Dose: 250 mg Valproate Sodium (Depakene) 375 mg PO HS ALEXANDRU; Protocol Stop: 07/12/19 20:59 Last Admin: 05/21/19 20:33 Dose: 375 mg Zolpidem Tartrate (Ambien) 5 mg PO HS PRN PRN Reason: Insomnia Stop: 07/11/19 18:59 Last Admin: 05/14/19 21:01 Dose: 5 mg General: demented HEENT: NC/AT, PERRLA, thinning hair, poor dentition Neck: Supple, No JVD Lungs: CTAB Cardiovascular: RRR, Normal S1, Normal S2, with murmur Abdomen: soft, non-tender, thin, non-distended, positive bowel sound Extremities: excoriation, contracture Neurological: no change Internal Medicine Assmt/Plan - Assessment Assessment: ASSESSMENT AND PLAN: Coronary artery disease, hypertension, hypercholesterolemia, osteoarthritis, hypothyroidism, gastroesophageal reflux disease, dementia, thin built, elevated triglyceride, gait instability. - Plan Plan: PLAN: Continue the patient on fall precaution. Currently on a geriatric chair. Continue nutritional support. Continue the patient on current antihypertensive medication on nitroglycerin. Continue Synthroid. Continue with current care. We will continue monitor the patient closely. Nutritional Asmnt/Malnutr-PDOC - Dietary Evaluation Malnutrition Findings (Please click <Entered> for more info): Nutritional Asmnt/Malnutrition Start: 05/15/19 14: 23 Text: Status: Active Freq: Protocol: Document 05/15/19 14:24 LEONA (Rec: 05/15/19 14:27 LEONA [email or web address]) Nutritional Asmnt/Malnutrition Patient General Information Diagnosis Psychosis Pertinent Medical Hx/Surgical Hx HTN, PUD/GERD, Dementia Subjective Information Pt is a 78-year-old male from residential facility admitted on 05/12 c/o increase agitation. Per Meal/Nutrition Activity Record, Pt PO intake 50% since admission. Spoke to PHYLICIA Hernadez and JUSTO Gonzales, Pt ate 100% breakfast and lunch today 05/15. Will continue to monitor on PO intake. HT: 57 WT: 140 LB (63.64 kg) BMI: 21.93 (Normal) GI: WNL, Soft, Non-Tender BM: 05/15 x1 I/O: 1320/Not Noted Skin: WNL, Intact Lester: 18 Diet Order: Pureed, CCHO 60 gm , CANDY Estimated Energy Needs: ( Geriatric, CBW) 7701-9812 kcals (25-30 kcals/ kg) 64-76 g Pro (1.0-1.2 g/kg) 6467-2103 ml (25-30 ml/kg) Pt is eating 50% of meals per Meal/Nutrition Activity Record . Dietary is currently providing an estimated 2220 kcals and 115 gm Pro, per Pt PO intake this is providing an estimated 1100 kcals and 58gm Pro to meet 68% kcal and 90% Pro needs- inadequate. Current Diet Order/ Nutrition Support Pureed, CCHO 60 gm, CANDY Pertinent Medications Maalox (PRN), Lipitor, Dulcolax (PRN), Vitamin D3, Vitamin B12, Cephulac (PRN), Synthroid, MOM (PRN), Theragran, Protonix, Miralax ( PRN) Pertinent Labs 05/12: Hgb/Hct 12.9/38.6, Na 132 , Glucose 113 Nutritional Hx/Data Height 1.7 m Height (Calculated Centimeters) 170.2 Current Weight (lbs) 63.503 kg Weight (Calculated Kilograms) 63.5 Weight (Calculated Grams) 20762.9 [place] Body Weight 66.1 kg % [place] Body Weight 96 Body Mass Index (BMI) 21.9 Weight Status Approriate GI Symptoms GI Symptoms None Skin Integrity/Comment: WNL, Intact Lester: 18 Current %PO Fair (50-74%) Estimated Nutritional Goals BEE in Kcals: Using Current wt Calories/Kcals/Kg 25-30 Kcals Calculated 5956-1372 Protein: Using Current wt Protein g/k.0-1.2 Protein Calculated 64-76 Fluid: ml 4509-0013 ml (25-30 ml/kg) Nutritional Problem No current Nutrition Prob Problem No nutrition diagnosis at this time. Etiology N/A Signs/Symptoms: N/A Malnutrition Related to Morbid Obesity Malnutrition related to morbid obesity No Intervention/Recommendation Comments 1.Continue with Pureed, CCHO 60 gm, CANDY diet as ordered. Expected Outcomes/Goals Expected Outcomes/Goals 1.PO intake to meet 75% of nutritional needs. 2.Monitor PO intake, wt, nutrition related labs, and skin integrity. 3.F/U as low risk in 7 days,
[2019-05-22] MEDS: Atorvastatin Calcium 10 MG TAB PO SCH (21:41)
[2019-05-23] MEDS: Levothyroxine 0.075 Mg Tab PO SCH (06:40)
[2019-05-23] MEDS: Pantoprazole 40 mg/Packet PO SCH (09:39)
[2019-05-23] MEDS: Maalox 30 mL Cup PO SCH (09:39)
[2019-05-23] MEDS: Multivitamin Tab PO SCH (09:40)
--- NOTE | 2019-05-23 12:53 | Internal Medicine Prog Note ---
Internal Medicine Subjective - Subjective Patient seen and examined:: with staff, chart reviewed Patient is:: awake, non-verbal, interactive, teja chair Per staff patient has:: no adverse event, no episodes of fall, tolerating meds Internal Medicine Objective - Results Result Diagrams: 05/12/19 14:55 05/12/19 14:55 Recent Labs: Laboratory Last Values WBC 6.2 Th/cmm (4.8-10.8) 05/12/19 14:55 RBC 4.36 Mil/cmm (3.80-5.80) 05/12/19 14:55 Hgb 12.9 gm/dL (12-16) 05/12/19 14:55 Hct 38.6 % (41.0-60) L 05/12/19 14:55 MCV 88.4 fl (80-99) 05/12/19 14:55 MCH 29.6 pg (27.0-31.0) 05/12/19 14:55 MCHC Differential 33.4 pg (28.0-36.0) 05/12/19 14:55 RDW 14.1 % (11.5-20.0) 05/12/19 14:55 Plt Count 265 Th/cmm (150-400) 05/12/19 14:55 MPV 8.1 fl 05/12/19 14:55 Neutrophils % 53.0 % (40.0-80.0) 05/12/19 14:55 Lymphocytes % 27.7 % (20.0-50.0) 05/12/19 14:55 Monocytes % 14.0 % (2.0-10.0) H 05/12/19 14:55 Eosinophils % 4.7 % (0.0-5.0) 05/12/19 14:55 Basophils % 0.6 % (0.0-2.0) 05/12/19 14:55 Sodium 139 mEq/L (136-145) 05/12/19 14:55 Potassium 4.0 mEq/L (3.5-5.1) 05/12/19 14:55 Chloride 102 mEq/L (98-107) 05/12/19 14:55 Carbon Dioxide 27.9 mEq/L (21.0-31.0) 05/12/19 14:55 Anion Gap 13.1 (7.0-16.0) 05/12/19 14:55 BUN 21 mg/dL (7-25) 05/12/19 14:55 Creatinine 1.2 mg/dL (0.7-1.3) 05/12/19 14:55 Est GFR ( Amer) TNP 05/12/19 14:55 Est GFR (Non-Af Amer) TNP 05/12/19 14:55 BUN/Creatinine Ratio 17.5 05/12/19 14:55 Glucose 113 mg/dL (70-105) H 05/12/19 14:55 Calcium 9.1 mg/dL (8.6-10.3) 05/12/19 14:55 Total Bilirubin 0.3 mg/dL (0.3-1.0) 05/12/19 14:55 AST 15 U/L (13-39) 05/12/19 14:55 ALT 10 U/L (7-52) 05/12/19 14:55 Alkaline Phosphatase 56 U/L (34-104) 05/12/19 14:55 Total Protein 7.5 gm/dL (6.0-8.3) 05/12/19 14:55 Albumin 4.2 gm/dL (4.2-5.5) 05/12/19 14:55 Globulin 3.3 gm/dL 05/12/19 14:55 Albumin/Globulin Ratio 1.3 (1.0-1.8) 05/12/19 14:55 Triglycerides 274 mg/dL (<150) H 05/12/19 14:55 Cholesterol 124 mg/dL (<200) 05/12/19 14:55 LDL Cholesterol Direct 57 mg/dL (75-193) L 05/12/19 14:55 HDL Cholesterol 34 mg/dL (23-92) 05/12/19 14:55 TSH 1.11 uIU/ml (0.34-5.60) 05/12/19 14:55 RPR NONREACTIVE (NONREACTIVE) 05/12/19 14:55 - Physical Exam Vitals and I&O: Vital Signs Temp 98.1 F 05/23/19 06:59 Pulse 63 05/23/19 09:40 Resp 20 05/23/19 06:59 BP 112/66 05/23/19 09:40 Pulse Ox 96 05/23/19 06:59 Intake & Output 05/22/19 05/23/19 05/23/19 18:59 06:59 18:59 Intake Total 575 240 Balance 575 240 Intake: Oral 575 240 Other: # Voids 3 1 Active Medications: Current Medications Acetaminophen (Tylenol) 650 mg PO Q4HR PRN PRN Reason: Mild Pain / Temp above 100 Stop: 07/12/19 15:36 Al Hydrox/Mg Hydrox/Simethicone (Maalox) 30 ml PO Q4HR PRN PRN Reason: GI DISTRESS Stop: 07/11/19 18:59 Last Admin: 05/18/19 11:17 Dose: 30 ml Al Hydrox/Mg Hydrox/Simethicone (Maalox) 30 ml PO BID ALEXANDRU Stop: 07/12/19 16:59 Last Admin: 05/23/19 09:39 Dose: 30 ml Atorvastatin Calcium (Lipitor) 20 mg PO HS ALEXANDRU; Protocol Stop: 07/12/19 20:59 Last Admin: 05/22/19 21:41 Dose: 20 mg Bisacodyl (Dulcolax 10 Mg Supp) 10 mg RC DAILY PRN PRN Reason: Constipation Stop: 07/12/19 15:36 Cholecalciferol (Vitamin D3) 1,000 iu PO DAILY ALEXANDRU Stop: 07/13/19 08:59 Last Admin: 05/23/19 09:39 Dose: 1,000 iu Cyanocobalamin (Vitamin B12) 1,000 mcg PO DAILY ALEXANDRU Stop: 07/13/19 08:59 Last Admin: 05/23/19 09:39 Dose: 1,000 mcg Donepezil HCl (Aricept) 5 mg PO HS ALEXANDRU Stop: 07/12/19 20:59 Last Admin: 05/22/19 21:41 Dose: 5 mg Lactulose (Cephulac) 10 gm PO DAILY PRN PRN Reason: COMSTIPATION Stop: 07/12/19 15:36 Levothyroxine Sodium (Synthroid) 0.15 mg PO QDAC ALEXANDRU Stop: 07/13/19 07:29 Last Admin: 05/23/19 06:40 Dose: 0.15 mg Lisinopril (Zestril) 5 mg PO DAILY ALEXANDRU Stop: 07/13/19 08:59 Last Admin: 05/23/19 09:40 Dose: 5 mg Lorazepam (Ativan) 0.5 mg PO Q4HR PRN; Protocol PRN Reason: Agitation Stop: 07/11/19 19:00 Magnesium Hydroxide (Milk Of Magnesia) 30 ml PO HS PRN PRN Reason: Constipation Mineral Oil (Fleet Mineral Oil) 135 ml RC Q2D PRN PRN Reason: IF MIRALAX INEFFECTIVE Stop: 07/12/19 15:36 Multivitamins/Vitamin C (Theragran) 1 tab PO DAILY ALEXANDRU Stop: 07/13/19 08:59 Last Admin: 05/23/19 09:40 Dose: 1 tab Nitroglycerin (Nitrostat) 0.4 mg SL Q5MIN PRN PRN Reason: Chest Pain Stop: 07/12/19 15:36 Pantoprazole Sodium (Protonix) 40 mg PO DAILY ALEXANDRU Stop: 07/18/19 08:59 Last Admin: 05/23/19 09:39 Dose: 40 mg Polyethylene Glycol (Miralax) 17 gm PO DAILY PRN PRN Reason: Constipation Stop: 07/12/19 15:36 Quetiapine Fumarate (Seroquel) 50 mg PO DAILY ALEXANDRU; Protocol Stop: 07/13/19 08:59 Last Admin: 05/23/19 09:39 Dose: 50 mg Quetiapine Fumarate 100 mg/ (Quetiapine Fumarate 50 mg) 150 mg PO HS ALEXANDRU Stop: 07/18/19 20:59 Last Admin: 05/22/19 21:41 Dose: 150 mg Simethicone (Mylicon) 80 mg PO DAILY PRN PRN Reason: Gas Stop: 07/12/19 15:36 Last Admin: 05/14/19 16:57 Dose: 80 mg Valproate Sodium (Depakene) 250 mg PO DAILY ALEXANDRU; Protocol Stop: 07/13/19 08:59 Last Admin: 05/23/19 09:39 Dose: 250 mg Valproate Sodium (Depakene) 375 mg PO HS ALEXANDRU; Protocol Stop: 07/12/19 20:59 Last Admin: 05/22/19 21:41 Dose: 375 mg Zolpidem Tartrate (Ambien) 5 mg PO HS PRN PRN Reason: Insomnia Stop: 07/11/19 18:59 Last Admin: 05/14/19 21:01 Dose: 5 mg General: demented HEENT: NC/AT, PERRLA, thinning hair, poor dentition Neck: Supple, No JVD Lungs: CTAB Cardiovascular: RRR, Normal S1, Normal S2, with murmur Abdomen: soft, non-tender, thin, non-distended, positive bowel sound Extremities: excoriation, contracture Neurological: no change Internal Medicine Assmt/Plan - Assessment Assessment: ASSESSMENT AND PLAN: Coronary artery disease, hypertension, hypercholesterolemia, osteoarthritis, hypothyroidism, gastroesophageal reflux disease, dementia, thin built, elevated triglyceride, gait instability. - Plan Plan: PLAN: Continue the patient on fall precaution. Currently on a geriatric chair. Continue nutritional support. Continue the patient on current antihypertensive medication on nitroglycerin. Continue Synthroid. Continue with current care. We will continue monitor the patient closely. Nutritional Asmnt/Malnutr-PDOC - Dietary Evaluation Malnutrition Findings (Please click <Entered> for more info): Nutritional Asmnt/Malnutrition Start: 05/15/19 14: 23 Text: Status: Active Freq: Protocol: Document 05/15/19 14:24 LEONA (Rec: 05/15/19 14:27 LEONA [email or web address]) Nutritional Asmnt/Malnutrition Patient General Information Diagnosis Psychosis Pertinent Medical Hx/Surgical Hx HTN, PUD/GERD, Dementia Subjective Information Pt is a 78-year-old male from residential facility admitted on 05/12 c/o increase agitation. Per Meal/Nutrition Activity Record, Pt PO intake 50% since admission. Spoke to PHYLICIA Hernadez and JUSTO Gonzales, Pt ate 100% breakfast and lunch today 05/15. Will continue to monitor on PO intake. HT: 57 WT: 140 LB (63.64 kg) BMI: 21.93 (Normal) GI: WNL, Soft, Non-Tender BM: 05/15 x1 I/O: 1320/Not Noted Skin: WNL, Intact Lester: 18 Diet Order: Pureed, CCHO 60 gm , CANDY Estimated Energy Needs: ( Geriatric, CBW) 9384-0680 kcals (25-30 kcals/ kg) 64-76 g Pro (1.0-1.2 g/kg) 9742-2277 ml (25-30 ml/kg) Pt is eating 50% of meals per Meal/Nutrition Activity Record . Dietary is currently providing an estimated 2220 kcals and 115 gm Pro, per Pt PO intake this is providing an estimated 1100 kcals and 58gm Pro to meet 68% kcal and 90% Pro needs- inadequate. Current Diet Order/ Nutrition Support Pureed, CCHO 60 gm, CANDY Pertinent Medications Maalox (PRN), Lipitor, Dulcolax (PRN), Vitamin D3, Vitamin B12, Cephulac (PRN), Synthroid, MOM (PRN), Theragran, Protonix, Miralax ( PRN) Pertinent Labs 05/12: Hgb/Hct 12.9/38.6, Na 132 , Glucose 113 Nutritional Hx/Data Height 1.7 m Height (Calculated Centimeters) 170.2 Current Weight (lbs) 63.503 kg Weight (Calculated Kilograms) 63.5 Weight (Calculated Grams) 48636.9 [place] Body Weight 66.1 kg % [place] Body Weight 96 Body Mass Index (BMI) 21.9 Weight Status Approriate GI Symptoms GI Symptoms None Skin Integrity/Comment: WNL, Intact Lester: 18 Current %PO Fair (50-74%) Estimated Nutritional Goals BEE in Kcals: Using Current wt Calories/Kcals/Kg 25-30 Kcals Calculated 4195-7713 Protein: Using Current wt Protein g/k.0-1.2 Protein Calculated 64-76 Fluid: ml 4382-8308 ml (25-30 ml/kg) Nutritional Problem No current Nutrition Prob Problem No nutrition diagnosis at this time. Etiology N/A Signs/Symptoms: N/A Malnutrition Related to Morbid Obesity Malnutrition related to morbid obesity No Intervention/Recommendation Comments 1.Continue with Pureed, CCHO 60 gm, CANDY diet as ordered. Expected Outcomes/Goals Expected Outcomes/Goals 1.PO intake to meet 75% of nutritional needs. 2.Monitor PO intake, wt, nutrition related labs, and skin integrity. 3.F/U as low risk in 7 days,
--- NOTE | 2019-05-23 19:52 | Discharge Summary ---
DATE OF DISCHARGE: 05/23/2019 REASON FOR ADMISSION: The patient was admitted for increased episodes of agitation and aggression at [facility]. HISTORY OF PRESENT ILLNESS: The patient is a 78-year-old male who is a resident of [facility]. On the day of admission, the staff called to request inpatient treatment because of increased agitation and aggression with episodes of being combative with the staff. Upon interview, the patient appeared to be a poor historian. The patient has difficulty expressing himself verbally. The patient was able to give his first and last name. His speech was mostly very soft and mumbling, difficult to understand most of the time. The patient was not able to say why he is here or where he was staying prior to coming here. At times, his speech was loud enough and clear enough to be understood. MENTAL STATUS EXAM: The patient appeared appropriate for stated age. The patient was cooperative, maintained good eye contact. Speech was soft and low in volume that was difficult to understand most of the time. The patient was unable to repeat the 4 items or recall them after a few minutes. Concentration: appeared to be adequate; however, the patient was unable to perform any of the serial 3 subtraction. The patient was unable to interpret any of the 3 proverbs. Insight: poor. Judgment: impaired. The patient indicated that he continued to hear voices, seeing things and having different delusions; however, the patient was unable to give any information at all as to what he was hearing, seeing, or what kind of delusion he has. MEDICAL HISTORY: Hyperlipidemia, hypothyroidism, hypertension and gastroesophageal reflux disease. LABORATORY RESULTS: On admission, the patient has CBC, which has hematocrit of 38.6, slightly low; monocytes 14.0, slightly elevated. Chemistry panel showed glucose of 113, slightly elevated; triglyceride 274, elevated and LDL 57, slightly low. The rest were normal. RPR nonreactive. Culture and sensitivity showed no MRSA isolated. Upon admission, the patient was started on his routine medications including Tylenol, simethicone, atorvastatin, bisacodyl, cholecalciferol, cyanocobalamin, Aricept 5 mg at bedtime, lactulose, levothyroxine, lisinopril, Ativan 0.5 mg q. 4 hours p.r.n., magnesium hydroxide, mineral oil, multiple vitamin, nitroglycerin, Protonix, polyethylene glycol, Seroquel 50 mg daily and 100 mg at bedtime, Depakote 250 mg daily and 375 mg at bedtime and Ambien 5 mg at bedtime p.r.n. HOSPITAL COURSE: After admission, the patient remained cooperative with care and treatment. The patient continued to have difficulty responding verbally. The patient continued to indicate that he has auditory, visual hallucination and delusion. However, the patient continued to have difficulty giving any information. The patient continued to indicate that the symptoms are severe. Therefore his Seroquel was increased to 50 mg q.a.m. and 150 mg at bedtime. Even with increased Seroquel, the patient continued to indicate that he still hears voices, seeing things and having delusions. The patient continued to be cooperative with care and treatment. Initially, the patient would be up ambulating slowly with somewhat unsteady gait. However, for the last 3-4 days before discharge, the patient tended to isolate himself, staying in bed most of the time, but no recurrent behavioral problems. Since the patient show no exacerbation of behavioral issue or any psychotic symptoms; therefore, the patient was discharged on 05/23/2019 back to [facility]. CONDITION AT THE TIME OF DISCHARGE: The patient was discharged in stable condition with no recurrent aggressive behavior. MEDICATIONS UPON DISCHARGE: The patient was discharged on simethicone, magnesium hydroxide, Ambien 5 mg at bedtime p.r.n., Ativan 0.5 mg q. 4 hours p.r.n., Tylenol, bisacodyl, lactulose, mineral oil enema, nitroglycerin, polyethylene glycol, atorvastatin, Aricept 5 mg at bedtime, Depakote 250 mg q.a.m. and 375 mg at bedtime, levothyroxine, cholecalciferol, cyanocobalamin, lisinopril, multiple vitamins, Seroquel 50 mg q.a.m. and 150 mg at bedtime, Protonix. FINAL DIAGNOSES: 1. 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 2. Psychotic disorder and mood disorder, depressed due to medical condition. 3. Impulse control disorder, not otherwise specified. 4. Personality change due to medical condition. [facility]# [id number] [facility]
== END 2019-05-23 15:45 | DRG 57 ==
LOC: ER 14:29 → GERO 15:55
PROVIDERS: ADMIT Psychiatry & Neurology Psychiatry; ATTEND Psychiatry & Neurology Psychiatry
DX: G30.9 Alzheimer's disease, unspecified (principal); F02.81 Dementia in other diseases classified elsewhere, unspecified severity, with behavioral disturbance; F23 Brief psychotic disorder; F63.9 Impulse disorder, unspecified; F06.8 Other specified mental disorders due to known physiological condition; F39 Unspecified mood [affective] disorder; I25.10 Atherosclerotic heart disease of native coronary artery without angina pectoris; E11.9 Type 2 diabetes mellitus without complications; M19.90 Unspecified osteoarthritis, unspecified site; E03.9 Hypothyroidism, unspecified; K21.9 Gastro-esophageal reflux disease without esophagitis; E78.5 Hyperlipidemia, unspecified; I10 Essential (primary) hypertension; E78.00 Pure hypercholesterolemia, unspecified; Z87.11 Personal history of peptic ulcer disease; Z79.899 Other long term (current) drug therapy
CPT/HCPCS: 36415-UA; 71045-TC; 80053-TC; 80061-TC; 83036-90; 84443-TC; 85025-TC; 86592-TC; 93005; G0410; Z7610

== ENCOUNTER 2019-06-27 22:29 | Inpatient (IN) | payer MEDICARE, MEDICAID ==
[2019-06-28 17:10] VITALS: BP 150/97
[2019-06-28] MEDS ORDERED: Maalox 30 mL Cup PO PRN (17:20)
[2019-06-28] MEDS ORDERED: Magnesium Hydroxide (MOM) 30 mL UDC PO PRN (17:20)
[2019-06-28] MEDS: Atorvastatin Calcium 10 MG TAB PO SCH (23:53)
[2019-06-29] MEDS: Pantoprazole 40 mg EC Tab PO SCH (07:02)
[2019-06-29] MEDS: Levothyroxine 0.075 Mg Tab PO SCH (07:02)
[2019-06-29] MEDS: Multivitamin Tab PO SCH (08:39)
--- NOTE | 2019-06-29 17:16 | History & Physical ---
ADMIT DATE: 06/29/2019 CHIEF COMPLAINT: Medical evaluation for a patient who is admitted in inpatient Geropsych Unit. HISTORY OF PRESENT ILLNESS: This is a 79-year-old male who is medically cleared from [facility] with a past medical history of schizoaffective disorder, hypothyroidism, hyperlipidemia, GERD, major depressive disorder, dementia, auditory hallucinations, restlessness and agitation. The patient is a custodial resident, who apparently has been agitated. For this reason, the patient is now here admitted to the Geropsych Unit. PAST MEDICAL HISTORY: As mentioned in history of present illness. Hypothyroidism. PAST SURGICAL HISTORY: None per patient. ALLERGIES: No drug allergies. HOME MEDICATIONS: Lipitor 20 mg p.o. at bedtime, vitamin D3 1000 International Units p.o. daily, vitamin B12 1000 mcg p.o. daily, Aricept 5 mg p.o. at bedtime, Synthroid 0.15 mg p.o. q.a.c., Zestril 5 mg p.o. daily, Protonix 40 mg p.o. daily, Seroquel 100 mg p.o. at bedtime and Depakene 375 mg p.o. at bedtime. SOCIAL HISTORY: The patient is a custodial resident. REVIEW OF SYSTEMS: GENERAL: Denies any fevers or chills. CARDIOVASCULAR: Denies chest pain. RESPIRATORY: Denies shortness of breath. GASTROINTESTINAL: Denies nausea, vomiting or abdominal pain. GENITOURINARY: Denies increased frequency or dysuria. NEUROLOGIC: No headache, seizure or syncope. All other systems are reviewed and are negative. PHYSICAL EXAMINATION: GENERAL: Elderly male, awake, alert with some confusion. No apparent distress. VITAL SIGNS: Temperature 97.8, heart rate 81, blood pressure 139/59, respirations 20, O2 95%. HEENT: Head normocephalic, atraumatic. NECK: Supple. No mass. LUNGS: Clear bilaterally. HEART: Regular rate and rhythm. ABDOMEN: Soft, nontender, nondistended. EXTREMITIES: No edema noted. ASSESSMENT: Gastroesophageal reflux disease, major depressive disorder, dementia, hyperlipidemia, hypothyroidism and agitation. PLAN: We will continue the patient's home medications. Fall precautions will be initiated. We will follow the patient along with you. Thank you Dr. Ta. JOB# [id number]
--- NOTE | 2019-06-29 19:54 | Psychiatric Evaluation ---
DATE OF SERVICE: 06/29/2019 IDENTIFYING DATA: The patient is a 79-year-old male, resident of [facility]. Information obtained by directly interviewing the patient as well as reviewing the admission papers and they are reliable. JUSTIFICATION OF HOSPITALIZATION: The patient is admitted here on a voluntary basis in view of his acute agitation and aggressive behavior and striking out at the staff. Chart is reviewed. The patient is interviewed. The patient has been selectively mute and has not been giving much of information. The patient has been sent to the [facility] on the way before the admission and the patient was medically cleared over there. The patient at this time has been having difficult time to give me any information. Review of the chart indicated that the patient had been here in the month of May. Following the discharge, the patient is being followed up by Dr. Ta on an outpatient basis. During the interview, the patient has been isolative and withdrawn and is not willing to get out of his bed. The patient has been keeping quiet and then nodding his head up and down and has not been able to provide me much of information except him nodding that he has slept well and had his breakfast. When I asked him about him getting aggressive and trying to hit the staff members, the patient is looking elsewhere and is not answering the questions. PAST PSYCHIATRIC HISTORY: The patient has been diagnosed to have the Alzheimer dementia and behavioral problems and was hospitalized in here. MEDICAL HISTORY: Physical examination is requested to be done by Dr. Waite significant for hyperlipidemia, hypothyroidism, hypertension, and GERD. CURRENT MEDICATIONS: Prior to being hospitalized, the patient has been on Seroquel and Depakote and the patient also has been getting the antihypertensive medications. SUBSTANCE ABUSE HISTORY: None. PHYSICAL OR SEXUAL ABUSE HISTORY: None. LEGAL PROBLEMS: None at this time. STRENGTH AND ASSETS: The patient is motivated. MENTAL STATUS EXAMINATION: The patient is a 79-year-old thin built, superficially cooperative. Eye contact is poor. Mood is noted to be irritable. Affect is constricted. The patient is quiet and selectively mute and is not able to provide much of information. Review of the chart indicated that the patient is reported to have been aggressive and assaultive towards the staff members, kicking and screaming at them. The patient, however, at this time is selectively mute. I am not able to get full details about his mental status examination. The patient's behavior is likely a danger to others and the patient is gravely disabled. 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 AXIS II: None. AXIS III: As per Dr. Waite. IMMEDIATE TREATMENT PLAN: The patient is going to be observed on the inpatient unit, provided with supportive psychotherapy. The patient is going to be closely monitored. I encouraged him to verbalize the concerns rather than to act out. Once stabilized, the [facility] on an outpatient basis. JOB# [id number]
[2019-06-29] MEDS: Atorvastatin Calcium 10 MG TAB PO SCH (21:51)
[2019-06-30] MEDS: Levothyroxine 0.075 Mg Tab PO SCH (06:59)
[2019-06-30] MEDS: Pantoprazole 40 mg EC Tab PO SCH (06:59)
[2019-06-30] MEDS: Multivitamin Tab PO SCH (08:29)
--- NOTE | 2019-06-30 12:39 | Internal Medicine Prog Note ---
Internal Medicine Subjective - Subjective Patient seen and examined:: with staff, chart reviewed Patient is:: awake, verbal, non-interactive, in wheelchair, denies any new complaints Per staff patient has:: no adverse event, no episodes of fall, poor appetite, tolerating meds Internal Medicine Objective - Physical Exam Vitals and I&O: Vital Signs Temp 97.0 F 06/30/19 06:48 Pulse 105 06/30/19 08:29 Resp 18 06/30/19 08:00 BP 126/79 06/30/19 08:29 Pulse Ox 96 06/30/19 06:48 Intake & Output 06/29/19 06/30/19 06/30/19 18:59 06:59 18:59 Intake Total 950 160 Balance 950 160 Intake: Oral 950 160 Other: # Voids 1 # Bowel Movements 0 Active Medications: Current Medications Acetaminophen (Tylenol) 650 mg PO Q4HR PRN PRN Reason: Mild Pain / Temp above 100 Stop: 08/27/19 17:19 Al Hydrox/Mg Hydrox/Simethicone (Maalox) 30 ml PO Q4HR PRN PRN Reason: GI DISTRESS Stop: 08/27/19 17:19 Atorvastatin Calcium (Lipitor) 20 mg PO HS ALEXANDRU; Protocol Stop: 08/27/19 20:59 Last Admin: 06/29/19 21:51 Dose: 20 mg Cholecalciferol (Vitamin D3) 1,000 iu PO DAILY ALEXANDRU Stop: 08/28/19 08:59 Last Admin: 06/30/19 08:29 Dose: 1,000 iu Cyanocobalamin (Vitamin B12) 1,000 mcg PO DAILY ALEXANDRU Stop: 08/28/19 08:59 Last Admin: 06/30/19 08:29 Dose: 1,000 mcg Donepezil HCl (Aricept) 5 mg PO HS ALEXANDRU Stop: 08/27/19 20:59 Last Admin: 06/29/19 21:51 Dose: 5 mg Levothyroxine Sodium (Synthroid) 0.15 mg PO QDAC ALEXANDRU Stop: 08/28/19 07:29 Last Admin: 06/30/19 06:59 Dose: 0.15 mg Lisinopril (Zestril) 5 mg PO DAILY ALEXANDRU Stop: 08/28/19 08:59 Last Admin: 06/30/19 08:29 Dose: 5 mg Lorazepam (Ativan) 0.5 mg PO Q6HR PRN; Protocol PRN Reason: Agitation Stop: 08/27/19 17:23 Last Admin: 06/30/19 08:29 Dose: 0.5 mg Magnesium Hydroxide (Milk Of Magnesia) 30 ml PO HS PRN PRN Reason: Constipation Multivitamins/Vitamin C (Theragran) 1 tab PO DAILY ALEXANDRU Stop: 08/28/19 08:59 Last Admin: 06/30/19 08:29 Dose: 1 tab Nitroglycerin (Nitrostat) 0.4 mg SL Q5MIN PRN PRN Reason: Chest Pain Stop: 08/27/19 20:33 Pantoprazole Sodium (Protonix) 40 mg PO QDAC ALEXANDRU Stop: 08/28/19 07:29 Last Admin: 06/30/19 06:59 Dose: 40 mg Quetiapine Fumarate (Seroquel) 100 mg PO HS ALEXANDRU; Protocol Stop: 08/27/19 20:59 Last Admin: 06/29/19 21:51 Dose: 100 mg Valproate Sodium (Depakene) 375 mg PO HS ALEXANDRU; Protocol Stop: 08/27/19 20:59 Last Admin: 06/29/19 21:51 Dose: 375 mg Zolpidem Tartrate (Ambien) 5 mg PO HS PRN PRN Reason: Insomnia Stop: 08/27/19 17:19 Last Admin: 06/29/19 01:25 Dose: 5 mg General: demented, disheveled, thin HEENT: NC/AT, PERRLA Neck: Supple, No JVD Lungs: CTAB Cardiovascular: RRR, Normal S1, Normal S2, with murmur Abdomen: soft, thin, non-distended, positive bowel sound Extremities: excoriation, contracture Neurological: no change Internal Medicine Assmt/Plan - Assessment Assessment: ASSESSMENT: Gastroesophageal reflux disease, major depressive disorder, dementia, hyperlipidemia, hypothyroidism and agitation. general debility - Plan Plan: PLAN: will provide adequate nutritional support aspiration precaution We will continue the patient's home medications. Fall precautions will be initiated. We will follow the patient along with you
[2019-06-30] MEDS: Atorvastatin Calcium 10 MG TAB PO SCH (21:35)
--- NOTE | 2019-07-01 00:38 | Progress Notes ---
DATE: 06/30/2019 PSYCHIATRIC PROGRESS NOTE SUBJECTIVE: Staff was spoken to. The patient is interviewed. Mood is noted to be anxious. The patient is still selectively mute. Insight and judgment at this time are noted to be still impaired. Impulse control is noted to be limited. Coping skills are noted to be limited. ASSESSMENT: The patient is still paranoid. PLAN: To continue the patient with the current medications. I encouraged the patient to verbalize the concerns rather than to act out. The patient is selectively mute at this time. The patient is currently on Seroquel 100 mg at bedtime. We will continue the medication and followup. JOB# [id number]
[2019-07-01] MEDS: Pantoprazole 40 mg EC Tab PO SCH (06:39)
[2019-07-01] MEDS: Levothyroxine 0.075 Mg Tab PO SCH (06:39)
[2019-07-01] MEDS: Multivitamin Tab PO SCH (08:45)
--- NOTE | 2019-07-01 13:05 | Internal Medicine Prog Note ---
Internal Medicine Subjective - Subjective Patient seen and examined:: with staff, chart reviewed Patient is:: awake, verbal, non-interactive, in wheelchair, denies any new complaints Per staff patient has:: no adverse event, no episodes of fall, poor appetite, tolerating meds Internal Medicine Objective - Physical Exam Vitals and I&O: Vital Signs Temp 98.2 F 07/01/19 06:34 Pulse 70 07/01/19 08:45 Resp 20 07/01/19 06:34 BP 115/71 07/01/19 08:45 Pulse Ox 96 07/01/19 06:34 Intake & Output 06/30/19 07/01/19 07/01/19 18:59 06:59 18:59 Intake Total 700 180 Output Total 1 Balance 700 179 Intake: Oral 700 180 Output: Urine/Stool Mix 1 Other: # Voids 3 1 # Bowel Movements 6 0 Active Medications: Current Medications Acetaminophen (Tylenol) 650 mg PO Q4HR PRN PRN Reason: Mild Pain / Temp above 100 Stop: 08/27/19 17:19 Al Hydrox/Mg Hydrox/Simethicone (Maalox) 30 ml PO Q4HR PRN PRN Reason: GI DISTRESS Stop: 08/27/19 17:19 Atorvastatin Calcium (Lipitor) 20 mg PO HS ALEXANDRU; Protocol Stop: 08/27/19 20:59 Last Admin: 06/30/19 21:35 Dose: 20 mg Cholecalciferol (Vitamin D3) 1,000 iu PO DAILY ALEXANDRU Stop: 08/28/19 08:59 Last Admin: 07/01/19 08:44 Dose: 1,000 iu Cyanocobalamin (Vitamin B12) 1,000 mcg PO DAILY ALEXANDRU Stop: 08/28/19 08:59 Last Admin: 07/01/19 08:44 Dose: 1,000 mcg Donepezil HCl (Aricept) 5 mg PO HS ALEXANDRU Stop: 08/27/19 20:59 Last Admin: 06/30/19 21:36 Dose: 5 mg Levothyroxine Sodium (Synthroid) 0.15 mg PO QDAC ALEXANDRU Stop: 08/28/19 07:29 Last Admin: 07/01/19 06:39 Dose: 0.15 mg Lisinopril (Zestril) 5 mg PO DAILY ALEXANDRU Stop: 08/28/19 08:59 Last Admin: 07/01/19 08:45 Dose: 5 mg Lorazepam (Ativan) 0.5 mg PO Q6HR PRN; Protocol PRN Reason: Agitation Stop: 08/27/19 17:23 Last Admin: 07/01/19 08:45 Dose: 0.5 mg Magnesium Hydroxide (Milk Of Magnesia) 30 ml PO HS PRN PRN Reason: Constipation Multivitamins/Vitamin C (Theragran) 1 tab PO DAILY ALEXANDRU Stop: 08/28/19 08:59 Last Admin: 07/01/19 08:45 Dose: 1 tab Nitroglycerin (Nitrostat) 0.4 mg SL Q5MIN PRN PRN Reason: Chest Pain Stop: 08/27/19 20:33 Pantoprazole Sodium (Protonix) 40 mg PO QDAC ALEXANDRU Stop: 08/28/19 07:29 Last Admin: 07/01/19 06:39 Dose: 40 mg Quetiapine Fumarate (Seroquel) 100 mg PO HS ALEXANDRU; Protocol Stop: 08/27/19 20:59 Last Admin: 06/30/19 21:35 Dose: 100 mg Valproate Sodium (Depakene) 375 mg PO HS ALEXANDRU; Protocol Stop: 08/27/19 20:59 Last Admin: 06/30/19 21:35 Dose: 375 mg Zolpidem Tartrate (Ambien) 5 mg PO HS PRN PRN Reason: Insomnia Stop: 08/27/19 17:19 Last Admin: 06/29/19 01:25 Dose: 5 mg General: demented, disheveled, thin HEENT: NC/AT, PERRLA Neck: Supple, No JVD Lungs: CTAB Cardiovascular: RRR, Normal S1, Normal S2, with murmur Abdomen: soft, thin, non-distended, positive bowel sound Extremities: excoriation, contracture Neurological: no change Internal Medicine Assmt/Plan - Assessment Assessment: ASSESSMENT: Gastroesophageal reflux disease, major depressive disorder, dementia, hyperlipidemia, hypothyroidism and agitation. general debility - Plan Plan: PLAN: will provide adequate nutritional support aspiration precaution We will continue the patient's home medications. Fall precautions will be initiated. We will follow the patient along with you
[2019-07-01] MEDS: Atorvastatin Calcium 10 MG TAB PO SCH (21:04)
--- NOTE | 2019-07-01 21:04 | Progress Notes ---
DATE: 07/01/2019 PSYCHIATRIC PROGRESS NOTE SUBJECTIVE: Staff was spoken to. The patient is interviewed. Mood is noted to be irritable. Affect is constricted. The patient is still selectively mute. The patient is not providing much of information. Coping skills are noted to be extremely poor. Insight and judgment are also noted to be very much impaired. No side effects to the medications are noted. ASSESSMENT: The patient is still paranoid and superficially cooperative and has been willing to comply with the medication at this time. PLAN: To continue the patient with the supportive therapy, encouraged the patient to verbalize the concerns rather than to act out. JOB# [id number]
[2019-07-02] MEDS: Levothyroxine 0.075 Mg Tab PO SCH (06:40)
[2019-07-02] MEDS: Pantoprazole 40 mg EC Tab PO SCH (06:40)
[2019-07-02] MEDS: Multivitamin Tab PO SCH (09:06)
--- NOTE | 2019-07-02 12:28 | Internal Medicine Prog Note ---
Internal Medicine Subjective - Subjective Patient seen and examined:: with staff, chart reviewed Patient is:: awake, verbal, non-interactive, in wheelchair, denies any new complaints Per staff patient has:: no adverse event, no episodes of fall, poor appetite, tolerating meds Internal Medicine Objective - Physical Exam Vitals and I&O: Vital Signs Temp 98 F 07/02/19 06:20 Pulse 70 07/02/19 09:05 Resp 20 07/02/19 06:20 BP 113/61 07/02/19 09:05 Pulse Ox 98 07/02/19 06:20 Intake & Output 07/01/19 07/02/19 07/02/19 18:59 06:59 18:59 Intake Total 120 Balance 120 Intake: Oral 120 Other: # Voids 3 # Bowel Movements 0 Active Medications: Current Medications Acetaminophen (Tylenol) 650 mg PO Q4HR PRN PRN Reason: Mild Pain / Temp above 100 Stop: 08/27/19 17:19 Al Hydrox/Mg Hydrox/Simethicone (Maalox) 30 ml PO Q4HR PRN PRN Reason: GI DISTRESS Stop: 08/27/19 17:19 Atorvastatin Calcium (Lipitor) 20 mg PO HS ALEXANDRU; Protocol Stop: 08/27/19 20:59 Last Admin: 07/01/19 21:04 Dose: 20 mg Cholecalciferol (Vitamin D3) 1,000 iu PO DAILY ALEXANDRU Stop: 08/28/19 08:59 Last Admin: 07/02/19 09:05 Dose: 1,000 iu Cyanocobalamin (Vitamin B12) 1,000 mcg PO DAILY ALEXANDRU Stop: 08/28/19 08:59 Last Admin: 07/02/19 09:05 Dose: 1,000 mcg Donepezil HCl (Aricept) 5 mg PO HS ALEXANDRU Stop: 08/27/19 20:59 Last Admin: 07/01/19 21:05 Dose: 5 mg Levothyroxine Sodium (Synthroid) 0.15 mg PO QDAC ALEXANDRU Stop: 08/28/19 07:29 Last Admin: 07/02/19 06:40 Dose: 0.15 mg Lisinopril (Zestril) 5 mg PO DAILY ALEXANDRU Stop: 08/28/19 08:59 Last Admin: 07/02/19 09:05 Dose: 5 mg Lorazepam (Ativan) 0.5 mg PO Q6HR PRN; Protocol PRN Reason: Agitation Stop: 08/27/19 17:23 Last Admin: 07/02/19 09:07 Dose: 0.5 mg Magnesium Hydroxide (Milk Of Magnesia) 30 ml PO HS PRN PRN Reason: Constipation Multivitamins/Vitamin C (Theragran) 1 tab PO DAILY ALEXANDRU Stop: 08/28/19 08:59 Last Admin: 07/02/19 09:06 Dose: 1 tab Nitroglycerin (Nitrostat) 0.4 mg SL Q5MIN PRN PRN Reason: Chest Pain Stop: 08/27/19 20:33 Pantoprazole Sodium (Protonix) 40 mg PO QDAC ALEXANDRU Stop: 08/28/19 07:29 Last Admin: 07/02/19 06:40 Dose: 40 mg Quetiapine Fumarate (Seroquel) 100 mg PO HS ALEXANDRU; Protocol Stop: 08/27/19 20:59 Last Admin: 07/01/19 21:05 Dose: 100 mg Valproate Sodium (Depakene) 375 mg PO HS ALEXANDRU; Protocol Stop: 08/27/19 20:59 Last Admin: 07/01/19 21:03 Dose: 375 mg Zolpidem Tartrate (Ambien) 5 mg PO HS PRN PRN Reason: Insomnia Stop: 08/27/19 17:19 Last Admin: 06/29/19 01:25 Dose: 5 mg General: demented, disheveled, thin HEENT: NC/AT, PERRLA Neck: Supple, No JVD Lungs: CTAB Cardiovascular: RRR, Normal S1, Normal S2, with murmur Abdomen: soft, thin, non-distended, positive bowel sound Extremities: excoriation, contracture Neurological: no change Internal Medicine Assmt/Plan - Assessment Assessment: ASSESSMENT: Gastroesophageal reflux disease, major depressive disorder, dementia, hyperlipidemia, hypothyroidism and agitation. general debility - Plan Plan: PLAN: will provide adequate nutritional support aspiration precaution We will continue the patient's home medications. Fall precautions will be initiated. We will follow the patient along with you
[2019-07-02] MEDS: Atorvastatin Calcium 10 MG TAB PO SCH (21:12)
--- NOTE | 2019-07-03 04:43 | Progress Notes ---
DATE: 07/02/2019 PSYCHIATRIC PROGRESS NOTE SUBJECTIVE: Staff was spoken to. The patient is interviewed. Mood is noted to be irritable. Affect is constricted. The patient is reluctant to verbalize the concerns. The patient has been isolative and withdrawn. Insight and judgment are noted to be still impaired. Impulse control is noted to be limited. Coping skills are noted to be limited. The patient is currently on Seroquel 100 mg and valproic acid 375 mg at bedtime and has been able to tolerate. PLAN: To continue the patient with the current medications. I encouraged the patient to verbalize the concerns rather than to act out. JOB# [id number]
[2019-07-03] MEDS: Levothyroxine 0.075 Mg Tab PO SCH (06:41)
[2019-07-03] MEDS: Pantoprazole 40 mg EC Tab PO SCH (06:41)
[2019-07-03] MEDS: Multivitamin Tab PO SCH (08:21)
--- NOTE | 2019-07-03 12:35 | Internal Medicine Prog Note ---
Internal Medicine Subjective - Subjective Patient seen and examined:: with staff, chart reviewed Patient is:: awake, verbal, non-interactive, in wheelchair, denies any new complaints Per staff patient has:: no adverse event, no episodes of fall, poor appetite, tolerating meds Internal Medicine Objective - Physical Exam Vitals and I&O: Vital Signs Temp 98.6 F 07/03/19 06:46 Pulse 66 07/03/19 08:21 Resp 18 07/03/19 06:46 BP 122/72 07/03/19 08:21 Pulse Ox 99 07/03/19 06:46 Intake & Output 07/02/19 07/03/19 07/03/19 18:59 06:59 18:59 Intake Total 980 120 Balance 980 120 Intake: Oral 740 120 Other 240 Other: # Voids 3 2 # Bowel Movements 0 0 Active Medications: Current Medications Acetaminophen (Tylenol) 650 mg PO Q4HR PRN PRN Reason: Mild Pain / Temp above 100 Stop: 08/27/19 17:19 Al Hydrox/Mg Hydrox/Simethicone (Maalox) 30 ml PO Q4HR PRN PRN Reason: GI DISTRESS Stop: 08/27/19 17:19 Atorvastatin Calcium (Lipitor) 20 mg PO HS ALEXANDRU; Protocol Stop: 08/27/19 20:59 Last Admin: 07/02/19 21:12 Dose: 20 mg Cholecalciferol (Vitamin D3) 1,000 iu PO DAILY ALEXANDRU Stop: 08/28/19 08:59 Last Admin: 07/03/19 08:21 Dose: 1,000 iu Cyanocobalamin (Vitamin B12) 1,000 mcg PO DAILY ALEXANDRU Stop: 08/28/19 08:59 Last Admin: 07/03/19 08:21 Dose: 1,000 mcg Donepezil HCl (Aricept) 5 mg PO HS ALEXANDRU Stop: 08/27/19 20:59 Last Admin: 07/02/19 21:12 Dose: 5 mg Levothyroxine Sodium (Synthroid) 0.15 mg PO QDAC ALEXANDRU Stop: 08/28/19 07:29 Last Admin: 07/03/19 06:41 Dose: 0.15 mg Lisinopril (Zestril) 5 mg PO DAILY ALEXANDRU Stop: 08/28/19 08:59 Last Admin: 07/03/19 08:21 Dose: 5 mg Lorazepam (Ativan) 0.5 mg PO Q6HR PRN; Protocol PRN Reason: Agitation Stop: 08/27/19 17:23 Last Admin: 07/02/19 16:33 Dose: 0.5 mg Magnesium Hydroxide (Milk Of Magnesia) 30 ml PO HS PRN PRN Reason: Constipation Multivitamins/Vitamin C (Theragran) 1 tab PO DAILY ALEXANDRU Stop: 08/28/19 08:59 Last Admin: 07/03/19 08:21 Dose: 1 tab Nitroglycerin (Nitrostat) 0.4 mg SL Q5MIN PRN PRN Reason: Chest Pain Stop: 08/27/19 20:33 Pantoprazole Sodium (Protonix) 40 mg PO QDAC ALEXANDRU Stop: 08/28/19 07:29 Last Admin: 07/03/19 06:41 Dose: 40 mg Quetiapine Fumarate (Seroquel) 100 mg PO HS ALEXANDRU; Protocol Stop: 08/27/19 20:59 Last Admin: 07/02/19 21:13 Dose: 100 mg Valproate Sodium (Depakene) 375 mg PO HS ALEXANDRU; Protocol Stop: 08/27/19 20:59 Last Admin: 07/02/19 21:09 Dose: 375 mg Zolpidem Tartrate (Ambien) 5 mg PO HS PRN PRN Reason: Insomnia Stop: 08/27/19 17:19 Last Admin: 06/29/19 01:25 Dose: 5 mg General: demented, disheveled, thin HEENT: NC/AT, PERRLA Neck: Supple, No JVD Lungs: CTAB Cardiovascular: RRR, Normal S1, Normal S2, with murmur Abdomen: soft, thin, non-distended, positive bowel sound Extremities: excoriation, contracture Neurological: no change Internal Medicine Assmt/Plan - Assessment Assessment: ASSESSMENT: Gastroesophageal reflux disease, major depressive disorder, dementia, hyperlipidemia, hypothyroidism and agitation. general debility - Plan Plan: PLAN: will provide adequate nutritional support aspiration precaution We will continue the patient's home medications. Fall precautions will be initiated. We will follow the patient along with you
[2019-07-03] MEDS: Atorvastatin Calcium 10 MG TAB PO SCH (21:24)
--- NOTE | 2019-07-04 04:38 | Progress Notes ---
DATE: 07/03/2019 PSYCHIATRIC PROGRESS NOTE SUBJECTIVE: Staff was spoken to. The patient is interviewed. Mood is noted to be irritable. Affect is constricted. The patient has been still not verbalizing, but is not aggressive. The patient's coping skills are noted to be improving. No side effects to the medications are noted. The patient is being closely monitored at this time for any adverse effects to the medication. The patient is currently on 100 mg of the Seroquel at nighttime and also able to tolerate the medications. No side effects to the medications are noted. ASSESSMENT: The patient's impulsivity is coming under control. The patient's valproic acid level has been changed to 500 mg at bedtime. In view of the impulsivity, the patient is going to be followed up with the supportive therapy. JOB# [id number]
[2019-07-04] MEDS: Levothyroxine 0.075 Mg Tab PO SCH (06:58)
[2019-07-04] MEDS: Pantoprazole 40 mg EC Tab PO SCH (06:58)
[2019-07-04] MEDS: Multivitamin Tab PO SCH (08:51)
--- NOTE | 2019-07-04 12:36 | Internal Medicine Prog Note ---
Internal Medicine Subjective - Subjective Patient seen and examined:: with staff, chart reviewed Patient is:: awake, verbal, non-interactive, in wheelchair, denies any new complaints Per staff patient has:: no adverse event, no episodes of fall, poor appetite, tolerating meds Internal Medicine Objective - Physical Exam Vitals and I&O: Vital Signs Temp 98 F 07/04/19 10:48 Pulse 72 07/04/19 10:48 Resp 18 07/04/19 10:48 BP 114/55 07/04/19 10:48 Pulse Ox 96 07/04/19 10:48 Intake & Output 07/03/19 07/04/19 07/04/19 18:59 06:59 18:59 Intake Total 1200 240 Balance 1200 240 Intake: Oral 1200 240 Other: # Voids 3 2 # Bowel Movements 0 0 Active Medications: Current Medications Acetaminophen (Tylenol) 650 mg PO Q4HR PRN PRN Reason: Mild Pain / Temp above 100 Stop: 08/27/19 17:19 Al Hydrox/Mg Hydrox/Simethicone (Maalox) 30 ml PO Q4HR PRN PRN Reason: GI DISTRESS Stop: 08/27/19 17:19 Atorvastatin Calcium (Lipitor) 20 mg PO HS ALEXANDRU; Protocol Stop: 08/27/19 20:59 Last Admin: 07/03/19 21:24 Dose: 20 mg Cholecalciferol (Vitamin D3) 1,000 iu PO DAILY ALEXANDRU Stop: 08/28/19 08:59 Last Admin: 07/04/19 08:51 Dose: 1,000 iu Cyanocobalamin (Vitamin B12) 1,000 mcg PO DAILY ALEXANDRU Stop: 08/28/19 08:59 Last Admin: 07/04/19 08:51 Dose: 1,000 mcg Donepezil HCl (Aricept) 5 mg PO HS ALEXANDRU Stop: 08/27/19 20:59 Last Admin: 07/03/19 21:24 Dose: 5 mg Levothyroxine Sodium (Synthroid) 0.15 mg PO QDAC ALEXANDRU Stop: 08/28/19 07:29 Last Admin: 07/04/19 06:58 Dose: 0.15 mg Lisinopril (Zestril) 5 mg PO DAILY ALEXANDRU Stop: 08/28/19 08:59 Last Admin: 07/03/19 08:21 Dose: 5 mg Lorazepam (Ativan) 0.5 mg PO Q6HR PRN; Protocol PRN Reason: Agitation Stop: 08/27/19 17:23 Last Admin: 07/02/19 16:33 Dose: 0.5 mg Magnesium Hydroxide (Milk Of Magnesia) 30 ml PO HS PRN PRN Reason: Constipation Multivitamins/Vitamin C (Theragran) 1 tab PO DAILY ALEXANDRU Stop: 08/28/19 08:59 Last Admin: 07/04/19 08:51 Dose: 1 tab Nitroglycerin (Nitrostat) 0.4 mg SL Q5MIN PRN PRN Reason: Chest Pain Stop: 08/27/19 20:33 Pantoprazole Sodium (Protonix) 40 mg PO QDAC ALEXANDRU Stop: 08/28/19 07:29 Last Admin: 07/04/19 06:58 Dose: 40 mg Quetiapine Fumarate (Seroquel) 100 mg PO HS ALEXANDRU; Protocol Stop: 08/27/19 20:59 Last Admin: 07/03/19 21:24 Dose: 100 mg Valproate Sodium (Depakene) 500 mg PO HS ALEXANDRU; Protocol Stop: 09/01/19 20:59 Zolpidem Tartrate (Ambien) 5 mg PO HS PRN PRN Reason: Insomnia Stop: 08/27/19 17:19 Last Admin: 06/29/19 01:25 Dose: 5 mg General: demented, disheveled, thin HEENT: NC/AT, PERRLA Neck: Supple, No JVD Lungs: CTAB Cardiovascular: RRR, Normal S1, Normal S2, with murmur Abdomen: soft, thin, non-distended, positive bowel sound Extremities: excoriation, contracture Neurological: no change Internal Medicine Assmt/Plan - Assessment Assessment: ASSESSMENT: Gastroesophageal reflux disease, major depressive disorder, dementia, hyperlipidemia, hypothyroidism and agitation. general debility - Plan Plan: PLAN: will provide adequate nutritional support aspiration precaution We will continue the patient's home medications. Fall precautions will be initiated.
--- NOTE | 2019-07-04 21:17 | Discharge Summary ---
DATE OF DISCHARGE: 07/04/2019 PSYCHIATRIC DISCHARGE SUMMARY IDENTIFYING DATA: The patient is a 79-year-old male, resident of [facility]. Information obtained by directly interviewing the patient as well as reviewing the admission papers. JUSTIFICATION OF HOSPITALIZATION: The patient is admitted in view of her acute agitation and aggressive behavior. HOSPITAL COURSE AND RESPONSE TO TREATMENT: The patient has been observed on inpatient unit, provided with supportive psychotherapy. The patient had the physical examination done by Dr. Waite and blood work done at the time of the hospitalization has been reviewed by Dr. Waite. The patient's medical history is significant for multiple medical problems such as hypothyroidism, hyperlipidemia, GERD, and the patient has been started on the Seroquel that was given 100 mg and the patient also has been placed on the valproic acid 500 mg at bedtime. With these 2 medications, the patient was observed. The aggressive behavior started to come down and the patient has to comply with medications and hence the patient was finally discharged on 07/04/2019 with recommendation that he is going to be followed up by Dr. Ta on an outpatient basis. MENTAL STATUS EXAMINATION AT THE TIME OF DISCHARGE: Noted to be stable. The patient is not presenting as a threat to self or others. The patient's coping skills are noted to be improving. 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 AXIS II: None. AXIS III: Hyperlipidemia, hypothyroidism and gastroesophageal reflux disease. AFTERCARE PLAN: The patient is discharged to [facility] to be followed up on an outpatient basis. [facility]# [id number]
== END 2019-07-04 13:45 | DRG 57 ==
LOC: GERO 06-28 16:00
PROVIDERS: ADMIT Psychiatry & Neurology Psychiatry; ATTEND Psychiatry & Neurology Psychiatry
DX: G30.9 Alzheimer's disease, unspecified (principal); F02.81 Dementia in other diseases classified elsewhere, unspecified severity, with behavioral disturbance; E78.5 Hyperlipidemia, unspecified; E03.9 Hypothyroidism, unspecified; I10 Essential (primary) hypertension; K21.9 Gastro-esophageal reflux disease without esophagitis; F32.9 Major depressive disorder, single episode, unspecified
CPT/HCPCS: 83036-90; 90899; Z7610